=== PATIENT | male | born 1960 | race Caucasian/White ===

== ENCOUNTER 2019-02-07 05:52 | Emergency (ER) | payer OTHER ==
--- OUTSIDE RECORDS SUMMARY | 2019-02-07 05:56 | XMS REPORT ---
:1960 Author Organization eClinicalWorks Care Team Providers Name Role Phone Ajay Taylor Provider Role Unavailable Allergies No Known Allergies Problems Problem Type Condition Code Onset Dates Condition Status Problem Chronic back pain M54.9 Active Problem Hypertension I10 Active Problem Former smoker Z87.891 Active Problem Alcoholism /alcohol abuse F10.20 Active Problem Alcoholism F10.20 Active Problem Alcoholic cirrhosis of liver with K70.31 Active ascites Problem Atherosclerosis of [place] coronary I25.10 Active artery Problem Hyperlipidemia E78.5 Active Problem Chronic atrial fibrillation I48.2 Active Problem Chronic obstructive pulmonary J44.9 Active disease, unspecified COPD type Assessment Hypertension I10 Active Assessment Alcoholism /alcohol abuse F10.20 Active Assessment Hyperlipidemia E78.5 Active Problem H/O: CVA (cerebrovascular accident) Z86.73 Active Medications Medication Code Code Instructions Start End Date Status Dosage System Date Lactulose [facility] 53084890062 10 GM/15ML Jan 19, Active 15 ml Orally Once a 2019 day Zetia [facility] 65572744776 10 MG Active TAKE 1 TABLET BY MOUTH EVERY DAY Fenofibrate [facility] 84894540408 160 MG Orally Active 1 tablet Once a day with food Ultram [facility] 08345058341 50 MG Orally Active 1 tablet as every 6 hrs needed Plavix ND 46036139797 75 MG Orally Active 1 tablet Once a day Lisinopril-Hydr [facility] 97521661651 20-25 MG Orally Active 1 tablet ochlorothiazide Once a day ProAir [facility] 49717746761 108 (90 Base) October 19, Active 2 puffs as RespiClick MCG/ACT 2018 needed Inhalation every 6 hrs Fenofibrate [facility] 46296384405 145 MG Active TAKE 1 TABLET EVERY DAY Furosemide ND 84005387758 40 MG Orally Jan 19, Active 1 tablet Once a day 2018 Thiamine ND 17210128388 50 MG Orally Jan 19July Active 2 capsules Once a day 2018 Atorvastatin ND 95509310022 80 MG Orally Active 1 tablet Calcium Once a day Amiodarone HCl [facility] 71457245105 200 MG Orally Active 1 tablet Twice a day Symbicort [facility] 69253825768 160-4.5 MCG/ACT Active 2 puffs Inhalation Twice a day Results No Known Results Summary Purpose eClinicalWorks Submission
[2019-02-07] MEDS ORDERED: FENTANYL CITR 100 MCG/2 ML ONE (06:45)
[2019-02-07 07:17] LABS: Absolute Lymphocytes (CBC) 0.8 K/uL (0.7-4.9); Basophils % 0.7 % (0-1.3); Hematocrit 41.1 % (39.6-49.0); MPV 8.3 fL (7.6-11.3); RBC Red Blood Cell Count 4.31 M/uL (4.33-5.43)
[2019-02-07 07:30] LABS: Protime INR 0.86
[2019-02-07 07:55] LABS: ALT/SGPT 59 U/L (12-78); AST/SGOT 64 U/L (15-37); Albumin 3.9 g/dL (3.4-5.0); Alkaline Phosphatase 111 U/L (45-117); Amylase Level 96 U/L (25-115); BUN Blood Urea Nitrogen 11 mg/dL (7-18); Bicarbonate 23 mmol/L (21-32); Bilirubin Direct 0.1 mg/dL (0-0.2); Bilirubin Total 0.3 mg/dL (0.2-1.0); Glucose Level 110 mg/dL (74-106); Lipase 505 U/L (73-393); Potassium 4.2 mmol/L (3.5-5.1); Protein, Total 7.3 g/dL (6.4-8.2); Sodium Level 134 mmol/L (136-145)
--- NOTE | 2019-02-07 08:02 | RAD REPORT ---
EXAM DESCRIPTION: CT - Head C Spine Cap Wo Con - 02/07/2019 7:23 am TECHNIQUE: Computed axial tomography of the head and cervical spine was obtained. Coronal and sagitt al reconstruction was performed Computed axial tomography of the chest, abdomen and pelvis was obtained. Contrast was not requested. All CT scans are performed using dose optimization technique as appropriate and may include automated exposure control or mA/KV adjustment according to patient size. CLINICAL HISTORY: Head and neck injury with chest and abdominal pain status post fall FINDINGS: Air is present within the right orbit and right preseptal region. Blow-out fractures involve the medi al and inferior alvarez of the right orbit. An intracranial bleed is not seen. The ventricles are normal in caliber. An extra-axial fluid collection is not noted. . A cervical fracture is not seen. No dislocation is noted. The evaluation of mediastinum, mahi, vessels, solid organs and bowel are limited secondary to the lac k of contrast administration. A mediastinal hematoma is not noted. A pleural effusion is not seen. A lung contusion is not present. The liver,spleen, pancreas, adrenals,kidneys and bladder appear grossly normal. IMPRESSION: 1. No acute intracranial abnormality is seen. 2. A cervical fracture is not visualized. If the patient continues have symptoms to suggest intracran ial/spinal cord pathology MRI be recommended 3. No traumatic abnormality involving the chest/abdomen/pelvis. 4. Blow out fractures of the inferior and medial alvarez of the right orbit
--- NOTE | 2019-02-07 08:40 | RAD REPORT ---
EXAM DESCRIPTION: RAD - Foot Left 3 View - 02/07/2019 7:12 am CLINICAL HISTORY: Left Foot pain status post fall FINDINGS: No fracture or dislocation is seen.
[2019-02-07] MEDS ORDERED: CLINDAMYCIN 600MG/D5W 600 MG/50 ML BAG IV ONE (09:18)
[2019-02-07] MEDS ORDERED: MORPHINE 4 MG/ML SYR ONE (09:18)
[2019-02-07] MEDS ORDERED: DIPHENHYDRAMINE 50 MG/ML VIAL ONE (09:23)
--- NOTE | 2019-02-07 11:29 | ER ---
Nurse's Notes [facility] Name: Michael Ha Jr Age: 58 yrs Sex: Male : 1960 Arrival Date: 02/07/2019 Time: 05:54 Bed 19 Private MD: Diagnosis: Fall on same level from slipping, tripping and stumbling;Right Orbital blow out fracute -medial and inferior alvarez;Contusion of other part of head;Contusion of left foot;Alcohol abuse with intoxication;Clinical rib fracture Presentation: 02/07 05:55 Presenting complaint: EMS states: they were toned out for report of pt having fallen bb last night and the night before pt with ETOH on board pt states "I drink a lot" pt c/o right rib pain, edema to right eye, also dropped a large glass wine bottle on his left foot. Transition of care: patient was not received from another setting of care. Onset of symptoms was February 05, 2019. Risk Assessment: Do you want to hurt yourself or someone else? Patient reports no desire to harm self or others. Initial Sepsis Screen: Does the patient meet any 2 criteria? No. Patient's initial sepsis screen is negative. Does the patient have a suspected source of infection? No. Patient's initial sepsis screen is negative. Care prior to arrival: None. 05:55 Method Of Arrival: EMS: [facility] bb 05:55 Acuity: JOEY 3 bb Triage Assessment: 06:00 General: Appears in no apparent distress. uncomfortable, Behavior is calm, cooperative, cc3 appropriate for age. 06:00 Pain: Complains of pain in right rib. EENT: Eyes right eye swelling. 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 Full function Speech is normal, Facial symmetry appears normal, Pupils are PERRLA, Intact. Cardiovascular: Denies chest pain, Heart tones S1 S2 present Capillary refill < 3 seconds Patient's skin is warm and dry. Respiratory: Airway is patent Respiratory effort is even, unlabored, Respiratory pattern is regular, symmetrical. GI: Abdomen is round non-distended. : No signs and/or symptoms were reported regarding the genitourinary system. Derm: Skin is intact, is healthy with good turgor, Skin is pink, warm \\T\\ dry. normal. Musculoskeletal: Circulation, motion, and sensation intact. Range of motion: intact in all extremities. Historical: - Allergies: 05:58 PENICILLINS; bb - Home Meds: 05:58 unable to obtain [Active]; bb - PMHx: 05:58 Hypertension; Myocardial infarction; CVA; Deaf; CAD; bb - PSHx: 05:58 Heart stents; Carotid surgery; Hernia repair; bb - Immunization history:: Adult Immunizations unknown. - Social history:: Smoking status: unknown Patient uses alcohol, patient/guardian reports chronic longstanding heavy alcohol consumption. patient/guardian reports recent binge of alcohol consumption. - Ebola Screening: : No symptoms or risks identified at this time. Screenin:00 Abuse screen: Denies threats or abuse. Denies injuries from another. Nutritional cc3 screening: No deficits noted. Tuberculosis screening: No symptoms or risk factors identified. Fall Risk Ambulatory Aid- None/Bed Rest/Nurse Assist (0 pts). Gait- Normal/Bed Rest/Wheelchair (0 pts) Mental Status- Oriented to own ability (0 pts). Assessment: 06:00 General: see triage assessment. cc3 07:15 Reassessment: Patient appears in no apparent distress at this time. Patient and/or ph family updated on plan of care and expected duration. Pain level reassessed. Pt taken to CT via stretcher. 08:30 Reassessment: Patient appears in no apparent distress at this time. Patient and/or ph family updated on plan of care and expected duration. Pain level reassessed. Patient is alert, oriented x 3, equal unlabored respirations, skin warm/dry/pink. 09:15 Reassessment: Patient appears in no apparent distress at this time. Patient and/or ph family updated on plan of care and expected duration. Pain level reassessed. Patient is alert, oriented x 3, equal unlabored respirations, skin warm/dry/pink. 10:19 Reassessment: Patient appears in no apparent distress at this time. Patient and/or ph family updated on plan of care and expected duration. Pain level reassessed. Patient is alert, oriented x 3, equal unlabored respirations, skin warm/dry/pink. 10:47 Reassessment: Patient appears in no apparent distress at this time. Patient and/or ph family updated on plan of care and expected duration. Pain level reassessed. Patient is alert, oriented x 3, equal unlabored respirations, skin warm/dry/pink. Awaiting ride home, pt states, " I called my friend and he's going to finish eating and then come get me". 11:26 Reassessment: Patient appears in no apparent distress at this time. Patient and/or ph family updated on plan of care and expected duration. Pain level reassessed. Patient is alert, oriented x 3, equal unlabored respirations, skin warm/dry/pink. Pt d/c home w/ friend, instructed to follow up w/ ENT and PCP. Vital Signs: 05:58 BP 133 / 99; Pulse 56; Resp 16 S; Temp 98(O); Pulse Ox 100% on R/A; Weight 75.75 kg bb (R); Height 5 ft. 6 in. (167.64 cm) (R); Pain 10/10; 07:30 BP 147 / 85; Pulse 59; Resp 17; Temp 97.6(TE); Pulse Ox 99% ; mh5 08:30 BP 142 / 85; Pulse 61; Resp 18; Temp 97.5(TE); Pulse Ox 100% on 2 lpm NC; mh5 09:28 BP 147 / 84; Pulse 64; Resp 18; Temp 97.9(TE); Pulse Ox 98.% on 2 lpm NC; mh5 10:48 BP 134 / 79; Pulse 62; Resp 18; Temp 98.0; Pulse Ox 99% on 2 lpm NC; ph 05:58 Body Mass Index 26.95 (75.75 kg, 167.64 cm) bb ED Course: 05:54 Patient arrived in ED. ag3 05:56 Jannette Arellano is Primary Nurse. cc3 05:57 Triage completed. bb 05:58 Arm band placed on Patient placed in an exam room, on a stretcher, on pulse oximetry. bb 06:00 Patient has correct armband on for positive identification. Placed in gown. Bed in low cc3 position. Call light in reach. Side rails up X2. seo coordinator on. Pulse ox on. NIBP on. 06:07 [facility]eli Bobby F[facility]-C [facility]. snw 06:07 Sonu Garcia MD is Attending Physician. snw 06:54 Radiology exam delayed due to IV and labs being done at this time. kw1 07:00 Inserted saline lock: 20 gauge in right hand, using aseptic technique. Blood collected. cc3 inserted by LAUREEN Beach. 07:05 Report given to LAUREEN BORRERO. cc3 07:20 Anh Ledbetter RN is Primary Nurse. ph 07:37 CT Traumagram (Head C Spine CAP wo con) In Process Unspecified. EDMS 07:38 Foot Left 3 View XRAY In Process Unspecified. EDMS 10:23 Riana Alaniz MD is Referral Physician. snw 10:23 Ajay Taylor MD is Referral Physician. snw 10:48 No provider procedures requiring assistance completed. ph 11:27 IV discontinued, intact, bleeding controlled, No redness/swelling at site. Pressure ph dressing applied. Administered Medications: 07:05 Drug: fentaNYL (PF) 25 mcg Route: IVP; Site: right hand; cc3 07:30 Follow up: Response: No adverse reaction; Pain is decreased; RASS: Drowsy (-1) ph 09:15 Drug: morphine 4 mg Route: IVP; Site: right hand; ph 09:20 Follow up: Response: Adverse reaction, Physician notified ph 09:26 Drug: Clindamycin 600 mg Route: IVPB; Infused Over: 30 mins; Site: right hand; ph 10:00 Follow up: Response: No adverse reaction; IV Status: Completed infusion ph 09:26 Drug: Benadryl 12.5 mg Route: IVP; Site: right hand; ph 10:21 Follow up: Response: No adverse reaction ph Outcome: 10:23 Discharge ordered by MD. snw 11:27 Discharged to home via wheelchair, with friend. ph 11:27 Condition: good 11:27 Discharge instructions given to patient, Instructed on discharge instructions, follow up and referral plans. medication usage, Demonstrated understanding of instructions, follow-up care, medications, Prescriptions given X 2. 11:27 Patient left the ED. ph Signatures: Dispatcher [employer] EDMS Nayeli Bobby, ENGINEERING LIBRARIAN-C ENGINEERING LIBRARIAN-Csnw Criss Barboza RN RN bb Hall, Patricia, RN RN Sherly Johnson [facility] Allyssa Shoemaker kw1 Jannette Arellano cc3 Jurgen Veronica ag3
--- NOTE | 2019-02-07 11:30 | EDPHYS ---
Physician Documentation [facility] Name: Michael Ha Jr Age: 58 yrs Sex: Male : 1960 Arrival Date: 02/07/2019 Time: 05:54 Bed 19 Private MD: ED Physician Sonu Garcia HPI: 02/07 10:24 This 58 yrs old Male presents to ER via EMS with complaints of fall. snw 06:28 Trauma demographics: County: [place] injury occurred in [place] Location of Injury: The snw injury occurred at home, Date: February 06, 2019. Mechanism of injury: Fall: the patient fell from a standing position. Associated injuries: The patient sustained injury to the head, injury to the chest, left foot, painful injury, swelling. Onset: The symptoms/episode began/occurred suddenly, yesterday. It is unknown whether or not the patient has had similar symptoms in the past. It is unknown whether or not the patient has recently seen a physician. +ETOH abuse. Historical: - Allergies: 05:58 PENICILLINS; bb - Home Meds: 05:58 unable to obtain [Active]; bb - PMHx: 05:58 Hypertension; Myocardial infarction; CVA; Deaf; CAD; bb - PSHx: 05:58 Heart stents; Carotid surgery; Hernia repair; bb - Immunization history:: Adult Immunizations unknown. - Social history:: Smoking status: unknown Patient uses alcohol, patient/guardian reports chronic longstanding heavy alcohol consumption. patient/guardian reports recent binge of alcohol consumption. - Ebola Screening: : No symptoms or risks identified at this time. ROS: 06:28 ENT: Negative for injury, pain, and discharge, Neck: Negative for injury, pain, and snw swelling, Cardiovascular: Negative for chest pain, palpitations, and edema, Abdomen/GI: Negative for abdominal pain, nausea, vomiting, diarrhea, and constipation, Back: Negative for injury and pain, : Negative for injury, bleeding, discharge, and swelling, Skin: Negative for injury, rash, and discoloration, Neuro: Negative for headache, weakness, numbness, tingling, and seizure. 06:28 Constitutional: Positive for body aches, malaise. 06:28 Eyes: Positive for swelling, of the right upper eyelid, right outer canthus and right inner canthus. 06:28 Respiratory: Positive for pleurisy, of the right lateral anterior chest. 06:28 MS/extremity: Positive for injury or acute deformity, contusion, swelling, tenderness, of the dorsum of left foot. Exam: 06:28 ENT: Nares patent. No nasal discharge, no septal abnormalities noted. Tympanic snw membranes are normal and external auditory canals are clear. Oropharynx with no redness, swelling, or masses, exudates, or evidence of obstruction, uvula midline. Mucous membranes moist. 06:28 Neck: Trachea midline, no thyromegaly or masses palpated, and no cervical lymphadenopathy. Supple, full range of motion without nuchal rigidity, or vertebral point tenderness. No Meningismus. 06:28 Cardiovascular: Regular rate and rhythm with a normal S1 and S2. No gallops, murmurs, or rubs. Normal PMI, no JVD. No pulse deficits. 06:28 Abdomen/GI: Soft, non-tender, with normal bowel sounds. No distension or tympany. No guarding or rebound. No evidence of tenderness throughout. Back: No spinal tenderness. No costovertebral tenderness. Full range of motion. Skin: Warm, dry with normal turgor. Normal color with no rashes, no lesions, and no evidence of cellulitis. Neuro: Awake and alert, GCS 15, oriented to person, place, time, and situation. Cranial nerves II-XII grossly intact. Motor strength 5/5 in all extremities. Sensory grossly intact. Cerebellar exam normal. Normal gait. Psych: Awake, alert, with orientation to person, place and time. Behavior, mood, and affect are within normal limits. 06:28 Constitutional: The patient appears alert, awake, smells of alcohol, ETOH, unkempt. 06:28 Eyes: Periorbital structures: swelling, that is moderate, that is marked, on the right upper eyelid, medial canthus of right eye, lateral canthus of right eye and right lower eyelid, ecchymosis, that is moderate, Extraocular movements: no acute changes. 06:28 Chest/axilla: Inspection: normal, Palpation: tenderness, that is moderate, that is severe, of the right lateral anterior chest. 06:28 Respiratory: the patient does not display signs of respiratory distress, Respirations: shallow respirations, splinting, Breath sounds: wheezing: that is moderate, is heard diffusely, breath sounds more diminished on the right. 06:28 Musculoskeletal/extremity: ROM: limited passive range of motion due to pain, Circulation is intact in all extremities. the dorsum of left foot Sensation intact. Vital Signs: 05:58 BP 133 / 99; Pulse 56; Resp 16 S; Temp 98(O); Pulse Ox 100% on R/A; Weight 75.75 kg bb (R); Height 5 ft. 6 in. (167.64 cm) (R); Pain 10/10; 07:30 BP 147 / 85; Pulse 59; Resp 17; Temp 97.6(TE); Pulse Ox 99% ; mh5 08:30 BP 142 / 85; Pulse 61; Resp 18; Temp 97.5(TE); Pulse Ox 100% on 2 lpm NC; mh5 09:28 BP 147 / 84; Pulse 64; Resp 18; Temp 97.9(TE); Pulse Ox 98.% on 2 lpm NC; mh5 10:48 BP 134 / 79; Pulse 62; Resp 18; Temp 98.0; Pulse Ox 99% on 2 lpm NC; ph 05:58 Body Mass Index 26.95 (75.75 kg, 167.64 cm) bb MDM: 06:07 Patient medically screened. snw 10:23 Data reviewed: vital signs, nurses notes, EMS record, lab test result(s), radiologic snw studies. Data interpreted: Pulse oximetry: is 98 %. Interpretation: normal. Counseling: I had a detailed discussion with the patient and/or guardian regarding: the historical points, exam findings, and any diagnostic results supporting the discharge/admit diagnosis, the presence of at least one elevated blood pressure reading (>120/80) during this emergency department visit, lab results, radiology results, the need for outpatient follow up, to return to the emergency department if symptoms worsen or persist or if there are any questions or concerns that arise at home, smoking cessation. Response to treatment: the patient's symptoms have mildly improved after treatment. Special discussion: I have referred the patient to see his PCP for further evaluation of high blood pressure. Based on the patient's history, exam and DX evaluation, there is no indication for emergent intervention or inpatient TX. It is understood by the patient/guardian that if the SXs persist or worsen they need to return immediately for re-evaluation. I discussed in detail with the patient the higher chance of wound infection based on his presenting history. Based on the history and exam findings, there is no indication for further emergent testing or inpatient evaluation. I discussed with the patient/guardian the need to see the ENT specialist for further evaluation of the symptoms. I discussed with the patient/guardian the need to see the primary care provider for further evaluation of the symptoms. 02/07 06:22 Order name: Amylase, Serum snw 02/07 06:22 Order name: Basic Metabolic Panel snw 02/07 06:22 Order name: CBC with Diff snw 02/07 06:22 Order name: Creatinine for Radiology; Complete Time: 08:09 snw 02/07 06:22 Order name: ETOH Level snw 02/07 06:22 Order name: Hepatic Function snw 02/07 06:22 Order name: Lipase snw 02/07 06:22 Order name: Acetaminophen snw 02/07 06:22 Order name: PT-INR snw 02/07 06:22 Order name: Ptt, Activated snw 02/07 06:22 Order name: Salicylate snw 02/07 07:24 Order name: CBC with Automated Diff; Complete Time: 07:31 EDMS 02/07 06:22 Order name: CT Traumagram (Head C Spine CAP wo con); Complete Time: 08:36 snw 02/07 06:22 Order name: EKG - Nurse/Tech; Complete Time: 06:41 snw 02/07 06:22 Order name: IV Saline Lock; Complete Time: 07:04 snw 02/07 06:22 Order name: Labs collected and sent; Complete Time: 07:09 snw 02/07 06:22 Order name: NPO; Complete Time: 07:04 snw 02/07 06:22 Order name: Foot Left 3 View XRAY; Complete Time: 09:55 snw 02/07 06:36 Order name: INCENTIVE SPIROMETRY snw 02/07 07:34 Order name: Protime (+INR) EDMS 02/07 07:34 Order name: PTT, Activated Partial Thromb EDMS 02/07 09:48 Order name: EKG Electrocardiogram EDMS 02/07 06:22 Order name: O2 Per Protocol; Complete Time: 06:24 snw 02/07 06:22 Order name: O2 Sat Monitoring; Complete Time: 06:24 snw 02/07 06:23 Order name: Wound dressing; Complete Time: 09:47 snw 02/07 06:23 Order name: Wound Care; Complete Time: 07:03 snw Administered Medications: 07:05 Drug: fentaNYL (PF) 25 mcg Route: IVP; Site: right hand; cc3 07:30 Follow up: Response: No adverse reaction; Pain is decreased; RASS: Drowsy (-1) ph 09:15 Drug: morphine 4 mg Route: IVP; Site: right hand; ph 09:20 Follow up: Response: Adverse reaction, Physician notified ph 09:26 Drug: Clindamycin 600 mg Route: IVPB; Infused Over: 30 mins; Site: right hand; ph 10:00 Follow up: Response: No adverse reaction; IV Status: Completed infusion ph 09:26 Drug: Benadryl 12.5 mg Route: IVP; Site: right hand; ph 10:21 Follow up: Response: No adverse reaction ph Disposition: 02/07/19 10:23 Discharged to Home. Impression: Fall on same level from slipping, tripping and stumbling, Right Orbital blow out fracute -medial and inferior alvarez, Contusion of other part of head, Contusion of left foot, Alcohol abuse with intoxication, Clinical rib fracture. - Condition is Stable. - Discharge Instructions: Alcohol Intoxication, Contusion, Alcohol Use Disorder, Foot Sprain, Head Injury, Adult, Fall Prevention in the Home, Alcohol Abuse and Nutrition, Orbital Floor Fracture Without Entrapment. - Prescriptions for Clindamycin HCl 300 mg Oral Capsule - take 1 capsule by ORAL route every 8 hours for 10 days; 30 capsule. Tylenol- Codeine #3 300-30 mg Oral Tablet - take 2 tablets by ORAL route every 6 hours As needed; 16 tablet. - Medication Reconciliation Form, Thank You Letter, Antibiotic Education, Prescription Opioid Use form. - Follow up: Emergency Department; When: As needed; Reason: Worsening of condition. Follow up: Riana Alaniz; When: 5 - 6 days; Reason: Recheck today's complaints, Continuance of care, Re-evaluation by your physician. Follow up: Ajay Taylor; When: 2 - 3 days; Reason: Recheck today's complaints, Continuance of care, Re-evaluation by your physician. - Notes: No nose blowing until cleared by Dr. Alaniz/ENT Signatures: Dispatcher [employer] EDMS Nayeli Bobby, PRIVATE WEALTH ADVISOR-C PRIVATE WEALTH ADVISOR-Csnw Criss Barboza, RN RN Sherly Hernandez ms Anh Ledbetter RN RN Adan, Jannette cc3 Corrections: (The following items were deleted from the chart) 10:46 07:24 Labs - recollect needed ordered. ms iw 11:27 10:23 02/07/2019 10:23 Discharged to Home. Impression: Fall on same level from slipping, tripping and stumbling; Right Orbital blow out fracute -medial and inferior alvarez; Contusion of other part of head; Contusion of left foot; Alcohol abuse with intoxication; Clinical rib fracture. Condition is Stable. Discharge Instructions: Alcohol Intoxication, Contusion, Alcohol Use Disorder, Foot Sprain, Head Injury, Adult, Fall Prevention in the Home, Alcohol Abuse and Nutrition, Orbital Floor Fracture Without Entrapment. Prescriptions for Clindamycin HCl 300 mg Oral Capsule - take 1 capsule by ORAL route every 8 hours for 10 days; 30 capsule, Tylenol-Codeine #3 300-30 mg Oral Tablet - take 2 tablets by ORAL route every 6 hours As needed; 16 tablet. and Forms are Medication Reconciliation Form, Thank You Letter, Antibiotic Education, Prescription Opioid Use. Follow up: Emergency Department; When: As needed; Reason: Worsening of condition. Follow up: Riana Alaniz; When: 5 - 6 days; Reason: Recheck today's complaints, Continuance of care, Re-evaluation by your physician. Follow up: Ajay Taylor; When: 2 - 3 days; Reason: Recheck today's complaints, Continuance of care, Re-evaluation by your physician. snw
--- NOTE | 2019-02-07 11:32 | EKG ---
Test Date: 2019-02-07 Test Time: 06:36:27 Crystalizer Operator: ИВАН MEASUREMENT RESULTS: Intervals: Rate: 64 NV: 230 QRSD: 80 QT: 412 QTc: 425 [place]: P: 71 NV: 230 QRS: -18 T: 45 INTERPRETIVE STATEMENTS: Sinus rhythm with 1st degree AV block Low voltage QRS Cannot rule out Anterior infarct, age undetermined Abnormal ECG Compared to ECG 12/24/2016 09:19:10 Low QRS voltage now present Myocardial infarct finding now present Sinus bradycardia no longer present Right-axis deviation no longer present ST (T wave) deviation no longer present Electronically Signed On 02-07-19 11:30:41 CDT by Rivera Mason
[2019-02-07 12:04] VITALS: BP 134/79; TEMP 98; O2SAT 99
== END 2019-02-07 11:27 | disposition home or self-care (01) ==
LOC: ER 05:52
DX: S02.31XA Fracture of orbital floor, right side, initial encounter for closed fracture (principal); S22.39XA Fracture of one rib, unspecified side, initial encounter for closed fracture; S90.32XA Contusion of left foot, initial encounter; F10.129 Alcohol abuse with intoxication, unspecified; W01.0XXA Fall on same level from slipping, tripping and stumbling without subsequent striking against object, initial encounter; Y93.9 Activity, unspecified; Y92.9 Unspecified place or not applicable; Z88.0 Allergy status to penicillin; Z95.818 Presence of other cardiac implants and grafts; I10 Essential (primary) hypertension; I25.2 Old myocardial infarction
CPT/HCPCS: 96365; 93005; 85025; 80048; 36415; 80320; 82150; 80329 ×2; 85610; 80076; 85730; 83690; 70450; 71250; 72125; 73630; 96375; 99285; J3010

== ENCOUNTER 2019-02-21 07:20 | Emergency (ER) | payer OTHER ==
[2019-02-21] MEDS ORDERED: MORPHINE 4 MG/ML SYR ONE (07:56)
[2019-02-21] MEDS ORDERED: ONDANSETRON 4 MG/2 ML VIAL ONE (07:56)
[2019-02-21 08:36] LABS: Absolute Lymphocytes (CBC) 0.9 K/uL (0.7-4.9); Basophils % 0.6 % (0-1.3); Hematocrit 40.4 % (39.6-49.0); Lymphocytes % 15.4 % (15.3-44.8); MPV 7.8 fL (7.6-11.3); RBC Red Blood Cell Count 4.21 M/uL (4.33-5.43)
[2019-02-21 08:37] LABS: Protime INR 0.92
[2019-02-21 08:46] LABS: ALT/SGPT 34 U/L (12-78); AST/SGOT 36 U/L (15-37); Albumin 3.8 g/dL (3.4-5.0); Alkaline Phosphatase 116 U/L (45-117); BUN Blood Urea Nitrogen 11 mg/dL (7-18); Bicarbonate 28 mmol/L (21-32); Bilirubin Direct < 0.1 mg/dL (0-0.2); Bilirubin Total 0.4 mg/dL (0.2-1.0); Glucose Level 103 mg/dL (74-106); Potassium 4.3 mmol/L (3.5-5.1); Protein, Total 7.4 g/dL (6.4-8.2); Sodium Level 133 mmol/L (136-145); Troponin (Emerg Dept Use Only) < 0.02 ng/mL (0.0-0.045)
--- NOTE | 2019-02-21 14:02 | RAD REPORT ---
EXAM DESCRIPTION: RAD CHEST PA & LAT 2-VIEW CLINICAL HISTORY: Right side fall and chest pain. COMPARISON: 03/09/2018 TECHNIQUE: Two-view chest. FINDINGS: Several mildly displaced right sided rib lateral fractures are seen. Notable involving ribs number 5, 6 and 8. Underlying pneumothorax is not visualized by plain radiograph. Moderate levoscoliosis of the thoracolumbar spine is noted. The heart is normal in size. IMPRESSION: Multiple mildly displaced lateral right rib fractures.
--- NOTE | 2019-02-21 15:03 | ER ---
Nurse's Notes [facility] [place] Name: Michael Ha Jr Age: 58 yrs Sex: Male : 1960 Arrival Date: 02/21/2019 Time: 07:23 Bed External Waiting [facility] MD: Ajay Taylor Diagnosis: Multiple fractures of ribs, right side Presentation: 02/21 07:42 Presenting complaint: Patient states: i fell 2 weeks ago and am having bad RIGHT rib tw2 pain and also since then bright red blood in my stools, i need something for the pain and to help me go to sleep. Transition of care: patient was not received from another setting of care. Onset of symptoms was February 21, 2019. Risk Assessment: Do you want to hurt yourself or someone else? Patient reports no desire to harm self or others. Initial Sepsis Screen: Does the patient meet any 2 criteria? No. Patient's initial sepsis screen is negative. Does the patient have a suspected source of infection? No. Patient's initial sepsis screen is negative. Care prior to arrival: None. 07:42 Method Of Arrival: Ambulatory tw2 07:42 Acuity: JOEY 3 tw2 Historical: - Allergies: 19:19 PENICILLINS; tw2 - PMHx: 19:19 CAD; CVA; Deaf; Hypertension; Myocardial infarction; tw2 - Immunization history:: Adult Immunizations. - Social history:: Smoking status: . - Family history:: not pertinent. - Ebola Screening: : Patient denies travel to an Ebola-affected area in the 21 days before illness onset. - Hospitalizations: : No recent hospitalization is reported. Screenin:26 Abuse screen: Denies threats or abuse. Nutritional screening: No deficits noted. tw2 Tuberculosis screening: No symptoms or risk factors identified. Fall Risk None identified. Assessment: 07:35 General: Appears in no apparent distress. unkempt, Behavior is calm, cooperative, tw2 appropriate for age. Pain: Complains of pain in RIGHT rib area. Neuro: Level of Consciousness is awake, alert, obeys commands, Oriented to person, place, time, situation. Cardiovascular: Heart tones S1 S2 Patient's skin is warm and dry. Respiratory: Airway is patent Respiratory effort is even, unlabored, Respiratory pattern is regular, symmetrical, Breath sounds are clear bilaterally. GI: No signs and/or symptoms were reported involving the gastrointestinal system. Abdomen is round non-distended, Bowel sounds present X 4 quads. GI: Reports bloody stool. : No signs and/or symptoms were reported regarding the genitourinary system. EENT: No signs and/or symptoms were reported regarding the EENT system. Derm: No signs and/or symptoms reported regarding the dermatologic system. Musculoskeletal: Reports pain in RIGHT rib area. 08:00 Reassessment: pt given Zofran 4 mg IV and Morphine 4 mg IV at this time. tw2 08:24 Reassessment: No changes from previously documented assessment. Patient and/or family tw2 updated on plan of care and expected duration. Pain level reassessed. Patient is alert, oriented x 3, equal unlabored respirations, skin warm/dry/pink. 09:24 Reassessment: No changes from previously documented assessment. Patient and/or family tw2 updated on plan of care and expected duration. Pain level reassessed. Patient is alert, oriented x 3, equal unlabored respirations, skin warm/dry/pink. 10:38 Reassessment: Patient appears in no apparent distress at this time. No changes from tw2 previously documented assessment. Patient and/or family updated on plan of care and expected duration. Pain level reassessed. Patient is alert, oriented x 3, equal unlabored respirations, skin warm/dry/pink. 10:39 Reassessment: pt states pain medicine has helped, RASS 0. tw2 11:08 Reassessment: Patient appears in no apparent distress at this time. Patient and/or tw2 family updated on plan of care and expected duration. Pain level reassessed. Patient is alert, oriented x 3, equal unlabored respirations, skin warm/dry/pink. Vital Signs: 07:43 BP 147 / 90; Pulse 71; Resp 18; Temp 97.9(TE); Pulse Ox 98% on R/A; Weight 77.11 kg tw2 (R); Height 5 ft. 6 in. (167.64 cm); Pain 1010; 08:24 BP 163 / 101; Pulse 74; Resp 17; Pulse Ox 98% on R/A; tw2 09:24 BP 143 / 91; Pulse 68; Resp 17; Pulse Ox 98% on R/A; tw2 10:38 BP 147 / 85; Pulse 75; Resp 17; Pulse Ox 99% on R/A; tw2 11:08 BP 145 / 88; Pulse 74; Resp 17; Pulse Ox 98% on R/A; tw2 07:43 Body Mass Index 27.44 (77.11 kg, 167.64 cm) tw2 ED Course: 07:23 Patient arrived in ED. as 07:23 Ajay Taylor MD is Private Physician. as 07:35 Bed in low position. Call light in reach. tw2 07:37 Alejandra Barakat RN is Primary Nurse. tw2 07:43 Triage completed. tw2 07:43 Sonu Garcia MD is Attending Physician. rn 07:43 Arm band placed on. tw2 07:58 Inserted saline lock: 22 gauge in right forearm, using aseptic technique. Blood tw2 collected. 10:58 Ajay Taylor MD is Referral Physician. rn 11:21 No provider procedures requiring assistance completed. IV discontinued, intact, tw2 bleeding controlled, No redness/swelling at site. Pressure dressing applied. Administered Medications: No medications were administered Outcome: 10:58 Discharge ordered by . rn 11:20 Discharged to home via wheelchair. tw2 11:20 Condition: stable 11:20 Discharge instructions given to patient, Instructed on discharge instructions, follow up and referral plans. no drinking with medication, no driving heavy equipment, medication usage, Incentive spirometer Demonstrated understanding of instructions, follow-up care, medications, incentive spirometer use 10x each hour pt is awake Prescriptions given X 2. 11:20 Patient left the ED. iw Signatures: Cathryn Johnson Irene, RN RN iw Sonu Garcia MD MD rn Wise, Tara, RN RN tw2 Corrections: (The following items were deleted from the chart) 13:59 13:58 Patient left the ED. iw iw
--- NOTE | 2019-02-21 15:03 | EDPHYS ---
Physician Documentation [facility] Name: Michael Ha Jr Age: 58 yrs Sex: Male : 1960 Arrival Date: 02/21/2019 Time: 07:23 Bed External Waiting Private MD: Ajay Taylor ED Physician Sonu Garcia HPI: 02/21 07:53 This 58 yrs old Male presents to ER via Ambulatory with complaints of Rib rn Pain, Rectal Bleeding. 07:54 The patient or guardian reports chest pain that is located primarily in the anterior rn chest wall. Onset: The symptoms/episode began/occurred 2 week(s) ago. The pain does not radiate. Associated signs and symptoms: Pertinent positives: None. Pertinent negatives: abdominal pain, diaphoresis, lower extremity swelling, palpitations, shortness of breath, syncope, vomiting. The chest pain is described as sharp, stabbing. Duration: The patient or guardian reports multiple episodes, that are intermittent. Modifying factors: The symptoms are alleviated by nothing. the symptoms are aggravated by deep breath, movement, palpation of area. Severity of pain: At its worst the pain was moderate in the emergency department the pain is unchanged. The patient has not experienced similar symptoms in the past. REports fell 2 weeks ago, struck right side of chest on table, has had pain since then, seen here and states negative imaging, no broken rib or injured lung. No fever. NO new cough. No new trauma. Reports ran out of tylenol#3 and pain is getting worse because of that. Also reports small amount of rectal bleeding, bright red, with bowel movements and when wiping. On blood thinner. . Historical: - Allergies: 19:19 PENICILLINS; tw2 - PMHx: 19:19 CAD; CVA; Deaf; Hypertension; Myocardial infarction; tw2 - Immunization history:: Adult Immunizations. - Social history:: Smoking status: . - Family history:: not pertinent. - Ebola Screening: : Patient denies travel to an Ebola-affected area in the 21 days before illness onset. - Hospitalizations: : No recent hospitalization is reported. ROS: 07:56 Constitutional: Negative for fever, chills, and weight loss, Eyes: Negative for injury, rn pain, redness, and discharge, Neck: Negative for injury, pain, and swelling, Cardiovascular: Negative for palpitations, and edema, Respiratory: Negative for shortness of breath, wheezing Abdomen/GI: Negative for abdominal pain, nausea, vomiting, diarrhea, and constipation, MS/Extremity: Negative for injury and deformity, Skin: Negative for injury, rash, and discoloration, Neuro: Negative for headache, weakness, numbness, tingling, and seizure. Exam: 07:56 Constitutional: This is a well developed, well nourished patient who is awake, alert, rn holding right side of chest Head/Face: Normocephalic, atraumatic. ENT: MMM Cardiovascular: Regular rate and rhythm. No pulse deficits. Respiratory: Diminished breath sounds right lung base, no wheezing Abdomen/GI: soft, non-tender, non-distended MS/ Extremity: Pulses equal, no cyanosis. Neurovascular intact. Full, normal range of motion. Equal circumference. Neuro: Awake and alert, GCS 15, oriented to person, place, time, and situation. Cranial nerves II-XII grossly intact. 08:17 ECG was reviewed by the Attending Physician. rn Vital Signs: 07:43 BP 147 / 90; Pulse 71; Resp 18; Temp 97.9(TE); Pulse Ox 98% on R/A; Weight 77.11 kg tw2 (R); Height 5 ft. 6 in. (167.64 cm); Pain 10/10; 08:24 BP 163 / 101; Pulse 74; Resp 17; Pulse Ox 98% on R/A; tw2 09:24 BP 143 / 91; Pulse 68; Resp 17; Pulse Ox 98% on R/A; tw2 10:38 BP 147 / 85; Pulse 75; Resp 17; Pulse Ox 99% on R/A; tw2 11:08 BP 145 / 88; Pulse 74; Resp 17; Pulse Ox 98% on R/A; tw2 07:43 Body Mass Index 27.44 (77.11 kg, 167.64 cm) tw2 MDM: 07:43 Patient medically screened. rn 10:56 Differential diagnosis: Chest Wall Contusion Chest Wall Injury Pneumothorax Rib rn Fracture. Data reviewed: vital signs, nurses notes, lab test result(s), EKG, radiologic studies, CT scan, plain films, and as a result, I will discharge patient. Counseling: I had a detailed discussion with the patient and/or guardian regarding: the historical points, exam findings, and any diagnostic results supporting the discharge/admit diagnosis, lab results, radiology results, the need for outpatient follow up, to return to the emergency department if symptoms worsen or persist or if there are any questions or concerns that arise at home. Response to treatment: the patient's symptoms have mildly improved after treatment, and as a result, I will discharge patient. Special discussion: Based on the patient's history, exam, and Dx evaluation, there is no indication for emergent intervention or inpatient Tx. It is understood by the patient/guardian that if the Sx's persist or worsen they need to return immediately for re-evaluation. I discussed with the patient/guardian in detail that at this point there is no indication for admission to the hospital. It is understood, however, that if the symptoms persist or worsen the patient needs to return immediately for re-evaluation. ED course: Pt improved, 2 week old injury with multiple rib fractures, no acute findings on ct abdomen to explain rectal bleeding, normal hemoglobin, normal BP, will dc home with pcp f/u. Return precautions given rectal bleeding, told him to avoid NSAIDs and OTC meds for pain given already on blood thinners. . EC:17 Rate is 71 beats/min. Rhythm is regular. QRS [place] is Normal. DE interval is normal. QRS rn interval is normal. QT interval is normal. No Q waves. T waves are Normal. No ST changes noted. Clinical impression: NSR w/ Non-specific ST/T Changes. Interpreted by me. Reviewed by me. Administered Medications: No medications were administered Disposition: 02/21/19 10:58 Discharged to Home. Impression: Multiple fractures of ribs, right side. - Condition is Stable. - Discharge Instructions: Gastrointestinal Bleeding, Rib Fracture. - Prescriptions for Tylenol- Codeine #3 300-30 mg Oral Tablet - take 1 tablet by ORAL route every 6 hours As needed; 20 tablet. Cyclobenzaprine 10 mg Oral Tablet - take 1 tablet by ORAL route every 8 hours As needed; 20 tablet. - Medication Reconciliation Form, Thank You Letter, Antibiotic Education, Prescription Opioid Use form. - Follow up: Ajay Taylor MD; When: 1 - 2 days; Reason: Recheck today's complaints, Re-evaluation by your physician. - Problem is an ongoing problem. - Symptoms have improved. Signatures: Nicky Alcantara RN RN iw Sonu Garcia MD MD rn Wise, Tara, RN RN tw2 Corrections: (The following items were deleted from the chart) 13:58 10:58 02/21/2019 10:58 Discharged to Home. Impression: Multiple fractures of ribs, iw right side. Condition is Stable. Forms are Medication Reconciliation Form, Thank You Letter, Antibiotic Education, Prescription Opioid Use. Follow up: Ajay Taylor; When: 1 - 2 days; Reason: Recheck today's complaints, Re-evaluation by your physician. Problem is an ongoing problem. Symptoms have improved. rn
[2019-02-21 16:17] VITALS: TEMP 97.9
[2019-02-21 16:23] VITALS: BP 145/88; O2SAT 98
--- NOTE | 2019-02-22 07:29 | EKG ---
Test Date: 2019-02-21 Test Time: 08:00:34 Tobacco Drummer: SHARATH MEASUREMENT RESULTS: Intervals: Rate: 71 PA: 192 QRSD: 86 QT: 396 QTc: 430 [place]: P: 56 PA: 192 QRS: -29 T: 31 INTERPRETIVE STATEMENTS: Normal sinus rhythm Septal infarct, age undetermined Abnormal ECG Compared to ECG 02/07/2019 06:36:27 First degree AV block no longer present Myocardial infarct finding still present Electronically Signed On 02-22-19 07:28:31 CDT by Desmond Graham
--- NOTE | 2019-02-23 13:21 | RAD REPORT ---
EXAM DESCRIPTION: CT ABDOMEN & PELVIS COMPLETE CLINICAL HISTORY: Fall two weeks earlier, rib pain, abdominal pain, bloody stools. COMPARISON: Two view chest examination February 21, 2019 TECHNIQUE: Axial biphasic 5 mm thick imaging of the abdomen and pelvis was performed following 100 milliliters non ionic IV contrast. No oral contrast was administered. This exam was performed according to our departmental dose-optimization program, which includes automated exposure control, adjustment of the mA and/or kV according to patient size and/or use of iterative reconstruction technique. FINDINGS: Images of the lower lung bases show non-displaced fractures of the posterior lateral right 8th, 9th and 10th ribs. This examination is not a full evaluation of the rib cage. There is no pneumothorax in the right lung base and no significant pleural fluid collection. The liver, spleen, pancreas, gallbladder and biliary tree show no suspicious findings. Gallstones can be occult on CT imaging. Benign calcification is seen in the liver. There are two very small sub-centimeter hypodense areas believed to be incidental cysts. Slight adrenal gland fullness is present bilaterally. These changes are not regarded as suspicious. Symmetric renal function is present with no acute finding. No hydronephrosis. Partially filled urinary bladder shows thickening of the wall along the left dome. This is not a traumatic injury. Follow-up consultation and cystoscopy will likely be needed to evaluate for possible bladder wall mass. No traumatic injury to the bowel. No acute GI finding is seen. No abnormality is seen to explain the provided history of bloody stools. No free air, free fluid or inflammatory stranding. No other significant bone finding is identifiable. Degenerative changes are present in the lower lumbar spine. Dense for age arterial calcifications are present. No acute finding. IMPRESSIOON: 1. Non-displaced fractures of the posterior lateral right 8th, 9th and 10th ribs. This is not a complete rib assessment. No pneumothorax. 2. No injury to the solid abdominal viscera or bowel. No fluid, stranding or other evidence for traumatic injury. 3. Sessile thickening of the superior left urinary bladder wall warranting follow-up for possible cystoscopy and mass evaluation. 4. 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 The findings were telephoned to the emergency department at 10:35 AM.
== END 2019-02-21 13:58 | disposition home or self-care (01) ==
LOC: ER 07:20
DX: S22.41XA Multiple fractures of ribs, right side, initial encounter for closed fracture (principal); W19.XXXA Unspecified fall, initial encounter; I10 Essential (primary) hypertension; I25.2 Old myocardial infarction; Z88.0 Allergy status to penicillin
CPT/HCPCS: 93005; 85025; 80048; 36415; 85610; 80076; 85730; 84484; 74177; 71046; 99283; Q9967; J2405

== ENCOUNTER 2019-04-01 13:13 | Observation (INO) | payer OTHER ==
[2019-04-01] MEDS ORDERED: NITROGLYCERIN 0.4 MG/TAB SL ONE (13:40)
[2019-04-01] MEDS ORDERED: ASPIRIN 81 MG CHEWABLE TABLET ONE (13:40)
[2019-04-01 14:00] LABS: Absolute Lymphocytes (CBC) 0.9 K/uL (0.7-4.9); Hematocrit 36.7 % (39.6-49.0); Lymphocytes % 18.3 % (15.3-44.8); MPV 8.8 fL (7.6-11.3); RBC Red Blood Cell Count 3.84 M/uL (4.33-5.43)
[2019-04-01 14:11] LABS: ALT/SGPT 39 U/L (12-78); AST/SGOT 36 U/L (15-37); Albumin 3.6 g/dL (3.4-5.0); Alkaline Phosphatase 119 U/L (45-117); BUN Blood Urea Nitrogen 15 mg/dL (7-18); Bicarbonate 28 mmol/L (21-32); Bilirubin Direct < 0.1 mg/dL (0-0.2); Bilirubin Total 0.4 mg/dL (0.2-1.0); Glucose Level 95 mg/dL (74-106); Magnesium 2.1 mg/dL (1.8-2.4); NT PRO-BNP 19 pg/mL (<125); Potassium 4.3 mmol/L (3.5-5.1); Protein, Total 6.8 g/dL (6.4-8.2); Sodium Level 133 mmol/L (136-145); Troponin (Emerg Dept Use Only) < 0.02 ng/mL (0.0-0.045)
[2019-04-01 14:13] LABS: Protime INR 0.93
--- NOTE | 2019-04-01 14:18 | RAD REPORT ---
EXAM DESCRIPTION: RAD - Chest Single View - 04/01/2019 2:05 pm CLINICAL HISTORY: Intermittent chest pain COMPARISON: February 21 TECHNIQUE: AP portable chest image was obtained 1359 hours . FINDINGS: Lung volumes are low compared to prior study. No dense consolidation or mass. Interstitial pattern is not substantially different when adjusting for inspiratory effort. Minimal edema or infil trate could be masked. Heart size is normal. Mediastinum is distorted by rotation. No significant zackary lure or volume overload. No measurable pleural effusion and no pneumothorax. No acute bone finding. O ld rib fracture changes on the right noted. No acute aortic findings suspected. IMPRESSION: Shallow inspiration exam not substantially different from February 21. Minimal interstitial edema or infiltrate could be masked by the shallow inspiration.
--- NOTE | 2019-04-01 14:56 | ER ---
Nurse's Notes [facility] Name: Michael Ha Jr Age: 58 yrs Sex: Male : 1960 Arrival Date: 04/01/2019 Time: 13:18 Bed 28 Private MD: Diagnosis: Chest pain, unspecified Presentation: 04/01 13:18 Presenting complaint: Patient states: intermittent chest pain that began today at 1200. aa5 Pt also c/o dizziness and nausea. Reports hx of TN and cardiac stents. 13:18 Transition of care: patient was not received from another setting of care. Onset of aa5 symptoms was April 01, 2019. Risk Assessment: Do you want to hurt yourself or someone else? Patient reports no desire to harm self or others. Initial Sepsis Screen: Does the patient meet any 2 criteria? No. Patient's initial sepsis screen is negative. Does the patient have a suspected source of infection? No. Patient's initial sepsis screen is negative. Care prior to arrival: None. 13:18 Acuity: JOEY 2 aa5 13:18 Method Of Arrival: EMS: [facility] aa5 Historical: - Allergies: 13:19 PENICILLINS; aa5 - PMHx: 13:19 CAD; CVA; Hypertension; Myocardial infarction; aa5 - PSHx: 13:19 cardiac stents; aa5 - Immunization history:: Adult Immunizations up to date. - Ebola Screening: : No symptoms or risks identified at this time. - Social history:: Smoking status: Patient/guardian denies using tobacco. Screenin:49 Abuse screen: Denies injuries from another. Nutritional screening: No deficits noted. la1 Tuberculosis screening: No symptoms or risk factors identified. Fall Risk None identified. Assessment: 13:48 General: Appears in no apparent distress. Behavior is calm, cooperative. Pain: la1 Complains of pain in anterior aspect of left upper chest and mid-sternal area Pain does not radiate. Pain currently is 7 out of 10 on a pain scale. Quality of pain is described as pressure, Pain began 2 hours ago. Neuro: Level of Consciousness is awake, alert, obeys commands, Oriented to person, place, time, situation. Cardiovascular: Heart tones S1 S2 present Capillary refill < 3 seconds Patient's skin is warm and dry. Edema is absent. Rhythm is sinus rhythm. Respiratory: Airway is patent Respiratory effort is even, unlabored, Respiratory pattern is regular, symmetrical, Breath sounds are clear bilaterally. GI: No signs and/or symptoms were reported involving the gastrointestinal system. : No signs and/or symptoms were reported regarding the genitourinary system. 14:39 Reassessment: Patient appears in no apparent distress at this time. No changes from la1 previously documented assessment. Patient and/or family updated on plan of care and expected duration. Pain level reassessed. Patient is alert, oriented x 3, equal unlabored respirations, skin warm/dry/pink. Patient states symptoms have improved. 16:00 Reassessment: Patient appears in no apparent distress at this time. Patient and/or tr5 family updated on plan of care and expected duration. Pain level reassessed. Patient is alert, oriented x 3, equal unlabored respirations, skin warm/dry/pink. Vital Signs: 13:19 BP 149 / 90; Pulse 72; Resp 16 S; Pulse Ox 98% on R/A; aa5 14:38 BP 128 / 80; Pulse 75; Resp 16; Temp 98; Pulse Ox 100% on R/A; la1 16:00 BP 152 / 95; Pulse 84; Resp 19; Pulse Ox 97% on Nebulizer Mask; tr5 ED Course: 13:18 Patient arrived in ED. aa5 13:19 Arm band placed on. aa5 13:20 Triage completed. aa5 13:21 Adryan Fink, RN is Primary Nurse. la1 13:30 Missed attempt(s): 20 gauge in right antecubital area. Bleeding controlled, band aid jp3 applied, catheter tip intact. 13:32 Eliud Layton PA is PHCP. [facility] 13:32 Jimy Tellez MD is Attending Physician. jim 13:32 EKG done, by gi tech. reviewed by Jimy Tellez MD. sm3 13:32 Missed attempt(s): 22 gauge in left antecubital area. Bleeding controlled, band aid jp3 applied, catheter tip intact. Patient maintains SpO2 saturation greater than 95% on room air. 13:37 Placed in gown. Bed in low position. Call light in reach. Side rails up X 1. Warm jp3 blanket given. Verbal reassurance given. phototypesetting equipment monitor on. Pulse ox on. NIBP on. 13:38 Troponin (emerg Dept Use Only) Sent. jp3 13:38 PT-INR Sent. jp3 13:38 NT PRO-BNP Sent. jp3 13:38 Magnesium Sent. jp3 13:38 Basic Metabolic Panel Sent. jp3 13:38 CBC with Diff Sent. jp3 13:39 LFT's Sent. jp3 13:39 PT-INR Sent. jp3 13:39 Troponin (emerg Dept Use Only) Sent. jp3 13:48 No provider procedures requiring assistance completed. Inserted saline lock: 20 gauge la1 in left antecubital area, using aseptic technique. Blood collected. 14:06 XRAY Chest (1 view) In Process Unspecified. EDMS 14:55 Herson Hou is Hospitalizing Provider. jmm 15:07 Clayton Smith DO is Hospitalizing Provider. jmm 15:37 CT completed. Patient tolerated procedure well. Patient moved to CT. Patient moved back ne from [place]. 17:52 Patient admitted, IV remains in place. tr5 Administered Medications: 13:46 Drug: Nitroglycerin 0.4 mg Route: Sublingual; la1 13:46 Drug: Aspirin Chewable Tablet 324 mg Route: PO; la1 15:57 Drug: SOLU-Medrol 125 mg Route: IVP; Site: left antecubital; tr5 16:50 Follow up: Response: Marked relief of symptoms tr5 15:59 Drug: Albuterol 2.5 mg Route: Inhalation; tr5 16:20 Drug: Albuterol 2.5 mg Route: Inhalation; tr5 16:40 Drug: Albuterol 2.5 mg Route: Inhalation; tr5 Outcome: 14:55 Decision to Hospitalize by Provider. [facility] 17:52 Discharged to home ambulatory. tr5 17:52 Condition: stable 17:52 Instructed on the need for admit. 17:52 Patient left the ED. tr5 Signatures: Dispatcher [employer] EDMS Eliud Layton PA PA jmm Calderon, Audri, RN RN aa5 Adryan Fink RN RN la1 Danis Ugarte Shakira 3 Miguel Rogers jp3 Nacho Johns RN RN tr5
--- NOTE | 2019-04-01 14:57 | EDPHYS ---
Physician Documentation [facility] Name: Michael Ha Jr Age: 58 yrs Sex: Male : 1960 Arrival Date: 04/01/2019 Time: 13:18 Bed 28 Private MD: ED Physician Jimy Tellez HPI: 04/01 14:10 This 58 yrs old Male presents to ER via EMS with complaints of Chest Pain. [facility] 14:10 The patient or guardian reports chest pain that is located primarily in the substernal [facility] area. Onset: gradually, at 12:30. The pain radiates to Associated signs and symptoms: Pertinent positives: dizziness, shortness of breath. The chest pain is described as a pressure. Duration: The patient or guardian reports multiple episodes, the episodes last approximately 1 minute(s). Modifying factors: The symptoms are alleviated by nothing. the symptoms are aggravated by nothing. This is a 58 year old male with a history of CAD, CVA that presents to the ED with complaints of intermittent chest pain which chest pressure beginning today at approx 1230 pm. . Historical: - Allergies: 13:19 PENICILLINS; aa5 - PMHx: 13:19 CAD; CVA; Hypertension; Myocardial infarction; aa5 - PSHx: 13:19 cardiac stents; aa5 - Immunization history:: Adult Immunizations up to date. - Ebola Screening: : No symptoms or risks identified at this time. - Social history:: Smoking status: Patient/guardian denies using tobacco. ROS: 14:10 Constitutional: Negative for fever, chills, and weight loss. jm 14:10 Respiratory: Negative for shortness of breath, cough, wheezing, and pleuritic chest pain, Abdomen/GI: Negative for abdominal pain, nausea, vomiting, diarrhea, and constipation, Back: Negative for injury and pain. 14:10 Cardiovascular: Positive for chest pain. 14:10 Respiratory: 14:10 Neuro: Positive for dizziness. 14:10 All other systems are negative. Exam: 14:10 Constitutional: This is a well developed, well nourished patient who is awake, alert, jmm and in no acute distress. Head/Face: atraumatic. Eyes: EOMI, no conjunctival erythema appreciated ENT: Moist Mucus Membranes Neck: Trachea midline, Supple Chest/axilla: Normal chest wall appearance and motion. 14:10 Abdomen/GI: Non distended, soft Back: Normal ROM Skin: General appearance color normal MS/ Extremity: Moves all extremities, no obvious deformities appreciated, no edema noted to the lower extremities Neuro: Awake and alert, normal gait Psych: Behavior is normal, Mood is normal, Patient is cooperative and pleasant 14:10 Cardiovascular: Rate: normal, Rhythm: regular, Pulses: no pulse deficits are appreciated. Vital Signs: 13:19 BP 149 / 90; Pulse 72; Resp 16 S; Pulse Ox 98% on R/A; aa5 14:38 BP 128 / 80; Pulse 75; Resp 16; Temp 98; Pulse Ox 100% on R/A; la1 16:00 BP 152 / 95; Pulse 84; Resp 19; Pulse Ox 97% on Nebulizer Mask; tr5 MDM: 13:45 Patient medically screened. candida 14:55 The patient was given aspirin in the Emergency Department. Data reviewed: vital signs, m nurses notes, lab test result(s), EKG, radiologic studies. ED course: I discussed the patient with Dr. Smith whom accepted admission. . 04/01 13:36 Order name: Basic Metabolic Panel; Complete Time: 14:16 04/01 13:36 Order name: CBC with Diff; Complete Time: 14:04 04/01 13:36 Order name: LFT's; Complete Time: 14:16 04/01 13:36 Order name: Magnesium; Complete Time: 14:16 04/01 13:36 Order name: NT PRO-BNP; Complete Time: 14:16 04/01 13:36 Order name: PT-INR; Complete Time: 14:16 04/01 13:36 Order name: Troponin (emerg Dept Use Only); Complete Time: 14:16 04/01 13:36 Order name: XRAY Chest (1 view); Complete Time: 14:32 04/01 13:36 Order name: EKG; Complete Time: 13:37 04/01 13:36 Order name: Cardiac monitoring; Complete Time: 13:38 04/01 13:36 Order name: EKG - Nurse/Tech; Complete Time: 13:38 04/01 13:36 Order name: IV Saline Lock; Complete Time: 13:38 04/01 13:36 Order name: Labs collected and sent; Complete Time: 13:42 [facility] 04/01 13:36 Order name: O2 Per Protocol; Complete Time: 13:42 [facility] 04/01 13:36 Order name: O2 Sat Monitoring; Complete Time: 13:43 [facility] 04/01 13:42 Order name: EKG; Complete Time: 13:46 [facility] 04/01 15:16 Order name: CT Aorta for Dissection [facility] 04/01 16:04 Order name: CT; Complete Time: 16:05 [facility] 04/01 13:42 Order name: Cardiac monitoring; Complete Time: 13:46 [facility] 04/01 13:42 Order name: EKG - Nurse/Tech; Complete Time: 13:46 [facility] 04/01 13:42 Order name: IV Saline Lock; Complete Time: 13:46 [facility] 04/01 13:42 Order name: Labs collected and sent; Complete Time: 13:46 [facility] 04/01 13:42 Order name: O2 Per Protocol; Complete Time: 13:46 [facility] 04/01 13:42 Order name: O2 Sat Monitoring; Complete Time: 13:46 [facility] Administered Medications: 13:46 Drug: Nitroglycerin 0.4 mg Route: Sublingual; la1 13:46 Drug: Aspirin Chewable Tablet 324 mg Route: PO; la1 15:57 Drug: SOLU-Medrol 125 mg Route: IVP; Site: left antecubital; tr5 16:50 Follow up: Response: Marked relief of symptoms tr5 15:59 Drug: Albuterol 2.5 mg Route: Inhalation; tr5 16:20 Drug: Albuterol 2.5 mg Route: Inhalation; tr5 16:40 Drug: Albuterol 2.5 mg Route: Inhalation; tr5 Disposition: 04/01/19 14:55 Hospitalization ordered by Clayton Smith for Observation. Preliminary diagnosis is Chest pain, unspecified. - Bed requested for Telemetry/MedSurg (Inpatient). - Status is Observation. tr5 - Condition is Stable. - Problem is an acute exacerbation. - Symptoms have improved. UTI on Admission? No Addendum: 04/03/2019 13:15 Co-signature as Attending Physician, Jimy Tellez MD I agree with the assessment and c coelho plan of care. Signatures: Dispatcher [employer] EDMS Jimy Tellez MD MD cha Mickail, Joel, PA PA [facility] Altagracia Fisher, RN RN aa5 Adryan Fink, RN RN la1 Makayla Zhang Tommie, RN RN tr5 Corrections: (The following items were deleted from the chart) 04/01 13:52 13:45 BASIC METABOLIC PANEL+C.LAB.BRZ ordered. EDNY EDNY 13:52 13:45 CBC+H.LAB.BRZ ordered. EDNY EDMS 13:52 13:45 HEPATIC FUNCTION+C.LAB.BRZ ordered. EDNY EDMS 13:52 13:45 MAGNESIUM+C.LAB.BRZ ordered. EDNY EDMS 13:52 13:45 PROBNP+C.LAB.BRZ ordered. EDNY EDNY 13:52 13:45 PROTIME (+INR)+COAG.LAB.BRZ ordered. EDNY EDMS 13:52 13:45 TROPONIN (EMERG DEPT USE ONLY)+C.LAB.BRZ ordered. EDNY EDNY 14:06 13:46 Chest Single View+RAD.RAD.BRZ ordered. [facility] EDNY 15:07 14:55 Hospitalization Ordered by Herson Hou for Observation. Preliminary diagnosis jm is Chest pain, unspecified. Bed requested for Telemetry/MedSurg (observation). Status is Observation. Condition is Stable. Problem is an acute exacerbation. Symptoms have improved. UTI on Admission? No. [facility] 15:34 14:55 ED course: I discussed the patient with Dr. Hou whom accepted admission. . [facility] 16:37 15:07 04/01/2019 14:55 Hospitalization Ordered by Clayton Smith DO for Observation. eb Preliminary diagnosis is Chest pain, unspecified. Bed requested for Telemetry/MedSurg (observation). Status is Observation. Condition is Stable. Problem is an acute exacerbation. Symptoms have improved. UTI on Admission? No. [facility] 16:56 16:37 04/01/2019 14:55 Hospitalization Ordered by Clayton Smith DO for Observation. eb Preliminary diagnosis is Chest pain, unspecified. Bed requested for [facility] ER HOLD. Status is Observation. Condition is Stable. Problem is an acute exacerbation. Symptoms have improved. UTI on Admission? No. eb 17:52 16:56 04/01/2019 14:55 Hospitalization Ordered by Clayton Smith DO for Observation. tr5 Preliminary diagnosis is Chest pain, unspecified. Bed requested for Telemetry/MedSurg (Inpatient). Status is Observation. Condition is Stable. Problem is an acute exacerbation. Symptoms have improved. UTI on Admission? No. eb
[2019-04-01] MEDS ORDERED: METHYLPREDNISOLONE 125 MG INJ ONE (15:23)
[2019-04-01] MEDS ORDERED: ALBUTEROL 2.5 MG/3 ML NEB SOL ONE ×2 (15:23→16:53)
--- NOTE | 2019-04-01 15:49 | RAD REPORT ---
EXAM DESCRIPTION: CT - Angio Aorta For Dissection - 04/01/2019 3:37 pm CLINICAL HISTORY: Chest pain radiating to the back. chest pain, shortness of breath COMPARISON: <Comparisons> TECHNIQUE: CT angiography of the aorta was performed with MIPs. All CT scans are performed using dose optimization technique as appropriate and may include automated exposure control or mA/KV adjustment according to patient size. FINDINGS: A left aortic arch is present with normal branching pattern of the great vessels.No acute aortic finding is seen such as aneurysm, penetrating ulcer or dissection. The celiac axis, SMA, FERDINAND and renal arteries are patent with atherosclerotic plaquing present. . No evidence of pulmonary embolism. Diffuse COPD is seen. The liver demonstrates no focal mass or biliary dilatation.The spleen, pancreas, adrenal glands and k idneys are within normal limits for arterial phase imaging.Moderate aortoiliac atherosclerosis. No bowel obstruction, free fluid or abscess.No pathologic enlarged lymphadenopathy identified. No fracture or worrisome bone lesion seen. IMPRESSION: No acute aortic finding is demonstrated.
--- NOTE | 2019-04-01 18:08 | P.HP ---
Certification for Inpatient Patient admitted to: Observation With expected LOS: <2 Midnights Patient will require the following post-hospital care: None Practitioner: I am a practitioner with admitting privileges, knowledge of patient current condition, hospital course, and medical plan of care. Services: Services provided to patient in accordance with Admission requirements found in Title 42 Section 412.3 of the Code of Federal Regulations Patient History Date of Service: 04/01/19 Primary Care Provider: Unknown Reason for admission: Chest pain History of Present Illness: 58-year-old male presented to the emergency room with chest pain. This occurred starting today. It was to the substernal region. It was rated at 10/10. It would radiate to the neck. Associated with nausea, lightheadedness. He reported some cough congestion and mild wheezing. No fever chills noted. In the ER patient evaluated. Initial EKG unremarkable. Troponin unremarkable. Lab reviewed. Chest x-ray and CT scan showed no significant changes. Patient admitted for further evaluation. Allergies Penicillins Allergy (Severe, Verified 12/23/16 11:16) Anaphylaxis Home medications list reviewed: Yes Home Medications: Clopidogrel Bisulfate [Plavix*] 75 mg PO DAILY 09/04/12 Lisinopril [Prinivil*] 20 mg PO DAILY 09/04/12 Metoprolol Tartrate 100 mg PO BID #0 tablet 09/05/12 Amiodarone HCl [Cordarone*] 200 mg PO BID 05/12/16 Fenofibrate 130 mg PO DAILY 05/12/16 Rosuvastatin Calcium 20 mg PO DAILY 05/12/16 Tamsulosin [Flomax*] 0.4 mg PO DAILY 05/12/16 Diclofenac Sodium 75 mg PO BID #60 tablet. 05/13/16 Tramadol HCl [Ultram] 50 mg PO Q8HR #10 tablet 05/13/16 - Past Medical/Surgical History Diabetic: No -: Hypertension -: CAD with prior stents -: COPD -: Hyperlipidemia -: GERD -: Cardiac stents -: hernia repair Psychosocial/ Personal History: Patient lives with his 1st - Family History Family History: Reviewed- Non-Contributory - Social History Smoking Status: Former smoker Alcohol use: Yes CD- Drugs: Yes Caffeine use: Yes Place of Residence: Home Review of Systems General: Unremarkable Eyes: Unremarkable ENT: Unremarkable Respiratory: Wheezing, As per HPI Cardiovascular: Chest Pain, Light Headedness, As per HPI Gastrointestinal: Unremarkable Genitourinary: Unremarkable Musculoskeletal: Unremarkable Integumentary: Unremarkable Neurological: Unremarkable Lymphatics: Unremarkable Physical Examination - Physical Exam General: Alert, In no apparent distress, Oriented x3, Cooperative HEENT: Atraumatic, Normocephalic, Mucous membr. moist/pink Neck: Supple Respiratory: Expiratory wheezes (Mild wheezing bilateral) Cardiovascular: Normal pulses, Regular rate/rhythm Gastrointestinal: Normal bowel sounds, Soft and benign, Non-distended, No tenderness, No masses, No rebound, No guarding Musculoskeletal: No erythema, No tenderness, No warmth Integumentary: No erythema, No warmth, No cyanosis Neurological: Normal speech, Normal strength at 5/5 x4 extr, Normal tone, Normal affect - Studies Laboratory Data (last 24 hrs) 04/01/19 13:42: PT Cancelled, INR Cancelled 04/01/19 13:42: WBC Cancelled, Hgb Cancelled, Hct Cancelled, Plt Count Cancelled 04/01/19 13:42: Sodium Cancelled, Potassium Cancelled, BUN Cancelled, Creatinine Cancelled, Glucose Cancelled, Magnesium Cancelled, Total Bilirubin Cancelled, AST Cancelled, ALT Cancelled, Alkaline Phosphatase Cancelled 04/01/19 13:38: PT 11.0, INR 0.93 04/01/19 13:38: WBC 5.0, Hgb 12.8 L, Hct 36.7 L, Plt Count 239 04/01/19 13:38: Sodium 133 L, Potassium 4.3, BUN 15, Creatinine 0.97, Glucose 95 , Magnesium 2.1, Total Bilirubin 0.4, AST 36, ALT 39, Alkaline Phosphatase 119 H Assessment and Plan - Plan Impression: Chest pain likely noncardiac. Suspect COPD exacerbation Hypertension Hyperlipidemia CAD with prior stent Former tobacco use Plan: Patient will be admitted for further evaluation and observation. Will continue to monitor telemetry and cardiac enzymes. Cardiology consulted for further recommendation. Will start COPD medication. Patient will likely require COPD medication at discharge. Will need to obtain and restart home medication including for hypertension, hyperlipidemia. Tobacco cessation addressed in detail. Anticipate discharge tomorrow. I will be out of town tomorrow. Hospital team will continue his care. Discharge Plan: Home Plan to discharge in: 24 Hours - Advance Directives Does patient have a Living Will: No Does patient have a Durable POA for Healthcare: No - Code Status/Comfort Care Code Status Assessed: Yes (Patient is full code) Time Spent Managing Pts Care (In Minutes): 55
[2019-04-01 18:16] VITALS: BMI 27.6
[2019-04-01] MEDS ORDERED: NITROGLYCERIN 0.4 MG/TAB SL PRN (18:22)
[2019-04-01] MEDS ORDERED: ACETAMINOPHEN 500 MG TAB PO PRN (18:25)
[2019-04-01 18:41] LABS: Absolute Lymphocytes (CBC) 0.5 K/uL (0.7-4.9); Basophils % 0.5 % (0-1.3); Hematocrit 40.3 % (39.6-49.0); Lymphocytes % 8.5 % (15.3-44.8); MPV 8.6 fL (7.6-11.3); RBC Red Blood Cell Count 4.18 M/uL (4.33-5.43)
[2019-04-01 18:55] LABS: CKMB Creatine Kinase MB 2.4 ng/mL (0.3-3.6); Potassium 3.8 mmol/L (3.5-5.1)
[2019-04-01] MEDS ORDERED: POTASSIUM CL SA 10 MEQ TAB PO ONE (19:05)
[2019-04-01] MEDS: ARFORMOTEROL TARTRATE 15 MCG/2 ML VIAL.NEB IH SCH (20:00)
[2019-04-01] MEDS: IPRATROPIUM BROM 0.5MG/2.5ML IH PRN (20:15)
[2019-04-01 21:48] LABS: Blood Morphology Comment NOT SEEN (NOT SEEN); Platelet Estimate ADEQ
[2019-04-01] MEDS: METOPROLOL TAR 25 MG TAB PO SCH (22:04)
[2019-04-01] MEDS: predniSONE 10 MG TAB PO SCH (22:05)
[2019-04-02 05:51] LABS: Urine Appearance CLOUDY; Urine Bilirubin NEGATIVE (NEG); Urine Blood NEGATIVE (NEG); Urine Color YELLOW; Urine Glucose 1+ (NEG); Urine Protein NEGATIVE (NEG); Urine Specific Gravity >=1.030 (1.005-1.030); Urine Urobilinogen 0.2 mg/dL (0.2-1.0)
[2019-04-02 05:58] LABS: Urine Microscopic Reflex ORDER UMIC
[2019-04-02 06:02] LABS: Magnesium 2.1 mg/dL (1.8-2.4); Potassium 4.4 mmol/L (3.5-5.1)
[2019-04-02 06:07] LABS: Urine Bacteria >50 /HPF (NONE SEEN); Urine Culture Reflex Order REFLEXED; Urine RBC NONE SEEN /HPF (NONE SEEN)
[2019-04-02] MEDS: ARFORMOTEROL TARTRATE 15 MCG/2 ML VIAL.NEB IH SCH ×2 (07:30→20:00)
[2019-04-02] MEDS: IPRATROPIUM BROM 0.5MG/2.5ML IH PRN ×2 (07:30→14:00)
[2019-04-02] MEDS: ALBUTEROL 2.5 MG/3 ML NEB SOL IH PRN ×2 (07:30→14:00)
--- NOTE | 2019-04-02 08:16 | RAD REPORT ---
EXAM DESCRIPTION: RAD - Chest Single View - 04/02/2019 6:44 am CLINICAL HISTORY: Shortness of breath, chest pain COMPARISON: April 01 TECHNIQUE: AP portable chest image was obtained 0642 hours . FINDINGS: Interstitial pattern matches comparison. No new or progressive lung parenchymal process. H eart and vasculature are normal. No measurable pleural effusion and no pneumothorax. No acute bony ab normality seen. No acute aortic findings suspected. IMPRESSION: No acute cardiopulmonary process. No new or progressive process from prior day imaging.
[2019-04-02] MEDS: ASPIRIN EC 81 MG TAB PO SCH (09:24)
[2019-04-02] MEDS: METOPROLOL TAR 25 MG TAB PO SCH ×2 (09:24→20:30)
[2019-04-02] MEDS: ATORVASTATIN 40 MG TAB PO SCH (09:25)
[2019-04-02] MEDS: predniSONE 10 MG TAB PO SCH ×2 (09:25→20:31)
[2019-04-02] MEDS: CLOPIDOGREL 75 MG TABLET PO SCH (09:25)
--- NOTE | 2019-04-02 14:12 | P.PN ---
Subjective Date of Service: 04/02/19 Primary Care Provider: Unknown Chief Complaint: Chest pain Subjective: Improving (Patient admitted with acute sudden onset of chest pain he has now asymptomatic planes of dyspnea on mild exertion including orthopnea) Review of Systems General: Unremarkable Physical Examination - Vital Signs Temperature: 97.7 F Blood Pressure: 123/72 Pulse: 77 Respirations: 16 Pulse Ox (%): 98 - Physical Exam General: Alert, Oriented x3 Neck: Supple Respiratory: Clear to auscultation bilaterally Cardiovascular: No edema, Regular rate/rhythm Gastrointestinal: Normal bowel sounds, Soft and benign - Studies Laboratory Data (last 24 hrs) 04/01/19 13:38: PT 11.0, INR 0.93 04/01/19 13:38: Sodium 133 L, Potassium 4.3, BUN 15, Creatinine 0.97, Glucose 95 , Magnesium 2.1, Total Bilirubin 0.4, AST 36, ALT 39, Alkaline Phosphatase 119 H Assessment & Plan - Problems (Diagnosis) (1) Chest pain Current Visit: Yes Status: Acute Plan: Patient is 58 years of age admitted with chest pain patient has a history of coronary artery disease and is seeing Cardiology no evidence of NH a troponins negative EKG normal scheduled for a cardiac catheterization patient has a history of COPD the lead a long-acting bronchodilator and low-dose prednisone vital signs stable
--- NOTE | 2019-04-02 23:08 | CON ---
Date of Consultation: 04/02/[address] Cosme's service on 04/01/2019. Patient was seen on 04/02/2019. Reason For Consultation: Chest pain. History Of Present Illness: Mr. Ha is 58, has a history of hypertension, COPD, coronary artery disease. He is status post stent and angioplasty of the LAD. Last 1 was in 2017. Has had a histor y of CVA in the past. Has had a history of atrial fibrillation as well. Came in with substernal joie st pressure radiating to both arms and back with some nausea, diaphoresis. No shortness of breath. Denied PND, orthopnea, palpitations, pedal edema, or syncope. Past Medical History: As stated above. Allergies: NONE. Review of Systems: Negative. Social History: Negative. Family History: Negative. Medications: At home include amiodarone 200 mg b.i.d., Plavix, Lipitor, Zetia, lisinopril with hydro chlorothiazide. Physical Examination: Vital Signs: Stable. He was afebrile. He was in a sinus rhythm. HEENT: Negative. Neck: Supple. No bruit, lymphadenopathy, JVD, or thyromegaly. Chest: Clear to auscultation and percussion. Cardiac: Revealed a regular rhythm and rate. No murmurs, gallops, or rubs. Abdomen: Benign. Extremities: Revealed no clubbing, cyanosis, or edema. Skin: Dry and intact. His pulses were present distally bilaterally. Diagnostic Data: EKG showed old septal NH. CT of the chest was negative. Chest x-ray was negative. Troponin was negative. Impression And Plan: 1.Mr. Ha has a history of coronary artery disease, status post angioplasty of his left anterio r descending in 2017. At that time, he had an in-stent restenosis. Symptoms are suggestive of reste nosis. We will plan to do a heart catheterization on him on Thursday upcoming week. This will be done by Dr. Graham. Continue his present regimen including the Plavix, Lipitor, Zetia, lisinopril with h ydrochlorothiazide as well as amiodarone. 2.Atrial fibrillation that has resolved. He is controlled sinus rhythm, on amiodarone. 3.Hypertension, well controlled. 4.Chronic obstructive pulmonary disease, well controlled. 5.History of cerebrovascular accident in the past. Case was discussed with Dr. Cosme. SALINAS/CRYSTAL Voice ID: [id number] Report ID: [id number]
[2019-04-03] MEDS: ARFORMOTEROL TARTRATE 15 MCG/2 ML VIAL.NEB IH SCH (07:21)
[2019-04-03] MEDS: IPRATROPIUM BROM 0.5MG/2.5ML IH PRN (07:21)
[2019-04-03] MEDS: ALBUTEROL 2.5 MG/3 ML NEB SOL IH PRN (07:21)
[2019-04-03] MEDS: METOPROLOL TAR 25 MG TAB PO SCH ×2 (08:31→21:12)
[2019-04-03] MEDS: CLOPIDOGREL 75 MG TABLET PO SCH (08:31)
[2019-04-03] MEDS: ASPIRIN EC 81 MG TAB PO SCH (08:31)
[2019-04-03] MEDS: ATORVASTATIN 40 MG TAB PO SCH (08:32)
[2019-04-03] MEDS: predniSONE 10 MG TAB PO SCH ×2 (08:33→21:12)
--- NOTE | 2019-04-03 10:45 | P.PN ---
Subjective Date of Service: 04/03/19 Primary Care Provider: Unknown Chief Complaint: Chest pain Subjective: Improving (Patient is doing better denies any chest pain has chronic shortness of breath) Review of Systems Unremarkable Physical Examination - Vital Signs Temperature: 97.5 F Blood Pressure: 151/87 Pulse: 90 Respirations: 17 Pulse Ox (%): 97 - Physical Exam General: Alert, In no apparent distress, Oriented x3 Neck: Supple Respiratory: Clear to auscultation bilaterally Cardiovascular: No edema, Regular rate/rhythm Assessment & Plan - Problems (Diagnosis) (1) Chest pain Current Visit: Yes Status: Acute Plan: Patient admitted with chronic shortness of breath and the chest pain he is scheduled to undergo a cardiac catheterization tomorrow and follow up with me for his outpatient evaluation and treatment for presumed COPD he complains of chronic shortness of breath Qualifiers: Chest pain type: chest pain due to myocardial ischemia Ischemic chest pain type: stable angina pectoris Qualified Code(s): I20.8 - Other forms of angina pectoris
[2019-04-03] MEDS: DULERA 200/5 (MOMETASONE/FORMOTEROL) INHALER IH SCH ×2 (12:22→21:13)
--- NOTE | 2019-04-03 12:50 | EKG ---
Test Date: 2019-04-01 Test Time: 13:25:33 Knife Setter Grinder Machine: MARISA MEASUREMENT RESULTS: Intervals: Rate: 70 CT: 196 QRSD: 80 QT: 396 QTc: 427 Middle Bass: P: 63 CT: 196 QRS: -28 T: 28 INTERPRETIVE STATEMENTS: Normal sinus rhythm Normal ECG Compared to ECG 02/21/2019 08:00:34 Myocardial infarct finding no longer present Electronically Signed On 04-03-19 12:45:44 [employer] by Rivera Mason
--- NOTE | 2019-04-04 01:10 | PN ---
Date of Progress Note: 04/02/2019 Mr. Ha was admitted on 04/01/2019. I saw him on 04/02/2019 because of history of CAD, CVA, sta tus post stent with in-stent restenosis, status post angioplasty in 2017, COPD, hypertension. Contin ue to have exertional chest pain. He is set up to have a heart catheterization on 04/04/[address] Graham. Continue present regimen for now. Telemetry remains with sinus rhythm. SALINAS/CRYSTAL Voice ID: [id number] Report ID: [id number]
--- OUTSIDE RECORDS SUMMARY | 2019-04-04 05:26 | XMS REPORT ---
:1960 Author Organization [employer] Care Team Providers Name Role Phone Laverne Son Provider Role Unavailable Allergies No Known Allergies Problems Problem Type Condition Code Onset Dates Condition Status Problem Chronic back pain M54.9 Active Problem Hypertension I10 Active Problem Former smoker Z87.891 Active Assessment Chronic atrial fibrillation I48.2 Active Problem H/O: CVA (cerebrovascular accident) Z86.73 Active Problem Alcoholism /alcohol abuse F10.20 Active Problem Alcoholism F10.20 Active Problem Alcoholic cirrhosis of liver with K70.31 Active ascites Problem Atherosclerosis of samish coronary I25.10 Active artery Problem Hyperlipidemia E78.5 Active Problem Chronic atrial fibrillation I48.2 Active Problem Chronic obstructive pulmonary J44.9 Active disease, unspecified COPD type Medications Medication Code Code Instructions Start End Date Status Dosage System Date Lactulose [facility] 83332583297 10 GM/15ML Active 15 ml Orally Once a day Thiamine [facility] 04346274975 50 MG Orally Jan 19July Active 2 capsules Once a day [address] [facility] 74575095395 10 MG Orally Active 1 tablet Once a day Fenofibrate [facility] 56367286501 145 MG Active TAKE 1 TABLET EVERY DAY [place] 72030930827 160-4.5 MCG/ACT Active 2 puffs Inhalation Twice a day Ultram [facility] 03137271816 50 MG Orally Active 1 tablet as every 6 hrs needed Fenofibrate [facility] 19338811010 160 MG Orally Active 1 tablet Once a day with food Furosemide ND 09751293257 40 MG Orally Active 1 tablet Once a day Amiodarone HCl ND 20152182317 200 MG Orally Active 1 tablet Twice a day Plavix [facility] 55332940148 75 MG Orally Active 1 tablet Once a day ProAir [facility] 84893988073 108 (90 Base) October 19, Active 2 puffs as RespiClick MCG/ACT 2019 needed Inhalation every 6 hrs Atorvastatin ND 14122774608 80 MG Orally Active 1 tablet Calcium Once a day Lisinopril-Hydr [facility] 39964345313 20-25 MG Orally Active 1 tablet ochlorothiazide Once a day Results No Known Results Summary Purpose [employer] Submission
[2019-04-04] MEDS ORDERED: NA CHLORIDE 0.9% 1,000 ML ONE (08:24)
[2019-04-04] MEDS: METOPROLOL TAR 25 MG TAB PO SCH (08:25)
[2019-04-04] MEDS: CLOPIDOGREL 75 MG TABLET PO SCH (08:25)
[2019-04-04] MEDS: predniSONE 10 MG TAB PO SCH (08:26)
[2019-04-04] MEDS: DULERA 200/5 (MOMETASONE/FORMOTEROL) INHALER IH SCH (08:26)
[2019-04-04] MEDS: ATORVASTATIN 40 MG TAB PO SCH (08:26)
[2019-04-04] MEDS: ASPIRIN EC 81 MG TAB PO SCH (08:26)
[2019-04-04] MEDS ORDERED: HEPA 1000U/500MLS 2,000 UNIT/1,000 ML BAG IV ONE (08:33)
[2019-04-04] MEDS ORDERED: HEPARIN 5000 UNIT/ML 1 ML VIAL ONE (09:20)
[2019-04-04] MEDS ORDERED: NITROGLYCERIN 100 MCG/ML SYR (for cath lab use only) IV ONE (09:20)
[2019-04-04] MEDS ORDERED: ATROPINE SULF 1 MG/10 ML SYR IV ONE (09:20)
[2019-04-04] MEDS ORDERED: NICARDIPINE HCL 25 MG/10 ML IV ONE (09:20)
[2019-04-04] MEDS ORDERED: NA CHLORIDE 0.9% 0 ML ONE (09:20)
[2019-04-04] MEDS ORDERED: FENTANYL CITR 100 MCG/2 ML ONE (09:20)
[2019-04-04] MEDS ORDERED: MIDAZOLAM HCL 2 MG/2 ML INJ ONE ×2 (09:20→09:55)
[2019-04-04 11:00] VITALS: O2SAT 100
[2019-04-04 17:21] VITALS: BP 145/79; TEMP 97
--- NOTE | 2019-04-04 17:55 | P.DS ---
Admission Date: 04/01/19 Discharge Date: 04/04/19 Primary Care Provider: Unknown Disposition: ROUTINE DISCHARGE Discharge Condition: GOOD Reason for Admission: Chest pain Consultations: Cardiology-Dr. Graham Procedures: CT Dissection: FINDINGS: A left aortic arch is present with normal branching pattern of the great vessels.No acute aortic finding is seen such as aneurysm, penetrating ulcer or dissection. The celiac axis, SMA, [place] and renal arteries are patent with atherosclerotic plaquing present. . No evidence of pulmonary embolism. Diffuse COPD is seen. The liver demonstrates no focal mass or biliary dilatation.The spleen, pancreas , adrenal glands and kidneys are within normal limits for arterial phase imaging.Moderate aortoiliac atherosclerosis. No bowel obstruction, free fluid or abscess.No pathologic enlarged lymphadenopathy identified. No fracture or worrisome bone lesion seen. IMPRESSION: No acute aortic finding is demonstrated. Heart cath: Report reviewed with cardiology. No stent placed. Medical Problem List: Chest pain status post heart catheterization showing CAD. No stent required COPD exacerbation Hypertension Hyperlipidemia CAD with prior stent Former tobacco use Brief History of Present Illness: 58-year-old male presented to the emergency room with chest pain. This occurred starting today. It was to the substernal region. It was rated at 10/10. It would radiate to the neck. Associated with nausea, lightheadedness. He reported some cough congestion and mild wheezing. No fever chills noted. In the ER patient evaluated. Initial EKG unremarkable. Troponin unremarkable. Lab reviewed. Chest x-ray and CT scan showed no significant changes. Patient admitted for further evaluation. Hospital Course: Patient was admitted for chest pain Patient was evaluated by cardiology. Cardiology recommended heart catheterization. Heart catheterization performed. No stent was required. Patient to continue with medical management. At discharge she will continue with aspirin 81 mg daily, Lipitor 80 mg daily, Plavix 75 mg daily, lisinopril 10 mg daily, and metoprolol 25 mg 1 pill twice daily. Patient will also be given nitroglycerin to be use as needed for chest pain. Recommend follow up with cardiology within 1-2 weeks to follow up. Patient also had some shortness of breath likely COPD exacerbation. COPD medication was initiated. At discharge she will continue with prednisone 10 mg daily for 5 more days. He will be started on Dulera 2 puffs twice daily and Pro air 2 puffs 3 times a day as needed for shortness of breath. Recommend follow up with pulmonology as an outpatient to further address. Patient with hypertension. Medications have been initiated. At discharge she will continue with lisinopril 10 mg daily and metoprolol 25 mg 1 pill twice daily. Further adjustment in medication can be done by cardiology or his PCP. Patient with hyperlipidemia. Lipitor was initiated. Patient will continue with Lipitor 80 mg daily. Vital Signs/Physical Exam: Temp Pulse Resp BP Pulse Ox 97 F 58 18 145/79 H 97 04/04/19 16:00 04/04/19 16:00 04/04/19 16:00 04/04/19 16:00 04/04/19 16:00 General: Alert, In no apparent distress, Oriented x3, Cooperative HEENT: Atraumatic Neck: Supple Respiratory: Clear to auscultation bilaterally, Normal air movement Cardiovascular: Normal pulses, Regular rate/rhythm Gastrointestinal: Normal bowel sounds, Soft and benign, Non-distended, No tenderness, No masses, No rebound, No guarding Musculoskeletal: No erythema, No tenderness, No warmth Integumentary: No tenderness/swelling, No erythema, No warmth, No cyanosis Neurological: Normal speech, Normal strength at 5/5 x4 extr, Normal tone, Normal affect Laboratory Data at Discharge: WBC 5.8 K/uL (4.3-10.9) D 04/01/19 18:25 Hgb 13.7 g/dL (13.6-17.9) 04/01/19 18:25 Hct 40.3 % (39.6-49.0) 04/01/19 18:25 Plt Count 232 K/uL (152-406) 04/01/19 18:25 PT Cancelled 04/01/19 13:42 INR Cancelled 04/01/19 13:42 Sodium 134 mmol/L (136-145) L 04/02/19 05:08 Potassium 4.4 mmol/L (3.5-5.1) 04/02/19 05:08 BUN 13 mg/dL (7-18) 04/02/19 05:08 Creatinine 0.93 mg/dL (0.55-1.3) 04/02/19 05:08 Glucose 154 mg/dL (74-106) H 04/02/19 05:08 Magnesium 2.1 mg/dL (1.8-2.4) 04/02/19 05:08 Total Bilirubin Cancelled 04/01/19 13:42 AST Cancelled 04/01/19 13:42 ALT Cancelled 04/01/19 13:42 Alkaline Phosphatase Cancelled 04/01/19 13:42 Troponin I < 0.02 ng/mL (0.0-0.045) 04/02/19 05:08 Home Medications: Albuterol Sulfate [Proair Hfa] 2 puff IH TID PRN #1 hfa.aer.ad 04/04/19 Aspirin [Aspirin EC 81 MG] 81 mg PO DAILY #90 tablet. 04/04/19 Atorvastatin Calcium [Lipitor] 80 mg PO DAILY #30 tab 04/04/19 Clopidogrel Bisulfate [Plavix*] 75 mg PO DAILY #30 tablet 04/04/19 Lisinopril 10 mg PO DAILY #30 tablet 04/04/19 Metoprolol Tartrate [Lopressor*] 25 mg PO BID #60 tab 04/04/19 Mometasone/Formoterol [Dulera 200 Mcg/5 Mcg Inhaler] 2 puff IH BID #1 inhaler Nitroglycerin [Nitrostat*] 0.4 mg SL SEECOM PRN #30 tab 04/04/19 predniSONE [Deltasone*] 10 mg PO DAILY #5 tab 04/04/19 New Medications: Albuterol Sulfate [Proair Hfa] 2 puff IH TID PRN #1 hfa.aer.ad PRN Reason: Shortness Of Breath Aspirin [Aspirin EC 81 MG] 81 mg PO DAILY #90 tablet. Atorvastatin Calcium [Lipitor] 80 mg PO DAILY #30 tab Clopidogrel Bisulfate [Plavix*] 75 mg PO DAILY #30 tablet Lisinopril 10 mg PO DAILY #30 tablet Metoprolol Tartrate [Lopressor*] 25 mg PO BID #60 tab Mometasone/Formoterol [Dulera 200 Mcg/5 Mcg Inhaler] 2 puff IH BID #1 inhaler Nitroglycerin [Nitrostat*] 0.4 mg SL SEECOM PRN #30 tab PRN Reason: Pain Scale 2-4 (Mild) predniSONE [Deltasone*] 10 mg PO DAILY #5 tab Patient Discharge Instructions: 1. Recommend follow up with PCP in 1 week to follow up this hospitalization. 2. Patient was admitted for chest pain Patient was evaluated by cardiology. Cardiology recommended heart catheterization. Heart catheterization performed. No stent was required. Patient to continue with medical management. At discharge she will continue with aspirin 81 mg daily, Lipitor 80 mg daily, Plavix 75 mg daily, lisinopril 10 mg daily, and metoprolol 25 mg 1 pill twice daily. Patient will also be given nitroglycerin to be use as needed for chest pain. Recommend follow up with cardiology within 1-2 weeks to follow up. 3. Patient also had some shortness of breath likely COPD exacerbation. COPD medication was initiated. At discharge she will continue with prednisone 10 mg daily for 5 more days. He will be started on Dulera 2 puffs twice daily and Pro air 2 puffs 3 times a day as needed for shortness of breath. Recommend follow up with pulmonology as an outpatient to further address. 4. Patient with hypertension. Medications have been initiated. At discharge she will continue with lisinopril 10 mg daily and metoprolol 25 mg 1 pill twice daily. Further adjustment in medication can be done by cardiology or his PCP. 5. Patient with hyperlipidemia. Lipitor was initiated. Patient will continue with Lipitor 80 mg daily. Diet: AHA Activity: Ad jhonny Followup: Desmond Graham MD [ACTIVE - CAN ADMIT] - Time spent managing pt's care (in minutes): 55
--- NOTE | 2019-04-04 22:31 | OP ---
Surgeon: Desmond Graham MD [employer] Assistant: occupational therapist assistants: Layla Reddy. Procedure: Left heart catheterization with coronary and left ventricular angiography. Procedure Findings: The patient has minimal coronary heart disease. He has had a mid LAD stent plac ed more than 10 years ago. In 2017, he had a balloon angioplasty of an in-stent restenosis. That st ent was widely patent with no significant stenosis. All of his coronary arteries have some plaque, b ut there was no stenosis in the left main circumflex, other parts of the LAD, or the right coronary. Left ventricular ejection fraction is 65%. Left ventricular end-diastolic pressure 16, slightly chica vated. Procedure In Detail: The patient was brought to the cardiac cathead operator in a fasting state, sedated wit h Versed and fentanyl. Prepared and draped in usual sterile fashion. Right radial approach was trie d first. We got a needle in the artery, threaded a wire, but it would not go above or even quite to the elbow. I suspect there was a significant radial loop and because of the difficulty, we abandoned the radial approach. We never put a sheath in, so no TR band was used. Manual pressure was held un til there was no bleeding and we turned our attention to the right femoral artery. The right femoral artery was identified through palpation. Tissues around the artery were anesthetized with lidocaine 18 mL was used. We entered the artery with an 18-gauge needle, cannulated it with a short J-wire tavo duke used that to place a 4-Yoruba sheath and the sheath was flushed and we used this for the remainder the procedure. At the end the procedure, we did an angiogram of the iliac and common femoral artery through the sheath, determined that anatomy was good for closure with Angio-Seal and that was done at the end of the case. We used a JL4 to angiogram the left coronary. A JL5 would probably be prefera ble in the future. A 3DRC was used to angiogram the right coronary. An angled pigtail was used to a ngiogram the left ventricle. At the end of the procedure, catheters were withdrawn over a wire. The sheath shot was done and Angio-Seal was done. There was successful closure of both arteriotomies. The needlestick was only in the right radial and a 4-Yoruba sheath in the right femoral arteries. Estimated Blood Loss: 20 mL. Complications: None. SH/MODL Voice ID: [id number] Report ID: [id number]
== END 2019-04-04 17:46 | disposition home or self-care (01) ==
LOC: ER 13:13 → OBSVTOIN 15:11 → INTOOBSV 15:11 → ERHOLD 15:11 → 2ND 17:27
PROVIDERS: ADMIT Family Medicine; ATTEND Family Medicine
DX: R07.9 Chest pain, unspecified (principal); I25.10 Atherosclerotic heart disease of native coronary artery without angina pectoris; I10 Essential (primary) hypertension; E78.5 Hyperlipidemia, unspecified; I48.91 Unspecified atrial fibrillation; J44.9 Chronic obstructive pulmonary disease, unspecified; Z95.5 Presence of coronary angioplasty implant and graft; Z88.0 Allergy status to penicillin; Z86.73 Personal history of transient ischemic attack (TIA), and cerebral infarction without residual deficits; Z87.891 Personal history of nicotine dependence
CPT/HCPCS: 93005; 87088; 85025 ×2; 87086; 80048 ×3; 36415 ×2; 83735 ×2; 85610; 80076; 84484 ×3; 82553; 83880; 71275; 74175; 71045 ×2; 93458; 96374; 99285; Q9967; C1893; C1760; J1644; J2250 ×2; J3010; J7605 ×4; G0378 ×7; J7030; J2930; 81003; 81015; J0583; J7512; J7606

== ENCOUNTER 2019-05-24 15:19 | Emergency (ER) | payer OTHER ==
--- OUTSIDE RECORDS SUMMARY | 2019-05-24 15:21 | XMS REPORT ---
[...] with K70.31 Active ascites Problem Atherosclerosis of [place] coronary I25.10 Active artery Problem Hyperlipidemia E78.5 Active Problem Chronic atrial fibrillation I48.2 Active Problem Chronic obstructive pulmonary J44.9 Active disease, unspecified COPD type Medications Medication Code Code Instructions Start End Date Status Dosage System Date Lactulose [facility] 22413340484 10 GM/15ML Active 15 ml Orally Once a day Thiamine [facility] 69007050166 50 MG Orally Jan 19July Active 2 capsules Once a day 2018 Zetia [facility] 60887371086 10 MG Orally Active 1 tablet Once a day Fenofibrate [facility] 76409981192 145 MG Active TAKE 1 TABLET EVERY DAY Symbicort ND 73675075677 160-4.5 MCG/ACT Active 2 puffs Inhalation Twice a day Ultram [facility] 11151270923 50 MG Orally Active 1 tablet as every 6 hrs needed Fenofibrate [facility] 20190341910 160 MG Orally Active 1 tablet Once a day with food Furosemide ND 37467128942 40 MG Orally Active 1 tablet Once a day Amiodarone HCl ND 48305170917 200 MG Orally Active 1 tablet Twice a day Plavix [facility] 98898045755 75 MG Orally Active 1 tablet Once a day ProAir [facility] 77944856513 108 (90 Base) October 19, Active 2 puffs as RespiClick MCG/ACT 2019 needed Inhalation every 6 hrs Atorvastatin ND 19703527882 80 MG Orally Active 1 tablet Calcium Once a day Lisinopril-Hydr [facility] 92532373014 20-25 MG Orally Active 1 tablet ochlorothiazide Once a day Results No Known Results Summary Purpose eClinicalWorks Submission
[2019-05-24 16:37] LABS: Absolute Lymphocytes (CBC) 0.7 K/uL (0.7-4.9); Basophils % 0.7 % (0-1.3); Hematocrit 38.4 % (39.6-49.0); Lymphocytes % 12.1 % (15.3-44.8); MPV 8.8 fL (7.6-11.3)
[2019-05-24 16:42] LABS: Urine Appearance CLOUDY; Urine Blood 3+ (NEG); Urine Color RED; Urine Glucose NEGATIVE (NEG); Urine Protein 2+ (NEG); Urine Specific Gravity 1.025 (1.005-1.030); Urine Urobilinogen 0.2 mg/dL (0.2-1.0)
[2019-05-24 16:44] LABS: Urine Microscopic Reflex ORDER UMIC
[2019-05-24 16:49] LABS: Urine Bacteria LOADED /HPF (NONE SEEN); Urine Culture Reflex Order REFLEXED; Urine RBC TNTC /HPF (NONE SEEN)
[2019-05-24 16:50] LABS: Potassium 4.1 mmol/L (3.5-5.1)
[2019-05-24 16:52] LABS: Protime INR 0.92
[2019-05-24 17:02] LABS: Urine Bilirubin 1+ (NEG)
--- NOTE | 2019-05-24 17:29 | RAD REPORT ---
EXAM DESCRIPTION: CT - Abdomen Pelvis W Contrast - 05/24/2019 5:13 pm CLINICAL HISTORY: painless hematuria COMPARISON: CT imaging February 21 TECHNIQUE: Biphasic, helical CT imaging of the abdomen and pelvis was performed following 100 ml non -ionic IV contrast. No oral contrast. All CT scans are performed using dose optimization technique as appropriate and may include automated exposure control or mA/KV adjustment according to patient size. FINDINGS: No suspicious findings in the lung bases. Old rib fractures are noted on the right. The liver, spleen, and pancreas show no suspicious findings. Gallbladder and biliary tree are also wi thout suspicious finding. Symmetric renal function is seen with no hydronephrosis or suspicious renal mass. No pyelonephritis o r acute parenchymal process. Partially filled urinary bladder shows a lobulated mass along the left l ateral wall proximally 2.3 cm in size. Primary bladder malignancy would be the primary consideration given the painless hematuria history. Prostate gland and seminal vesicles are normal. No adrenal abno rmalities. No dilated bowel loops or bowel wall thickening. No appendicitis findings. No free air, free fluid or inflammatory stranding. No hernia, mass or bulky lymphadenopathy. No malignant lymphadenopathy pat tern. No suspicious bony findings. IMPRESSION: Lobulated 2.3 centimeter mass along the left lateral bladder wall. Bladder malignancy is the primary consideration and this is the likely source for painless hematuria. No renal mass, obstructing calculus or other abnormality that may account for blood. Remainder the study without significant or suspicious finding.
[2019-05-24] MEDS ORDERED: CIPROFLOXACIN 400mg IV 400 MG/200 ML BAG IV ONE (17:34)
--- NOTE | 2019-05-24 18:06 | EDPHYS ---
Physician Documentation [facility] Name: Michael Ha Jr Age: 58 yrs Sex: Male : 1960 Arrival Date: 05/24/2019 Time: 15:21 Bed 13 Private MD: ED Physician Sonu Garcia HPI: 05/24 17:01 This 58 yrs old Male presents to ER via Ambulatory with complaints of Blood rn In Urine. 17:01 The patient presents with. Onset: The symptoms/episode began/occurred just prior to rn arrival. Modifying factors: The symptoms are alleviated by nothing, the symptoms are aggravated by nothing. Severity of symptoms: At their worst the symptoms were mild, in the emergency department the symptoms are unchanged. The patient has not experienced similar symptoms in the past. Reports spontaneous hematuria that began today, no trauma, no fever, never happened before, takes aspirin and plavix, able to empty.. Historical: - Allergies: 16:00 PENICILLINS; ss - PMHx: 16:00 Myocardial infarction; Hypertension; Deaf; CVA; CAD; ss - PSHx: 16:00 cardiac stents; ss - Immunization history:: Adult Immunizations up to date. - Social history:: Smoking status: Patient/guardian denies using tobacco, Patient uses alcohol, on a daily basis. - Ebola Screening: : Patient denies exposure to infectious person Patient denies travel to an Ebola-affected area in the 21 days before illness onset. - Family history:: not pertinent. - Hospitalizations: : No recent hospitalization is reported. ROS: 17:01 Constitutional: Negative for fever, chills, and weight loss, Eyes: Negative for injury, rn pain, redness, and discharge, Cardiovascular: Negative for chest pain, palpitations, and edema, Respiratory: Negative for shortness of breath, cough, wheezing, and pleuritic chest pain, Abdomen/GI: Negative for abdominal pain, nausea, vomiting, diarrhea, and constipation, Back: Negative for injury and pain, : + hematuria MS/Extremity: Negative for injury and deformity, Skin: Negative for injury, rash, and discoloration, Neuro: Negative for headache, weakness, numbness, tingling, and seizure. Exam: 17:01 Constitutional: This is a well developed, well nourished patient who is awake, alert, rn and in no acute distress. Head/Face: Normocephalic, atraumatic. ENT: mmm Cardiovascular: Regular rate. No pulse deficits. Respiratory: No increased work of breathing, no retractions or nasal flaring. Abdomen/GI: soft, non-tender Back: No spinal tenderness. No costovertebral tenderness. Full range of motion. MS/ Extremity: Pulses equal, no cyanosis. Neurovascular intact. Full, normal range of motion. Equal circumference. Neuro: Awake and alert, GCS 15, oriented to person, place, time, and situation. Vital Signs: 15:57 BP 163 / 97; Pulse 103; Resp 17; Temp 98.2(TE); Pulse Ox 100% on R/A; Weight 77.11 kg; ss Height 5 ft. 6 in. (167.64 cm); Pain 0/10; 16:44 BP 166 / 101; Pulse 92; Resp 19; Pulse Ox 98% on R/A; Pain 0/10; em 18:31 BP 166 / 96; Pulse 88; Resp 16; Pulse Ox 99% on R/A; Pain 0/10; em 15:57 Body Mass Index 27.44 (77.11 kg, 167.64 cm) ss MDM: 15:56 Patient medically screened. rn 18:03 Differential diagnosis: UTI, prostatitis, bladder cancer/mass. Data reviewed: vital rn signs, nurses notes, lab test result(s), radiologic studies, CT scan, and as a result, I will discharge patient. Counseling: I had a detailed discussion with the patient and/or guardian regarding: the historical points, exam findings, and any diagnostic results supporting the discharge/admit diagnosis, lab results, radiology results, the need for outpatient follow up, to return to the emergency department if symptoms worsen or persist or if there are any questions or concerns that arise at home. Special discussion: I discussed with the patient/guardian in detail that at this point there is no indication for admission to the hospital. It is understood, however, that if the symptoms persist or worsen the patient needs to return immediately for re-evaluation. Based on the history and exam findings, there is no indication for further emergent testing or inpatient evaluation. I discussed with the patient/guardian the need to see the urologist for further evaluation of the symptoms. ED course: Pt with UTI, no clots, able to urinate, CT shows possible bladder mass, has likely been there but UTI today now in combination with mass and plavix is making it bleed. Will dc home with abx, and stressed importance of following up with urology for cystoscopy and biopsy. Understands is time sensitive.. 05/24 16:07 Order name: CBC with Diff; Complete Time: 17:13 05/24 16:07 Order name: Basic Metabolic Panel; Complete Time: 17:13 05/24 16:07 Order name: Protime (+inr); Complete Time: 17:13 05/24 16:07 Order name: Ptt, Activated; Complete Time: 17:13 05/24 16:07 Order name: Urine Culture 05/24 16:07 Order name: IV Start; Complete Time: 16:26 05/24 16:07 Order name: CT Abd/Pelvis - IV Contrast Only; Complete Time: 17:33 05/24 16:07 Order name: Urine Dipstick-Ancillary (obtain specimen); Complete Time: 16:26 05/24 16:10 Order name: UA; Complete Time: 17:13 05/24 16:46 Order name: Urine Microscopic Only; Complete Time: 17:13 EDMS Administered Medications: 17:36 Drug: Cipro 400 mg Volume: 200 ml; Route: IVPB; Infused Over: 60 mins; Site: right em wrist; 18:47 Follow up: Response: No adverse reaction; IV Status: Completed infusion; IV Intake: em 100ml Disposition: 05/24/19 18:05 Discharged to Home. Impression: Hematuria, unspecified, Urinary tract infection, site not specified, Bladder mass. - Condition is Stable. - Discharge Instructions: Hematuria, Adult, Urinary Tract Infection, Adult. - Prescriptions for Cipro 500 mg Oral Tablet - take 1 tablet by ORAL route every 12 hours for 10 days; 20 tablet. - Medication Reconciliation Form, Thank You Letter, Antibiotic Education, Prescription Opioid Use form. - Follow up: Ramon Sargent MD; When: 5 - 6 days; Reason: Further diagnostic work-up, Recheck today's complaints, Re-evaluation by your physician. - Problem is new. - Symptoms have improved. Signatures: Dispatcher [employer] EDMS Harish Taylor, RN EMERGENCY RN EMERGENCY em Sonu Garcia MD MD rn Smirch, Shelby, RN RN ss Corrections: (The following items were deleted from the chart) 16:30 16:07 UA MICROSCOPIC+U.LAB.BRZ ordered. EDMS EDMS 18:49 18:05 05/24/2019 18:05 Discharged to Home. Impression: Hematuria, unspecified; Urinary em tract infection, site not specified; Bladder mass. Condition is Stable. Forms are Medication Reconciliation Form, Thank You Letter, Antibiotic Education, Prescription Opioid Use. Follow up: Ramon Sargent; When: 5 - 6 days; Reason: Further diagnostic work-up, Recheck today's complaints, Re-evaluation by your physician. Problem is new. Symptoms have improved. rn
--- NOTE | 2019-05-24 18:06 | ER ---
Nurse's Notes [facility] Name: Michael Ha Jr Age: 58 yrs Sex: Male : 1960 Arrival Date: 05/24/2019 Time: 15:21 Bed 13 Private MD: Diagnosis: Hematuria, unspecified;Urinary tract infection, site not specified;Bladder mass Presentation: 05/24 15:58 Presenting complaint: Patient states: blood in urine x 2 hours. Denies pain/ burning ss with urination. Pt reports he is currently taking Plavix. Transition of care: patient was not received from another setting of care. Onset of symptoms was May 24, 2019. Risk Assessment: Do you want to hurt yourself or someone else? Patient reports no desire to harm self or others. Initial Sepsis Screen: Does the patient meet any 2 criteria? No. Patient's initial sepsis screen is negative. Does the patient have a suspected source of infection? No. Patient's initial sepsis screen is negative. Care prior to arrival: None. 15:58 Method Of Arrival: Ambulatory ss 15:58 Acuity: JOEY 3 ss Historical: - Allergies: 16:00 PENICILLINS; ss - PMHx: 16:00 Myocardial infarction; Hypertension; Deaf; CVA; CAD; ss - PSHx: 16:00 cardiac stents; ss - Immunization history:: Adult Immunizations up to date. - Social history:: Smoking status: Patient/guardian denies using tobacco, Patient uses alcohol, on a daily basis. - Ebola Screening: : Patient denies exposure to infectious person Patient denies travel to an Ebola-affected area in the 21 days before illness onset. - Family history:: not pertinent. - Hospitalizations: : No recent hospitalization is reported. Screenin:03 Abuse screen: Denies threats or abuse. Nutritional screening: No deficits noted. em Tuberculosis screening: No symptoms or risk factors identified. Fall Risk None identified. Assessment: 16:10 General: Appears in no apparent distress. comfortable, Behavior is calm, cooperative, em Denies fever. Pain: Denies pain. Neuro: Level of Consciousness is awake, alert, obeys commands, Oriented to person, place, time, situation, Appropriate for age. Cardiovascular: Capillary refill < 3 seconds Patient's skin is warm and dry. Respiratory: Airway is patent Respiratory effort is even, unlabored, Respiratory pattern is regular, symmetrical. GI: Patient currently denies nausea, vomiting. : Urine is yoel blood, Reports blood in urine Denies burning with urination, pain. Derm: Skin is intact, is healthy with good turgor, Skin is pink, warm \T\ dry. Musculoskeletal: Capillary refill < 3 seconds, Range of motion: intact in all extremities. 18:46 Reassessment: Patient appears in no apparent distress at this time. Patient and/or em family updated on plan of care and expected duration. Pain level reassessed. Patient is alert, oriented x 3, equal unlabored respirations, skin warm/dry/pink. Patient denies pain at this time. Vital Signs: 15:57 BP 163 / 97; Pulse 103; Resp 17; Temp 98.2(TE); Pulse Ox 100% on R/A; Weight 77.11 kg; ss Height 5 ft. 6 in. (167.64 cm); Pain 0/10; 16:44 BP 166 / 101; Pulse 92; Resp 19; Pulse Ox 98% on R/A; Pain 0/10; em 18:31 BP 166 / 96; Pulse 88; Resp 16; Pulse Ox 99% on R/A; Pain 0/10; em 15:57 Body Mass Index 27.44 (77.11 kg, 167.64 cm) ED Course: 15:21 Patient arrived in ED. rg4 15:56 Sonu Garcia MD is Attending Physician. rn 15:57 Arm band placed on right wrist. ss 15:58 Harish Taylor LVN is Primary Nurse. em 15:59 Triage completed. ss 16:03 Patient has correct armband on for positive identification. Bed in low position. Call em light in reach. Side rails up X2. Pulse ox on. NIBP on. 16:12 Radiology exam delayed due to lab results not completed at this time. (BUN/Creatinine) vm2 IV insertion attempt and/or patient not having appropriate IV at this time. 16:20 Initial lab(s) drawn, by me, sent to lab. Inserted saline lock: 22 gauge in right iw forearm, using aseptic technique. Blood collected. 17:14 CT Abd/Pelvis - IV Contrast Only In Process Unspecified. EDMS 18:04 Ramon Sargent MD is Referral Physician. rn 18:31 No provider procedures requiring assistance completed. em 18:45 IV discontinued, intact, bleeding controlled, No redness/swelling at site. Pressure em dressing applied. Administered Medications: 17:36 Drug: Cipro 400 mg Volume: 200 ml; Route: IVPB; Infused Over: 60 mins; Site: right em wrist; 18:47 Follow up: Response: No adverse reaction; IV Status: Completed infusion; IV Intake: em 100ml Intake: 18:47 IV: 100ml; Total: 100ml. em Outcome: 18:05 Discharge ordered by . rn 18:45 Discharged to home ambulatory. em 18:45 Condition: good 18:45 Discharge instructions given to patient, Instructed on discharge instructions, follow up and referral plans. medication usage, Demonstrated understanding of instructions, follow-up care, medications, Prescriptions given X 1. 18:49 Patient left the ED. em Signatures: Dispatcher [employer] Harish Lizarraga, DIAGRAMMER DIAGRAMMER em Nicky Alcantara, RN Sonu Ball MD MD rn Smirch, Shelby, RN RN ss Garcia, Rubi [facility] Camila Matt [facility]
[2019-05-24 19:08] VITALS: TEMP 98.2
[2019-05-24 19:12] VITALS: BP 166/96; O2SAT 99
== END 2019-05-24 18:49 | disposition home or self-care (01) ==
LOC: ER 15:19
DX: N39.0 Urinary tract infection, site not specified (principal); N32.9 Bladder disorder, unspecified; I10 Essential (primary) hypertension; I25.2 Old myocardial infarction; Z88.0 Allergy status to penicillin; Z95.818 Presence of other cardiac implants and grafts
CPT/HCPCS: 96365; 87088; 85025; 87086; 80048; 36415; 85610; 85730; 74177; 99284; Q9967; J0744; 81003; 81015

== ENCOUNTER 2019-10-18 07:05 | Day surgery (SDC) | payer OTHER ==
[2019-10-12 10:38] LABS: Urine Appearance CLEAR; Urine Bilirubin NEGATIVE (NEG); Urine Blood 2+ (NEG); Urine Color DK YELLOW; Urine Glucose NEGATIVE (NEG); Urine Protein 1+ (NEG); Urine Urobilinogen 0.2 mg/dL (0.2-1.0); Urine pH 6.5 (5.0-7.0)
[2019-10-12 10:40] LABS: Absolute Lymphocytes (CBC) 0.9 K/uL (0.7-4.9); Hematocrit 41.8 % (39.6-49.0); Lymphocytes % 14.9 % (15.3-44.8); MPV 9.2 fL (7.6-11.3); RBC Red Blood Cell Count 4.38 M/uL (4.33-5.43)
--- NOTE | 2019-10-12 10:48 | RAD REPORT ---
EXAM DESCRIPTION: RAD - Chest Pa And Lat (2 Views) - 10/12/2019 10:40 am CLINICAL HISTORY: preop Chest pain. COMPARISON: Chest Single View dated 04/02/2019; Chest Single View dated 04/01/2019; Chest Pa And Lat ( 2 Views) dated 02/21/2019; Chest Pa And Lat (2 Views) dated 03/09/2018 FINDINGS: The lungs are clear. The heart is normal in size. Several old right lateral posterior rib fractures. IMPRESSION: No acute or concerning finding suspected.
[2019-10-12 11:10] LABS: Urine Microscopic Reflex ORDER UMIC
[2019-10-12 11:58] LABS: Blood Morphology Comment NOT SEEN (NOT SEEN); Platelet Estimate ADEQ; Urine White Blood Cell Casts OK
[2019-10-12 13:36] LABS: Urine Bacteria 20-50 /HPF (NONE SEEN); Urine Culture Reflex Order REFLEXED
--- NOTE | 2019-10-13 06:31 | EKG ---
Test Date: 2019-10-12 Test Time: 09:08:40 Improvement Spec: CARLOS MEASUREMENT RESULTS: Intervals: Rate: 55 DC: 190 QRSD: 80 QT: 418 QTc: 399 [place]: P: 64 DC: 190 QRS: -4 T: 43 INTERPRETIVE STATEMENTS: Sinus bradycardia Otherwise normal ECG Compared to ECG 04/01/2019 13:25:33 Sinus rhythm no longer present Electronically Signed On 10-13-19 06:30:18 CDT by Rivera Mason
--- OUTSIDE RECORDS SUMMARY | 2019-10-18 07:22 | XMS REPORT ---
:1960 Author Organization [facility] Address [address] [place] [address] Care Team Providers Name Role Phone Unavailable Unavailable Unavailable Problems Condition Condition Condition Status Onset Resolution Last Treating Co mments Source Name Details Category Date Date Treatment Clinician Date Hypertensi Hypertensi Problem Active [facility] H/O: CVA H/O: CVA Problem [facility] (cerebrova Hansa kes - scular scular Memoria accident) accident) l [facility] Chronic Chronic Problem Active [facility] obstructiv obstructiv Hansa kes - e e [facility] pulmonary pulmonary l disease, disease, Outpat i unspecifie unspecifie en t d COPD d COPD Clinics type type Atheroscle Atheroscle Problem Active [facility] rosis 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 [facility] coronary coronary l artery artery Outpati ent Clinics Chronic Chronic Problem Active [facility] atrial atrial [facility] fibrillati fibrillati Me moria on on l [facility] Former Former Problem Active [facility] smoker smoker [facility] Chronic Chronic Problem Active [facility] back pain back pain [facility] Hyperlipid Hyperlipid Problem Active [facility] emia emia [facility] Alcoholism Alcoholism Diagnosis Active [facility]alcohol /alcohol [facility] abuse abuse [facility] Alcoholic Alcoholic Problem Active [facility] cirrhosis cirrhosis [facility] - of liver of liver Memori a with with l ascites ascites Outpati ent Clinics Decreased Decreased Problem Active [facility] range of range of [facility] - motion of motion of Jefry bairon finger of finger of l left hand left hand Outp ati ent Clinics Finger Finger Problem Active [facility] pain, left pain, left [facility]a kes - [facility] Malignant Malignant Diagnosis Active [facility] neoplasm neoplasm [facility] - of lateral of lateral Me moria wall of wall of l urinary urinary Outpati bladder bladder ent Clinics Hematuria, Hematuria, Diagnosis Active [facility] unspecifie unspecifie Hansa kes - d type d type Memoria l Outpati ent Clinics Allergies, Adverse Reactions, Alerts This patient has no known allergies or adverse reactions. Medications Ordered Filled Start Stop Current Ordering Indication Dosage Frequency Signature Comments Components Source Medication Medication Date Date Medication? Clinician (SIG) Name Name Obdulio Mak 2020- Yes April [address] [facility] 5-13 05-20 [facility]00 [facility] 00 :00 l Outpati ent Clinics Dulera Dulera 2018-05 Yes April [address] [facility] 2-04 [facility] l Outpati ent Clinics Lisinopril Lisinopril Yes April [address] [facility] Zetia Zetia Yes April [address] [facility] Plavix Plavix Yes April 1 tablet [facility] Atorvastati Atorvastati Yes April [address] [facility] n Calcium n Calcium [facility] [facility] Outpati ent Clinics Metoprolol Metoprolol Yes April TAKE [address] [facility] Tartrate Tartrate Swenson TABLET BY L ukes - MOUTH Memoria TWICE A l DAY Outpati ent Clinics Nitroglycer Nitroglycer Yes April TAKE [address] [facility] in in Swenson TABLET BY [facility] - MOUTH [facility]oria EVERY 5 l MINUTES Outpati NEEDED FOR ent CHEST PAIN Clinics SCALE 2-4 (MAX OF 3 DOSES) Amiodarone Amiodarone Yes April TAKE [address] [facility] HCl HCl Swenson TABLET BY [facility] - MOUTH [facility] TWICE A l DAY [facility] Procedures This patient has no known procedures. Encounters Start End Encounter Admission Attending Care Care Encounter Source Date/Time Date/Time Type Type Clinicians Facility Department ID 2019-10-05 2019-10-05 Outpatient Taurus Golden [id number] [facility] 15[facility]00[facility]00 15:00[facility]00 [facility] Family Medicine Medicine Outpati ent Clinics 2019-09-30 2019-09-30 Outpatient Taurus Golden [id number] [facility] 11:28:00 11:28:[address] [facility] Medicine Medicine Outpati ent Clinics 2019-08-22 2019-08-22 [place] [facility] [place] [id number] [address] 09:20:00 09:20:00 [facility] Medicine Outpati ent Clinics 2019-07-27 2019-07-27 [place] [id number] [facility] 14:40[facility] 14[facility] [facility] Medicine l Medicine Outpati ent Clinics 2019-04-27 2019-04-27 [facility] [id number] 14:40:00 14:40:00 [facility] Medicine Outpati ent Clinics 2019-03-16 2019-03-16 [facility] [id number] 11:02:00 11:02:00 [facility] Medicine Outpati ent Clinics 2019-02-24 2019-02-24 [facility] [id number] [address] 09:33:00 09:33:00 [facility] Medicine Outpati ent Clinics 2019-01-26 2019-01-26 [facility] [id number] 14[facility] [facility] Medicine Medicine Outpati ent Clinics 2019-01-19 2019-01-19 [facility] [id number] 13:00:00 13:00:00 [facility] Medicine Medicine Outpati ent Clinics 2018-11-29 2018-11-29 [facility] [id number] 13:00:00 13:00:00 [facility] Medicine Outpati ent Clinics 2018-09-22 2018-09-22 [facility] [id number] [address] 13:00:00 13:00:00 [facility] Medicine Outpati ent Clinics 2018-03-02 2018-03-02 [facility] [id number] 15[facility]20:[facility] 15:20:[address] [facility] 2018-02-25 2018-02-25 Outpatient Taurus Golden [id number] [facility] 13:15:00 13:15:00 [facility] ent Clinics Results This patient has no known results.
--- OUTSIDE RECORDS SUMMARY | 2019-10-18 07:22 | XMS REPORT ---
:1960 Author Organization eClinicalWorks Care Team Providers Name Role Phone April Swenson Provider Role Unavailable Allergies, Adverse Reactions, Alerts Substance Reaction Event Type N.K.D.A. 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 Problem Alcoholism F10.20 Active Problem Chronic atrial fibrillation I48.2 Active Problem Alcoholic cirrhosis of liver with K70.31 Active ascites Problem Alcoholism /alcohol abuse F10.20 Ac tive Assessment Hyperlipidemia E78.5 Active Assessment Hypertension I10 Active Assessment 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 Assessment Hematuria, unspecified type R31.9 Active Problem Chronic back pain M54.9 Active Problem Former smoker Z87.891 Active Assessment Alcoholism /alcohol abuse F10.20 Ac tive Problem Hypertension I10 Active Problem Hyperlipidemia E78.5 Active Medications Medication Code Code Instructions Start End Status Dosage System Date Date Plavix [facility] 29450964003 75 MG Orally Active 1 table t Once a day Zetia [facility] 02393551283 10 MG Orally Active 1 table t Once a day Lisinopril ND 45584909840 20 MG Orally Active 1 ta blet Once a day Atorvastatin ND 58830044123 80 MG Orally Active 1 tablet Calcium Once a day Metoprolol ND 37090836464 25 MG Oral Active TAKE 1 Tartrate TABLET BY MOUTH TWICE A DAY Nitroglycerin [facility] 18169686733 0.4 MG Active TAKE 1 Sublingual TABLET BY MOUTH EVERY 5 MINUTES NEEDED FOR CHEST PAIN SCALE 2-4 (MAX OF 3 DOSES) Dulera [facility] 93531673663 100-5 MCG/ACT Apr 27, Active 2 puff s Inhalation 2018 Twice a day Amiodarone HCl [facility] 96714361168 200 MG Oral Active T RAFAL 1 TABLET BY MOUTH TWICE A DAY Cipro [facility] 27042304902 500 MG Orally October 04, October 11, Active 1 tabl et twice a day 2019 2019 Results Name Result Date Reference Range Unit Abnormali ty Flag PSA, Serum (Serial Monitor) ----Prostate Specific 0.9 20191005 0.0-4.0 ng/mL Ag, Serum ----PDF . 20191005 Comp. Metabolic Panel (14) (CMP) ----Sodium 136 20191005 134-144 mmol/L ----BUN/Creatinine Ratio 16 20191005 9-20 ----Chloride 98 20191005 96-106 mmol/L ----Potassium 5.2 20191005 3.5-5.2 mmol/L ----Calcium 9.4 20191005 8.7-10.2 mg/dL ----Protein, Total 6.6 20191005 6.0-8.5 g/dL ----Carbon Dioxide, 23 20191005 20-29 mmol/L Total ----A/G Ratio 2.3 20191005 1.2-2.2 H ----eGFR If NonAfricn Am 91 20191005 >59 mL/min/1.73 ----Bilirubin, Total 0.2 20191005 0.0-1.2 mg/dL ----eGFR If Africn Am 105 20191005 >59 mL/min/1.73 ----Albumin 4.6 20191005 3.8-4.9 g/dL ----BUN 15 20191005 6-24 mg/dL ----Globulin, Total 2.0 17802034 1.5-4.5 g/dL ----Creatinine 0.92 20191005 0.76-1.27 mg/dL ----ALT (SGPT) 22 20191005 0-44 IU/L ----Glucose 93 20191005 65-99 mg/dL ----Alkaline Phosphatase 90 20191005 39-117 IU/L ----AST (SGOT) 32 20191005 0-40 IU/L Summary Purpose eClinicalWorks Submission
--- OUTSIDE RECORDS SUMMARY | 2019-10-18 07:22 | XMS REPORT ---
:1960 Author Organization [employer] Care Team Providers Name Role Phone Laverne Son Provider Role Unavailable Allergies, Adverse Reactions, Alerts Substance Reaction Event Type N.K.D.A. Info Not Available Non Drug Allergy Problems Problem Type Condition Code Onset Dates Condition Statu s Problem Hyperlipidemia E78.5 Active Problem Atherosclerosis of [place] coronary I25.10 Active artery Problem H/O: CVA (cerebrovascular accident) Z86.73 Active Problem Decreased range of motion of finger M25.642 Active of left hand Problem Alcoholic cirrhosis of liver with K70.31 Active ascites Problem Finger pain, left M79.645 Active Problem Chronic atrial fibrillation I48.2 Active Problem Chronic obstructive pulmonary J44.9 Active disease, unspecified COPD type Problem Alcoholism /alcohol abuse F10.20 Ac tive Problem Alcoholism F10.20 Active Problem Chronic back pain M54.9 Active Assessment Decreased range of motion of finger M25.642 Active of left hand Problem Former smoker Z87.891 Active Assessment Finger pain, left M79.645 Active Problem Hypertension I10 Active Medications Medication Code Code Instructions Start End Status Dosage System Date Date Metoprolol [facility] 59281453472 25 MG Oral Active TAKE 1 Tartrate TABLET BY MOUTH TWICE A DAY Dulera [facility] 59164110405 100-5 MCG/ACT Apr 27, Active 2 puff s Inhalation 2019 Twice a day Atorvastatin [facility] 43400723539 80 MG Orally Active 1 tablet Calcium Once a day Amiodarone HCl [facility] 41345682906 200 MG Oral Active T RAFAL 1 TABLET BY MOUTH TWICE A DAY Nitroglycerin [facility] 71773287466 0.4 MG Active TAKE 1 Sublingual TABLET BY MOUTH EVERY 5 MINUTES NEEDED FOR CHEST PAIN SCALE 2-4 (MAX OF 3 DOSES) Lisinopril [facility] 38539936526 20 MG Orally Active 1 ta blet Once a day Plavix [facility] 50882201159 75 MG Orally Active 1 table t Once a day Results No Known Results Summary Purpose eClinicalWorks Submission
--- OUTSIDE RECORDS SUMMARY | 2019-10-18 07:22 | XMS REPORT ---
:1960 Author Organization eClinicalWorks Care Team Providers Name Role Phone Laverne Son Provider Role Unavailable Allergies, Adverse Reactions, Alerts Substance Reaction Event Type N.K.D.A. Info Not Available Non Drug Allergy Problems Problem Type Condition Code Onset Dates Condition Statu s Problem Hyperlipidemia E78.5 Active Problem Atherosclerosis of [place] coronary I25.10 Active artery Problem H/O: CVA [...] End Status Dosage System Date Date Metoprolol [facility] 80030788041 25 MG Oral Active TAKE 1 Tartrate TABLET BY MOUTH TWICE A DAY Dulera [facility] 16514088456 100-5 MCG/ACT Apr 27, Active 2 puff s Inhalation 2019 Twice a day Atorvastatin [facility] 63583891968 80 MG Orally Active 1 tablet Calcium Once a day Amiodarone HCl [facility] 55991833879 200 MG Oral Active T RAFAL 1 TABLET BY MOUTH TWICE A DAY Nitroglycerin [facility] 36323962765 0.4 MG Active TAKE 1 Sublingual TABLET BY MOUTH EVERY 5 MINUTES NEEDED FOR CHEST PAIN SCALE 2-4 (MAX OF 3 DOSES) Lisinopril [facility] 61485404560 20 MG Orally Active 1 ta blet Once a day Plavix [facility] 63057248717 75 MG Orally Active 1 table t Once a day Results No Known Results Summary Purpose eClinicalWorks Submission
--- OUTSIDE RECORDS SUMMARY | 2019-10-18 07:22 | XMS REPORT ---
:1960 Author Organization eClinicalWorks Care Team Providers Name Role Phone Laverne Son Provider Role Unavailable Allergies No Known Allergies Problems Problem Type Condition Code Onset Dates Condition Statu s Problem Hyperlipidemia E78.5 Active Problem Atherosclerosis of [place] coronary I25.10 Active artery Problem H/O: CVA (cerebrovascular accident) Z86.73 Active Problem Chronic back pain M54.9 Active Problem Former smoker Z87.891 Active Problem Hypertension I10 Active Problem Decreased range of motion of finger M25.642 Active of left hand Problem Alcoholic cirrhosis of liver with K70.31 Active ascites Problem Finger pain, left M79.645 Active Problem Chronic atrial fibrillation I48.2 Active Problem Chronic obstructive pulmonary J44.9 Active disease, unspecified COPD type Problem Alcoholism /alcohol abuse F10.20 Ac tive Problem Alcoholism F10.20 Active Medications Medication Code System Code Instructions Start Date End Date Status Dosage Lisinopril [facility] 84179679634 20 MG Orally Once Active 1 tablet a day Zetia [facility] 37568186235 10 MG Orally Once Active 1 tablet a day Results No Known Results Summary Purpose eClinicalWorks Submission
[2019-10-18] MEDS ORDERED: FENTANYL CITR 100 MCG/2 ML ONE (08:45)
[2019-10-18] MEDS ORDERED: propofoL 200 MG/20 ML VIAL IV ONE (08:45)
[2019-10-18] MEDS ORDERED: MIDAZOLAM HCL 2 MG/2 ML INJ ONE (08:45)
[2019-10-18] MEDS ORDERED: LIDOCAINE 2% MPF 5 ML VIAL ONE (08:46)
[2019-10-18] MEDS ORDERED: dexAMETHasone 4 MG/ML VIAL ONE (08:46)
[2019-10-18] MEDS ORDERED: KETOROLAC 30 MG/ML INJ ONE (08:47)
[2019-10-18] MEDS ORDERED: ONDANSETRON 4 MG/2 ML VIAL ONE (08:47)
[2019-10-18] MEDS ORDERED: CLINDAMYCIN INJ 300 MG in NA CHLORIDE 0.9% 50 ML IV ONE (09:00)
[2019-10-18] MEDS ORDERED: Ringers Lactate 1,000 ML IV ONE (09:35)
[2019-10-18 13:10] VITALS: O2SAT 98
[2019-10-18] MEDS ORDERED: CODEINE 30MG/APAP 300MG TAB ONE (14:21)
[2019-10-18 15:02] VITALS: BP 162/87; TEMP 97.1
--- NOTE | 2019-10-18 20:16 | OP ---
Surgeon: Nikita Almodovar MD Principal Secretary: Amado. Preoperative Diagnosis: Left ring finger triggering. Postoperative Diagnosis: Left ring finger triggering. Procedure Performed: A1 lucila release. Anesthesia: General. Description Of Procedure: After satisfactory induction of general anesthesia, the hand was prepped w ith Betadine scrub and Betadine paint. Dry sterile drapes applied in the usual manner. The arm was elevated, exsanguinated with an Esmarch, tourniquet inflated 250 mmHg. Hand placed on the [place] ta ble. 1.1 cm incision was made over the ring finger metacarpal, head region. Scalp was incised. Ski n incised was dissected down to the A1 lucila. A1 lucila was incised and placed through range of mot ion. No triggering. Tourniquet released. Electrocautery was used for hemostasis, wound closed with 4-0 prolene, 2-inch Mat, and Xeroform. Patient tolerated the procedure well and returned to [facility]. BEHZAD/CRYSTAL Voice ID: [id number] Report ID: [id number]
== END 2019-10-18 14:40 | disposition home or self-care (01) ==
LOC: OR 07:05
PROVIDERS: ATTEND Specialist
PROC: 0LN80ZZ Release Left Hand Tendon, Open Approach (ICD-10-PCS; principal; 2019-10-18 10:00)
DX: M65.342 Trigger finger, left ring finger (principal); Z11.59 Encounter for screening for other viral diseases; I10 Essential (primary) hypertension; J44.9 Chronic obstructive pulmonary disease, unspecified; I25.10 Atherosclerotic heart disease of native coronary artery without angina pectoris; I25.2 Old myocardial infarction; I69.992 Facial weakness following unspecified cerebrovascular disease; I69.911 Memory deficit following unspecified cerebrovascular disease; Z87.891 Personal history of nicotine dependence; Z95.5 Presence of coronary angioplasty implant and graft; Z88.0 Allergy status to penicillin
CPT/HCPCS: 93005; 87088; 85025; 87086; 36415; 71046; 26055; U0002; J2704; J2250; J3010; J7120; J2405; 81003; 81015

== ENCOUNTER 2019-11-05 15:14 | Emergency (ER) | payer OTHER ==
--- OUTSIDE RECORDS SUMMARY | 2019-11-05 15:27 | XMS REPORT ---
:1960 Author Organization eClinicalWorks Care Team Providers Name Role Phone Laverne Son Provider Role Unavailable Allergies, Adverse Reactions, Alerts Substance Reaction Event Type N.K.D.A. 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 Problem Chronic obstructive pulmonary J44.9 Active disease, unspecified COPD type Problem Chronic atrial fibrillation I48.2 Active Problem Alcoholic cirrhosis of liver with K70.31 Active ascites Problem Alcoholism /alcohol abuse F10.20 Ac tive Problem Chronic back pain M54.9 Active Assessment Hypertension I10 Active Problem Former smoker Z87.891 Active Assessment Hematuria, unspecified type R31.9 Active Problem Hypertension I10 Active Medications Medication Code Code Instructions Start End Status Dosage System Date Date Amiodarone HCl [facility] 42177389897 200 MG Oral Active T RAFAL 1 TABLET BY MOUTH TWICE A DAY Lisinopril ND 99323497262 20 MG Orally Active 1 ta blet Once a day Metoprolol ND 02356133213 25 MG Oral Active TAKE 1 Tartrate TABLET BY MOUTH TWICE A DAY Atorvastatin [facility] 48902281217 80 MG Orally Active 1 tablet Calcium Once a day Zetia [facility] 40592065418 10 MG Orally Active 1 table t Once a day Plavix [facility] 23140298549 75 MG Orally Active 1 table t Once a day Nitroglycerin [facility] 66719781328 0.4 MG Active TAKE 1 Sublingual TABLET BY MOUTH EVERY 5 MINUTES NEEDED FOR CHEST PAIN SCALE 2-4 (MAX OF 3 DOSES) Dulera ND 79106374637 100-5 MCG/ACT Apr 27, Active 2 puff s Inhalation 2019 Twice a day Results Name Result Date Reference Range Unit Abnormali ty Flag URINALYSIS AUTO W/O SCOPE (10239) ----NIT N 20191026 ----URO 0.2 20191026 ----PROTEIN 2+ 20191026 ----pH 5.5 20191026 ----BLO 3+ 20191026 ----GLUCOSE N 20191026 ----ALEJANDRO N 20191026 ----BILIRUBIN 1+ 20191026 ----KETONES TR 20191026 ----SPECIFIC GRAVITY >=1.030 20191026 Summary Purpose eClinicalWorks Submission
--- OUTSIDE RECORDS SUMMARY | 2019-11-05 15:27 | XMS REPORT ---
:1960 Author Organization eClinicalWorks Care Team Providers Name Role Phone Laverne Son Provider Role Unavailable Allergies, Adverse Reactions, Alerts Substance Reaction Event Type N.K.D.A. Info Not Available Non Drug Allergy Problems Problem Type Condition Code Onset Dates Condition Statu s Problem Hyperlipidemia E78.5 Active Problem Atherosclerosis of [place] coronary I25.10 Active artery Problem H/O: CVA [...] End Status Dosage System Date Date Metoprolol [facility] 73435528696 25 MG Oral Active TAKE 1 Tartrate TABLET BY MOUTH TWICE A DAY Dulera [facility] 86442505889 100-5 MCG/ACT Apr 27, Active 2 puff s Inhalation 2019 Twice a day Atorvastatin [facility] 23179214335 80 MG Orally Active 1 tablet Calcium Once a day Amiodarone HCl [facility] 97241506789 200 MG Oral Active T RAFAL 1 TABLET BY MOUTH TWICE A DAY Nitroglycerin [facility] 35265968569 0.4 MG Active TAKE 1 Sublingual TABLET BY MOUTH EVERY 5 MINUTES NEEDED FOR CHEST PAIN SCALE 2-4 (MAX OF 3 DOSES) Lisinopril [facility] 76230312612 20 MG Orally Active 1 ta blet Once a day Plavix [facility] 53607395152 75 MG Orally Active 1 table t Once a day Results No Known Results Summary Purpose eClinicalWorks Submission
--- OUTSIDE RECORDS SUMMARY | 2019-11-05 15:27 | XMS REPORT ---
[...] disease, unspecified COPD type Problem Atherosclerosis of [place] coronary I25.10 Active artery Problem Decreased range [...] End Status Dosage System Date Date Plavix [facility] 09908327661 75 MG Orally Active 1 table t Once a day Zetia [facility] 86210024801 10 MG Orally Active 1 table t Once a day Lisinopril ND 98122778232 20 MG Orally Active 1 ta blet Once a day Atorvastatin ND 23861966374 80 MG Orally Active 1 tablet Calcium Once a day Metoprolol ND 90753395689 25 MG Oral Active TAKE 1 Tartrate TABLET BY MOUTH TWICE A DAY Nitroglycerin [facility] 16399633537 0.4 MG Active TAKE 1 Sublingual TABLET BY MOUTH EVERY 5 MINUTES NEEDED FOR CHEST PAIN SCALE 2-4 (MAX OF 3 DOSES) Dulera [facility] 59552447818 100-5 MCG/ACT Apr 27, Active 2 puff s Inhalation 2018 Twice a day Amiodarone HCl [facility] 00048395555 200 MG Oral Active T RAFAL 1 TABLET BY MOUTH TWICE A DAY Cipro [facility] 58151800120 500 MG Orally October 04, October 11, [...] 15 20191005 6-24 mg/dL ----Globulin, Total 2.0 96644455 1.5-4.5 g/dL ----Creatinine 0.92 20191005 0.76-1.27 mg/dL ----ALT (SGPT) 22 20191005 0-44 IU/L ----Glucose 93 20191005 65-99 mg/dL ----Alkaline Phosphatase 90 20191005 39-117 IU/L ----AST (SGOT) 32 20191005 0-40 IU/L Summary Purpose eClinicalWorks Submission
--- OUTSIDE RECORDS SUMMARY | 2019-11-05 15:27 | XMS REPORT | Continuity of Care Document ---
:1960 Author Organization [facility] t Address [address] [place] [address] Care Team Providers Name Role Phone Unavailable Unavailable Unavailable Problems Condition Condition Condition Status Onset Resolution Last Treating Co mments Source Name Details Category Date Date Treatment Clinician Date Hypertensi Hypertensi Problem Active [facility] H/O: CVA H/O: CVA Problem [facility]re[facility]va (cerebrova [facility]a kes - scular scular Memoria accident) accident) l [facility] Chronic Chronic Problem Active [facility] obstructiv obstructiv Hansa kes - e e Memoria pulmonary pulmonary l disease, disease, Outpat i unspecifie unspecifie en t d COPD d COPD Clinics type type Atheroscle Atheroscle Problem Active [facility] rosis of rosis of [facility] - match-e-be-nash-she-wish band match-e-be-nash-she-wish band Memoria coronary coronary l artery artery Outpati ent Clinics Chronic Chronic Problem Active [facility] atrial atrial [facility] - fibrillati fibrillati Me moria on on l [facility]ics Former Former Problem Active [facility] smoker smoker [facility] Chronic Chronic Problem Active [facility] back pain back pain [facility] - [facility] Out[facility] ent Clinics Hyperlipid Hyperlipid Problem Active [facility] emia emia [facility] Alcoholism Alcoholism Problem Active [facility] /alcohol /alcohol [facility] - abuse abuse Memoria l Outpati ent Clinics Alcoholic Alcoholic Problem Active [facility] [...] pain, left Hansa kes - [facility] Malignant Malignant Problem Active [facility] neoplasm neoplasm [facility] - of lateral of lateral Me moria wall of wall of l urinary urinary Outpati bladder bladder ent Clinics Hematuria, Hematuria, Diagnosis Active [facility] unspecifie unspecifie Hansa kes - d type d type [facility] Allergies, Adverse Reactions, Alerts This patient has no known allergies or adverse reactions. Medications Ordered Filled Start Stop Current Ordering Indication Dosage Frequency Signature Comments Components Source Medication Medication Date Date Medication? Clinician (SIG) Name Name Anne Rodríguez 2018-05 Yes Laverne 2 puffs [facility] 00 l [facility] Lisinopril Lisinopril Yes Laverne [address] [facility] Zetia Zetia Yes Laverne [address] [facility] Plavix Plavix Yes Laverne [address] [facility] [facility] Atorvastati Atorvastati Yes Laverne [address] [facility] n Calcium n Calcium Riley [facility] - [facility] Metoprolol Metoprolol Yes Laverne TAKE [address] [facility] Tartrate Tartrate Riley TABLET BY L ukes - MOUTH Memoria TWICE A l DAY [facility] Nitroglycer Nitroglycer Yes Laverne TAKE [address] in in Riley TABLET BY [facility] - MOUTH Memoria EVERY 5 l MINUTES Outpati NEEDED FOR ent CHEST PAIN Clinics SCALE 2-4 (MAX OF 3 DOSES) Amiodarone Amiodarone Yes Laverne TAKE [address] HCl HCl Riley TABLET BY [facility] - MOUTH Memoria TWICE A l DAY [facility] Procedures This patient has no known procedures. Encounters Start End Encounter Admission Attending Care Care Encounter Source Date/Time Date/Time Type Type Clinicians Facility Department ID 2019-10-26 2019-10-26 Outpatient Taurus Golden [id number] 14:40[facility]00 14:40:00 [facility] Medicine [facility] 2019-10-05 2019-10-05 Outpatient Taurus Golden [id number] 15:00:00 15:00:00 [facility] 2019-09-30 2019-09-30 Outpatient [facility] [id number] 11:28:00 11:28:00 t [facility] Medicine Medicine Outpati ent Clinics 2019-08-22 2019-08-22 [facility] [id number] 09:20:00 09:20:00 t [facility] Medicine Outpati ent Clinics 2019-07-27 2019-07-27 [facility] [id number] 14:40:00 14:40:00 t [facility] Medicine l Medicine Outpati ent Clinics 2019-04-27 2019-04-27 [facility] [id number] 14:40:00 14:40:00 t [facility] Medicine l Medicine Outpati ent Clinics 2019-03-16 2019-03-16 [facility] [id number] 11:02:00 11:02:00 t [facility] Medicine Medicine Outpati ent Clinics 2019-02-24 2019-02-24 [facility] [id number] 09:33:00 09:33:00 t [facility] Medicine Medicine Outpati ent Clinics 2019-01-26 2019-01-26 [facility] [id number] 14:00:00 14:00:00 t [facility] Medicine l Medicine Outpati ent Clinics 2019-01-19 2019-01-19 [facility] [id number] [facility] 13:00:00 13:00:00 t [facility] Medicine l Medicine Outpati ent Clinics 2018-11-29 2018-11-29 [facility] [id number] 13:00:00 13:00:00 t [facility] Medicine l Medicine Outpati ent Clinics 2018-09-22 2018-09-22 [facility] [id number] 13:00:00 13:00:00 [facility] Medicine Medicine Outpati ent Clinics 2018-03-02 2018-03-02 Outpatient [facility] [id number] 15:20:00 15:20:00 [facility] 2018-02-25 2018-02-25 Outpatient Taurus Golden [id number] [facility] St 13:15:00 13:15:00 [facility] Results This patient has no known results.
--- OUTSIDE RECORDS SUMMARY | 2019-11-05 15:27 | XMS REPORT ---
:1960 Author Organization eClinicalWorks Care Team Providers Name Role Phone Laverne Son Provider Role Unavailable Allergies No Known Allergies Problems Problem Type Condition Code Onset Dates Condition Statu s Problem Hyperlipidemia E78.5 Active Problem Atherosclerosis of [place] coronary I25.10 Active artery Problem H/O: CVA [...] Start Date End Date Status Dosage Lisinopril [facility] 35180654759 20 MG Orally Once Active 1 tablet a day Zetia [facility] 86060851724 10 MG Orally Once Active 1 tablet a day Results No Known Results Summary Purpose eClinicalWorks Submission
[2019-11-05 16:51] LABS: Absolute Lymphocytes (CBC) 0.7 K/uL (0.7-4.9); Basophils % 0.6 % (0-1.3); Hematocrit 39.4 % (39.6-49.0); Lymphocytes % 13.6 % (15.3-44.8); MPV 9.1 fL (7.6-11.3); RBC Red Blood Cell Count 4.13 M/uL (4.33-5.43)
[2019-11-05 16:56] LABS: Protime INR 0.9
[2019-11-05 16:57] LABS: Urine Bacteria >50 /HPF (NONE SEEN); Urine Culture Reflex Order REFLEXED; Urine RBC TNTC /HPF (NONE SEEN)
[2019-11-05 17:06] LABS: ALT/SGPT 28 U/L (12-78); AST/SGOT 30 U/L (15-37); Albumin 3.9 g/dL (3.4-5.0); Alkaline Phosphatase 97 U/L (45-117); BUN Blood Urea Nitrogen 20 mg/dL (7-18); Bicarbonate 26 mmol/L (21-32); Bilirubin Direct < 0.1 mg/dL (0-0.2); Bilirubin Total 0.4 mg/dL (0.2-1.0); Glucose Level 97 mg/dL (74-106); Lipase 577 U/L (73-393); Potassium 4.6 mmol/L (3.5-5.1); Protein, Total 7.3 g/dL (6.4-8.2); Sodium Level 137 mmol/L (136-145)
[2019-11-05] MEDS ORDERED: NA CHLORIDE 0.9% 1,000 ML ONE (17:13)
[2019-11-05] MEDS ORDERED: CEFTRIAXONE/SWI 1gm 1 GM/10 ML SYR ONE (18:07)
--- NOTE | 2019-11-05 18:27 | RAD REPORT ---
EXAM DESCRIPTION: CT - Abdomen Pelvis W Contrast - 11/05/2019 6:15 pm CLINICAL HISTORY: Abdominal pain COMPARISON: none. TECHNIQUE: Computed axial tomography of the abdomen pelvis was obtained. 100 cc Isovue-300 was admin istered intravenously. Oral contrast was not requested which limits evaluation of bowel. All CT scans are performed using dose optimization technique as appropriate and may include automated exposure control or mA/KV adjustment according to patient size. FINDINGS: Tiny hepatic cysts. Small hepatic granuloma Spleen, pancreas, adrenal and left kidney appear unremarkable. Small right adrenal adenoma There is no evidence of diverticulitis. Normal appendix Atherosclerotic disease 7 centimeter lobulated mass within the superior aspect of the bladder IMPRESSION: 7 centimeter lobulated mass within the bladder has enlarged consistent with neoplasm
--- NOTE | 2019-11-05 18:42 | EDPHYS ---
Physician Documentation [facility] Name: Michael Ha Jr Age: 58 yrs Sex: Male : 1960 Arrival Date: 11/05/2019 Time: 15:16 Bed 14 Private MD: Laverne Son ED Physician Jimy Tellez HPI: 11/04 16:10 This 58 yrs old Male presents to ER via Ambulatory with complaints of Urinary cp Problem - blood. 16:10 The patient presents with urinary symptoms, hematuria. cp 16:10 Onset: The symptoms/episode began/occurred 4 day(s) ago. cp 16:10 Associated signs and symptoms: Pertinent negatives: abdominal pain, constipation, cp diarrhea, fever, vomiting. Severity of symptoms: in the emergency department the symptoms are unchanged, despite home interventions. The patient has experienced similar episodes in the past, a few times. Patient reports having appt with urology next week and being prescribed antibiotic 2-3 weeks ago for when he noticed blood in his urine. Patient reports blood resolved until 4 days ago. Historical: - Allergies: 16:08 PENICILLINS; ls4 - PMHx: 16:08 CAD; CVA; Deaf; Hypertension; Myocardial infarction; ls4 - PSHx: 16:08 cardiac stents; ls4 - Immunization history:: Adult Immunizations up to date, Flu vaccine is up to date. - Social history:: Smoking status: unknown Patient uses alcohol, admits to "couple of beers" a day. street drugs, marijuana. ROS: 16:13 Constitutional: Negative for body aches, chills, fever. cp 16:13 Abdomen/GI: Negative for abdominal pain, nausea, vomiting, and diarrhea. 16:13 Back: Negative for radiated pain. 16:13 : Positive for hematuria, Negative for flank pain, burning with urination, difficulty urinating, testicular pain 16:13 Neuro: Negative for altered mental status, headache, weakness. 16:13 All other systems are negative. Exam: 16:15 Constitutional: The patient appears in no acute distress, alert, awake, comfortable, cp non-diaphoretic, non-toxic, well developed, well nourished. 16:15 Head/Face: Normocephalic, atraumatic. cp 16:15 Eyes: Periorbital structures: appear normal, Conjunctiva: normal, no exudate, no injection, Sclera: no appreciated abnormality, Lids and lashes: appear normal, bilaterally. 16:15 ENT: External ear(s): are unremarkable, Nose: is normal, Posterior pharynx: Airway: no evidence of obstruction, patent. 16:15 Chest/axilla: Inspection: normal. 16:15 Cardiovascular: Rate: normal, Rhythm: regular. 16:15 Respiratory: the patient does not display signs of respiratory distress, Respirations: normal, no use of accessory muscles, labored breathing, is not present. 16:15 Abdomen/GI: Inspection: abdomen appears normal, Bowel sounds: active, all quadrants, Palpation: abdomen is soft and non-tender, in all quadrants. 16:15 Back: pain, is absent, ROM is normal. 16:15 Neuro: Orientation: to person, place \\T\\ time. Mentation: is normal. Vital Signs: 16:05 BP 143 / 92; Pulse 64; Resp 22; Temp 98.3(O); Pulse Ox 99% on R/A; Weight 78.02 kg; ls4 Height 5 ft. 6 in. (167.64 cm); Pain 0/10; 16:30 BP 142 / 86; Pulse 62; Resp 18; Pulse Ox 99% on R/A; Pain 0/10; ls4 17:30 BP 163 / 90; Pulse 64; Resp 16; Pulse Ox 100% on R/A; Pain 0/10; ls4 18:30 BP 165 / 91; Pulse 70; Resp 18; Temp 98.2(O); Pulse Ox 100% on R/A; Pain 0/10; ls4 16:05 Body Mass Index 27.76 (78.02 kg, 167.64 cm) ls4 MDM: 15:53 Patient medically screened. candida 17:00 Differential diagnosis: UTI, prostatitis, urethritis, anemia, bladder carcinoma, kidney cp stone. 18:40 Data reviewed: vital signs, nurses notes, lab test result(s), radiologic studies, CT cp scan. 18:40 Counseling: I had a detailed discussion with the patient and/or guardian regarding: the cp historical points, exam findings, and any diagnostic results supporting the discharge/admit diagnosis, lab results, radiology results, the need for outpatient follow up, for definitive care, a urologist, to return to the emergency department if symptoms worsen or persist or if there are any questions or concerns that arise at home. Response to treatment: the patient's symptoms have mildly improved after treatment, and as a result, I will discharge patient. ED course: VSS. H/H stable, patient appears non-toxic. Will discharge to home for continued monitoring. 11/04 16:05 Order name: Urine Microscopic Only; Complete Time: 17:07 ls4 11/04 17:08 Interpretation: Abnormal: URBC TNTC; UBACT >50. cp 11/04 16:11 Order name: Basic Metabolic Panel; Complete Time: 17:09 cp 11/04 18:07 Interpretation: Normal except: BUN 20; GFR 74. cp 11/04 16:11 Order name: CBC with Diff; Complete Time: 17:07 cp 11/04 18:07 Interpretation: Normal except: RBC 4.13; HGB 13.4; HCT 39.4; LYM% 13.6. cp 11/04 16:11 Order name: Hepatic Function; Complete Time: 17:09 cp 11/04 16:11 Order name: Lipase; Complete Time: 17:09 cp 11/04 17:09 Interpretation: Abnormal: LIP 577. cp 11/04 16:11 Order name: PT-INR; Complete Time: 17:07 cp 11/04 16:11 Order name: Orthostatics; Complete Time: 16:36 cp 11/04 16:11 Order name: IV Saline Lock; Complete Time: 16:36 cp 11/04 16:11 Order name: Ptt, Activated; Complete Time: 17:08 cp 11/04 16:59 Order name: Urine Culture EDWV 11/04 17:10 Order name: CT Abd/Pelvis - IV Contrast Only; Complete Time: 18:38 cp 11/04 18:38 Interpretation: Report reviewed. cp 11/04 16:11 Order name: Labs collected and sent; Complete Time: 16:36 cp Administered Medications: 17:19 Drug: NS 0.9% 1000 ml Route: IV; Rate: 1 bolus; Site: right antecubital; ls4 18:20 Follow up: IV Status: Completed infusion; IV Intake: 1000ml ls4 18:05 Drug: Rocephin 1 grams Route: IV; Rate: calculated rate; Site: right antecubital; ls4 18:15 Follow up: Response: No adverse reaction; IV Status: Completed infusion; IV Intake: [id number] Disposition: 19:00 Chart complete. cp 11/05 16:59 Co-signature as Attending Physician, Jimy Tellez MD I agree with the assessment and [facility] plan of care. Disposition: 11/05/19 18:41 Discharged to Home. Impression: Hematuria, unspecified, Urinary tract infection, site not specified, Bladder disorder, unspecified - mass. - Condition is Stable. - Discharge Instructions: Hematuria, Adult, Urinary Tract Infection, Adult, Antibiotic Medicine, Adult, Renal Mass. - Prescriptions for Levaquin 500 mg Oral Tablet - take 1 tablet by ORAL route once daily for 10 days; 10 tablet. - Medication Reconciliation Form, Thank You Letter, Antibiotic Education, Prescription Opioid Use form. - Follow up: Ramon Sargent MD; When: 1 - 2 days; Reason: Recheck today's complaints. - Problem is an ongoing problem. - Symptoms have improved. Signatures: Dispatcher [employer] EDWV Jimy Tellez MD MD cha Page, Corey, PA PA cp Stewart, Lisa, RN RN ls4 Corrections: (The following items were deleted from the chart) 11/04 16:05 15:57 Urine Dipstick-Ancillary ordered. ls4 ls4 19:25 18:41 11/05/2019 18:41 Discharged to Home. Impression: Hematuria, unspecified; Urinary ls4 tract infection, site not specified; Bladder disorder, unspecified - mass. Condition is Stable. Forms are Medication Reconciliation Form, Thank You Letter, Antibiotic Education, Prescription Opioid Use. Follow up: Ramon Sargent; When: 1 - 2 days; Reason: Recheck today's complaints. Problem is an ongoing problem. Symptoms have improved. cp
--- NOTE | 2019-11-05 18:42 | ER ---
Nurse's Notes [facility] Name: Michael Ha Jr Age: 58 yrs Sex: Male : 1960 Arrival Date: 11/05/2019 Time: 15:16 Bed 14 Private MD: Laverne Son Diagnosis: Hematuria, unspecified;Urinary tract infection, site not specified;Bladder disorder, unspecified-mass Presentation: 11/04 16:05 Chief complaint: Patient states: Started with small blood in urine a few days ago, ls4 today it is very bloody. Coronavirus screen: Proceed with normal triage. Patient denies a cough. Patient denies shortness of breath or difficulty breathing. Patient denies measured and/or subjective temperature greater than 100.4F prior to today's visit. Patient denies travel on a cruise ship or to a country the [facility] currently lists as an affected area. Patient denies contact with known and/or suspected case of COVID-19. Ebola Screen: No symptoms or risks identified at this time. Initial Sepsis Screen: Does the patient meet any 2 criteria? No. Patient's initial sepsis screen is negative. Does the patient have a suspected source of infection? No. Patient's initial sepsis screen is negative. Risk Assessment: Do you want to hurt yourself or someone else? Patient reports no desire to harm self or others. Onset of symptoms is unknown. Care prior to arrival: None. Activity prior to arrival: None. 16:05 Method Of Arrival: Ambulatory ls4 16:05 Acuity: JOEY 3 ls4 Triage Assessment: 16:08 General: Appears uncomfortable, Behavior is calm, cooperative. Pain: Denies pain. ls4 Neuro: No deficits noted. Cardiovascular: Denies chest pain. Respiratory: Denies cough, shortness of breath labored breathing. GI: No signs and/or symptoms were reported involving the gastrointestinal system. : Urine is yoel blood, Reports. Derm: Skin Skin is dry, Skin is normal, Skin temperature is warm. Musculoskeletal: Circulation, motion, and sensation intact. Capillary refill < 3 seconds, Range of motion: intact in all extremities. Historical: - Allergies: 16:08 PENICILLINS; ls4 - PMHx: 16:08 CAD; CVA; Deaf; Hypertension; Myocardial infarction; ls4 - PSHx: 16:08 cardiac stents; ls4 - Immunization history:: Adult Immunizations up to date, Flu vaccine is up to date. - Social history:: Smoking status: unknown Patient uses alcohol, admits to "couple of beers" a day. street drugs, marijuana. Screenin:11 Abuse screen: Denies threats or abuse. Denies injuries from another. Nutritional ls4 screening: No deficits noted. Tuberculosis screening: No symptoms or risk factors identified. Fall Risk None identified. Assessment: 16:30 Reassessment: Patient appears in no apparent distress at this time. No changes from ls4 previously documented assessment. Patient and/or family updated on plan of care and expected duration. Pain level reassessed. Patient is alert, oriented x 3, equal unlabored respirations, skin warm/dry/pink. 16:30 Pain: Denies pain. Respiratory: No deficits noted. ls4 17:30 Reassessment: Patient appears in no apparent distress at this time. Patient and/or ls4 family updated on plan of care and expected duration. Pain level reassessed. Patient is alert, oriented x 3, equal unlabored respirations, skin warm/dry/pink. Patient denies pain at this time. 18:30 Reassessment: Patient appears in no apparent distress at this time. Patient and/or ls4 family updated on plan of care and expected duration. Pain level reassessed. Patient is alert, oriented x 3, equal unlabored respirations, skin warm/dry/pink. Vital Signs: 16:05 BP 143 / 92; Pulse 64; Resp 22; Temp 98.3(O); Pulse Ox 99% on R/A; Weight 78.02 kg; ls4 Height 5 ft. 6 in. (167.64 cm); Pain 0/10; 16:30 BP 142 / 86; Pulse 62; Resp 18; Pulse Ox 99% on R/A; Pain 0/10; ls4 17:30 BP 163 / 90; Pulse 64; Resp 16; Pulse Ox 100% on R/A; Pain 0/10; ls4 18:30 BP 165 / 91; Pulse 70; Resp 18; Temp 98.2(O); Pulse Ox 100% on R/A; Pain 0/10; ls4 16:05 Body Mass Index 27.76 (78.02 kg, 167.64 cm) ls4 ED Course: 15:16 Patient arrived in ED. as 15:16 [place], Laverne is Private Physician. as 15:53 Jimy Marte PA is PHCP. cp 15:53 Jimy Tellez MD is Attending Physician. cp 15:57 Miracle Avery, RN is Primary Nurse. ls4 16:07 Triage completed. ls4 16:11 No apparent distress. ls4 16:11 Arm band placed on. ls4 16:11 Patient has correct armband on for positive identification. Bed in low position. Call ls4 light in reach. Side rails up X 1. monitoring manager on. Pulse ox on. NIBP on. 16:11 No provider procedures requiring assistance completed. ls4 16:38 Initial lab(s) drawn, by ks, sent to lab. Inserted saline lock: 20 gauge in right ls4 antecubital area, using aseptic technique. Blood collected. 16:38 Patient maintains SpO2 saturation greater than 95% on room air. ls4 17:25 Urine Culture Sent. ls4 18:05 CT Abd/Pelvis - IV Contrast Only Sent. ls4 18:16 CT Abd/Pelvis - IV Contrast Only In Process Unspecified. EDMS 18:40 Ramon Sargent MD is Referral Physician. cp Administered Medications: 17:19 Drug: NS 0.9% 1000 ml Route: IV; Rate: 1 bolus; Site: right antecubital; ls4 18:20 Follow up: IV Status: Completed infusion; IV Intake: 1000ml ls4 18:05 Drug: Rocephin 1 grams Route: IV; Rate: calculated rate; Site: right antecubital; ls4 18:15 Follow up: Response: No adverse reaction; IV Status: Completed infusion; IV Intake: [id number] Intake: 18:15 IV: 10ml; Total: 10ml. ls4 18:20 IV: 1000ml; Total: 1010ml. ls4 Outcome: 18:41 Discharge ordered by . cp 19:24 Discharged to home ambulatory. ls4 19:24 Condition: stable 19:24 Discharge instructions given to patient, family, Instructed on discharge instructions, follow up and referral plans. medication usage, safety practices, Demonstrated understanding of instructions, follow-up care, medications, Prescriptions given X 1. 19:25 Patient left the ED. ls4 Signatures: Dispatcher [employer] EDID Cathryn Johnson as Page, Jimy, PA PA cp Bennie, Miracle, RN RN ls4
[2019-11-05 19:52] VITALS: O2SAT 100
[2019-11-05 19:54] VITALS: BP 165/91; TEMP 98.2
== END 2019-11-05 19:25 | disposition home or self-care (01) ==
LOC: ER 15:14
DX: N39.0 Urinary tract infection, site not specified (principal); N32.9 Bladder disorder, unspecified; I10 Essential (primary) hypertension; Z88.0 Allergy status to penicillin; Z95.818 Presence of other cardiac implants and grafts
CPT/HCPCS: 96361; 87088; 85025; 80048; 36415; 85610; 80076; 85730; 81015; 83690; 74177; 96374; 99285; Q9967; J0696; J7030; 87086

== ENCOUNTER 2020-01-31 06:06 | Day surgery (SDC) | payer OTHER ==
[2020-01-26 11:00] LABS: Absolute Lymphocytes (CBC) 0.9 K/uL (0.7-4.9); Basophils % 0.7 % (0-1.3); Hematocrit 39.7 % (39.6-49.0); Lymphocytes % 13.7 % (15.3-44.8); MPV 9.2 fL (7.6-11.3); RBC Red Blood Cell Count 4.16 M/uL (4.33-5.43)
[2020-01-26 11:10] LABS: Protime INR 0.95
[2020-01-26 11:14] LABS: ALT/SGPT 31 U/L (12-78); AST/SGOT 26 U/L (15-37); Albumin 3.9 g/dL (3.4-5.0); Alkaline Phosphatase 90 U/L (45-117); BUN Blood Urea Nitrogen 14 mg/dL (7-18); Bicarbonate 29 mmol/L (21-32); Bilirubin Total 0.5 mg/dL (0.2-1.0); Glucose Level 99 mg/dL (74-106); Potassium 5.4 mmol/L (3.5-5.1); Protein, Total 7.6 g/dL (6.4-8.2); Sodium Level 138 mmol/L (136-145)
--- OUTSIDE RECORDS SUMMARY | 2020-01-31 06:11 | XMS REPORT | Continuity of Care Document ---
:[address] [facility] t Address [address] [place] [address] Care Team Providers Name Role Phone Unavailable Unavailable Unavailable Problems Condition Condition Condition Status Onset Resolution Last Treating Co mments Source Name Details Category Date Date Treatment Clinician Date Hypertensi Hypertensi Problem Active [facility] H/O: CVA H/O: CVA Problem [facility] (cerebrova [facility] - scular scular Memoria accident) accident) [facility] Chronic Chronic Problem Active [facility] obstructiv obstructiv [facility] - e e Memoria pulmonary pulmonary l disease, disease, Outpat i unspecifie unspecifie en t d COPD d COPD Clinics type type Atheroscle Atheroscle Problem Active C [facility] rosis of rosis of [facility] coronary coronary l artery artery Outpati ent Clinics Chronic Chronic Problem Active [facility] atrial atrial [facility] fibrillati fibrillati [facility] on [facility] Former Former Problem Active [facility] smoker smoker [facility] Chronic Chronic Problem Active [...] pain, left [facility] - [facility] Malignant Malignant Problem Active [facility] neoplasm neoplasm [facility] - of lateral of lateral Me moria wall of wall of l urinary urinary Outpati bladder bladder ent Clinics Bladder Bladder Problem Active [facility] mass mass [facility] Allergies, Adverse Reactions, Alerts Allergy Allergy Status Severity Reaction(s) Onset Inactive Treating Comm ents Source Name Type Date Date Clinician Penicill Adverse Active rash [facility] in G Reaction [facility] Sodium [facility] l [facility] Medications Ordered Filled Start Stop Current Ordering Indication Dosage Frequency Signature Comments Components Source Medication Medication Date Date Medication? Clinician (SIG) Name Name Bactrim DS Bactrim DS 2019- Yes Mauro [address] [facility] 7-14 07-16 [place] [facility] Dulera Dulera 2018-05 Yes Mauro [address] [facility] 2-04 [place] [facility] Metoprolol Metoprolol Yes Mauro TAKE [address] [facility] Tartrate Tartrate [place] TABLET BY [facility] M[facility]TH [facility] TWICE A l [facility] Nitroglycer Nitroglycer Yes Mauro TAKE [address] [facility] in in [place] TABLET BY [facility] M[facility]TH [facility]oria EVERY 5 l MINUTES Outpati NEEDED FOR ent CHEST PAIN Clinics SCALE 2-4 (MAX OF 3 DOSES) Amiodarone Amiodarone Yes Mauro TAKE [address] [facility] HCl HCl [place] TABLET BY [facility] TWICE A l [facility] Plavix Plavix Yes Mauro [address] [facility] [place] [facility] Atorvastati Atorvastati Yes Mauro [address] [facility] [address] n Calcium n Calcium [place] [facility] Lisinopril Lisinopril Yes Mauro [address] [address] [place] [facility] Zetia Zetia Yes Mauro [address] [facility] [address] [place] [facility] Procedures This patient has no known procedures. Encounters Start End Encounter Admission Attending Care Care Encounter Source Date/Time Date/Time Type Type Clinicians Facility Department ID 2020-01-17 2020-01-17 Outpatient Taurus Golden [id number] [facility] 16:09:00 16:09:00 t Specialty/U [facility]a [facility]es - Specialty rology Memori a /Urology Clinic l [facility] 2020-01-16 2020-01-16 [facility] [id number] [address] 12:56:00 12:56:00 t Specialty/U [facility]a kes - Specialty rology Memori a /Urology Clinic l Clinic Outpati ent Clinics 2019-12-26 2019-12-26 [facility] [id number] [address] 16:12:00 16:12:00 t Specialty/U [facility] kes - Specialty rology Memori a /Urology Clinic l Clinic Outpati ent Clinics 2019-12-08 2019-12-08 [facility] [id number] [address] 16:18:00 16:18:00 t Specialty/U Hansa kes - Specialty rology Memori a /Urology Clinic l Clinic Outpati ent Clinics 2019-12-06 2019-12-06 [facility] [id number] 13:00:00 13:00:00 t Specialty/U Hansa kes - Specialty rology Memori a /Urology Clinic l Clinic Outpati ent Clinics 2019-11-28 2019-11-28 [facility] [id number] 09:43:00 09:43:00 t [facility] Medicine Outpati ent Clinics 2019-11-23 2019-11-23 [facility] [id number] 14:29:00 14:29:00 t Specialty/U Hansa kes - Specialty rology Memori a /Urology Clinic l Clinic Outpati ent Clinics 2019-11-07 2019-11-07 [facility] [id number] 14:45:00 14:45:00 t Specialty/U Hansa kes - Specialty rology Memori a /Urology Clinic l Clinic Outpati ent Clinics 2019-10-26 2019-10-26 [facility] [id number] [address] 14:40:00 14:40:00 t [facility] Medicine Outpati ent Clinics 2019-10-05 2019-10-05 [facility] [id number] 15:00:00 15:00:00 t [facility] Medicine Outpati ent Clinics 2019-09-30 2019-09-30 [facility] [id number] 11:28:00 11:28:00 t [facility] Medicine Medicine Outpati ent Clinics 2019-08-22 2019-08-22 [facility] [id number] [address] 09:20:00 09:20:00 t [facility] Medicine Outpati ent Clinics 2019-07-27 2019-07-27 [facility] [id number] [address] 14:40:00 14:40:00 t [facility] Medicine l Medicine Outpati ent Clinics 2019-04-27 2019-04-27 [facility] [id number] [address] 14:40:00 14:40:00 t [facility] Medicine l Medicine Outpati ent Clinics 2019-03-16 2019-03-16 [facility] [id number] [address] 11[facility]02:00 11:02:00 t [facility] Medicine Medicine Outpati ent Clinics 2019-02-24 2019-02-24 [facility] [id number] 09:33:00 09:33:00 t [facility] Medicine Medicine Outpati ent Clinics 2019-01-26 2019-01-26 [facility] [id number] [address] 14[facility]00:00 14:00:00 t [facility] Medicine l Medicine Outpati ent Clinics 2019-01-19 2019-01-19 [facility] [id number] [address] 13:00:00 13:00:00 t [facility] Medicine Medicine Outpati ent Clinics 2018-11-29 2018-11-29 [facility] [id number] 13:00:00 13:00:00 t [facility] Medicine l Medicine Outpati ent Clinics 2018-09-22 2018-09-22 [facility] [id number] [address] 13:00:00 13:00:00 [facility] Medicine Medicine Outpati ent Clinics 2018-03-02 2018-03-02 Outpatient Taurus Golden [id number] 15:20:00 15:20:00 [facility] 2018-02-25 2018-02-25 Outpatient Taurus Golden [id number] [address] 13:15:00 13:15:00 [facility] Results This patient has no known results.
--- OUTSIDE RECORDS SUMMARY | 2020-01-31 06:12 | XMS REPORT ---
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
--- OUTSIDE RECORDS SUMMARY | 2020-01-31 06:12 | XMS REPORT ---
:1960 Author Organization [employer] Care Team Providers Name Role Phone Claudia Osei Provider Role Unavailable Allergies No Known Allergies Problems Problem Type Condition Code Onset Dates Condition Statu s Problem Atherosclerosis of [place] coronary I25.10 Active artery Problem Chronic atrial [...] Medications Results No Known Results Summary Purpose [employer] Submission
--- OUTSIDE RECORDS SUMMARY | 2020-01-31 06:12 | XMS REPORT ---
:1960 Author Organization [employer] Care Team Providers Name Role Phone Claudia Osei Provider Role Unavailable Allergies No Known Allergies Problems Problem Type Condition Code Onset Dates Condition Statu s Problem Atherosclerosis of [place] coronary I25.10 Active artery Problem Chronic atrial [...] of liver with K70.31 Active ascites Medications Medication Code System Code Instructions Start Date End Date Status Dosage Bactrim DS [facility] [id number] 800-160 MG orally November 28, November 29, Activ e 1 tablet once a day 2019 2019 Results No Known Results Summary Purpose [employer] Submission
--- OUTSIDE RECORDS SUMMARY | 2020-01-31 06:12 | XMS REPORT ---
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 Problem Decreased range of motion of finger M25.642 Active of left hand Problem Bladder mass N32.89 Active Problem Alcoholism /alcohol abuse F10.20 Ac tive Problem Chronic obstructive pulmonary J44.9 Active disease, unspecified COPD type Problem Finger pain, left M79.645 Active Problem Alcoholic cirrhosis of liver with K70.31 Active ascites Assessment Hematuria R31.9 Active Problem Chronic back pain M54.9 Active Problem Former smoker Z87.891 Active Assessment Bladder mass N32.89 Active Problem Hypertension I10 Active Problem Hyperlipidemia E78.5 Active Medications Medication Code Code Instructions Start End Status Dosage System Date Date Metoprolol [facility] 43736559302 25 MG Active TAKE 1 Tartrate TABLET BY MOUTH TWICE A DAY Nitroglycerin [facility] 75482595310 0.4 MG Active TAKE 1 Sublingual TABLET BY MOUTH EVERY 5 MINUTES NEEDED FOR CHEST PAIN SCALE 2-4 (MAX OF 3 DOSES) Amiodarone HCl [facility] 49541474983 200 MG Oral Active T RAFAL 1 TABLET BY MOUTH TWICE A DAY Plavix [facility] 24176998403 75 MG Orally Active 1 table t Once a day Bactrim DS [facility] 51878537196 800-160 MG December 05November Active 1 tab let Orally Twice a 2019 Dulera [facility] 22396192387 100-5 MCG/ACT Apr 27, Active 2 puff s Inhalation 2019 Twice a day Atorvastatin ND 85578562228 80 MG Orally Active 1 tablet Calcium Once a day Lisinopril ND 81232193738 20 MG Orally Active 1 ta blet Once a day Zetia [facility] 37210770981 10 MG Orally Active 1 table t Once a day Results No Known Results Summary Purpose [employer]ClinicalWorks Submission
--- OUTSIDE RECORDS SUMMARY | 2020-01-31 06:12 | XMS REPORT ---
:1960 Author Organization [employer] Care Team Providers Name Role Phone Claudia Osei Provider Role Unavailable Allergies No Known Allergies Problems Problem Type Condition Code Onset Dates Condition Statu s Problem Atherosclerosis of [place] coronary I25.10 Active artery Problem Chronic atrial [...] Medications Results No Known Results Summary Purpose [employer] Submission
--- OUTSIDE RECORDS SUMMARY | 2020-01-31 06:12 | XMS REPORT ---
:1960 Author Organization [employer] Care Team Providers Name Role Phone Claudia Osei Provider Role Unavailable Allergies, Adverse Reactions, Alerts Substance Reaction Event Type N.K.D.A. Info Not Available Non Drug Allergy Problems Problem Type Condition Code Onset Dates Condition Statu s Problem Atherosclerosis of [place] coronary I25.10 Active artery Problem Chronic atrial [...] of liver with K70.31 Active ascites Assessment Bladder mass N32.89 Active Problem Chronic back pain M54.9 Active Problem Former smoker Z87.891 Active Assessment Hematuria R31.9 Active Problem Hypertension I10 Active Problem Hyperlipidemia E78.5 Active Medications Medication Code Code Instructions Start End Status Dosage System Date Date Zetia [facility] 19666795150 10 MG Orally Active 1 table t Once a day Lisinopril [facility] 20837428441 20 MG Orally Active 1 ta blet Once a day Plavix [facility] 55069678063 75 MG Orally Active 1 table t Once a day Atorvastatin [facility] 93193768972 80 MG Orally Active 1 tablet Calcium Once a day Nitroglycerin [facility] 15674261628 0.4 MG Active TAKE 1 Sublingual TABLET BY MOUTH EVERY 5 MINUTES NEEDED FOR CHEST PAIN SCALE 2-4 (MAX OF 3 DOSES) Dulera [facility] 85932499107 100-5 MCG/ACT Apr 27, Active 2 puff s Inhalation 2018 Twice a day Amiodarone HCl [facility] 51082771304 200 MG Oral Active T RAFAL 1 TABLET BY MOUTH TWICE A DAY Metoprolol [facility] 23400925712 25 MG Active TAKE 1 Tartrate TABLET BY MOUTH TWICE A DAY Results No Known Results Summary Purpose [employer] Submission
--- OUTSIDE RECORDS SUMMARY | 2020-01-31 06:12 | XMS REPORT ---
:1960 Author Organization [employer] Care Team Providers Name Role Phone Claudia Osei Provider Role Unavailable Allergies No Known Allergies Problems Problem Type Condition Code Onset Dates Condition Statu s Problem Atherosclerosis of [place] coronary I25.10 Active artery Problem Chronic atrial [...] Medications Results No Known Results Summary Purpose [employer] Submission
--- OUTSIDE RECORDS SUMMARY | 2020-01-31 06:12 | XMS REPORT ---
:1960 Author Organization [employer] Care Team Providers Name Role Phone Clauida Osei Provider Role Unavailable Allergies No Known Allergies Problems Problem Type Condition Code Onset Dates Condition Statu s Problem Atherosclerosis of [place] coronary I25.10 Active artery Problem Chronic atrial [...] Medications Results No Known Results Summary Purpose [employer] Submission
[2020-01-31] MEDS ORDERED: Ringers Lactate 1,000 ML IV ONE (06:48)
[2020-01-31] MEDS ORDERED: FENTANYL CITR 100 MCG/2 ML ONE ×2 (07:11→08:34)
[2020-01-31] MEDS ORDERED: LIDOCAINE 1% MPF 5 ML VIAL ONE (07:13)
[2020-01-31] MEDS ORDERED: propofoL 200 MG/20 ML VIAL IV ONE (07:13)
[2020-01-31] MEDS ORDERED: MIDAZOLAM HCL 2 MG/2 ML INJ ONE (07:13)
[2020-01-31] MEDS ORDERED: ONDANSETRON 4 MG/2 ML VIAL ONE (07:13)
[2020-01-31] MEDS ORDERED: Levofloxacin500mg IV 500 MG/100 ML BAG IV ONE (07:48)
[2020-01-31] MEDS ORDERED: ROCURONIUM 50 MG/5 ML VIAL IV ONE (07:58)
[2020-01-31] MEDS ORDERED: EPHEDRINE SULF 50 MG/ML VIAL ONE (08:08)
[2020-01-31] MEDS ORDERED: GLYCOPYRROLATE 0.2 MG/ML SYR ONE (08:20)
[2020-01-31] MEDS ORDERED: NEOSTIGMINE 1 MG/ML -5 ML ONE (08:22)
--- NOTE | 2020-01-31 09:13 | RAD REPORT ---
EXAM DESCRIPTION: RAD - Cystography - 01/31/2020 8:54 am CLINICAL HISTORY: TURBT INSTALL Bladder tumor COMPARISON: No comparisons FINDINGS: A single fluoroscopic images is submitted. No diagnostic images submitted. Total fluoro time: 0.1 minutes.
[2020-01-31] MEDS ORDERED: OXYBUTYNIN ER 5 MG TAB PO ONE (09:23)
[2020-01-31] MEDS ORDERED: CODEINE 30MG/APAP 300MG TAB ONE (10:38)
[2020-01-31 10:42] VITALS: TEMP 96.7; O2SAT 100
[2020-01-31 11:40] VITALS: BP 138/64
== END 2020-01-31 11:25 | disposition home or self-care (01) ==
LOC: OR 06:06
PROVIDERS: ATTEND Internal Medicine Hematology & Oncology
PROC: 0T7D8ZZ Dilation of Urethra, Via Natural or Artificial Opening Endoscopic (ICD-10-PCS; 2020-01-31)
PROC: 0TBB8ZX Excision of Bladder, Via Natural or Artificial Opening Endoscopic, Diagnostic (ICD-10-PCS; principal; 2020-01-31 07:30)
DX: C67.9 Malignant neoplasm of bladder, unspecified (principal); N35.911 Unspecified urethral stricture, male, meatal; I25.10 Atherosclerotic heart disease of native coronary artery without angina pectoris; F10.21 Alcohol dependence, in remission; I10 Essential (primary) hypertension; J44.9 Chronic obstructive pulmonary disease, unspecified; Z87.891 Personal history of nicotine dependence; Z20.828 Contact with and (suspected) exposure to other viral communicable diseases
CPT/HCPCS: 52240; 52235; 52281; 85025; 87086; 36415; 85610; 88307; 85730; 80053; 51600; 74430; U0002; J2704; J2250; J3010 ×2; J2710; J7120; J2405; 87088; 88305

== ENCOUNTER 2020-04-25 09:58 | Emergency (ER) | payer OTHER ==
--- OUTSIDE RECORDS SUMMARY | 2020-04-25 10:22 | XMS REPORT | Continuity of Care Document ---
:1960 Author Organization [facility] t Address [address] [place] [address] Care Team Providers Name Role Phone Unavailable Unavailable Unavailable Problems This patient has no known problems. Allergies, Adverse Reactions, Alerts Allergy Allergy Status Severity Reaction(s) Onset Inactive Treating Comm ents Source Name Type Date Date Clinician Penicill Adverse Active rash [facility] G Reaction [facility] Outpati ent Clinics Medications Ordered Filled Start Stop Current Ordering Indication Dosage Frequency Signature Comments Components Source Medication Medication Date Date Medication? Clinician (SIG) Name Name Dulera Dulera 2018- Yes Claudia 2 [facility] [place] [facility] l Outpati ent Clinics Metoprolol Metoprolol Yes Claudia TAKE [address] [facility] Tartrate Tartrate [place] TABLET BY [facility] - MOUTH Memoria TWICE A l DAY Outpati ent Clinics Nitroglycer Nitroglycer Yes Claudia TAKE [address] [facility] [address] in in [place] TABLET BY [facility] - MOUTH Memoria EVERY 5 l MINUTES Outpati NEEDED FOR ent CHEST PAIN Clinics SCALE 2-4 (MAX OF 3 DOSES) Amiodarone Amiodarone Yes Claudia TAKE [address] [facility] HCl HCl [place] TABLET BY [facility] - MOUTH Memoria TWICE A l DAY Outpati ent Clinics Plavix Plavix Yes Claudia [address] [facility] [place] [facility] Clinics Atorvastati Atorvastati Yes Claudia [address] [facility] n Calcium n Calcium [place] [facility] - [facility] Outpati ent Clinics Lisinopril Lisinopril Yes Claudia [address] [facility] [place] [facility] Out[facility] ent Clinics Zealbertina Zealbertina Yes Claudia [address] [facility] [place] [facility] Out[facility] Clinics Procedures This patient has no known procedures. Encounters Start End Encounter Admission Attending Care Care Encounter Source Date/Time Date/Time Type Type Clinicians Facility Department ID 2020-04-17 2020-04-17 Outpatient [facility] [id number] 2020-04-05 2020-04-05 Outpatient [facility] [id number] [facility] 2020-02-23 2020-02-23 Outpatient [facility] [id number] [facility] 2020-02-08 2020-02-08 [facility] [id number] [facility] 14:59:00 14:59:00 t Specialty/U Hansa kes - Specialty rology Memori a /Urology Clinic l Clinic Outpati ent Clinics 2020-02-03 2020-02-03 [facility] [id number] 08:45:00 08:45:00 t Specialty/U Hansa kes - Specialty rology Memori a /Urology Clinic l Clinic Outpati ent Clinics 2020-01-17 2020-01-17 [facility] [id number] [address] 16:09:00 16:09:00 t Specialty/U Hansa kes - Specialty rology Memori a /Urology Clinic l Clinic Outpati ent Clinics 2020-01-16 2020-01-16 [facility] [id number] 12:56:00 12:56:00 t Specialty/U Hansa kes - Specialty rology Memori a /Urology Clinic l Clinic Outpati ent Clinics 2019-12-26 2019-12-26 [facility] [id number] 16:12:00 16:12:00 t Specialty/U Hansa kes - Specialty rology Memori a /Urology Clinic l Clinic Outpati ent Clinics 2019-12-08 2019-12-08 [facility] [id number] 16:18:00 16:18:00 t Specialty/U Hansa kes - Specialty rology Memori a /Urology Clinic l Clinic Outpati ent Clinics 2019-12-06 2019-12-06 [facility] [id number] 13:00:00 13:00:00 t Specialty/U Hansa kes - Specialty rology Memori a /Urology Clinic l Clinic Outpati ent Clinics 2019-11-28 2019-11-28 [facility] [id number] 09:43:00 09:43:[address] [facility] Medicine l Medicine Outpati ent Clinics 2019-11-23 2019-11-23 [facility] [id number] 14:29:00 14:29:00 t Specialty/U Hansa kes - Specialty rology Memori a /Urology Clinic l Clinic Outpati ent Clinics 2019-11-07 2019-11-07 [facility] [id number] 14:45:00 14:45:00 t Specialty/U Hansa kes - Specialty rology Memori a /Urology Clinic l Clinic Outpati ent Clinics 2019-10-26 2019-10-26 [facility] [id number] 14:40:00 14:40:[address] [facility] Medicine Medicine Outpati ent Clinics 2019-10-05 2019-10-05 [facility] [id number] 15:00:00 15:00:[address] [facility] Medicine l Medicine Outpati ent Clinics 2019-09-30 2019-09-30 [facility] [id number] 11:28:00 11:28:[address] [facility] Medicine l Medicine Outpati ent Clinics 2019-08-22 2019-08-22 [facility] [id number] 09:20:00 09:20:00 t [facility] Medicine Outpati ent Clinics 2019-07-27 2019-07-27 [facility] [id number] [facility] 14:40:00 14:40:00 [facility] Medicine l Medicine Outpati ent Clinics 2019-04-27 2019-04-27 [facility] [id number] 14:40:00 14:40:[address] [facility] Medicine Outpati ent Clinics 2019-03-16 2019-03-16 [facility] [id number] 11:02:00 11:02:00 [facility] l Medicine Outpati ent Clinics 2019-02-24 2019-02-24 [facility] [id number] 09:33:00 09:33:00 [facility] l Medicine Outpati ent Clinics 2019-01-26 2019-01-26 [facility] [id number] [facility] 14:00:00 14:00:00 [facility] l Medicine Outpati ent Clinics 2019-01-19 2019-01-19 [facility] [id number] 13:00:00 13:00:[address] [facility] Medicine Outpati ent Clinics 2018-11-29 2018-11-29 [facility] [id number] 13:00:00 13:00:[address] [facility] Medicine Outpati ent Clinics 2018-09-22 2018-09-22 [facility] [id number] [facility] 13:00:00 13:00:[address] [facility] Medicine Outpati ent Clinics 2018-03-02 2018-03-02 [facility] [id number] [facility] 15:20:00 15:20:[address] [facility] Medicine Outpati ent Clinics 2018-02-25 2018-02-25 [facility] [id number] [facility] 13:15:00 13:15:[address] [facility] Medicine Outpati ent Clinics Results This patient has no known results.
--- OUTSIDE RECORDS SUMMARY | 2020-04-25 10:22 | XMS REPORT ---
:1960 Author Organization [facility] Address [address] [place] [place] [address] Care Team Providers Name Role Phone Sea Unavailable [phone] PROBLEMS Type Condition ICD9-CM [id number] Onset Condition SNOMED Code Notes Code Code Dates Status Problem Former smoker Z87.891 Active 1155272 Problem Chronic back pain M54.9 Active 091797818 Problem Hyperlipidemia E78.5 Active 28457937 Problem Hypertension I10 Active 31300129 Problem Chronic atrial I48.2 Active 745385004 fibrillation Problem Chronic J44.9 Active 79034099 obstructive pulmonary disease, unspecified COPD type Problem Alcoholism F10.20 Active 7631357 /alcohol abuse Problem Bladder mass N32.89 Active 826083759 Problem H/O: CVA Z86.73 Active 346120159 (cerebrovascular accident) Problem Bladder cancer C67.9 Active 630464034 Problem Atherosclerosis of I25.10 Active 073350547 [place] coronary artery Problem 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 Active 303888411 cirrhosis of liver with ascites Problem Decreased range of M25.642 Active 508941531 motion of finger of left hand Problem Finger pain, left M79.645 Active 21646909782214 5 Problem Malignant neoplasm C67.2 Active 692924701 of lateral wall of urinary bladder ALLERGIES Allergen (clinical drug Drug/Non Drug Allergy Reaction Allergy Type Onset Date Status ingredient) documented on EMR penicillin G Penicillin G rash Drug Allergy Active Sodium([facility] Code:[address]-87) ENCOUNTERS from 1960 to 2020-02-24 Encounter Location Date Provider Diagnosis [facility] [address] Allie COOLEY Feb, Claudia Osei Hematuria R31.9 ; Specialty/Urology [address] N32.[address] [place] [address] and Bladder ca ncer C67.9 IMMUNIZATIONS No Information SOCIAL HISTORY Tobacco Use: Social History Observation Description Date Details (start date - stop date) Former Smoker Sex Assigned At : Social History Observation Description Sex Assigned At Unknown Alcohol Screen Question Answer Notes Did you have a drink containing alcohol in Yes the past year? Points 4 Interpretation Positive How often did you have a drink containing Four or more times a week (4 points) alcohol in the past year? Tobacco Use/Smoking Question Answer Notes Are you a former smoker REASON FOR REFERRAL No Information VITAL SIGNS Height 64.5 in Feb, Weight 147.6 lbs Feb, Temperature 98.4 degrees Fahrenheit Feb, BMI 24.94 kg/m2 Feb, Oximetry 94 % Feb, Blood pressure systolic 140 mm Hg Feb, Blood pressure diastolic 80 mm Hg Feb, MEDICATIONS Medication SIG (Take, Route, Frequency, Start Date End Date Status Duration) Lisinopril 20 MG 1 tablet Orally Once a day Active for 90 Dulera 100-5 MCG/ACT 2 puffs Inhalation Twice a Apr, Active day Zetia 10 MG 1 tablet Orally Once a day A ctive for 90 Plavix 75 MG 1 tablet Orally Once a day A ctive for 90 Nitroglycerin 0.4 MG TAKE 1 TABLET BY MOUTH EVERY Active 5 MINUTES NEEDED FOR CHEST PAIN SCALE 2-4 (MAX OF 3 DOSES) Sublingual for 10 Metoprolol Tartrate 25 MG TAKE 1 TABLET BY MOUTH TWICE Active A DAY for 30 Amiodarone HCl 200 MG TAKE 1 TABLET BY MOUTH TWICE Active A DAY Oral for 90 Atorvastatin Calcium 80 MG 1 tablet Orally Once a day Active for 30 day(s) PROCEDURES No Information RESULTS No Results REASON FOR VISIT RESULTS ON PATH MEDICAL (GENERAL) HISTORY Type Description Date Medical History Hypertension Medical History Hyperlipidemia Medical History Atherosclerosis of [place] coronary arter y Medical History H/O: CVA (cerebrovascular accident) Medical History Former smoker Medical History Chronic back pain Medical History ETOH abuse Medical History Bladder malignancy CT scan 9 Surgical History Stents Surgical History heart cath 04/04/2019 Goals Section No Information Health Concerns No Information MEDICAL EQUIPMENT No Information MENTAL STATUS No Information FUNCTIONAL STATUS No Information ASSESSMENTS Encounter Date Diagnosis Notes Feb, Hematuria (ICD-10 - R31.9) Feb, Bladder cancer (ICD-10 - C67.9) Feb, Bladder mass (ICD-10 - N32.89) PLAN OF TREATMENT Treatment Notes Assessment Notes Clinical Notes Hematuria I spent >50% of 25 min. visit going Himanshu s hematuria with clots, increase over path report for bladder cancer, flu ids when he sees clots, restart importance of follow up and see Plavix n ext Thursday, go to ER if unable urologic oncology. to urinate or come t o office during working hoursReviewe d CT from 04/2019, reports had another one done recently,Bladder mas s, lobulated 2.3 cm along left latera l wall, likely malignancy, no brandan s or stones otherwise noted, res ected on 01/31/2020path repor t reveals PUC, high grade invasive into lamina propria, scanned in chartPt. given a copy of path report, referred to [facility], his daughter works t here and would prefer over [place], given names Dr. Mikey Alcantara or Dr Adalgisa Canela [facility] prn Next Appt Details prn Reason: Insurance Providers Payer Name Payer Address Payer Insured Patient Coverage Cover age Phone Name Relationship to Start Date End Date Insured [employer] [address] [address] [phone] Henrry Ha (Medicaid) [place] [address] [place] [address] MEDICARE Attn Part B [id number] Henrry Ha 2017 [place] Claims [address] [place] [address]
--- OUTSIDE RECORDS SUMMARY | 2020-04-25 10:22 | XMS REPORT ---
:1960 Author Organization [facility] Address [address] [place] [address] Care Team Providers Name Role Phone Huy Unavailable [phone] PROBLEMS Type Condition ICD9-CM [id number] Onset Condition SNOMED Code Notes Code Code Dates Status Problem Former smoker Z87.891 Active 6408816 Problem Chronic back pain M54.9 Active 737699788 Problem Hyperlipidemia E78.5 Active 65305889 Problem Hypertension I10 Active 49205823 Problem Chronic atrial I48.2 Active 317160813 fibrillation Problem Chronic J44.9 Active 23578531 obstructive pulmonary disease, unspecified COPD type Problem Alcoholism F10.20 Active 4153429 /alcohol abuse Problem Bladder mass N32.89 Active 425121445 Problem H/O: CVA Z86.73 Active 008177492 (cerebrovascular accident) Problem Bladder cancer C67.9 Active 562979613 Problem Atherosclerosis of I25.10 Active 107865463 [place] coronary artery Problem 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 Active 369492854 cirrhosis of liver with ascites Problem Decreased range of M25.642 Active 729453989 motion of finger of left hand Problem Finger pain, left M79.645 Active 84387386633587 5 Problem Malignant neoplasm C67.2 Active 370839570 of lateral wall of urinary bladder ALLERGIES Allergen (clinical drug Drug/Non Drug Allergy Reaction Allergy Type Onset Date Status ingredient) documented on EMR penicillin G Penicillin G rash Drug Allergy Active Sodium([facility] Code:[address]-04) ENCOUNTERS from 1960 to 2020-04-05 Encounter Location Date Provider Diagnosis [facility] [address] [place], [place] [address] IMMUNIZATIONS No Information SOCIAL HISTORY Tobacco Use: [...] REASON FOR REFERRAL No Information VITAL SIGNS No information MEDICATIONS Medication SIG (Take, Route, Frequency, Start Date End Date Status Duration) Zetia 10 MG 1 tablet Orally Once a day A ctive for 90 Lisinopril 20 MG 1 tablet Orally Once a day Active for 15 days Dulera 100-5 MCG/ACT 2 puffs Inhalation Twice a 04 Apr, 2019 Active day Amiodarone HCl 200 MG 1 tablet Orally twice a day Active for 15 days Metoprolol Tartrate 25 MG TAKE 1 TABLET BY MOUTH TWICE Active A DAY for 30 Plavix 75 MG 1 tablet Orally Once a day A ctive for 15 days Nitroglycerin 0.4 MG TAKE 1 TABLET BY MOUTH EVERY Active 5 MINUTES NEEDED FOR CHEST PAIN SCALE 2-4 (MAX OF 3 DOSES) Sublingual for 10 Atorvastatin Calcium 80 MG 1 tablet Orally Once a day Active for 30 day(s) PROCEDURES No Information RESULTS No Results REASON FOR VISIT Rx MEDICAL (GENERAL) HISTORY Type Description Date Medical History Hypertension Medical History Hyperlipidemia Medical History Atherosclerosis of [place] coronary arter y Medical History H/O: CVA (cerebrovascular accident) Medical History Former smoker Medical History Chronic back pain Medical History ETOH abuse Medical History Bladder malignancy CT scan 9 Surgical History Stents Surgical History heart cath 04/04/2019 Goals Section No Information Health Concerns No Information MEDICAL EQUIPMENT No Information MENTAL STATUS No Information FUNCTIONAL STATUS No Information ASSESSMENTS No Information PLAN OF TREATMENT Medication Medication Name Sig Start Date Stop Date Lisinopril 20 MG 1 tablet Orally Once a day for 15 days Plavix 75 MG 1 tablet Orally Once a day for 15 days Amiodarone HCl 200 MG 1 tablet Orally twice a day for 15 days Next Appt Details Provider Name:Laverne Huy, 2020-04-17 08 :20:00 AM, [address], [address], [place], [address], Insurance Providers Payer Name Payer Address Payer Insured Patient Coverage Cover age Phone Name Relationship to Start Date End Date Insured [facility] [address] [phone] Henrry Ha [facility] [address] [address] MEDICARE Attn Part B [id number] Henrry Ha 2017 [place] Claims [address] [facility] [address]
--- OUTSIDE RECORDS SUMMARY | 2020-04-25 10:22 | XMS REPORT ---
:1960 Author Organization [employer] Care Team Providers Name Role Phone Claudia Osei Provider Role Unavailable Allergies No Known Allergies Problems Problem Type Condition Code Onset Dates Condition Statu s Problem Atherosclerosis of [place] coronary I25.10 Active artery Problem Chronic atrial [...] Medications Results No Known Results Summary Purpose [facility] Submission
--- OUTSIDE RECORDS SUMMARY | 2020-04-25 10:22 | XMS REPORT ---
:1960 Author Organization [employer] Care Team Providers Name Role Phone Claudia Osei Provider Role Unavailable Allergies, Adverse Reactions, Alerts Substance Reaction Event Type Penicillin G Sodium rash Drug Allergy Problems Problem Type Condition Code Onset Dates Condition Statu s Problem Atherosclerosis of [place] coronary I25.10 Active artery Problem Chronic atrial [...] Start End Status Dosage System Date Date Lisinopril [facility] [place] 06834594957 20 MG Orally Active 1 ta blet Once a day Plavix [facility] [place] 49153890969 75 MG Orally Active 1 table t Once a day Nitroglycerin [facility] [place] 76936288226 0.4 MG Active TAKE 1 Sublingual TABLET BY MOUTH EVERY 5 MINUTES NEEDED FOR CHEST PAIN SCALE 2-4 (MAX OF 3 DOSES) Amiodarone HCl [facility] [place] 89609882662 200 MG Oral Active T RAFAL 1 TABLET BY MOUTH TWICE A DAY Metoprolol ND 04521800928 25 MG Active TAKE 1 Tartrate TABLET BY MOUTH TWICE A DAY Zetia [facility] [place] 65716958363 10 MG Orally Active 1 table t Once a day Atorvastatin [facility] [place] 37533236447 80 MG Orally Active 1 tablet Calcium Once a day Dulera ND 26207555176 100-5 MCG/ACT Apr 27, Active 2 puff s Inhalation 2019 Twice a day Results No Known Results Summary Purpose [employer] Submission
--- OUTSIDE RECORDS SUMMARY | 2020-04-25 10:23 | XMS REPORT ---
:1960 Author Organization [facility] Address [address] [place] [address] Care Team Providers Name Role Phone Huy Unavailable [phone] PROBLEMS Type Condition ICD9-CM [id number] Onset Condition SNOMED Code Notes Code Code Dates Status Problem Hypertension I10 Active 18380353 Problem Hyperlipidemia E78.5 Active 70516637 Problem Atherosclerosis of I25.10 Active 659960533 [place] coronary artery Problem H/O: CVA Z86.73 Active 142703563 (cerebrovascular accident) Problem Malignant neoplasm C67.2 Active 561267983 of lateral wall of urinary bladder Problem Former smoker Z87.891 Active 3194940 Problem Bladder cancer C67.9 Active 363548671 Problem Chronic back pain M54.9 Active 633247829 Problem Chronic atrial I48.2 Active 775035766 fibrillation Problem Chronic J44.9 Active 12571979 obstructive pulmonary disease, unspecified COPD type Problem Alcoholism F10.20 Active 1441683 /alcohol abuse Problem 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 Active 537708886 cirrhosis of liver with ascites ALLERGIES Allergen (clinical drug Drug/Non Drug Allergy Reaction Allergy Type Onset Date Status ingredient) documented on EMR penicillin G Penicillin G rash Drug Allergy Active Sodium([facility] Code:[address]-93) ENCOUNTERS from 1960 to 2020-04-17 Encounter Location Date Provider Diagnosis [facility] [place] [address] [facility] [address], Laverne Son Atheroscl erosis of [address], [place] [address] I25.10 ; H/O: CVA (cerebrovascula r accident) Z86.7 3 ; Chronic obstruc tive pulmonary disea se, unspecified [employer] D type J44.9 ; Chronic atrial fibrillation I4 8.2 and Alcoholic cirrh osis of liver with asci paulo K70.31 IMMUNIZATIONS No Information SOCIAL HISTORY Tobacco Use: [...] No Information VITAL SIGNS Height 64.5 in Mar, Weight 187.6 lbs Mar, Temperature 97.5 degrees Fahrenheit Mar, BMI 31.7 kg/m2 Mar, Oximetry 99 % Mar, Respiratory Rate 16 /min Mar, Blood pressure systolic 138 mm Hg Mar, Blood pressure diastolic 86 mm Hg Mar, MEDICATIONS Medication SIG (Take, Route, Notes Start Date End Date Status Frequency, Duration) Nitroglycerin 0.4 MG take 1 tablet by mouth Active every 5 minutes as needed for chest pain scale 2-4 (max of 3 doses) Sublingual as needed for 90 days Dulera 100-5 MCG/ACT 2 puffs Inhalation Apr, Active Twice a day Plavix 75 MG 1 tablet Orally Once a Active day for 15 Zetia 10 MG 1 tablet Orally Once a A ctive day for 90 Lisinopril 20 MG 1 tablet Orally Once a Active day for 15 Atorvastatin Calcium 80 MG 1 tablet Orally Once a Active day for 90 days Amiodarone HCl 200 MG 1 tablet Orally twice a Active day for 15 Metoprolol Tartrate 25 MG TAKE 1 TABLET BY MOUTH Active TWICE A DAY for 30 PROCEDURES No Information RESULTS No Results REASON FOR VISIT med refill (In Lobby) MEDICAL (GENERAL) HISTORY Type Description Date Medical History Hypertension Medical History Hyperlipidemia Medical History Atherosclerosis of [place] coronary arter y Medical History H/O: CVA (cerebrovascular accident) Medical History Former smoker Medical History Chronic back pain Medical History ETOH abuse Medical History Bladder malignancy CT scan 9 Surgical History Stents Surgical History heart cath 04/04/2019 Surgical History 2 tumors removed from bladder 01/2020 Goals Section No Information Health Concerns No Information MEDICAL EQUIPMENT No Information MENTAL STATUS No Information FUNCTIONAL STATUS No Information ASSESSMENTS Encounter Date Diagnosis Assessment Notes Treatment Notes Treatm ent Clinical Notes Mar, Atherosclerosis of meds as direc silke [place] coronary artery continue care (ICD-10 - I25.10) with Dr. Diego reynoso check BP daily Mar, H/O: CVA monitor for (cerebrovascular returning sx accident) (ICD-10 - call 911 if sx Z86.73) occur. Mar, Chronic obstructive aware pulmonary disease, avoid trigger s unspecified COPD type not smoking (ICD-10 - J44.9) Mar, Chronic atrial meds as directed fibrillation (ICD-10 - I48.2) Mar, Alcoholic cirrhosis of reduce and/or liver with ascites quit drinking (ICD-10 - K70.31) alcohol PLAN OF TREATMENT Medication Medication Name Sig Start Date Stop Date Nitroglycerin 0.4 MG take 1 tablet by mouth every 5 minutes as needed for chest pain scale 2-4 (max of 3 doses) Sublingual as needed for 90 days Atorvastatin Calcium 80 MG 1 tablet Orally Once a day for 90 days Treatment Notes Assessment Notes Clinical Notes Atherosclerosis of [place] coronary meds as directedcontinue care with artery Dr. Baires BP daily H/O: CVA (cerebrovascular accident) monitor for returning sx call 911 if sx occur. Chronic obstructive pulmonary awareavoid triggersnot smoking disease, unspecified COPD type Chronic atrial fibrillation meds as directed Alcoholic cirrhosis of liver with reduce and/or quit drinkin g alcohol ascites Next Appt Details 3 Months Reason: Provider Name:Laverne Son 2020-07-17 08 :00:00 AM, [address] [facility] [address], [place], [address], Provider Name:Laverne Son 2020-07-17 08 :40:00 AM, [address] [facility] [address], [place], [address], Insurance Providers Payer Name Payer Address Payer Insured Patient Coverage Cover age Phone Name Relationship to Start Date End Date Insured [facility] [address] [phone] Henrry Ha [facility] [address] [place] [address] MEDICARE Attn Part B [id number] Henrry Ha 2017 [employer] Claims [address] [facility] [address]
[2020-04-25] MEDS ORDERED: KETOROLAC 30 MG/ML INJ ONE (10:53)
--- NOTE | 2020-04-25 11:40 | RAD REPORT ---
EXAM DESCRIPTION: RAD - Foot Left 3 View - 04/25/2020 11:33 am CLINICAL HISTORY: foot pain Pain and swelling. COMPARISON: Knee Left Wo Cont dated 03/16/2020Foot Left 3 View dated 02/07/2019 FINDINGS: No fracture or dislocation is seen. Small posterior and plantar calcaneal spurs. Mild vasc ular atherosclerosis.
--- NOTE | 2020-04-25 13:05 | ER ---
Nurse's Notes [facility] Name: Michael Ha Jr Age: 59 yrs Sex: Male : 1960 Arrival Date: 04/25/2020 Time: 10:00 Bed 19 Private MD: Diagnosis: Pain in left foot Presentation: 04/25 10:15 Chief complaint: Patient states: left foot pain x 2 weeks ago, pt states "I was walking aa5 yesterday and I was coming down and now I can't even bear weight on it". Pt denies fall. Pt states "I have a heel spur and the doctor put some shots in it about a month ago and I do have an appointment with the foot doctor on the but I can't stand the pain and not being able to walk on it since yesterday". 10:15 Coronavirus screen: Client denies travel out of the [place] in the last 14 days. At this aa5 time, the client does not indicate any symptoms associated with coronavirus-19. Ebola Screen: Patient negative for fever greater than or equal to 101.5 degrees Fahrenheit, and additional compatible Ebola Virus Disease symptoms. Initial Sepsis Screen: Does the patient meet any 2 criteria? No. Patient's initial sepsis screen is negative. Does the patient have a suspected source of infection? No. Patient's initial sepsis screen is negative. Risk Assessment: Do you want to hurt yourself or someone else? Patient reports no desire to harm self or others. Onset of symptoms was March 2020. 10:15 Acuity: JOEY 4 aa5 10:15 Method Of Arrival: Wheelchair aa5 Historical: - Allergies: 10:15 PENICILLINS; aa5 - Home Meds: 10:15 atorvastatin 80 mg oral tab 1 tab once daily [Active]; Plavix 75 mg Oral tab 1 tab once aa5 daily [Active]; ezetimibe oral 10mg daily oral [Active]; lisinopril 20 mg oral tab once daily [Active]; metoprolol tartrate 25 mg Oral tab 2 times per day [Active]; amiodarone 200 mg Oral tab 1 tab 2 times per day [Active]; Nitrostat SL PRN [Active]; - PMHx: 10:15 CAD; CVA; Deaf; Hypertension; Myocardial infarction; aa5 - PSHx: 10:15 cardiac stents; aa5 - Immunization history:: Adult Immunizations unknown. - Social history:: Smoking status: Patient denies any tobacco usage or history of. Patient uses street drugs, marijuana. Screenin:45 Abuse screen: Denies threats or abuse. Denies injuries from another. Nutritional jl7 screening: No deficits noted. Tuberculosis screening: No symptoms or risk factors identified. Fall Risk Ambulatory Aid- Crutches/Cane/Walker (15 pts). Gait- Weak (10 pts.). Total Martínez Fall Scale indicates Low Risk Score (25-44 pts). Fall prevention measures have been instituted. Side Rails Up X 2 Placed close to Nursing Station Frequent Obs/Assesments occuring As available Patient and Family Educated on Fall Prevention Program and strategies. Assessment: 10:45 General: Appears in no apparent distress. uncomfortable, Behavior is calm, cooperative, jl7 appropriate for age. Pain: Complains of pain in heel of left foot Pain currently is 10 out of 10 on a pain scale. Neuro: Level of Consciousness is awake, alert, obeys commands, Oriented to person, place, time, situation. Cardiovascular: Patient's skin is warm and dry. Respiratory: Airway is patent Respiratory effort is even, unlabored, Respiratory pattern is regular, symmetrical. Derm: Skin is pink, warm \\T\\ dry. Musculoskeletal: Range of motion: intact in all extremities, Reports pt reports inability to bear weight. 11:59 Reassessment: Patient appears in no apparent distress at this time. No changes from jl7 previously documented assessment. Patient and/or family updated on plan of care and expected duration. Pain level reassessed. Patient is alert, oriented x 3, equal unlabored respirations, skin warm/dry/pink. Vital Signs: 10:15 BP 170 / 90; Pulse 69; Resp 16 S; Temp 98.0(O); Pulse Ox 100% on R/A; Weight 82.1 kg aa5 (R); Height 5 ft. 6 in. (167.64 cm) (R); Pain 10/10; 11:58 BP 154 / 95; Pulse 80; Resp 17; Pulse Ox 100% ; jl7 10:15 Body Mass Index 29.21 (82.10 kg, 167.64 cm) aa5 ED Course: 10:00 Patient arrived in ED. ag5 10:15 Arm band placed on Patient placed in an exam room, on a stretcher. aa5 10:21 Eliud Layton PA is PHCP. jim 10:21 Darrell Cheatham MD is Attending Physician. jim 10:22 Derick Estrada, RN is Primary Nurse. jl7 10:33 Triage completed. aa5 10:45 Patient has correct armband on for positive identification. Bed in low position. Call jl7 light in reach. Side rails up X 1. 11:33 Foot Left 3 View In Process Unspecified. EDMS 13:15 No provider procedures requiring assistance completed. Patient did not have IV access jl7 during this emergency room visit. Crutch training done. Ortho shoe applied to left foot. Administered Medications: 10:43 Drug: Ketorolac 30 mg Route: IM; Site: right deltoid; jl7 11:58 Follow up: Response: No adverse reaction; Pain is unchanged, physician notified jl7 Outcome: 13:04 Discharge ordered by . carlos 13:15 Discharged to home ambulatory, with crutches. jl7 13:15 Condition: stable 13:15 Discharge instructions given to patient, Instructed on discharge instructions, follow up and referral plans. medication usage, Demonstrated understanding of instructions, follow-up care, medications, Prescriptions given X 1. 13:15 Patient left the ED. jl7 Signatures: Dispatcher [employer] EDMS Eliud Layton PA PA jmm Calderon, Audri, RN RN aa5 Derick Estrada, LAUREEN RN jl7 Ortiz Manzano [facility]
--- NOTE | 2020-04-25 13:05 | EDPHYS ---
Physician Documentation [facility] Name: Michael Ha Jr Age: 59 yrs Sex: Male : 1960 Arrival Date: 04/25/2020 Time: 10:00 Bed 19 Private MD: ED Physician Darrell Cheatham HPI: 04/25 10:54 This 59 yrs old Male presents to ER via Wheelchair with complaints of Foot jmm Pain. 10:54 The patient presents with pain. Onset: The symptoms/episode began/occurred gradually, 2 jmm week(s) ago. Modifying factors: The symptoms are alleviated by non weight bearing. Associated signs and symptoms: Pertinent negatives fever, swelling, vomiting. This is a 59 year old male with a history of CVA, HTN, [place]. Historical: - Allergies: 10:15 PENICILLINS; aa5 - Home Meds: 10:15 atorvastatin 80 mg oral tab 1 tab once daily [Active]; Plavix 75 mg Oral tab 1 tab once aa5 daily [Active]; ezetimibe oral 10mg daily oral [Active]; lisinopril 20 mg oral tab once daily [Active]; metoprolol tartrate 25 mg Oral tab 2 times per day [Active]; amiodarone 200 mg Oral tab 1 tab 2 times per day [Active]; Nitrostat SL PRN [Active]; - PMHx: 10:15 CAD; CVA; Deaf; Hypertension; Myocardial infarction; aa5 - PSHx: 10:15 cardiac stents; aa5 - Immunization history:: Adult Immunizations unknown. - Social history:: Smoking status: Patient denies any tobacco usage or history of. Patient uses street drugs, marijuana. ROS: 10:54 Constitutional: Negative for fever, chills, and weight loss, Cardiovascular: Negative jmm for chest pain, palpitations, and edema, Respiratory: Negative for shortness of breath, cough, wheezing, and pleuritic chest pain, Abdomen/GI: Negative for abdominal pain, nausea, vomiting, diarrhea, and constipation. 10:54 MS/extremity: Positive for pain. 10:54 All other systems are negative. Exam: 10:54 Constitutional: This is a well developed, well nourished patient who is awake, alert, jmm and in no acute distress. Head/Face: atraumatic. Eyes: EOMI, no conjunctival erythema appreciated ENT: Moist Mucus Membranes Neck: Trachea midline, Supple Chest/axilla: Normal chest wall appearance and motion. Cardiovascular: Regular rate and rhythm. No edema appreciated Respiratory: Normal respirations, no respiratory distress appreciated Abdomen/GI: Non distended, soft Back: Normal ROM Skin: General appearance color normal 10:54 Musculoskeletal/extremity: pain on palpation of the left heel, non indurated, non erythematous, compartments are soft, full dorsalis pulse, NVI. 10:54 Skin: Appearance: Color: normal in color. 10:54 Neuro: Orientation: is normal, Mentation: is normal, Memory: is normal. 10:54 Psych: Behavior/mood is pleasant, cooperative. Vital Signs: 10:15 BP 170 / 90; Pulse 69; Resp 16 S; Temp 98.0(O); Pulse Ox 100% on R/A; Weight 82.1 kg aa5 (R); Height 5 ft. 6 in. (167.64 cm) (R); Pain 10/10; 11:58 BP 154 / 95; Pulse 80; Resp 17; Pulse Ox 100% ; jl7 10:15 Body Mass Index 29.21 (82.10 kg, 167.64 cm) aa5 MDM: 10:27 Patient medically screened. [facility] 12:50 Data reviewed: vital signs. [facility] 13:03 Counseling: I had a detailed discussion with the patient and/or guardian regarding: the [facility] historical points, exam findings, and any diagnostic results supporting the discharge/admit diagnosis, lab results, radiology results, the need for outpatient follow up, to return to the emergency department if symptoms worsen or persist or if there are any questions or concerns that arise at home. ED course: Patient is alert and non toxic in appearance in the ED. Patient is advised to follow up with podiatry/ortho for further evaluation. Patient is otherwise given strict return precautions. Patient understood an dagrees with the plan of care. . 04/25 10:55 Order name: Foot Left 3 View; Complete Time: 11:56 EDMS 04/25 12:03 Order name: Misc. Order: ortho shoe; Complete Time: 13:14 jm 04/25 12:51 Order name: Crutches; Complete Time: 13:14 [facility] Administered Medications: 10:43 Drug: Ketorolac 30 mg Route: IM; Site: right deltoid; jl7 11:58 Follow up: Response: No adverse reaction; Pain is unchanged, physician notified jl7 Disposition: 13:39 Co-signature as Attending Physician, Darrell Cheatham MD I agree with the assessment and kdr plan of care. Disposition: 04/25/20 13:04 Discharged to Home. Impression: Pain in left foot. - Condition is Stable. - Discharge Instructions: Foot Pain. - Prescriptions for Medrol (Efra) 4 mg Oral Tablets, Dose Pack - take 1 tablet by ORAL route as directed - follow package instructions; 1 packet. - Medication Reconciliation Form, Thank You Letter, Antibiotic Education, Prescription Opioid Use form. - Follow up: Private Physician; When: 2 - 3 days; Reason: Recheck today's complaints, Continuance of care, Re-evaluation by your physician. Signatures: Dispatcher [employer] [facility] Darrell Cheatham MD MD kdr Mickail, Joel, PA PA Altagracia Sapp, RN RN aa5 Derick Estrada RN RN jl7 Corrections: (The following items were deleted from the chart) 12:22 11:52 Foot Left 3 View+RAD.RAD.BRZ ordered. [facility] 13:15 13:04 04/25/2020 13:04 Discharged to Home. Impression: Pain in left foot. Condition is jl7 Stable. Forms are Medication Reconciliation Form, Thank You Letter, Antibiotic Education, Prescription Opioid Use. Follow up: Private Physician; When: 2 - 3 days; Reason: Recheck today's complaints, Continuance of care, Re-evaluation by your physician. pina
== END 2020-04-25 13:15 | disposition home or self-care (01) ==
LOC: ER 09:58
DX: M79.672 Pain in left foot (principal); I10 Essential (primary) hypertension; I25.2 Old myocardial infarction; Z95.818 Presence of other cardiac implants and grafts; Z79.01 Long term (current) use of anticoagulants; Z88.0 Allergy status to penicillin
CPT/HCPCS: 96372; 99284

== ENCOUNTER 2020-12-31 06:50 | Day surgery (SDC) | payer OTHER ==
[2020-12-28 09:18] LABS: Absolute Lymphocytes (CBC) 0.8 K/uL (0.7-4.9); Basophils % 0.8 % (0-1.3); Hematocrit 40.9 % (39.6-49.0); Lymphocytes % 14.4 % (15.3-44.8); MPV 8.9 fL (7.6-11.3); RBC Red Blood Cell Count 4.29 M/uL (4.33-5.43)
[2020-12-28 09:35] LABS: Protime INR 1.02
[2020-12-28 09:39] LABS: Potassium 4.7 mmol/L (3.5-5.1)
--- NOTE | 2020-12-28 09:51 | RAD REPORT ---
EXAM DESCRIPTION: Oli Agosto And Hema (2 Views)12/28/2020 9:22 am CLINICAL HISTORY: Preop for cardiac catheterization COMPARISON: 2019 FINDINGS: The lungs appear clear of acute infiltrate. The heart is normal size IMPRESSION: No acute abnormalities displayed
[2020-12-31] MEDS ORDERED: NA CHLORIDE 0.9% 500 ML ONE (08:20)
[2020-12-31] MEDS ORDERED: MIDAZOLAM HCL 2 MG/2 ML INJ ONE (09:00)
[2020-12-31] MEDS ORDERED: HEPA 1000U/500MLS 1,000 UNIT/500 ML BAG IV ONE (09:00)
[2020-12-31] MEDS ORDERED: LIDOCAINE 1% 20 ML MDV ONE (09:00)
[2020-12-31] MEDS ORDERED: FENTANYL CITR 100 MCG/2 ML ONE (09:01)
[2020-12-31] MEDS ORDERED: NA CHLORIDE 0.9% 0 ML ONE (09:01)
[2020-12-31] MEDS ORDERED: ATROPINE SULF 1 MG/10 ML SYR IV ONE (09:01)
[2020-12-31 11:43] VITALS: O2SAT 100
--- NOTE | 2020-12-31 13:54 | OP ---
Surgeon: Rivera Mason MD Storeroom Clerk: Mr. Rito Dodson. The patient will go home in 2 hours. Reason For Admission: Left heart catheterization, selective coronary arteriogram, left ventriculogra m. Indication: Unstable angina and history of coronary artery disease. Procedure In Detail: The patient prepped and draped in routine sterile fashion. Given Versed for se dation as well as fentanyl. A 6-Estonian sheath introduced in the right common femoral artery successf ully. Angiography there revealed a completely occluded right SFA. StarClose was used to close the c ase. Pamela catheter left and right were used to do the diagnostic catheterization. The patient wa s found to have a completely occluded LAD from the ostium all the way to the mid vessel. There were what appeared to be 2 overlapped stents in the proximal and mid LAD that were completely occluded. T here was a MIRELA 1 flow in the distal LAD that appeared to be a pretty good size vessel for about 2 mm in size. There were some collaterals from the RCA, which showed mild plaquing through the septal. A pigtail catheter was introduced with the left ventricle. The patient had a left ventricular end-di astolic pressure of 12. He had normal LV pressure. His ejection fraction was 65% to 69%. There wer e no complications. Blood Loss: 5 mL. Anesthesia: Total conscious sedation was 45 minutes. Final Diagnosis: Severe coronary artery disease. I think patient will need a PETER to the LAD and a graft to the OM1. A CD will be given to the patien t. I will make arrangements for him to have an appointment in [place] with one of the cardiovascular surgeon for an elective coronary artery bypass surgery. SALINAS/CRYSTAL Voice ID: [id number] Report ID: [id number]
[2020-12-31 14:09] VITALS: BP 151/78
[2020-12-31 14:11] VITALS: TEMP 96.9
== END 2020-12-31 12:20 | disposition home or self-care (01) ==
LOC: CCL 06:50
DX: I25.110 Atherosclerotic heart disease of native coronary artery with unstable angina pectoris (principal); I25.82 Chronic total occlusion of coronary artery; I70.213 Atherosclerosis of native arteries of extremities with intermittent claudication, bilateral legs; I70.92 Chronic total occlusion of artery of the extremities; I35.1 Nonrheumatic aortic (valve) insufficiency; I65.21 Occlusion and stenosis of right carotid artery; I10 Essential (primary) hypertension; E78.2 Mixed hyperlipidemia; Z98.61 Coronary angioplasty status; Z87.891 Personal history of nicotine dependence; Z88.0 Allergy status to penicillin; Z20.822 Contact with and (suspected) exposure to COVID-19; Z82.49 Family history of ischemic heart disease and other diseases of the circulatory system
CPT/HCPCS: 85025; 80048; 36415; 85610; 85730; 71046; 93458; U0003; C1893; J2250; J3010; J7040; J1644; J0583

== ENCOUNTER 2021-02-12 10:21 | Observation (INO) | payer OTHER ==
[2021-02-12 10:52] LABS: Absolute Lymphocytes (CBC) 0.9 K/uL (0.7-4.9); Basophils % 1.2 % (0-1.3); Lymphocytes % 15.5 % (15.3-44.8); MPV 8.6 fL (7.6-11.3); RBC Red Blood Cell Count 3.64 M/uL (4.33-5.43)
[2021-02-12 11:03] LABS: Protime INR 1.02
[2021-02-12 11:16] LABS: ALT/SGPT 24 U/L (12-78); AST/SGOT 16 U/L (15-37); Albumin 3.4 g/dL (3.4-5.0); Alkaline Phosphatase 127 U/L (45-117); BUN Blood Urea Nitrogen 15 mg/dL (7-18); Bicarbonate 27 mmol/L (21-32); Bilirubin Direct < 0.1 mg/dL (0-0.2); Bilirubin Total 0.2 mg/dL (0.2-1.0); Glucose Level 103 mg/dL (74-106); NT PRO-BNP 946 pg/mL (<125); Potassium 4.8 mmol/L (3.5-5.1); Protein, Total 6.6 g/dL (6.4-8.2); Sodium Level 141 mmol/L (136-145); Troponin (Emerg Dept Use Only) 0.05 ng/mL (0.0-0.045)
--- NOTE | 2021-02-12 11:44 | RAD REPORT ---
EXAM DESCRIPTION: CT - Chest For Pe Angio - 02/12/2021 11:24 am CLINICAL HISTORY: Chest pain COMPARISON: July 2020 TECHNIQUE: Dynamically enhanced axial 3 mm thick images of the chest were obtained during administra tion of <100> mL Isovue 370 IV contrast. Coronal and oblique reconstruction images were generated and reviewed. Exam utilizes a protocol for optimal evaluation of pulmonary arterial tree. Maximum intensity projections 3D imaging was utilized All CT scans are performed using dose optimization technique as appropriate and may include automated exposure control or mA/KV adjustment according to patient size. FINDINGS: Postsurgical changes involve the chest. A pulmonary embolus is not seen. Ascending thoracic aorta has an AP diameter of 4 centimeters. Small left pleural effusion. A trace pericardial effusion A lung consolidation is not present. IMPRESSION: Negative for a pulmonary embolism. Small left pleural effusion
--- NOTE | 2021-02-12 11:47 | RAD REPORT ---
EXAM DESCRIPTION: Oli Single View02/12/2021 10:57 am CLINICAL HISTORY: Chest pain COMPARISON: December 2020 FINDINGS: The lungs appear clear of acute infiltrate. The heart is mildly to moderately enlarged. Postsurgical changes involve the chest. Small left pleural effusion
[2021-02-12] MEDS ORDERED: MORPHINE 4 MG/ML SYR ONE (11:49)
[2021-02-12] MEDS ORDERED: ONDANSETRON 4 MG/2 ML VIAL ONE (11:49)
--- NOTE | 2021-02-12 12:02 | ER ---
Nurse's Notes [facility] Name: Michael Ha Jr Age: 60 yrs Sex: Male : 1960 Arrival Date: 02/12/2021 Time: 10:23 Bed 18 Private MD: Diagnosis: Chest pain, unspecified;Acute pericarditis, unspecified Presentation: 02/12 10:24 Chief complaint: Patient states: chest pain that began yesterday. Feels like a pulled ss muscle and is worse with palpation. HX of [place]. Coronavirus screen: Client denies travel out of the [place] in the last 14 days. Ebola Screen: Patient denies exposure to infectious person. Patient denies travel to an Ebola-affected area in the 21 days before illness onset. 10:24 Method Of Arrival: EMS: [facility] 10:49 Initial Sepsis Screen: Does the patient meet any 2 criteria? No. Patient's initial ss sepsis screen is negative. Does the patient have a suspected source of infection? No. Patient's initial sepsis screen is negative. Risk Assessment: Do you want to hurt yourself or someone else? Patient reports no desire to harm self or others. Onset of symptoms was February 11, 2021. 10:49 Acuity: JOEY 2 ss 10:55 Care prior to arrival: Medication(s) given: ASA, 81 mg, x 4. ss Triage Assessment: 11:40 General: Appears uncomfortable. General: Behavior is calm, cooperative, appropriate for tc5 age. Pain: Complains of pain in chest. Historical: - Allergies: 10:52 PENICILLINS; ss - PMHx: 10:52 CAD; CVA; Deaf; Hypertension; Myocardial infarction; ss - Immunization history:: Client reports receiving the 2nd dose of the Covid vaccine. - Social history:: Smoking status: Patient/guardian denies using tobacco, the patient reports quitting approximately 14 years ago. - Family history:: not pertinent. - Hospitalizations: : Patient was recently seen at. Screenin:54 Abuse screen: Denies threats or abuse. Denies injuries from another. Nutritional ss screening: No deficits noted. Tuberculosis screening: Never had TB. Fall Risk None identified. Vital Signs: 10:49 BP 164 / 89; Pulse 61; Resp 18; Temp 97.3(TE); Pulse Ox 99% on R/A; Weight 86.64 kg; ss Height 5 ft. 6 in. (167.64 cm); Pain 10/10; 13:49 BP 161 / 88; Pulse 65; Resp 15; Pulse Ox 99% ; Pain 0/10; tc5 13:49 Pain 0/10; tc5 10:49 Body Mass Index 30.83 (86.64 kg, 167.64 cm) ED Course: 10:23 Patient arrived in ED. rn 10:23 Sonu Garcia MD is Attending Physician. rn 10:40 Inserted saline lock: 20 gauge in right antecubital area, using aseptic technique. ss Blood collected. Patient maintains SpO2 saturation greater than 95% on room air. 10:50 Patient has correct armband on for positive identification. Bed in low position. Call mh5 light in reach. Side rails up X2. Warm blanket given. monitoring manager on. Pulse ox on. NIBP on. 10:52 Triage completed. ss 10:52 Arm band placed on right wrist. ss 10:57 XRAY Chest (1 view) In Process Unspecified. EDMS 10:57 Heidi Ricardo, RN is Primary Nurse. tc5 11:24 CT Chest For PE Angio In Process Unspecified. EDMS 11:42 No provider procedures requiring assistance completed. tc5 12:01 Ajit Avila MD is Hospitalizing Provider. rn Administered Medications: 11:29 Drug: morphine 4 mg Route: IVP; Site: right antecubital; tc5 13:49 Follow up: Pain 0/10 Adult tc5 11:29 Drug: Zofran (Ondansetron) 4 mg Route: IVP; Site: right antecubital; tc5 13:49 Follow up: BP 161 / 88; Pulse 65 bpm; Resp 15 bpm; Pulse Ox 99% ; Pain 0/10 Adult tc5 13:49 Follow up: Response: No adverse reaction; Pain is decreased tc5 13:48 Drug: Colchicine-Probenecid 1 tabs Route: PO; tc5 13:49 Drug: predniSONE 60 mg Route: PO; tc5 Outcome: 12:02 Decision to Hospitalize by Provider. rn 02/13 00:30 Patient left the ED. ms4 Signatures: Dispatcher [employer] EDMS Sonu Garcia MD MD rn Smirch, Shelby, RN RN ss Martinez, Maria [facility] Samantha Paul, RN RN ms4 Haleigh, Heidi, RN RN tc5
--- NOTE | 2021-02-12 12:02 | EDPHYS ---
Physician Documentation [facility] Name: Michael Ha Jr Age: 60 yrs Sex: Male : 1960 Arrival Date: 02/12/2021 Time: 10:23 Bed 18 Private MD: ED Physician Sonu Garcia HPI: 02/12 10:24 This 60 yrs old Male presents to ER via Unassigned with complaints of Chest rn pain. 10:24 The patient or guardian reports chest pain that is located primarily in the substernal rn area. Onset: yesterday. The pain does not radiate. Associated signs and symptoms: Pertinent positives: cough, Pertinent negatives: diaphoresis, lower extremity swelling, lightheadedness, palpitations, shortness of breath, syncope, vomiting. The chest pain is described as a heaviness. Duration: The patient or guardian reports multiple episodes, that are intermittent. Modifying factors: The symptoms are alleviated by nothing. the symptoms are aggravated by cough, deep breath, movement, palpation of area. Severity of pain: At its worst the pain was moderate in the emergency department the pain is unchanged. The patient has not experienced similar symptoms in the past. The patient has been recently seen by a physician:. Patient reports chest pain over the last 3 days, substernal, nonradiating, no diaphoresis. Reports mild cough and pain with deep inspiration. Also has pain with palpation and twisting. Pain worse when laying flat. Denies fever. States compliant with medications prescribed. States had cardiac bypass 1 month ago.. Historical: - Allergies: 10:52 PENICILLINS; ss - PMHx: 10:52 CAD; CVA; Deaf; Hypertension; Myocardial infarction; ss - Immunization history:: Client reports receiving the 2nd dose of the Covid vaccine. - Social history:: Smoking status: Patient/guardian denies using tobacco, the patient reports quitting approximately 14 years ago. - Family history:: not pertinent. - Hospitalizations: : Patient was recently seen at. ROS: 10:24 Constitutional: Negative for fever, chills, and weight loss, Eyes: Negative for injury, rn pain, redness, and discharge, ENT: Negative for injury, pain, and discharge, Neck: Negative for injury, pain, and swelling, Cardiovascular: Negative for palpitations, and edema, Respiratory: Negative for shortness of breath,wheezing Abdomen/GI: Negative for abdominal pain, nausea, vomiting, diarrhea, and constipation, Back: Negative for injury and pain, : Negative for injury, bleeding, discharge, and swelling, MS/Extremity: Negative for injury and deformity, Skin: Negative for injury, rash, and discoloration, Neuro: Negative for headache, weakness, numbness, tingling, and seizure. Exam: 10:24 Constitutional: This is a well developed, well nourished patient who is awake, alert, rn and in no acute distress. Head/Face: Normocephalic, atraumatic. Eyes: Periorbital areas with no swelling, redness, or edema. Chest/axilla: CABG scar clean dry and intact Cardiovascular: Regular rate and rhythm. No pulse deficits. Respiratory: Speaking full sentences, unlabored. No increased work of breathing, no retractions or nasal flaring. Abdomen/GI: Soft, nontender Skin: Warm, dry MS/ Extremity: Pulses equal, no cyanosis. Neurovascular intact. Full, normal range of motion. Equal circumference. Neuro: Awake and alert, GCS 15, oriented to person, place, time, and situation. Cranial nerves II-XII grossly intact. Motor strength 5/5 in all extremities. Sensory grossly intact. 10:47 ECG was reviewed by the Attending Physician. rn Vital Signs: 10:49 BP 164 / 89; Pulse 61; Resp 18; Temp 97.3(TE); Pulse Ox 99% on R/A; Weight 86.64 kg; ss Height 5 ft. 6 in. (167.64 cm); Pain 10/10; 13:49 BP 161 / 88; Pulse 65; Resp 15; Pulse Ox 99% ; Pain 0/10; tc5 13:49 Pain 0/10; tc5 10:49 Body Mass Index 30.83 (86.64 kg, 167.64 cm) ss MDM: 10:23 Patient medically screened. rn 10:50 ED course: Given 4 baby aspirin by EMS prior to arrival.. rn 11:35 ED course: Consulted with Dr. Mason, states no acute VA, requests echo, colchicine rn and prednisone.. 12:00 Differential diagnosis: acute myocardial infarction, acute pericarditis, coronary rn artery disease chest wall pain, costochondritis, esophagitis, gastritis, gastroesophageal reflux disease (GERD), pericarditis, pleurisy, pneumonia, pneumothorax, pulmonary embolus, stable angina. HEART Score: History: Slightly Suspicious (0), ECG: Non specific repolarization disturbance / LBTB / PM (1), Age: > 45 and < 65 years (1), Risk Factors: > or = 3 Risk factors for atherosclerotic disease (2), Troponin: > 1 and < 3 x normal limit (1), Total Score = 5. The patient was not given aspirin in the Emergency Department. Administered by EMS. Data reviewed: vital signs, nurses notes, lab test result(s), EKG, radiologic studies, CT scan, plain films, and as a result, I will admit patient. Data interpreted: monitoring and evaluation advisor: rate is 61 beats/min, rhythm is normal sinus rhythm, regular, with no ectopy, Interpretation: normal rate, normal rhythm, Pulse oximetry: on room air is 99 %. Interpretation: normal. Test interpretation: by ED physician or midlevel provider: ECG, plain radiologic studies, Chest x-ray negative for acute infiltrate. Counseling: I had a detailed discussion with the patient and/or guardian regarding: the historical points, exam findings, and any diagnostic results supporting the discharge/admit diagnosis, lab results, radiology results, the need for further work-up and treatment in the hospital. Response to treatment: the patient's symptoms have markedly improved after treatment, and as a result, I will admit patient. Admission orders: after a detailed discussion of the patient's condition and case, the admit orders are written by me. ED course: Admitted to hospitalist service. CT chest PE protocol negative.. 02/12 10:24 Order name: Basic Metabolic Panel; Complete Time: rn 02/12 10:24 Order name: CBC with Diff; Complete Time: 11:02/12 10:24 Order name: LFT's; Complete Time: rn 02/12 10:24 Order name: NT PRO-BNP; Complete Time: rn 02/12 10:24 Order name: PT-INR; Complete Time: rn 02/12 10:24 Order name: Troponin (emerg Dept Use Only); Complete Time: rn 02/12 14:53 Order name: CREATININE WHOLE BLOOD [facility] 02/12 16:17 Order name: Basic Metabolic Panel [facility] 02/12 16:17 Order name: Basic Metabolic Panel [facility] 02/12 16:17 Order name: T4 Free [facility] 02/12 16:17 Order name: Thyroid Stimulating Hormone [facility] 02/12 16:18 Order name: CBC with Automated Diff [facility] 02/12 16:18 Order name: CBC with Automated Diff [facility] 02/12 10:24 Order name: XRAY Chest (1 view); Complete Time: 11:58 rn 02/12 10:24 Order name: CT Chest For PE Angio; Complete Time: 11:58 rn 02/12 11:39 Order name: Echo w/ Doppler rn 02/12 16:06 Order name: Echo with Doppler [facility] 02/12 16:18 Order name: Urinalysis [facility] 02/12 16:18 Order name: Troponin I [facility] 02/12 16:18 Order name: Troponin I [facility] 02/12 16:18 Order name: Troponin I [facility] 02/12 16:18 Order name: Troponin I [facility] 02/12 16:30 Order name: Lipid Profile [facility] 02/12 16:30 Order name: Hemoglobin A1c [facility] 02/12 20:19 Order name: COVID-19 : Document "Date of Symptom Onset" if Symptomatic. mw2 02/12 20:39 Order name: CORONAVIRUS [facility] 02/12 21:42 Order name: SARS-COV-2 RT PCR [facility] 02/12 10:24 Order name: EKG; Complete Time: 10:24 rn 02/12 10:24 Order name: Cardiac monitoring; Complete Time: 00:23 rn 02/12 10:24 Order name: EKG - Nurse/Tech; Complete Time: 10:49 rn 02/12 10:24 Order name: IV Saline Lock; Complete Time: 10:49 rn 02/12 10:24 Order name: Labs collected and sent; Complete Time: 10:49 rn 02/12 10:24 Order name: O2 Per Protocol; Complete Time: 10:49 rn 02/12 10:24 Order name: O2 Sat Monitoring; Complete Time: 10:49 rn 02/12 16:17 Order name: Heart Healthy [facility] EC:47 Rate is 58 beats/min. Rhythm is regular. QRS [place] is Normal. [place] interval is normal. QRS rn interval is normal. QT interval is normal. No Q waves. T waves are Inverted in leads I, aVL, V2, V3, V4, V5, V6. No ST changes noted. Clinical impression: NSR w/ Non-specific ST/T Changes and diffuse t wave inversions. Interpreted by me. Reviewed by me. Administered Medications: 11:29 Drug: morphine 4 mg Route: IVP; Site: right antecubital; tc5 13:49 Follow up: Pain 0/10 Adult tc5 11:29 Drug: Zofran (Ondansetron) 4 mg Route: IVP; Site: right antecubital; tc5 13:49 Follow up: BP 161 / 88; Pulse 65 bpm; Resp 15 bpm; Pulse Ox 99% ; Pain 0/10 Adult tc5 13:49 Follow up: Response: No adverse reaction; Pain is decreased tc5 13:48 Drug: Colchicine-Probenecid 1 tabs Route: PO; tc5 13:49 Drug: predniSONE 60 mg Route: PO; tc5 Disposition Summary: 02/12/21 12:02 Hospitalization Ordered Hospitalization Status: Observation rn Provider: Ajit Avila rn Location: Telemetry/MedSurg (observation) rn Condition: Stable rn Problem: new rn Symptoms: have improved rn Bed/Room Type: Standard rn Room Assignment: 211(02/12/21 23:46) cg Diagnosis - Chest pain, unspecified rn - Acute pericarditis, unspecified rn Forms: - Medication Reconciliation Form rn - SBAR form rn Signatures: Dispatcher [employer] Sonu Sorenson MD MD rn Smirch, Shelby, RN RN Kiarra Hidalgo RN RN Heidi Guzmán RN RN tc5 Corrections: (The following items were deleted from the chart) 20:05 12:02 rn cg 20:07 20:05 219 cg cg 23:46 20:07 cg cg
[2021-02-12] MEDS ORDERED: predniSONE 20 MG TAB ONE (14:08)
[2021-02-12] MEDS ORDERED: COLCHICINE 0.6 MG TAB ONE ×2 (14:08→21:41)
--- NOTE | 2021-02-12 15:43 | P.HP ---
Date of Service: 02/12/21
[2021-02-12] MEDS ORDERED: LABETALOL 20 MG/4ML SYRINGE IV PRN (16:05)
[2021-02-12] MEDS ORDERED: ONDANSETRON 4 MG/2 ML VIAL IV PRN (16:16)
[2021-02-12] MEDS ORDERED: ACETAMINOPHEN 500 MG TAB PO PRN (16:16)
[2021-02-12] MEDS ORDERED: HYDROCODONE/APAP 5/325 MG TAB PO PRN (16:16)
[2021-02-12] MEDS ORDERED: ALBUTEROL INHALER 60 PUFF/8 GM IH PRN (16:17)
--- NOTE | 2021-02-12 16:34 | P.HP ---
Certification for Inpatient Patient admitted to: Inpatient With expected LOS: >2 Midnights Patient will require the following post-hospital care: None Practitioner: I am a practitioner with admitting privileges, knowledge of patient current condition, hospital course, and medical plan of care. Services: Services provided to patient in accordance with Admission requirements found in Title 42 Section 412.3 of the Code of Federal Regulations Patient History Date of Service: 02/13/21 Reason for admission: Chest pain History of Present Illness: Patient is a 60-year-old male with a past medical history significant for CAD, CVA, [place], hypertension who presents with complaint of chest pain located in the substernal chest area. Patient rated pain as 10/10 and described pain as squeezing in quality. Patient reported that he recently had a CABG that is less than 1 month ago. Patient denies any other signs or symptoms. Symptoms are aggravated or relieved by nothing. Patient decided to present to the hospital for medical evaluation. Allergies Penicillins Allergy (Severe, Verified 12/28/20 08:42) Anaphylaxis Home Medications: Albuterol Sulfate [Proair Hfa] 2 puff IH TID PRN #1 hfa.aer.ad 04/04/19 Atorvastatin Calcium [Lipitor] 80 mg PO DAILY #30 tab 04/04/19 Clopidogrel Bisulfate [Plavix*] 75 mg PO DAILY #30 tablet 04/04/19 Metoprolol Tartrate [Lopressor*] 25 mg PO BID #60 tab 04/04/19 Amiodarone HCl [Cordarone*] 200 mg PO BID 10/12/19 Ezetimibe [Zetia*] 10 mg PO DAILY 10/12/19 lisinopriL [Lisinopril] 20 mg PO DAILY 10/12/19 Aspirin Tab [Alli Aspirin*] 325 mg PO DAILY 12/28/20 Hydrocodone 5/APAP 325 [[place] 5/325*] 1 tab PO Q6H PRN #20 tab 02/12/21 - Past Medical/Surgical History Diabetic: No -: Hypertension -: CAD with prior stents -: COPD -: Hyperlipidemia -: GERD -: Cardiac stents -: hernia repair Psychosocial/ Personal History: Patient lives with his 1st - Family History Father -: Heart disease Mother -: Cancer - Social History Smoking Status: Former smoker Alcohol use: Yes CD- Drugs: Yes Caffeine use: Yes Place of Residence: Home Review of Systems General: Weakness Eyes: Unremarkable ENT: Unremarkable Cardiovascular: Chest Pain Gastrointestinal: Unremarkable Genitourinary: Unremarkable Musculoskeletal: Unremarkable Integumentary: Unremarkable Neurological: Weakness Physical Examination - Physical Exam General: Alert, In no apparent distress, Oriented x3 HEENT: Atraumatic, PERRLA, Mucous membr. moist/pink, EOMI, Sclerae nonicteric Neck: Supple, 2+ carotid pulse no bruit, No LAD, Without JVD or thyroid abnormality Respiratory: Clear to auscultation bilaterally, Normal air movement Cardiovascular: Regular rate/rhythm, Normal S1 S2 Gastrointestinal: Normal bowel sounds, No tenderness Musculoskeletal: No tenderness Integumentary: No rashes Neurological: Normal gait, Normal speech, Normal strength at 5/5 x4 extr, Normal tone, Normal affect Lymphatics: No axilla or inguinal lymphadenopathy External genitalia: Deferred Rectal: Deferred - Studies Laboratory Data (last 24 hrs) 02/12/21 10:40: PT 11.7, INR 1.02 02/12/21 10:40: WBC 5.70, Hgb 11.5 L, Hct 34.0 L, Plt Count 239 02/12/21 10:40: Sodium 141, Potassium 4.8, BUN 15, Creatinine 0.88, Glucose 103, Total Bilirubin 0.2, AST 16, ALT 24, Alkaline Phosphatase 127 H Assessment and Plan - Plan --Chest pain of unclear etiology. Cardiology consulted. Will trend troponin. Echocardiogram pending. Will await further recommendation from placement interviewer. --Chronic respiratory failure. Patient on home O2 therapy at 3 L/min. Continue O2 therapy and home medications. --COPD. Stable. Continue home medication. --HLD. Continue statin and Zetia --Hx of CAD and CABG. Continue Plavix, Aspirin and statin --Hypertension. Poorly control. Continue home medications. --DVT prophylaxis with Lovenox subQ I have had discussion about advanced directives with the patient during this hospital admission. Addressed code status and /or goals of care. Spent more than 15 minutes. Case discussed withpatient and nurse. The following document was completed using voice recognition software. This can produce sql manager errors that can at times significantly distort words and phrases. Please interpret any aspect of the note that is nonsensical in light of this fact. Discharge Plan: Home Plan to discharge in: 48 Hours - Advance Directives Does patient have a Living Will: Yes Does patient have a Durable POA for Healthcare: No - Code Status/Comfort Care Code Status Assessed: Yes Code Status: Full Code Physician Review: Patient Assessed, Agree with Above Assessment and Plan Critical Care: No
[2021-02-12 18:23] LABS: Thyroid Stimulating Hormone 2.21 uIU/mL (0.360-3.740); Troponin I 0.04 ng/mL (0.0-0.045)
[2021-02-12] MEDS: ENOXAPARIN 40 MG/0.4 ML SQ SCH (19:45)
[2021-02-12] MEDS ORDERED: ENOXAPARIN 40 MG/0.4 ML SQ ONE (20:04)
[2021-02-12] MEDS: METOPROLOL TAR 25 MG TAB PO SCH (21:00)
[2021-02-12] MEDS: COLCHICINE 0.6 MG TAB PO SCH (21:00)
[2021-02-12] MEDS: AMIODARONE HCL 200 MG TAB PO SCH (21:00)
[2021-02-12] MEDS ORDERED: HYDROCODONE/APAP 5/325 MG TAB ONE (21:40)
[2021-02-12] MEDS ORDERED: AMIODARONE HCL 200 MG TAB ONE (21:40)
[2021-02-12] MEDS ORDERED: METOPROLOL TAR 25 MG TAB ONE (21:41)
[2021-02-13 01:23] VITALS: BMI 30.8
[2021-02-13 06:17] LABS: Absolute Lymphocytes (CBC) 0.7 K/uL (0.7-4.9); Basophils % 0.8 % (0-1.3); Hematocrit 34.8 % (39.6-49.0); Lymphocytes % 9.8 % (15.3-44.8); RBC Red Blood Cell Count 3.72 M/uL (4.33-5.43)
[2021-02-13 06:42] LABS: Phosphorus 2.8 mg/dL (2.5-4.9)
[2021-02-13 06:43] LABS: BUN Blood Urea Nitrogen 14 mg/dL (7-18); Bicarbonate 25 mmol/L (21-32); Glucose Level 118 mg/dL (74-106); Potassium 4.9 mmol/L (3.5-5.1); Sodium Level 139 mmol/L (136-145)
--- NOTE | 2021-02-13 07:20 | ECHO ---
HEIGHT: 5 ft 6 in WEIGHT: 191 lb 0 oz DATE OF STUDY: 02/12/[address]: Sonu Garcia JR, MD 2-DIMENSIONAL: YES M.MODE: YES DOPPLER: YES COLOR FLOW: YES TDS: YES PORTABLE: NO DEFINITY: NO BUBBLE STUDY: NO DIAGNOSIS: CHEST PAIN, RECENT CABG DECEMBER 2020 CARDIAC HISTORY: CATHERIZATION: YES SURGERY: YES PROSTHETIC VALVE: NO PACEMAKER: NO MEASUREMENTS (cm) DIASTOLIC (NORMALS) SYSTOLIC (NORMALS) IVSd 1.2 (0.6-1.2) LA Diam 3.8 (1.9-4.0) LVEF 57% LVIDd 3.3 (3.5-5.7) LVIDs 2.4 (2.0-3.5) %FS 29% LVPWd 1.2 (0.6-1.2) Ao Diam 3.9 (2.0-3.7) 2 DIMENSIONAL ASSESSMENT: RIGHT ATRIUM: NORMAL LEFT ATRIUM: NORMAL RIGHT VENTRICLE: NORMAL LEFT VENTRICLE: NORMAL TRICUSPID VALVE: NORMAL MITRAL VALVE: NORMAL PULMONIC VALVE: NORMAL AORTIC VALVE: NORMAL PERICARDIAL EFFUSION: NONE AORTIC ROOT: NORMAL LEFT VENTRICULAR WALL MOTION: PARADOXICAL SEPTUM. DOPPLER/COLOR FLOW: NORMAL COMMENTS: PARADOXICAL SEPTUM CONSISENT WITH RECENT CORONARY ARTERY BYPASS GRAFT. NORMAL LEFT VENTRICULAR SIZE AND FUNCTION. NO EFFUSION. TECHNOLOGIST: Norma YSUUF
[2021-02-13 08:57] VITALS: BP 155/82; TEMP 98
[2021-02-13] MEDS ORDERED: predniSONE 10 MG TAB PO SCH (09:00)
[2021-02-13] MEDS ORDERED: ASPIRIN 81 MG CHEWABLE TABLET PO SCH (09:00)
[2021-02-13] MEDS ORDERED: lisinopriL 20 MG TAB PO SCH (09:00)
[2021-02-13] MEDS ORDERED: ATORVASTATIN 80 MG TAB PO SCH (09:00)
[2021-02-13] MEDS ORDERED: EZETIMIBE 10 MG TAB PO SCH (09:00)
[2021-02-13] MEDS ORDERED: CLOPIDOGREL 75 MG TABLET PO SCH (09:00)
[2021-02-13 09:12] VITALS: O2SAT 97
[2021-02-13] MEDS: COLCHICINE 0.6 MG TAB PO SCH (09:24)
[2021-02-13] MEDS: AMIODARONE HCL 200 MG TAB PO SCH (09:24)
[2021-02-13] MEDS: ENOXAPARIN 40 MG/0.4 ML SQ SCH (09:25)
[2021-02-13] MEDS: METOPROLOL TAR 25 MG TAB PO SCH (09:25)
--- NOTE | 2021-02-13 10:10 | P.DS ---
Discharge Date: 02/13/21 Reason for Admission: Chest pain Brief History of Present Illness: Patient is a 60-year-old male with a past medical history significant for CAD, CVA, [place], hypertension who presents with complaint of chest pain located in the substernal chest area. Patient rated pain as 10/10 and described pain as squeezing in quality. Patient reported that he recently had a CABG that is less than 1 month ago. Patient denies any other signs or symptoms. Symptoms are aggravated or relieved by nothing. Patient decided to present to the hospital for medical evaluation. Vital Signs/Physical Exam: Temp Pulse Resp BP Pulse Ox 98 F 55 19 155/82 H 99 02/13/21 08:00 02/13/21 08:00 02/13/21 08:00 02/13/21 08:00 02/13/21 08:00 Laboratory Data at Discharge: WBC 7.30 K/uL (4.3-10.9) D 02/13/21 05:43 Hgb 11.7 g/dL (13.6-17.9) L 02/13/21 05:43 Hct 34.8 % (39.6-49.0) L 02/13/21 05:43 Plt Count 249 K/uL (152-406) 02/13/21 05:43 PT 11.7 SECONDS (9.5-12.5) 02/12/21 10:40 INR 1.02 02/12/21 10:40 Sodium 139 mmol/L (136-145) 02/13/21 05:43 Potassium 4.9 mmol/L (3.5-5.1) 02/13/21 05:43 BUN 14 mg/dL (7-18) 02/13/21 05:43 Creatinine 0.78 mg/dL (0.55-1.3) 02/13/21 05:43 Glucose 118 mg/dL (74-106) H 02/13/21 05:43 Phosphorus 2.8 mg/dL (2.5-4.9) 02/13/21 05:43 Magnesium 2.0 mg/dL (1.8-2.4) 02/13/21 05:43 Total Bilirubin 0.2 mg/dL (0.2-1.0) 02/12/21 10:40 AST 16 U/L (15-37) 02/12/21 10:40 ALT 24 U/L (12-78) 02/12/21 10:40 Alkaline Phosphatase 127 U/L (45-117) H 02/12/21 10:40 Troponin I 0.02 ng/mL (0.0-0.045) 02/13/21 05:43 Triglycerides 119 mg/dL (<150) 02/12/21 17:38 Cholesterol 154 mg/dL (<200) 02/12/21 17:38 HDL Cholesterol 61 mg/dL (40-60) H 02/12/21 17:38 Cholesterol/HDL Ratio 2.52 02/12/21 17:38 Home Medications: Albuterol Sulfate [Proair Hfa] 2 puff IH TID PRN #1 hfa.aer.ad 04/04/19 Atorvastatin Calcium [Lipitor] 80 mg PO DAILY #30 tab 04/04/19 Metoprolol Tartrate [Lopressor*] 25 mg PO BID #60 tab 04/04/19 Amiodarone HCl [Cordarone*] 200 mg PO BID 10/12/19 Ezetimibe [Zetia*] 10 mg PO DAILY 10/12/19 lisinopriL [Lisinopril] 20 mg PO DAILY 10/12/19 Aspirin Tab [Alli Aspirin*] 325 mg PO DAILY 12/28/20 Followup: Laverne Son NP [Primary Care Provider] -
--- NOTE | 2021-02-13 12:44 | EKG ---
Test Date: 2021-02-12 Test Time: 10:33:44 Ice Bag Assembler: MERON MEASUREMENT RESULTS: Intervals: Rate: 58 MI: 202 QRSD: 84 QT: 436 QTc: 428 [place]: P: 62 MI: 202 QRS: -14 T: 157 INTERPRETIVE STATEMENTS: Sinus bradycardia Anteroseptal infarct, age undetermined Inferior injury pattern ACUTE RI Consider right ventricular involvement in acute inferior infarct Abnormal ECG Compared to ECG 10/12/2019 09:08:40 Myocardial infarct finding now present Electronically Signed On 02-13-21 12:41:38 CDT by Rivera Mason
== END 2021-02-13 10:58 | disposition home or self-care (01) ==
LOC: ER 10:21 → INTOOBSV 15:56 → ERHOLD 15:56 → 2ND 02-13 00:17
PROVIDERS: ADMIT Hospitalist; ATTEND Hospitalist
DX: R07.9 Chest pain, unspecified (principal); I10 Essential (primary) hypertension; I25.10 Atherosclerotic heart disease of native coronary artery without angina pectoris; J96.10 Chronic respiratory failure, unspecified whether with hypoxia or hypercapnia; Z99.81 Dependence on supplemental oxygen; J44.9 Chronic obstructive pulmonary disease, unspecified; I30.9 Acute pericarditis, unspecified; E78.5 Hyperlipidemia, unspecified; K21.9 Gastro-esophageal reflux disease without esophagitis; H91.3 Deaf nonspeaking, not elsewhere classified; I25.2 Old myocardial infarction; Z95.1 Presence of aortocoronary bypass graft; Z95.5 Presence of coronary angioplasty implant and graft; Z86.73 Personal history of transient ischemic attack (TIA), and cerebral infarction without residual deficits; Z87.891 Personal history of nicotine dependence; Z88.0 Allergy status to penicillin; Z20.822 Contact with and (suspected) exposure to COVID-19; Z82.49 Family history of ischemic heart disease and other diseases of the circulatory system; Z80.9 Family history of malignant neoplasm, unspecified
CPT/HCPCS: 93005 ×2; 93306; 85025 ×2; 80048 ×2; 36415; 83735; 84100; 85610; 80061; 82565; 80076; 84443; 83036; 84484 ×4; 84439; 83880; 71275; 71045; U0003; Q9967; J1650 ×2; J2405; 96374; 96375; 99285; G0378; J7512

== ENCOUNTER 2022-01-08 09:44 | Inpatient (IN) | payer OTHER ==
--- OUTSIDE RECORDS SUMMARY | 2022-01-08 09:48 | XMS REPORT | Continuity of Care Document ---
:1960 Author Organization [facility] t Address [address] [place] [address] Care Team Providers Name Role Phone Laverne Son Attending Clinician Unavailable LORRI BINGHAM Attending Clinician Unavailable DELMA CERVANTES Attending Clinician Unavailable LORRI BINGHAM Admitting Clinician Unavailable Payers Payer Name Policy Type Policy Number Effective Date Expiration Date S jason MEDICARE A B [id number] 2003 00:00:00 MEDICAID OF [place] [id number] 2018 00:00:00 Problems This patient has no known problems. Allergies, Adverse Reactions, Alerts Allergy Allergy Status Severity Reaction(s) Onset Inactive Treating Comm ents Source Name Type Date Date Clinician PENICILL Allergy Active High Anaphylaxis 2005-0 SL [facility] INS 3-20 00:00: 00 Penicill Adverse Active rash Common in G Reaction [facility] Sodium - [facility] Medications Ordered Filled Start Stop Current Ordering Indication Dosage Frequency Signature Comments Components Source Medication Medication Date Date Medication? Clinician (SIG) Name Name Dulera Dulera 2018- Yes Claudia 2 puffs Commo n 2-04 [facility] 00:00: - [facility] 00 [facility] Metoprolol Metoprolol Yes Claudia TAKE 1 Common Tartrate Tartrate Sea TABLET BY [facility] M[facility]TH - [facility] TWICE A [facility] Nitroglycer Nitroglycer Yes Claudia TAKE 1 Common in in [place] TABLET BY [facility] EVERY [address] MINUT[facility] FOR Medical CHEST PAIN Center SCALE 2-4 (MAX OF 3 DOSES) Amiodarone Amiodarone Yes Claudia TAKE 1 Common HCl HCl [place] TABLET BY [facility] - [facility] TWICE A [facility] Plavix Plavix Yes Claudia 1 tablet Common [place] [facility] Atorvastati Atorvastati Yes Claudia 1 tablet Common n Calcium n Calcium [place] S [facility] Lisinopril Lisinopril Yes Claudia 1 tablet Common [place] [facility] Zetia Zetia Yes Claudia 1 tablet Common [facility] Vital Signs Vital Name Observation Time Observation Value Comments Source WEIGHT 2021-01-23 04:42:00 87.68 kg WEIGHT 2021-01-22 04:38:00 88.361 kg WEIGHT 2021-01-21 05:45:00 89.812 kg WEIGHT 2021-01-20 04:15:00 89.359 kg WEIGHT 2021-01-19 11:40:00 91.808 kg HEIGHT 2021-01-17 06:10:00 167 cm WEIGHT 2021-01-17 06:10:00 88 kg HEIGHT 2021-01-15 10:12:00 167 cm WEIGHT 2021-01-15 10:12:00 88 kg HEIGHT 2021-01-31 09:47:00 167.6 cm WEIGHT 2021-01-31 09:47:00 87.544 kg WEIGHT 2021-01-23 04:42:00 87.68 kg WEIGHT 2021-01-22 04:38:00 88.361 kg WEIGHT 2021-01-21 05:45:00 89.812 kg WEIGHT 2021-01-20 04:15:00 89.359 kg WEIGHT 2021-01-19 11:40:00 91.808 kg HEIGHT 2021-01-17 06:10:00 167 cm WEIGHT 2021-01-17 06:10:00 88 kg HEIGHT 2021-01-15 10:12:00 167 cm WEIGHT 2021-01-15 10:12:00 88 kg HEIGHT 2021-01-14 10:41:00 167.6 cm WEIGHT 2021-01-14 10:41:00 88.905 kg HEIGHT 2021-01-14 10:41:00 167.6 cm WEIGHT 2021-01-14 10:41:00 88.905 kg HEIGHT 2021-01-02 10:52:00 167.6 cm WEIGHT 2021-01-02 10:52:00 89.359 kg Procedures This patient has no known procedures. Encounters Start End Encounter Admission Attending Care Care Encounter Source Date/Time Date/Time Type Type Clinicians Facility Department ID 2021-12-25 Outpatient Roland, STLMLC STLMLC [id number] Common 08:09:01 Laverne [facility] 2021-10-24 Outpatient Roland, STLMLC STLMLC [id number] Common 10:48:00 Laverne [facility] 2021-06-27 Outpatient Roland, STLMLC STLMLC [id number] Common 09:28:01 Laverne [facility] 2021-06-19 Outpatient Roland, STLMLC STLMLC [id number] Common 14:20:03 Laverne [id number] [facility] 2021-06-19 Outpatient Roland, STLMLC STLMLC [id number] Common 13:55:51 Laverne 43192 [facility] 2021-06-19 Outpatient Roland, STLMLC STLMLC [id number] Common 13:41:21 Laverne 69186 [facility] 2021-06-19 Outpatient Roland, STLMLC STLMLC [id number] Common 13:32:55 Laverne 10107 [facility] 2021-06-19 Outpatient Roland, STLMLC STLMLC [id number] Common 13:08:45 Laverne 64965 [facility] 2021-06-19 Outpatient Roland, STLMLC STLMLC [id number] Common 12:43:24 Laverne 26262 [facility] 2021-06-19 Outpatient Roland, STLMLC STLMLC [id number] Common 12:42:28 Laverne 69267 [facility] 2021-06-19 Outpatient Roland, STLMLC STLMLC [id number] Common 12:42:20 Laverne 40431 [facility] 2021-06-19 Outpatient Roland, STLMLC STLMLC [id number] Common 12:41:02 Laverne 51260 [facility] 2021-06-19 Outpatient Roland, STLMLC STLMLC [id number] Common 12:01:08 Laverne 24732 [facility] 2021-06-19 Outpatient Roland, STLMLC STLMLC [id number] Common 11:24:11 Laverne 91920 [facility] 2021-06-19 Outpatient Roland, STLMLC STLMLC [id number] Common 11:23:15 Laverne 63957 [facility] 2021-06-19 Outpatient Roland, STLMLC STLMLC [id number] Common 11:21:09 Laverne 83480 [facility] 2021-03-03 Inpatient [facility] Surgery [id number] [facility] 08:22:05 LORRI 2021-11-29 2021-11-29 ambulatory STLMLC STLMLC [id number] Common 00:00:00 00:00:00 [facility] 2021-11-17 2021-11-17 ambulatory STLMLC STLMLC [id number] Common 00:00:00 00:00:00 [facility] 2021-10-28 2021-10-28 ambulatory STLMLC STLMLC [id number] Common 00:00:00 00:00:00 [facility] 2021-10-28 2021-10-28 ambulatory STLMLC STLMLC [id number] Common 00:00:00 00:00:00 [facility] 2021-10-02 2021-10-02 ambulatory STLMLC STLMLC [id number] Common 00:00:00 00:00:00 [facility] 2021-10-01 2021-10-01 ambulatory STLMLC STLMLC [id number] Common 00:00:00 00:00:00 [facility] 2021-08-29 2021-08-29 ambulatory STLMLC STLMLC [id number] Common 00:00:00 00:00:00 [facility] 2021-07-01 2021-07-01 ambulatory STLMLC STLMLC [id number] Common 00:00:00 00:00:00 [facility] 2021-05-22 2021-05-22 ambulatory STLMLC STLMLC [id number] Common 00:00:00 00:00:00 [facility] 2021-04-29 2021-04-29 ambulatory STLMLC STLMLC [id number] Common 00:00:00 00:00:00 [facility] 2021-02-27 2021-02-27 Outpatient MONO FRANZ SLE [id number] [facility] 00:00:00 00:00:00 JAY 2021-02-25 2021-02-25 Outpatient STLMLC STLMLC [id number] Common 00:00:00 00:00:00 [facility] 2021-02-12 2021-02-12 Outpatient STLMLC STLMLC [id number] Common 00:00:00 00:00:00 [facility] 2021-02-11 2021-02-11 Outpatient UMESH CERVANTES SLEKarime [facility] [id number] [facility] 00:00:00 00:00:00 DELMA 2021-01-31 2021-01-31 Outpatient UMESH BINGHAM SLEKarime [facility] [id number] [facility] 00:00:00 00:00:00 LORRI 2021-01-31 2021-01-31 Outpatient UMESH SLEH [facility] [id number] [facility] 00:00:00 00:00:00 2021-01-31 2021-01-31 Outpatient UMESH SLEH [facility] [id number] [facility] 00:00:00 00:00:00 2021-01-18 2021-01-18 [address]patient [facility] [id number] [facility] 00:00:00 23:59:00 Stuart 2021-01-17 2021-01-17 Outpatient [facility] [id number] [facility] 05:21:00 23[facility]59:[facility] 2021-01-15 2021-01-15 Outpatient EL SLE SLE [id number] [facility] 00:00:00 00:00:00 2021-01-15 2021-01-15 Outpatient STLMLC STLMLC [id number] Common 00:00:00 00:00:00 [facility] 2021-01-14 2021-01-14 Outpatient EL [facility] SLE [id number] [facility] 00:00:00 00:00:00 2021-01-02 2021-01-02 Outpatient UMESH BINGHMA [facility] SLE [id number] [facility] 00:00:00 00:00:00 LORRI 2020-11-16 2020-11-16 Outpatient STLMLC STLMLC [id number] Common 00:00:00 00:00:00 [facility] 2020-10-19 2020-10-19 Outpatient STLMLC STLMLC [id number] Common 00:00:00 00:00:00 [facility] 2020-10-15 2020-10-15 Outpatient STLMLC STLMLC [id number] Common 00:00:00 00:00:00 [facility] 2020-07-27 2020-07-27 Outpatient STLMLC STLMLC [id number] Common 00:00:00 00:00:00 [facility] 2020-07-18 2020-07-18 Outpatient STLMLC STLMLC [id number] Common 00:00:00 00:00:00 [facility] 2020-07-18 2020-07-18 Outpatient STLMLC STLMLC [id number] Common 00:00:00 00:00:00 [facility] 2020-04-17 2020-04-17 Outpatient STLMLC STLMLC [id number] Common 00:00:00 00:00:00 [facility] 2020-04-05 2020-04-05 Outpatient STLMLC STLMLC [id number] Common 00:00:00 00:00:00 [facility] 2020-02-23 2020-02-23 Outpatient STLMLC STLC [id number] Common 00:00:00 00:00:00 [facility] 2020-02-08 2020-02-08 Outpatient [facility] [id number] Common 14:59:00 14:59:00 t Specialty/U Sp srikanth Specialty rology - [facility] 2020-02-03 2020-02-03 Outpatient [place] [facility] [id number] Common 08:45:00 08:45:00 t Specialty/U Sp srikanth Specialty rology - [facility] 2020-01-17 2020-01-17 Outpatient Taurus [place] [id number] Common 16:09:00 16:09:00 t Specialty/U Sp srikanth Specialty rology - [facility] 2020-01-16 2020-01-16 Outpatient Taurus [place] [id number] Common 12:56:00 12:56:00 t Specialty/U Sp srikanth Specialty rology - [facility] 2019-12-26 2019-12-26 Outpatient [place] [facility] [id number] Common 16:12:00 16:12:00 t Specialty/U Sp srikanth Specialty rology - [facility] 2019-12-08 2019-12-08 Outpatient [place] [facility] [id number] Common 16:18:00 16:18:00 t Specialty/U Sp srikanth Specialty rology - [facility] 2019-12-06 2019-12-06 Outpatient [place] [facility] [id number] Common 13:00:00 13:00:00 t Specialty/U Sp srikanth Specialty rology - [facility] 2019-11-28 2019-11-28 Outpatient [facility] [place] [id number] Common 09:43:00 09:43:[address] [facility] [address] Road [facility] 2019-11-23 2019-11-23 Outpatient Taurus [place] [id number] Common 14:29:00 14:29:00 t Specialty/U Sp srikanth Specialty rology - [facility] /[facility] 2019-11-07 2019-11-07 [place] [id number] Common 14:45:00 14:45:00 t Specialty/U Sp srikanth Specialty rology - [facility] 2019-10-26 2019-10-26 [facility] [id number] Common 14:40:00 14:40:[address] [facility] 2019-10-05 2019-10-05 [facility] [id number] Common 15:00:00 15:00:[address] [facility] 2019-09-30 2019-09-30 Out[facility] [id number] Common 11:28:00 11:28:[address] [facility] 2019-08-22 2019-08-22 Outpatient [facility] [id number] Common 09:20:00 09:20:[address] [facility] 2019-07-27 2019-07-27 [facility] [id number] Common 14:40:00 14:40:[address] [facility] 2019-04-27 2019-04-27 Out[facility] [id number] Common 14:40:00 14:40:[address] [facility] 2019-03-16 2019-03-16 Outpatient [facility] [id number] Common 11:02:00 11:02:[address] [facility] 2019-02-24 2019-02-24 Out[facility] [id number] Common 09:33:00 09:33:[address] [facility] 2019-01-26 2019-01-26 Out[facility] [id number] Common 14:00:00 14:00:[address] [facility] 2019-01-19 2019-01-19 Out[facility] [id number] Common 13:00:00 13:00:[address] [facility] 2018-11-29 2018-11-29 Out[facility] [id number] Common 13:00:00 13:00:[address] [facility] 2018-09-22 2018-09-22 Out[facility] [id number] Common 13:00:00 13:00:[address] [facility] 2018-03-02 2018-03-02 Outpatient [facility] [id number] Common 15:20:00 15:20:[address] [facility] 2018-02-25 2018-02-25 Outpatient Braz[facility] [place] [id number] Common 13:15:00 13:15:[address] [facility] Results Test Description Test Time Test Comments Results Result Sourc e Comments RAD, CHEST, 2 2021-01-31 Reason for VIEWS 13:21:00 Exam:->elfego s of breath, on home O2 for [facility]IE HA ESSIE : 1960 Sex: M *FINAL REPORT CLINICAL HISTORY: shortness of breath, on home O2 for COPD TECHNIQUE: 2 views of the chest COMPARISON: 01/21/2021 IMPRESSION: Previous left lower lung consolidation and small left pleural effusion have decreased. The right lung remains relatively well-aerated. Cardiomegaly is again seen poststernotomy. Signed: Avila [place] Verified Date/Time: 01/31/2021 13:21:43 Reading Location: [facility] Radiology Reading Room C METABOLIC PANEL 2021-01-23 12:13:00 Test Item Value Reference Range Interpretation Comme nts SODIUM (BEAKER) (test code 136 meq/L 136-145 = 381) POTASSIUM (BEAKER) (test 4.4 meq/L 3.5-5.1 code = 379) CHLORIDE (BEAKER) (test 102 meq/L 98-107 code = 382) CO2 (BEAKER) (test code = 27 meq/L 22-29 355) BLOOD UREA NITROGEN 12 mg/dL 7-21 (BEAKER) (test code = 354) CREATININE (BEAKER) (test 0.81 mg/dL 0.57-1.25 code = 358) GLUCOSE RANDOM (BEAKER) 96 mg/dL 70-105 (test code = 652) CALCIUM (BEAKER) (test code 8.8 mg/dL 8.4-10.2 = 697) EGFR (BEAKER) (test code = 97 mL/min/1.73 sq m ESTIMATED GFR IS NOT 1092) ACCURATE CRE ATININE CLEARANCE IN CO EDICTING GLOMERULAR FILT RATION RATE. ESTIMATED GFR IS NOT APPLICABLE FOR DIALYSIS PATIENTS. Rod Mill Operator ID - CLARAPOCT-GLUCOSE [id number] 12:06:00 Test Item Value Reference Range Interpretation Comments POC-GLUCOSE METER 111 mg/dL 70-110 H : TESTED A T [facility] 6720 (BEAKER) (test code = [employer] [facility], 1538) [id number]: Rod Mill Operator/Techni beverly ID = [id number] for OSMAN CHILDRESS JIE POCT-GLUCOSE [id number] 07:47:00 Test Item Value Reference Range Interpretation Comments POC-GLUCOSE METER 99 mg/dL 70-110 : TESTED A T [facility] 6720 (BEAKER) (test code = [employer] [facility], 1538) [id number]: Rod Mill Operator/Techni beverly ID = [id number] for BRIT TENJIE POCT-GLUCOSE [id number] 21:39:00 Test Item Value Reference Range Interpretation Comments POC-GLUCOSE METER 120 mg/dL 70-110 H : TESTED A T [facility] 6720 (BEAKER) (test code = [facility], 1538) [id number]: Rod Mill Operator/Techni beverly ID = [id number] for Jazmyn Rosario POCT-GLUCOSE [id number] 17:23:00 Test Item Value Reference Range Interpretation Comments POC-GLUCOSE METER 113 mg/dL 70-110 H : TESTED A T [facility] 6720 (BEAKER) (test code = [facility], 1538) [id number]: Rod Mill Operator/Techni beverly ID = [id number] for CARMEN CARTER POCT-GLUCOSE [id number] 12:26:00 Test Item Value Reference Range Interpretation Comments POC-GLUCOSE METER 114 mg/dL 70-110 H : TESTED A T [facility] 6720 (BEAKER) (test code = [facility], 1538) [id number]: Rod Mill Operator/Techni beverly ID = [id number] for OR CARMEN BRISCOE BASIC METABOLIC [id number] 09:20:00 Test Item Value Reference Range Interpretation Comments SODIUM (BEAKER) 136 meq/L 136-145 (test code = 381) POTASSIUM (BEAKER) 4.1 meq/L 3.5-5.1 (test code = 379) CHLORIDE (BEAKER) 102 meq/L 98-107 (test code = 382) CO2 (BEAKER) (test 26 meq/L 22-29 code = 355) BLOOD UREA NITROGEN 11 mg/dL 7-21 (BEAKER) (test code = 354) CREATININE (BEAKER) 0.80 mg/dL 0.57-1.25 (test code = 358) GLUCOSE RANDOM 105 mg/dL 70-105 (BEAKER) (test code = 652) CALCIUM (BEAKER) 8.5 mg/dL 8.4-10.2 (test code = 697) EGFR (BEAKER) (test 98 mL/min/1.73 ESTIMA CASSY GFR IS code = 1092) sq m NOT ACCURATE CREATININE CLEARANCE IN PREDICTING GLOMERULAR FILTRATION RATE . ESTIMATED GFR I S NOT APPLICABLE FOR DIALYSIS PATIEN TS. Rod Mill Operator ID - PIAYA LPOCT-GLUCOSE [id number] 07:41:00 Test Item Value Reference Range Interpretation Comments POC-GLUCOSE METER 99 mg/dL 70-110 : TESTED A T [facility] 6720 (MARIANO) (test code = [place], 1538) [id number]: Rod Mill Operator/Techni beverly ID = [id number] for Sydney Titus SARS-COV2/RT-PCR ([facility])2021-01-22 00:01:00 Test Item Value Reference Range Interpretation Comments SARS-COV2/RT-PCR (test Negative Not Detected, Negative, code = 2644929) See external report for linked test SARS-COV-[address] [facility] LALO (test code = 2031217) Negative result for this test determines that SARS-CoV-2 RNA was not present in the specimen above the Limit of Detection (LOD). However, Negative results do not preclude SARS-CoV-2 infection and should not be used as the sole basis for treatment or patient management decisions. Negative results must be combined with clinical observations, patient history, and epidemiological information. A false negative result may occur if a specimen is improperly collected, transported or handled. A false negative result should be considered if patient's recent exposures or clinical presentation indicate that COVID-19 (SARS-CoV-2) is likely and diagnostic tests for other causes of illness are negative. Re-testing should be considered in cases of suspected false negatives.The limit of detection for this assay is 800 copies/mL.This SARS CoV-2 test is a real-time RT-PCR test intended for the qualitative detection of nucleic acid from SARS-CoV-2 in a nasopharyngeal swab specimen collected from individuals suspected of COVID-19 by their healthcare provider.This test has not been Food and Drug Administration (FDA) cleared or approved. This is a modified version of an approved Emergency Use Authorization (EUA) and is in the process of review by the FDA. Once authorized by the FDA, the issued EUA will be effective until the declaration that circumstances exist justifying the authorization of the emergency use ofin vitro diagnostic tests for detection and/or diagnosis of COVID-19 is terminated under Section 564(b)(2) of the Act or the EUA is revoked under Section 564(g) of the Act.Fact Sheet for Healthcare Prov iders:https://www.Flit.com/sites/default/files/product/documents/Fact_Sheet_HC _Feqdbxqix_Cagz_UMNA-DiW-6.pdfFact Sheet for Healthcare Patients:https://www.Netechy/sites/default/files/product/docume nts/Jley_Biwaf_Taycuepi_Cuxz_TXNZ-NzF-6.pdfPerforming Laboratory:[facility], [place] [address]SDTM-RUFPEJD METER 2021-01-21 21:42:00 Test Item Value Reference Range Interpretation Comments POC-GLUCOSE METER 110 mg/dL 70-110 : TESTED A T [facility] 6720 (BEAKER) (test code = [facility], 1538) [id number]: Rod Mill Operator/Techni beverly ID = [id number] for LAZARO ERICKSON POCT-GLUCOSE [id number] 17:32:00 Test Item Value Reference Range Interpretation Comments POC-GLUCOSE METER 95 mg/dL 70-110 : TESTED A T [facility] 6720 (BEAKER) (test code = [facility] Sudheer [facility], 1538) 53267: Rod Mill Operator/Techni beverly ID = [id number] for SHAQ ALY BASIC METABOLIC [id number] 15:40:00 Test Item Value Reference Range Interpretation Comments SODIUM (BEAKER) 136 meq/L 136-145 (test code = 381) POTASSIUM (BEAKER) 3.9 meq/L 3.5-5.1 (test code = 379) CHLORIDE (BEAKER) 103 meq/L 98-107 (test code = 382) CO2 (BEAKER) (test 27 meq/L 22-29 code = 355) BLOOD UREA NITROGEN 12 mg/dL 7-21 (BEAKER) (test code = 354) CREATININE (BEAKER) 0.78 mg/dL 0.57-1.25 (test code = 358) GLUCOSE RANDOM 120 mg/dL 70-105 H (BEAKER) (test code = 652) CALCIUM (BEAKER) 8.5 mg/dL 8.4-10.2 (test code = 697) EGFR (BEAKER) (test 101 mL/min/1.73 ESTIM ATED GFR IS code = 1092) sq m NOT ACCURATE CREATININE CLEARANCE IN PREDICTING GLOMERULAR FILTRATION RATE . ESTIMATED GFR I S NOT APPLICABLE FOR DIALYSIS PATIEN TS. Rod Mill Operator ID - [id number] (HEMOGRAM ONLY)2021-01-21 15:25:00 Test Item Value Reference Range Interpretation Comments WHITE BLOOD CELL COUNT (BEAKER) 6.1 K/ L 3.5-10.5 (test code = 775) RED BLOOD CELL COUNT (BEAKER) 3.01 M/ L 4.63-6.08 L (test code = 761) HEMOGLOBIN (BEAKER) (test code = 9.8 GM/DL 13.7-17.5 L 410) HEMATOCRIT (BEAKER) (test code = 28.8 % 40.1-51.0 L 411) MEAN CORPUSCULAR VOLUME (BEAKER) 95.7 fL 79.0-92.2 H (test code = 753) MEAN CORPUSCULAR HEMOGLOBIN 32.6 pg 25.7-32.2 H (BEAKER) (test code = 751) MEAN CORPUSCULAR HEMOGLOBIN CONC 34.0 GM/DL 32.3-36.5 (BEAKER) (test code = 752) RED CELL DISTRIBUTION WIDTH 13.1 % 11.6-14.4 (BEAKER) (test code = 412) PLATELET COUNT (BEAKER) (test 195 K/CU MM 150-450 code = 756) MEAN PLATELET VOLUME (BEAKER) 10.7 fL 9.4-12.4 (test code = 754) NUCLEATED RED BLOOD CELLS 0 /100 WBC 0-0 (BEAKER) (test code = 413) POCT-GLUCOSE [id number] 12:03:00 Test Item Value Reference Range Interpretation Comments POC-GLUCOSE METER 121 mg/dL 70-110 H : TESTED A T [facility] 6720 (BEAKER) (test code = [facility], 1538) [id number]: Rod Mill Operator/Techni beverly ID = [id number] for LUIS EDUARDO HN, SHAQ POCT-GLUCOSE [id number] 08:44:00 Test Item Value Reference Range Interpretation Comments POC-GLUCOSE METER 115 mg/dL 70-110 H : TESTED A T [facility] 6720 (BEAKER) (test code = [facility], 1538) 66214: Rod Mill Operator/Techni beverly ID = [id number] for LUIS EDUARDO HN, SHAQ RAD, CHEST, 1 VIEW, NON [id number] 08:22:00while patient is intubated or has chest tubes.Reason for exam:->Status post CV SurgeryShould thisbe performed at the bedside?->Yes [facility] : 1960 Sex: MFINAL REPORT RAD, CHEST, 1 VIEW, NON DEPT INDICATION: Status post CV Surgery COMPARISON: Prior day's exam FINDINGS: Portable frontal view of the chest. IMPRESSION: Support Lines: None Lungs and pleura: Unchanged airspace and pleural opacities. No pneumothorax.Heart and mediastinum: Stable contours. Stable surgical changes.Additional findings: None. Signed: JR Clemens Robert MDReport Verified Date/Time: 01/21/2021 08:22:31 Reading Location: [facility] Radiology Reading Room [id number] 07:10:00 Test Item Value Reference Range Interpretation Comments PHOSPHORUS (BEAKER) (test code = 3.2 mg/dL 2.3-4.7 604) Rod Mill Operator ID - ESTELA MPOCT-GLUCOSE [id number] 20:43:00 Test Item Value Reference Range Interpretation Comments POC-GLUCOSE METER 152 mg/dL 70-110 H : TESTED A T [facility] 6720 ([place]) (test code = [place], 1538) 87067: Rod Mill Operator/Techni beverly ID = [id number] for Divya Kee POCT-GLUCOSE [id number] 17:16:00 Test Item Value Reference Range Interpretation Comments POC-GLUCOSE METER 102 mg/dL 70-110 : TESTED A T [facility] 6720 ([place]) (test code = MAT [place], 1538) 31305: Rod Mill Operator/Techni beverly ID = [id number] for Sydney Corral POCT-GLUCOSE [id number] 12:27:00 Test Item Value Reference Range Interpretation Comments POC-GLUCOSE METER 103 mg/dL 70-110 : TESTED A T [facility] 6720 (BEAKER) (test code = MAT Willard [facility], 1538) 46865: Rod Mill Operator/Techni beverly ID = [id number] for Sydney Corral BASIC METABOLIC [id number] 09:00:00 Test Item Value Reference Range Interpretation Comments SODIUM (BEAKER) 136 meq/L 136-145 (test code = 381) POTASSIUM (BEAKER) 3.9 meq/L 3.5-5.1 (test code = 379) CHLORIDE (BEAKER) 104 meq/L 98-107 (test code = 382) CO2 (BEAKER) (test 26 meq/L 22-29 code = 355) BLOOD UREA NITROGEN 10 mg/dL 7-21 (BEAKER) (test code = 354) CREATININE (BEAKER) 0.71 mg/dL 0.57-1.25 (test code = 358) GLUCOSE RANDOM 158 mg/dL 70-105 H (BEAKER) (test code = 652) CALCIUM (BEAKER) 8.3 mg/dL 8.4-10.2 L (test code = 697) EGFR (BEAKER) (test 113 mL/min/1.73 ESTIM ATED GFR IS code = 1092) sq m NOT ACCURATE CREATININE CLEARANCE IN PREDICTING GLOMERULAR FILTRATION RATE . ESTIMATED GFR I S NOT APPLICABLE FOR DIALYSIS PATIEN TS. Rod Mill Operator ID - PIGRANT [id number] 09:00:00 Test Item Value Reference Range Interpretation Comments PHOSPHORUS (BEAKER) (test code = 2.0 mg/dL 2.3-4.7 L 604) Rod Mill Operator ID - GINETTE LCALCIUM, [id number] 08:43:00 Test Item Value Reference Range Interpretation Comments CALCIUM IONIZED (BEAKER) (test 1.08 mmol/L 1.12-1.27 L code = 698) PH, BLOOD (BEAKER) (test code = 7.41 1810) POCT-GLUCOSE [id number] 07:30:00 Test Item Value Reference Range Interpretation Comments POC-GLUCOSE METER 114 mg/dL 70-110 H : TESTED A T [facility] 6720 (Ge.ttJOEL) (test code = [place], 1538) [id number]: Rod Mill Operator/Techni beverly ID = [id number] for Sydney Corral RAD, CHEST, 1 VIEW, NON [id number] 06:13:00while patient is intubated or has chest tubes.Reason for exam:->Status post CV SurgeryShould thisbe performed at the bedside?->Yes [facility] HA [facility] : 1960 Sex: MFINAL REPORT RAD, CHEST, 1 VIEW, NON DEPT INDICATION: Status post CV Surgery COMPARISON: Prior day's exam FINDINGS: Portable frontal view of the chest. IMPRESSION: Support Lines: Sternotomy wires. Lungs and pleura: Basilar airspace opacities are unchanged. Suspected small left effusion and retrocardiac atelectasis. Lungs remain slightly hypoinflated. No pneumothorax. Heart and mediastinum: Stable contours. Additional findings: None. Signed: Guido Guerra Verified Date/Time: 01/20/2021 06:13:19 POCT-GLUCOSE [id number] 23:48:00 Test Item Value Reference Range Interpretation Comments POC-GLUCOSE METER 101 mg/dL 70-110 : TESTED A T [facility] 6720 (BEJOEL) (test code = [place], 1538) [id number]: Rod Mill Operator/Techni beverly ID = [id number] for Sydney Corral POCT-GLUCOSE [id number] 20:52:00 Test Item Value Reference Range Interpretation Comments POC-GLUCOSE METER 121 mg/dL 70-110 H : TESTED A T [facility] 6720 (BEAKER) (test code = [facility], 1538) [id number]: Rod Mill Operator/Techni beverly ID = [id number] for CHANELL CLEMENTE POCT-GLUCOSE [id number] 11:50:00 Test Item Value Reference Range Interpretation Comments POC-GLUCOSE METER 111 mg/dL 70-110 H : TESTED A T [facility] 6720 (BEAKER) (test code = [facility], 1538) [id number]: Rod Mill Operator/Techni beverly ID = [id number] for Sydney Corral [id number] 08:47:00 Test Item Value Reference Range Interpretation Comments MAGNESIUM (BEAKER) 1.9 mg/dL 1.6-2.6 Specimen slightly (test code = 627) hemolyzed Rod Mill Operator ID - ESTELA [id number] 08:47:00 Test Item Value Reference Range Interpretation Comments PHOSPHORUS (BEAKER) 1.8 mg/dL 2.3-4.7 L Specimen slightly (test code = 604) hemolyzed Rod Mill Operator ID - ESTELA MBASIC METABOLIC [id number] 08:47:00 Test Item Value Reference Range Interpretation Comments SODIUM (BEAKER) 136 meq/L 136-145 (test code = 381) POTASSIUM (BEAKER) 4.4 meq/L 3.5-5.1 Specimen slightly (test code = 379) hemolyzed CHLORIDE (BEAKER) 104 meq/L 98-107 (test code = 382) CO2 (BEAKER) (test 26 meq/L 22-29 code = 355) BLOOD UREA NITROGEN 10 mg/dL 7-21 (BEAKER) (test code = 354) CREATININE (BEAKER) 0.74 mg/dL 0.57-1.25 Specimen slightly (test code = 358) hemolyzed GLUCOSE RANDOM 138 mg/dL 70-105 H (BEAKER) (test code = 652) CALCIUM (BEAKER) 8.2 mg/dL 8.4-10.2 L (test code = 697) EGFR (BEAKER) (test 108 mL/min/1.73 ESTIM ATED GFR IS code = 1092) sq m NOT ACCURATE CREATININE CLEARANCE IN PREDICTING GLOMERULAR FILTRATION RATE . ESTIMATED GFR I S NOT APPLICABLE FOR DIALYSIS PATIEN TS. Rod Mill Operator ID - ESTELA MCALCIUM, [id number] 08:40:00 Test Item Value Reference Range Interpretation Comments CALCIUM IONIZED (BEAKER) (test 1.10 mmol/L 1.12-1.27 L code = 698) PH, BLOOD (BEAKER) (test code = 7.38 1810) CBC (HEMOGRAM ONLY)2021-01-19 08:32:00 Test Item Value Reference Range Interpretation Comments WHITE BLOOD CELL COUNT (BEAKER) 8.9 K/ L 3.5-10.5 (test code = 775) RED BLOOD CELL COUNT (BEAKER) 3.24 M/ L 4.63-6.08 L (test code = 761) HEMOGLOBIN (BEAKER) (test code = 10.3 GM/DL 13.7-17.5 L 410) HEMATOCRIT (BEAKER) (test code = 31.7 % 40.1-51.0 L 411) MEAN CORPUSCULAR VOLUME (BEAKER) 97.8 fL 79.0-92.2 H (test code = 753) MEAN CORPUSCULAR HEMOGLOBIN 31.8 pg 25.7-32.2 (BEAKER) (test code = 751) MEAN CORPUSCULAR HEMOGLOBIN CONC 32.5 GM/DL 32.3-36.5 (BEAKER) (test code = 752) RED CELL DISTRIBUTION WIDTH 13.4 % 11.6-14.4 (BEAKER) (test code = 412) PLATELET COUNT (BEAKER) (test 126 K/CU MM 150-450 L code = 756) MEAN PLATELET VOLUME (BEAKER) 11.0 fL 9.4-12.4 (test code = 754) NUCLEATED RED BLOOD CELLS 0 /100 WBC 0-0 (BEAKER) (test code = 413) POCT-GLUCOSE [id number] 07:21:00 Test Item Value Reference Range Interpretation Comments POC-GLUCOSE METER 113 mg/dL 70-110 H : TESTED A T [facility] 6720 (BEAKER) (test code = [place], 1538) [address]: Rod Mill Operator/Techni beverly ID = [id number] for Ba anupamera, [place] RAD, CHEST, 1 VIEW, NON [id number] 06:07:00while patient is intubated or has chest tubes.Reason for exam:->Status post CV SurgeryShould thisbe performed at the bedside?->Yes [facility] : 1960 Sex: MFINAL REPORT RAD, CHEST, 1 VIEW, NON DEPT INDICATION: Status post CV Surgery COMPARISON: Prior day's exam FINDINGS: Portable frontal view of the chest. IMPRESSION: Support Lines: Sternotomy wires. Central catheter has been removed.Lungs and pleura: Bilateral airspace opacities concerning for multifocal pneumonia versus multifocal edema. No pneumothorax.Heart and mediastinum: Stable contours.Additional findings: None. Signed: Guido Guerra Verified Date/Time: 01/19/2021 06:07:50 POCT-GLUCOSE [id number] 20:58:00 Test Item Value Reference Range Interpretation Comments POC-GLUCOSE METER 117 mg/dL 70-110 H : TESTED A T [facility] ([place]) (test code = [facility], 1538) [id number]: Rod Mill Operator/Techni beverly ID = [id number] for CHANELL CLEMENTE POCT-GLUCOSE [id number] 17:49:00 Test Item Value Reference Range Interpretation Comments POC-GLUCOSE METER 131 mg/dL 70-110 H : TESTED A T [facility] 6720 ([place]) (test code = [place] [facility], 1538) [address]87: Rod Mill Operator/Techni beverly ID = [id number] for CARMEN CARTER RAD, CHEST, 1 VIEW, NON [id number] 09:46:00while patient is intubated or has chest tubes.Reason for exam:->Status post CV SurgeryShould thisbe performed at the bedside?->Yes [facility] : 1960 Sex: MFINAL REPORT Chest, one view. HISTORY: Status post CV Surgery COMPARISON: Radiograph from yesterday IMPRESSION: Interval extubation and removal of the NG tube. The mediastinal drain and left chest tube are unchanged in position. A right IJ central venous catheter is unchanged in position. The bibasilar lung opacities and small left pleural effusion are unchanged. No pneumothorax. Thecardiac silhouette is unchanged in size. No acute bone abnormality. Rightward convex curvature of the thoracic spine Signed: Nikita Argueta MDReport Verified Date/Time: 01/18/2021 09:46:58 Reading Location: [address] Body Reading Room [id number] 06:26:00 Test Item Value Reference Range Interpretation Comments ACTIVATED CLOTTING TIME 114 sec : 74 -137 seconds, (MARIANO) (test code = Kerri ne: TESTED AT 441) [facility] 67[address] [facility], [address]: Rod Mill Operator/Techni bevrely ID = [id number] for Albaro Huerta [id number] 06:26:00 Test Item Value Reference Range Interpretation Comments ACTIVATED CLOTTING TIME 934 sec : 74 -137 seconds, (MARIANO) (test code = Baseli ne: TESTED AT 441) [facility] 67[address] [facility], 770 30: Rod Mill Operator/Techni beverly ID = [id number] for Albaro Huerta [id number] 06:26:00 Test Item Value Reference Range Interpretation Comments ACTIVATED CLOTTING TIME 896 sec : 74 -137 seconds, (BEAKER) (test code = Baseli ne: TESTED AT 441) [facility] 67[address] [facility], 770 30: Rod Mill Operator/Techni beverly ID = [id number] for Albaro Huerta POCT-GLUCOSE [id number] 06:09:00 Test Item Value Reference Range Interpretation Comments POC-GLUCOSE METER 154 mg/dL 70-110 H : TESTED A T [facility] 6720 (BEAKER) (test code = [facility], 1538) [address]: Rod Mill Operator/Techni beverly ID = [id number] for TACO BOSTON BASIC METABOLIC [id number] 04:02:00 Test Item Value Reference Range Interpretation Comments SODIUM (BEAKER) 134 meq/L 136-145 L (test code = 381) POTASSIUM (BEAKER) 4.9 meq/L 3.5-5.1 (test code = 379) CHLORIDE (BEAKER) 106 meq/L 98-107 (test code = 382) CO2 (BEAKER) (test 23 meq/L 22-29 code = 355) BLOOD UREA NITROGEN 13 mg/dL 7-21 (BEAKER) (test code = 354) CREATININE (BEAKER) 0.72 mg/dL 0.57-1.25 (test code = 358) GLUCOSE RANDOM 162 mg/dL 70-105 H (BEAKER) (test code = 652) CALCIUM (BEAKER) 7.4 mg/dL 8.4-10.2 L (test code = 697) EGFR (BEAKER) (test 111 mL/min/1.73 ESTIM ATED GFR IS code = 1092) sq m NOT ACCURATE CREATININE CLEARANCE IN PREDICTING GLOMERULAR FILTRATION RATE . ESTIMATED GFR I S NOT APPLICABLE FOR DIALYSIS PATIEN TS. Rod Mill Operator ID - GINETTE [id number] 04:00:00 Test Item Value Reference Range Interpretation Comments MAGNESIUM (BEAKER) (test code = 2.2 mg/dL 1.6-2.6 627) Rod Mill Operator ID - GINETTE [id number] 04:00:00 Test Item Value Reference Range Interpretation Comments PHOSPHORUS (BEAKER) (test code = 2.8 mg/dL 2.3-4.7 604) Rod Mill Operator TAMMI PENG LCBC W/PLT COUNT & AUTO [id number] 03:45:00 Test Item Value Reference Range Interpretation Comments WHITE BLOOD CELL COUNT (BEAKER) 8.0 K/ L 3.5-10.5 (test code = 775) RED BLOOD CELL COUNT (BEAKER) 3.21 M/ L 4.63-6.08 L (test code = 761) HEMOGLOBIN (BEAKER) (test code = 10.3 GM/DL 13.7-17.5 L 410) HEMATOCRIT (BEAKER) (test code = 31.2 % 40.1-51.0 L 411) MEAN CORPUSCULAR VOLUME (BEAKER) 97.2 fL 79.0-92.2 H (test code = 753) MEAN CORPUSCULAR HEMOGLOBIN 32.1 pg 25.7-32.2 (BEAKER) (test code = 751) MEAN CORPUSCULAR HEMOGLOBIN CONC 33.0 GM/DL 32.3-36.5 (BEAKER) (test code = 752) RED CELL DISTRIBUTION WIDTH 13.4 % 11.6-14.4 (BEAKER) (test code = 412) PLATELET COUNT (BEAKER) (test 115 K/CU MM 150-450 L code = 756) MEAN PLATELET VOLUME (BEAKER) 11.0 fL 9.4-12.4 (test code = 754) NUCLEATED RED BLOOD CELLS 0 /100 WBC 0-0 (BEAKER) (test code = 413) NEUTROPHILS RELATIVE PERCENT 90 % (BEAKER) (test code = 429) LYMPHOCYTES RELATIVE PERCENT 3 % (BEAKER) (test code = 430) MONOCYTES RELATIVE PERCENT 7 % (BEAKER) (test code = 431) EOSINOPHILS RELATIVE PERCENT 0 % (BEAKER) (test code = 432) BASOPHILS RELATIVE PERCENT 0 % (BEAKER) (test code = 437) NEUTROPHILS ABSOLUTE COUNT 7.19 K/ L 1.78-5.38 H (BEAKER) (test code = 670) LYMPHOCYTES ABSOLUTE COUNT 0.24 K/ L 1.32-3.57 L (BEAKER) (test code = 414) MONOCYTES ABSOLUTE COUNT (BEAKER) 0.55 K/ L 0.30-0.82 (test code = 415) EOSINOPHILS ABSOLUTE COUNT 0.00 K/ L 0.04-0.54 L (BEAKER) (test code = 416) BASOPHILS ABSOLUTE COUNT (BEAKER) 0.02 K/ L 0.01-0.08 (test code = 417) IMMATURE GRANULOCYTES-RELATIVE 1 % 0-1 PERCENT (BEAKER) (test code = 2801) CALCIUM, [id number] 03:30:00 Test Item Value Reference Range Interpretation Comments CALCIUM IONIZED (BEAKER) (test 1.07 mmol/L 1.12-1.27 L code = 698) PH, BLOOD (BEAKER) (test code = 7.37 1810) CBC (HEMOGRAM ONLY)2021-01-18 03:30:00 Test Item Value Reference Range Interpretation Comments WHITE BLOOD CELL COUNT (BEAKER) 8.0 K/ L 3.5-10.5 (test code = 775) RED BLOOD CELL COUNT (BEAKER) 3.21 M/ L 4.63-6.08 L (test code = 761) HEMOGLOBIN (BEAKER) (test code = 10.3 GM/DL 13.7-17.5 L 410) HEMATOCRIT (BEAKER) (test code = 31.2 % 40.1-51.0 L 411) MEAN CORPUSCULAR VOLUME (BEAKER) 97.2 fL 79.0-92.2 H (test code = 753) MEAN CORPUSCULAR HEMOGLOBIN 32.1 pg 25.7-32.2 (BEAKER) (test code = 751) MEAN CORPUSCULAR HEMOGLOBIN CONC 33.0 GM/DL 32.3-36.5 (BEAKER) (test code = 752) RED CELL DISTRIBUTION WIDTH 13.4 % 11.6-14.4 (BEAKER) (test code = 412) PLATELET COUNT (BEAKER) (test 115 K/CU MM 150-450 L code = 756) MEAN PLATELET VOLUME (BEAKER) 11.0 fL 9.4-12.4 (test code = 754) NUCLEATED RED BLOOD CELLS 0 /100 WBC 0-0 (BEAKER) (test code = 413) POCT-GLUCOSE [id number] 03:22:00 Test Item Value Reference Range Interpretation Comments POC-GLUCOSE METER 154 mg/dL 70-110 H : TESTED A T [facility] 6720 (BEAKER) (test code = [place], 1538) [address]: Rod Mill Operator/Techni beverly ID = [id number] for TACO BOSTON BASIC METABOLIC [id number] 19:22:00 Test Item Value Reference Range Interpretation Comments SODIUM (BEAKER) 137 meq/L 136-145 (test code = 381) POTASSIUM (BEAKER) 4.2 meq/L 3.5-5.1 (test code = 379) CHLORIDE (BEAKER) 107 meq/L 98-107 (test code = 382) CO2 (BEAKER) (test 24 meq/L 22-29 code = 355) BLOOD UREA NITROGEN 14 mg/dL 7-21 (BEAKER) (test code = 354) CREATININE (BEAKER) 0.75 mg/dL 0.57-1.25 (test code = 358) GLUCOSE RANDOM 138 mg/dL 70-105 H (BEAKER) (test code = 652) CALCIUM (BEAKER) 7.2 mg/dL 8.4-10.2 L (test code = 697) EGFR (BEAKER) (test 106 mL/min/1.73 ESTIM ATED GFR IS code = 1092) sq m NOT ACCURATE CREATININE CLEARANCE IN PREDICTING GLOMERULAR FILTRATION RATE . ESTIMATED GFR I S NOT APPLICABLE FOR DIALYSIS PATIEN TS. Rod Mill Operator ID - [id number] 19:08:00 Test Item Value Reference Range Interpretation Comments MAGNESIUM (BEAKER) (test code = 1.8 mg/dL 1.6-2.6 627) Rod Mill Operator ID - DBCBC W/PLT COUNT & AUTO [id number] 18:46:00 Test Item Value Reference Range Interpretation Comments WHITE BLOOD CELL COUNT (BEAKER) 9.7 K/ L 3.5-10.5 (test code = 775) RED BLOOD CELL COUNT (BEAKER) 3.39 M/ L 4.63-6.08 L (test code = 761) HEMOGLOBIN (BEAKER) (test code = 11.0 GM/DL 13.7-17.5 L 410) HEMATOCRIT (BEAKER) (test code = 33.3 % 40.1-51.0 L 411) MEAN CORPUSCULAR VOLUME (BEAKER) 98.2 fL 79.0-92.2 H (test code = 753) MEAN CORPUSCULAR HEMOGLOBIN 32.4 pg 25.7-32.2 H (BEAKER) (test code = 751) MEAN CORPUSCULAR HEMOGLOBIN CONC 33.0 GM/DL 32.3-36.5 (BEAKER) (test code = 752) RED CELL DISTRIBUTION WIDTH 13.3 % 11.6-14.4 (BEAKER) (test code = 412) PLATELET COUNT (BEAKER) (test 140 K/CU MM 150-450 L code = 756) MEAN PLATELET VOLUME (BEAKER) 10.6 fL 9.4-12.4 (test code = 754) NUCLEATED RED BLOOD CELLS 0 /100 WBC 0-0 (BEAKER) (test code = 413) NEUTROPHILS RELATIVE PERCENT 86 % (BEAKER) (test code = 429) LYMPHOCYTES RELATIVE PERCENT 4 % (BEAKER) (test code = 430) MONOCYTES RELATIVE PERCENT 9 % (BEAKER) (test code = 431) EOSINOPHILS RELATIVE PERCENT 0 % (BEAKER) (test code = 432) BASOPHILS RELATIVE PERCENT 0 % (BEAKER) (test code = 437) NEUTROPHILS ABSOLUTE COUNT 8.35 K/ L 1.78-5.38 H (BEAKER) (test code = 670) LYMPHOCYTES ABSOLUTE COUNT 0.37 K/ L 1.32-3.57 L (BEAKER) (test code = 414) MONOCYTES ABSOLUTE COUNT (BEAKER) 0.86 K/ L 0.30-0.82 H (test code = 415) EOSINOPHILS ABSOLUTE COUNT 0.04 K/ L 0.04-0.54 (BEAKER) (test code = 416) BASOPHILS ABSOLUTE COUNT (BEAKER) 0.02 K/ L 0.01-0.08 (test code = 417) IMMATURE GRANULOCYTES-RELATIVE 1 % 0-1 PERCENT (BEAKER) (test code = 2801) BLOOD GAS, [id number] 14:43:00 Test Item Value Reference Range Interpretation Comments PH ARTERIAL (BEAKER) (test code = 7.37 7.35-7.45 383) PCO2 ARTERIAL (BEAKER) (test code 47 mm Hg 35-45 H = 384) PO2 ARTERIAL (BEAKER) (test code = 110 mm Hg 80-90 H 385) O2 SATURATION ARTERIAL (BEAKER) 97.9 % 96.0-97.0 H (test code = 386) HCO3 ARTERIAL (BEAKER) (test code 26 mmol/L 21-29 = 388) BASE EXCESS ARTERIAL (BEAKER) 0.6 mmol/L -2.0-3.0 (test code = 387) PATIENT TEMPERATURE (BEAKER) (test 36.6 code = 1818) FIO2 (BEAKER) (test code = 1819) 40.0 CBC (HEMOGRAM ONLY)2021-01-17 13:19:00 Test Item Value Reference Range Interpretation Comments WHITE BLOOD CELL COUNT (BEAKER) 10.6 K/ L 3.5-10.5 H (test code = 775) RED BLOOD CELL COUNT (BEAKER) 3.65 M/ L 4.63-6.08 L (test code = 761) HEMOGLOBIN (BEAKER) (test code = 11.8 GM/DL 13.7-17.5 L 410) HEMATOCRIT (BEAKER) (test code = 35.1 % 40.1-51.0 L 411) MEAN CORPUSCULAR VOLUME (BEAKER) 96.2 fL 79.0-92.2 H (test code = 753) MEAN CORPUSCULAR HEMOGLOBIN 32.3 pg 25.7-32.2 H (BEAKER) (test code = 751) MEAN CORPUSCULAR HEMOGLOBIN CONC 33.6 GM/DL 32.3-36.5 (BEAKER) (test code = 752) RED CELL DISTRIBUTION WIDTH 13.2 % 11.6-14.4 (BEAKER) (test code = 412) PLATELET COUNT (BEAKER) (test 133 K/CU MM 150-450 L code = 756) MEAN PLATELET VOLUME (BEAKER) 11.1 fL 9.4-12.4 (test code = 754) NUCLEATED RED BLOOD CELLS 0 /100 WBC 0-0 (BEAKER) (test code = 413) RAD, CHEST, 1 VIEW, NON [id number] 12:47:00Reason for exam:->Status post CV Surgery post op day 0Should this be performed at the bedside?->Yes [facility] HA [facility]IE : 1960 Sex: MFINAL REPORT RAD, CHEST, 1 VIEW, NON DEPT INDICATION: Status post CV Surgery post op day 0 COMPARISON: None FINDINGS: Portable frontal view of the chest. IMPRESSION: Support Lines: ET tube tip is 4 cm superior to the annie. NG tube descends below the diaphragm. Central catheter tip overlies the atriocaval junction. Left chest tube. Lungs and pleura: Diffuse interstitial thickening, r epresenting singly or in combination, interstitial edema and/or pneumonitis. No pneumothorax.Heart and mediastinum: Stable contours.Additional findings: None. Signed: Guido Guerra MDReport Verified Date/Time: 01/17/2021 12:47:13 Reading Location: [facility] Radiology Reading Room BASI METABOLIC [id number] 12:10:00 Test Item Value Reference Range Interpretation Comments SODIUM (BEAKER) 136 meq/L 136-145 (test code = 381) POTASSIUM (BEAKER) 4.7 meq/L 3.5-5.1 Specimen slightly (test code = 379) hemolyzed CHLORIDE (BEAKER) 107 meq/L 98-107 (test code = 382) CO2 (BEAKER) (test 22 meq/L 22-29 code = 355) BLOOD UREA NITROGEN 16 mg/dL 7-21 (BEAKER) (test code = 354) CREATININE (BEAKER) 0.73 mg/dL 0.57-1.25 Specimen slightly (test code = 358) hemolyzed GLUCOSE RANDOM 149 mg/dL 70-105 H (BEAKER) (test code = 652) CALCIUM (BEAKER) 7.7 mg/dL 8.4-10.2 L (test code = 697) EGFR (BEAKER) (test 109 mL/min/1.73 ESTIM ATED GFR IS code = 1092) sq m NOT ACCURATE CREATININE CLEARANCE IN PREDICTING GLOMERULAR FILTRATION RATE . ESTIMATED GFR I S NOT APPLICABLE FOR DIALYSIS PATIEN TS. Rod Mill Operator ID - ESTELA [id number] 12:09:00 Test Item Value Reference Range Interpretation Comments MAGNESIUM (BEAKER) 2.0 mg/dL 1.6-2.6 Specimen slightly (test code = 627) hemolyzed Rod Mill Operator ID - ESTELA [id number] 12:09:00 Test Item Value Reference Range Interpretation Comments PHOSPHORUS (BEAKER) 2.9 mg/dL 2.3-4.7 Specimen slightly (test code = 604) hemolyzed Rod Mill Operator ID - ESTELA [id number] 12:08:00 Test Item Value Reference Range Interpretation Comments FIBRINOGEN LEVEL (BEAKER) (test 248 mg/dl 225-434 code = 658) [id number] 12:08:00 Test Item Value Reference Range Interpretation Comments PARTIAL THROMBOPLASTIN TIME 29.5 seconds 22.5-36.0 (BEAKER) (test code = 760) PROTHROMBIN [id number] 12:07:00 Test Item Value Reference Range Interpretation Comments PROTIME (BEAKER) 15.8 seconds 11.9-14.2 H (test code = 759) INR (BEAKER) (test 1.28 See_Comment [Automat ed message] code = 370) The system [employer] generated this result transmitted ref erence range: <=5.90. The reference range was not used to int erpret this result as normal/abnormal . RECOMMENDED COUMADIN/WARFARIN INR THERAPY RANGESSTANDARD DOSE: 2.0 - 3.0 Includes: PROPHYLAXIS for venous thrombosis, systemic embolization; TREATMENT for venous thrombosis and/or pulmonary embolus.HIGH RISK: Target INR is 2.5-3.5 for patients with mechanical heart valves.LACTIC ACID, [id number] 12:06:00 Test Item Value Reference Range Interpretation Comments LACTATE BLOOD 1.2 mmol/L 0.5-2.2 Specimen sligh tly ARTERIAL (2) (BEAKER) hemoly zed (test code = 2874) Rod Mill Operator ID - ESTELA MCALCIUM, [id number] 11:45:00 Test Item Value Reference Range Interpretation Comments CALCIUM IONIZED (BEAKER) (test 1.10 mmol/L 1.12-1.27 L code = 698) PH, BLOOD (BEAKER) (test code = 7.39 1810) BLOOD GAS, [id number] 11:45:00 Test Item Value Reference Range Interpretation Comments PH ARTERIAL (BEAKER) (test code = 7.42 7.35-7.45 383) PCO2 ARTERIAL (BEAKER) (test code 39 mm Hg 35-45 = 384) PO2 ARTERIAL (BEAKER) (test code = 111 mm Hg 80-90 H 385) O2 SATURATION ARTERIAL (BEAKER) 98.4 % 96.0-97.0 H (test code = 386) HCO3 ARTERIAL (BEAKER) (test code 25 mmol/L 21-29 = 388) BASE EXCESS ARTERIAL (BEAKER) 0.2 mmol/L -2.0-3.0 (test code = 387) PATIENT TEMPERATURE (BEAKER) (test 34.6 code = 1818) FIO2 (BEAKER) (test code = 1819) 60.0 OXYGEN SATURATION, [id number] 11:44:00 Test Item Value Reference Range Interpretation Comments O2 SATURATION (MEASURED) (BEAKER) 78.8 % (test code = 1455) CBC W/PLT COUNT & AUTO [id number] 11:30:00 Test Item Value Reference Range Interpretation Comments WHITE BLOOD CELL COUNT (BEAKER) 4.0 K/ L 3.5-10.5 (test code = 775) RED BLOOD CELL COUNT (BEAKER) 4.90 M/ L 4.63-6.08 (test code = 761) HEMOGLOBIN (BEAKER) (test code = 15.8 GM/DL 13.7-17.5 410) HEMATOCRIT (BEAKER) (test code = 46.6 % 40.1-51.0 411) MEAN CORPUSCULAR VOLUME (BEAKER) 95.1 fL 79.0-92.2 H (test code = 753) MEAN CORPUSCULAR HEMOGLOBIN 32.2 pg 25.7-32.2 (BEAKER) (test code = 751) MEAN CORPUSCULAR HEMOGLOBIN CONC 33.9 GM/DL 32.3-36.5 (BEAKER) (test code = 752) RED CELL DISTRIBUTION WIDTH 13.2 % 11.6-14.4 (BEAKER) (test code = 412) PLATELET COUNT (BEAKER) (test code 42 K/CU MM 150-450 L = 756) MEAN PLATELET VOLUME (BEAKER) 10.0 fL 9.4-12.4 (test code = 754) NUCLEATED RED BLOOD CELLS (BEAKER) 0 /100 WBC 0-0 (test code = 413) NEUTROPHILS RELATIVE PERCENT 88 % (BEAKER) (test code = 429) LYMPHOCYTES RELATIVE PERCENT 6 % (BEAKER) (test code = 430) MONOCYTES RELATIVE PERCENT 4 % (BEAKER) (test code = 431) EOSINOPHILS RELATIVE PERCENT 1 % (BEAKER) (test code = 432) BASOPHILS RELATIVE PERCENT 0 % (BEAKER) (test code = 437) NEUTROPHILS ABSOLUTE COUNT 3.55 K/ L 1.78-5.38 (BEAKER) (test code = 670) LYMPHOCYTES ABSOLUTE COUNT 0.25 K/ L 1.32-3.57 L (BEAKER) (test code = 414) MONOCYTES ABSOLUTE COUNT (BEAKER) 0.15 K/ L 0.30-0.82 L (test code = 415) EOSINOPHILS ABSOLUTE COUNT 0.04 K/ L 0.04-0.54 (BEAKER) (test code = 416) BASOPHILS ABSOLUTE COUNT (BEAKER) 0.01 K/ L 0.01-0.08 (test code = 417) IMMATURE GRANULOCYTES-RELATIVE 1 % 0-1 PERCENT (BEAKER) (test code = 8781) PROTHROMBIN [id number] 10:56:00 Test Item Value Reference Range Interpretation Comments PROTIME (BEAKER) 17.0 seconds 11.9-14.2 H (test code = 759) INR (BEAKER) (test 1.41 See_Comment [Automat ed message] code = 370) The system [employer] generated this result transmitted ref erence range: <=5.90. The reference range was not used to int erpret this result as normal/abnormal . RECOMMENDED COUMADIN/WARFARIN INR THERAPY RANGESSTANDARD DOSE: 2.0 - 3.0 Includes: PROPHYLAXIS for venous thrombosis, systemic embolization; TREATMENT for venous thrombosis and/or pulmonary embolus.HIGH RISK: Target INR is 2.5-3.5 for patients with mechanical heart valves.[id number] 10:56:00 Test Item Value Reference Range Interpretation Comments FIBRINOGEN LEVEL (BEAKER) (test 216 mg/dl 225-434 L code = 658) [id number] 10:56:00 Test Item Value Reference Range Interpretation Comments PARTIAL THROMBOPLASTIN TIME 29.5 seconds 22.5-36.0 (BEAKER) (test code = 760) PLATELET [id number] 10:45:00 Test Item Value Reference Range Interpretation Comments PLATELET COUNT (BEAKER) (test code 93 K/CU MM 150-450 L = 756) [employer] Operator ID - [id number] GAS, [id number] 10:21:00 Test Item Value Reference Range Interpretation Comments PH ARTERIAL (BEAKER) (test code = 7.44 7.35-7.45 383) PCO2 ARTERIAL (BEAKER) (test code 43 mm Hg 35-45 = 384) PO2 ARTERIAL (BEAKER) (test code = 292 mm Hg 80-90 H 385) O2 SATURATION ARTERIAL (BEAKER) 99.7 % 96.0-97.0 H (test code = 386) HCO3 ARTERIAL (BEAKER) (test code 28 mmol/L 21-29 = 388) BASE EXCESS ARTERIAL (BEAKER) 3.6 mmol/L -2.0-3.0 H (test code = 387) PATIENT TEMPERATURE (BEAKER) (test 36.0 code = 1818) FIO2 (BEAKER) (test code = 1819) 97.0 SODIUM NA-STAT [id number] 10:21:00 Test Item Value Reference Range Interpretation Comments SODIUM (BEAKER) (test code = 381) 133 meq/L 136-145 L GLUCOSE-STAT [id number] 10:21:00 Test Item Value Reference Range Interpretation Comments GLUCOSE RANDOM (BEAKER) (test code 154 mg/dL 70-110 H = 652) HGB/HCT (H&H) - STAT [id number] 10:21:00 Test Item Value Reference Range Interpretation Comments HEMOGLOBIN (BEAKER) (test code = 10.4 GM/DL 13.0-16.8 L 410) HEMATOCRIT (BEAKER) (test code = 31.0 % 40.0-50.0 L 411) CALCIUM, [id number] 10:21:00 Test Item Value Reference Range Interpretation Comments CALCIUM IONIZED (BEAKER) (test 1.01 mmol/L 1.12-1.27 L code = 698) PH, BLOOD (BEAKER) (test code = 7.42 1810) POTASSIUM-STAT [id number] 10:20:00 Test Item Value Reference Range Interpretation Comments POTASSIUM (BEAKER) (test code = 5.5 meq/L 3.6-5.5 379) BLOOD GAS, [id number] 09:28:00 Test Item Value Reference Range Interpretation Comments PH ARTERIAL (BEAKER) (test code = 7.35 7.35-7.45 383) PCO2 ARTERIAL (BEAKER) (test code 39 mm Hg 35-45 = 384) PO2 ARTERIAL (BEAKER) (test code 348 mm Hg 80-90 H = 385) O2 SATURATION ARTERIAL (BEAKER) 99.7 % 96.0-97.0 H (test code = 386) HCO3 ARTERIAL (BEAKER) (test code 22 mmol/L 21-29 = 388) BASE EXCESS ARTERIAL (BEAKER) -4.4 mmol/L -2.0-3.0 L (test code = 387) PATIENT TEMPERATURE (BEAKER) 33.0 (test code = 1818) FIO2 (BEAKER) (test code = 1819) 70.0 SODIUM NA-STAT [id number] 09:28:00 Test Item Value Reference Range Interpretation Comments SODIUM (BEAKER) (test code = 381) 130 meq/L 136-145 L POTASSIUM-STAT [id number] 09:28:00 Test Item Value Reference Range Interpretation Comments POTASSIUM (BEAKER) (test code = 5.6 meq/L 3.6-5.5 H 379) GLUCOSE-STAT [id number] 09:28:00 Test Item Value Reference Range Interpretation Comments GLUCOSE RANDOM (BEAKER) (test code 195 mg/dL 70-110 H = 652) HGB/HCT (H&H) - STAT [id number] 09:28:00 Test Item Value Reference Range Interpretation Comments HEMOGLOBIN (BEAKER) (test code = 9.2 GM/DL 13.0-16.8 L 410) HEMATOCRIT (BEAKER) (test code = 27.0 % 40.0-50.0 L 411) STAT-LAB IONIZED [id number] 07:50:00 Test Item Value Reference Range Interpretation Comments FILTER IONIZED CALCIUM (BEAKER) 1.13 nnol/L (test code = 1854) Reference Range: No NormalsSODIUM NA-STAT [id number] 07:50:00 Test Item Value Reference Range Interpretation Comments SODIUM (BEAKER) (test code = 381) 135 meq/L 136-145 L POTASSIUM-STAT [id number] 07:50:00 Test Item Value Reference Range Interpretation Comments POTASSIUM (BEAKER) (test code = 4.3 meq/L 3.6-5.5 379) HGB/HCT (H&H) - STAT [id number] 07:50:00 Test Item Value Reference Range Interpretation Comments HEMOGLOBIN (BEAKER) (test code = 13.5 GM/DL 13.0-16.8 410) HEMATOCRIT (BEAKER) (test code = 40.0 % 40.0-50.0 411) BLOOD GAS, [id number] 07:50:00 Test Item Value Reference Range Interpretation Comments PH ARTERIAL (BEAKER) (test code = 7.35 7.35-7.45 383) PCO2 ARTERIAL (BEAKER) (test code 46 mm Hg 35-45 H = 384) PO2 ARTERIAL (BEAKER) (test code 305 mm Hg 80-90 H = 385) O2 SATURATION ARTERIAL (BEAKER) 99.7 % 96.0-97.0 H (test code = 386) HCO3 ARTERIAL (BEAKER) (test code 25 mmol/L 21-29 = 388) BASE EXCESS ARTERIAL (BEAKER) -1.1 mmol/L -2.0-3.0 (test code = 387) PATIENT TEMPERATURE (BEAKER) 36.0 (test code = 1818) FIO2 (BEAKER) (test code = 1819) 100.0 GLUCOSE-STAT [id number] 07:50:00 Test Item Value Reference Range Interpretation Comments GLUCOSE RANDOM (BEAKER) (test code 124 mg/dL 70-110 H = 652) SARS-COV2/RT-PCR ([facility])[id number] 19:32:00 Test Item Value Reference Range Interpretation Comments SARS-COV2/RT-PCR (test code = Negative Negative [id number]) Negative result for this test determines that SARS-CoV-2 RNA was not present in the specimen above the Limit of Detection (LOD). However, Negative results do not preclude SARS-CoV-2 infection and should not be used as the sole basis for treatment or patient management decisions. Negative results must be combined with clinical observations, patient history, and epidemiological information. A false negative result may occur if a specimen is improperly collected, transported, or handled. A false negative result should be considered if patient's recent exposures or clinical presentation indicate that COVID-19 (SARS-CoV-2) is likely and diagnostic tests for other causes of illness are negative. Re-testing should be considered in cases of suspected false negatives.The limit of detection for this assay is 100 copies/mL.This SARS-CoV-2 test is a real-time RT_PCR test intended for the qualitative detection of nucleic acid from SARS-CoV-2 in a nasopharyngeal swab specimen collected from individuals suspected of COVID-19 by their healthcare provider.This test has not been Food and Drug Administration (FDA) cleared or approved. This is a modified version of an approved Emergency Use Authorization (EUA) and is in the process of review by the FDA. Once authorized by the FDA, the issued EUA will be effective until the declaration that circumstances exist justifying the authorization of the emergency use of in vitro diagnostic tests for detection and/or diagnosis of COVID-19 is terminated under Section 564(b)(2) of the Act or the EUA is revoked under Section 564(g) of the Act.Testing was performed using [employer] SARS-CoV-2 assay.Fact Sheet for Healthcare Providers:https://www.[employer].trevizo/eric/RT SARS-CoV-2 HCP Fact Sheet 51- 459858.pdfFact Sheet for Healthcare Patients:https://www.[employer].Vocalcom/eric/RT SARS-CoV-2 Patient Fact Sheet EN 51-576585X3.pdfHEMOGLOBIN [id number] 12:41:00 Test Item Value Reference Range Interpretation Comments HEMOGLOBIN A1C (BEAKER) (test code = 5.7 % 4.3-6.1 368) CBC W/PLT COUNT & AUTO [id number] 12:31:00 Test Item Value Reference Range Interpretation Comments WHITE BLOOD CELL COUNT (BEAKER) 5.7 K/ L 3.5-10.5 (test code = 775) RED BLOOD CELL COUNT (BEAKER) 4.17 M/ L 4.63-6.08 L (test code = 761) HEMOGLOBIN (BEAKER) (test code = 13.6 GM/DL 13.7-17.5 L 410) HEMATOCRIT (BEAKER) (test code = 40.5 % 40.1-51.0 411) MEAN CORPUSCULAR VOLUME (BEAKER) 97.1 fL 79.0-92.2 H (test code = 753) MEAN CORPUSCULAR HEMOGLOBIN 32.6 pg 25.7-32.2 H (BEAKER) (test code = 751) MEAN CORPUSCULAR HEMOGLOBIN CONC 33.6 GM/DL 32.3-36.5 (BEAKER) (test code = 752) RED CELL DISTRIBUTION WIDTH 13.2 % 11.6-14.4 (BEAKER) (test code = 412) PLATELET COUNT (BEAKER) (test 204 K/CU MM 150-450 code = 756) MEAN PLATELET VOLUME (BEAKER) 11.0 fL 9.4-12.4 (test code = 754) NUCLEATED RED BLOOD CELLS 0 /100 WBC 0-0 (BEAKER) (test code = 413) NEUTROPHILS RELATIVE PERCENT 66 % (BEAKER) (test code = 429) LYMPHOCYTES RELATIVE PERCENT 18 % (BEAKER) (test code = 430) MONOCYTES RELATIVE PERCENT 12 % (BEAKER) (test code = 431) EOSINOPHILS RELATIVE PERCENT 3 % (BEAKER) (test code = 432) BASOPHILS RELATIVE PERCENT 1 % (BEAKER) (test code = 437) NEUTROPHILS ABSOLUTE COUNT 3.73 K/ L 1.78-5.38 (BEAKER) (test code = 670) LYMPHOCYTES ABSOLUTE COUNT 0.99 K/ L 1.32-3.57 L (BEAKER) (test code = 414) MONOCYTES ABSOLUTE COUNT (BEAKER) 0.68 K/ L 0.30-0.82 (test code = 415) EOSINOPHILS ABSOLUTE COUNT 0.16 K/ L 0.04-0.54 (BEAKER) (test code = 416) BASOPHILS ABSOLUTE COUNT (BEAKER) 0.06 K/ L 0.01-0.08 (test code = 417) IMMATURE GRANULOCYTES-RELATIVE 1 % 0-1 PERCENT (BEAKER) (test code = 2801) COMPREHENSIVE METABOLIC [id number] 12:23:00 Test Item Value Reference Range Interpretation Comments TOTAL PROTEIN 6.9 gm/dL 6.0-8.3 (BEAKER) (test code = 770) ALBUMIN (BEAKER) 4.2 g/dL 3.5-5.0 (test code = 1145) ALKALINE PHOSPHATASE 92 U/L 40-150 (BEAKER) (test code = 346) BILIRUBIN TOTAL 0.4 mg/dL 0.2-1.2 (BEAKER) (test code = 377) SODIUM (BEAKER) (test 136 meq/L 136-145 code = 381) POTASSIUM (BEAKER) 4.7 meq/L 3.5-5.1 (test code = 379) CHLORIDE (BEAKER) 104 meq/L 98-107 (test code = 382) CO2 (BEAKER) (test 26 meq/L 22-29 code = 355) BLOOD UREA NITROGEN 15 mg/dL 7-21 (BEAKER) (test code = 354) CREATININE (BEAKER) 0.89 mg/dL 0.57-1.25 (test code = 358) GLUCOSE RANDOM 98 mg/dL 70-105 (BEAKER) (test code = 652) CALCIUM (BEAKER) 9.4 mg/dL 8.4-10.2 (test code = 697) AST (SGOT) (BEAKER) 27 U/L 5-34 (test code = 353) ALT (SGPT) (BEAKER) 26 U/L 6-55 (test code = 347) EGFR (BEAKER) (test 87 mL/min/1.73 ESTIMA CASSY GFR IS code = 1092) sq m NOT ACCURATE CREATININE CLEARANCE IN PREDICTING GLOMERULAR FILTRATION RATE . ESTIMATED GFR I S NOT APPLICABLE FOR DIALYSIS PATIEN TS. Rod Mill Operator ID - [id number] 12:23:00 Test Item Value Reference Range Interpretation Comments MAGNESIUM (BEAKER) (test code = 1.9 mg/dL 1.6-2.6 627) Rod Mill Operator ID - ADMINLIPID [id number] 12:23:00 Test Item Value Reference Range Interpretation Comments TRIGLYCERIDES (BEAKER) (test code = 131 mg/dL 540) CHOLESTEROL (BEAKER) (test code = 166 mg/dL 631) HDL CHOLESTEROL (BEAKER) (test code 64 mg/dL = 976) LDL CHOLESTEROL CALCULATED (BEAKER) 76 mg/dL (test code = 633) Triglyceride Reference Range: Low Risk <150 Borderline 150-199 High Risk 200- 499 Very High Risk >=500Cholesterol Reference Range: Low Risk <200 Borderline 200-239 High Risk >240HDL Cholesterol Reference Range: Low Risk >=60 High Risk <40LDL Cholesterol Reference Range: Optimal <100 Near Optimal 100-129 Borderline 130-159 High 160-189 Very High >=190 Rod Mill Operator ID - [id number] 12:08:00 Test Item Value Reference Range Interpretation Comments PARTIAL THROMBOPLASTIN TIME 30.1 seconds 22.5-36.0 (BEAKER) (test code = 760) PROTHROMBIN TIME/[id number] 12:07:00 Test Item Value Reference Range Interpretation Comments PROTIME (BEAKER) 12.8 seconds 11.9-14.2 (test code = 759) INR (BEAKER) (test 0.98 See_Comment [Automat ed message] code = 370) The system [employer] generated this result transmitted ref erence range: <=5.90. The reference range was not used to int erpret this result as normal/abnormal . RECOMMENDED COUMADIN/WARFARIN INR THERAPY RANGESSTANDARD DOSE: 2.0 - 3.0 Includes: PROPHYLAXIS for venous thrombosis, systemic embolization; TREATMENT for venous thrombosis and/or pulmonary embolus.HIGH RISK: Target INR is 2.5-3.5 for patients with mechanical heart valves.
[2022-01-08 11:00] LABS: Absolute Lymphocytes (CBC) 0.5 K/uL (0.7-4.9); Hematocrit 41.2 % (39.6-49.0); Lymphocytes % 19.1 % (15.3-44.8); MCV 93.8 fL (80-100); MPV 9.4 fL (7.6-11.3); RBC Red Blood Cell Count 4.39 M/uL (4.33-5.43)
[2022-01-08 11:20] LABS: Magnesium 2.1 mg/dL (1.8-2.4); Potassium 4.2 mmol/L (3.5-5.1); Troponin High Sensitivity 49.6 pg/mL (<58.9)
--- NOTE | 2022-01-08 12:12 | RAD REPORT ---
EXAM DESCRIPTION: RAD - Chest Single View - 01/08/2022 11:04 am CLINICAL HISTORY: SOB Chest pain. COMPARISON: Chest Single View dated 02/12/2021; Chest Pa And Lat (2 Views) dated 12/28/2020; Chest Pa A nd Lat (2 Views) dated 10/12/2019; Chest Single View dated 04/02/2019; Chest For Pe Angio dated 02/13/20 21 FINDINGS: Portable technique limits examination quality. The lungs are grossly clear. The heart is normal in size. No displaced fractures.Sternotomy wires. IMPRESSION: No acute intrathoracic process suspected.
[2022-01-08 12:26] LABS: Blood Morphology Comment NOT SEEN (NOT SEEN); Platelet Estimate ADEQ
[2022-01-08] MEDS ORDERED: ACETAMINOPHEN 500 MG TAB ONE (12:39)
--- NOTE | 2022-01-08 13:11 | EDPHYS ---
Physician Documentation [facility] Name: Michael Ha Jr Age: 61 yrs Sex: Male : 1960 Arrival Date: 01/08/2022 Time: 09:52 Bed 30 Private MD: ED Physician Rudy Crouch HPI: 01/08 13:44 This 61 yrs old Male presents to ER via EMS with complaints of generalized weakness. ms3 13:44 61-year-old male presents for generalized weakness that began 1 month ago. Patient ms3 states recently the generalized weakness and shortness of breath has become worse. Patient denies pain at this time. Patient denies alleviating or inciting factors.. Onset: The symptoms/episode began/occurred 1 month(s) ago. Severity of symptoms: At their worst the symptoms were moderate in the emergency department the symptoms are unchanged. Historical: - Allergies: 10:00 PENICILLINS; bp - Home Meds: 10:00 atorvastatin 80 mg Oral tab 1 tab once daily [Active]; Lasix Oral [Active]; lisinopril bp 20 mg Oral tab once daily [Active]; metoprolol tartrate 25 mg Oral tab 2 times per day [Active]; Nitrostat SL PRN [Active]; amiodarone 200 mg Oral tab 1 tab 2 times per day [Active]; ezetimibe 10mg daily Oral [Active]; Plavix 75 mg Oral tab 1 tab once daily [Active]; - PMHx: 10:00 CAD; Myocardial infarction; Hypertension; Deaf; CVA; bp - Immunization history:: Adult Immunizations up to date. - Social history:: Smoking status: unknown. ROS: 13:44 Constitutional: Negative for fever, and chills. Neck: Negative for injury, pain, and ms3 swelling, Cardiovascular: Negative for chest pain, and palpitations. 13:44 Skin: Negative for injury, rash, and discoloration. 13:44 Respiratory: Positive for shortness of breath. 13:44 All other systems are negative. Exam: 11:20 ECG was reviewed by the Attending Physician. ms3 13:44 Constitutional: This is a well developed, well nourished patient who is awake, alert, ms3 and in no acute distress. ENT: Nares patent. No nasal discharge, no septal abnormalities noted. Tympanic membranes are normal and external auditory canals are clear. Oropharynx with no redness, swelling, or masses, exudates, or evidence of obstruction, uvula midline. Mucous membranes moist. Neck: Trachea midline, no cervical lymphadenopathy. Supple, full range of motion without nuchal rigidity, or vertebral point tenderness. No Meningismus. Chest/axilla: Normal chest wall appearance and motion. Nontender with no deformity. Cardiovascular: Regular rate and rhythm with a normal S1 and S2. No gallops, murmurs, or rubs. Normal PMI, no JVD. No pulse deficits. Respiratory: Lungs have equal breath sounds bilaterally, clear to auscultation and percussion. No rales, rhonchi or wheezes noted. No increased work of breathing, no retractions or nasal flaring. Abdomen/GI: Soft, non-tender, with normal bowel sounds. No distension or tympany. No guarding or rebound. No evidence of tenderness throughout. Skin: Warm, dry with normal turgor. Normal color with no rashes, no lesions, and no evidence of cellulitis. Psych: Awake, alert, with orientation to person, place and time. Behavior, mood, and affect are within normal limits. Vital Signs: 09:52 BP 149 / 88; Pulse 62; Resp 16; Temp 98; Pulse Ox 98% ; bp 11:00 BP 171 / 86; Pulse 52; Resp 18; Pulse Ox 100% on 3 lpm NC; Pain 10/10; eh3 11:36 BP 172 / 90; Pulse 74; Resp 17; Pulse Ox 100% on R/A; eh3 12:30 BP 166 / 86; Pulse 54; Resp 11; Pulse Ox 100% on 3 lpm NC; Pain 8/10; eh3 13:30 BP 157 / 85; Pulse 59; Resp 17; Pulse Ox 99% 3 lpm ; Pain 4/10; eh3 MDM: 10:21 Patient medically screened. ms3 13:44 Differential Diagnosis CHF vs Anemia vs HTN . ms3 13:44 Data reviewed: vital signs, nurses notes, lab test result(s), EKG, radiologic studies, ms3 and as a result, I will admit patient. 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 Test interpretation: by ED physician or midlevel provider: ECG. Counseling: I had a detailed discussion with the patient and/or guardian regarding: the historical points, exam findings, and any diagnostic results supporting the discharge/admit diagnosis, lab results, radiology results, the need for further work-up and treatment in the hospital. 01/08 10:21 Order name: Basic Metabolic Panel; Complete Time: 11:30 ms3 01/08 10:21 Order name: CBC with Diff; Complete Time: 12:29 ms3 01/08 10:21 Order name: Magnesium; Complete Time: 11:30 ms3 01/08 10:21 Order name: NT PRO-BNP; Complete Time: 11:30 ms3 01/08 10:21 Order name: Troponin HS; Complete Time: 11:30 ms3 01/08 12:26 Order name: Manual Differential; Complete Time: 12:29 EDMS 01/08 13:21 Order name: SARS RAPID; Complete Time: 17:14 ld1 01/09 02:40 Order name: CBC with Automated Diff EDMS 01/09 03:32 Order name: Basic Metabolic Panel EDMS 01/09 03:46 Order name: NT PRO-BNP EDMS 01/09 15:29 Order name: Troponin High Sensitivity EDMS 01/09 16:05 Order name: C-Reactive Protein EDMS 01/09 17:45 Order name: Troponin HS ld1 01/10 00:02 Order name: Troponin High Sensitivity EDMS 01/08 10:21 Order name: XRAY Chest (1 view); Complete Time: 12:29 ms3 01/08 10:21 Order name: EKG; Complete Time: 10:22 ms3 01/08 10:21 Order name: Cardiac monitoring; Complete Time: 10:53 ms3 01/08 10:21 Order name: EKG - Nurse/Tech; Complete Time: 11:26 ms3 01/08 10:21 Order name: IV Saline Lock; Complete Time: 10:53 ms3 01/08 10:21 Order name: Labs collected and sent; Complete Time: 10:53 ms3 01/08 18:17 Order name: MRI EDMS 01/09 19:02 Order name: CT EDMS 01/10 03:56 Order name: CBC with Automated Diff EDMS 01/10 04:20 Order name: Basic Metabolic Panel EDMS 01/10 04:20 Order name: Phosphorus EDMS 01/10 04:20 Order name: Troponin High Sensitivity EDMS 01/10 04:20 Order name: C-Reactive Protein EDMS 01/10 04:20 Order name: Magnesium EDMS 01/10 04:23 Order name: Procalcitonin EDMS 01/08 10:21 Order name: O2 Per Protocol; Complete Time: 10:53 ms3 01/08 10:21 Order name: O2 Sat Monitoring; Complete Time: 10:53 ms3 EC:20 Rate is 55 beats/min. Rhythm is regular. QRS [place] is Normal. RI interval is normal. QRS ms3 interval is normal. T waves are Inverted in leads I, aVL, V2, V3, V4, V5, V6. Clinical impression: NSR w/ Non-specific ST/T Changes. Interpreted by me. Reviewed by me. Administered Medications: 12:30 Drug: Tylenol 1000 mg Route: PO; eh3 13:19 Follow up: Response: No adverse reaction; Marked relief of symptoms eh3 15:03 Follow up: Response: No adverse reaction; Marked relief of symptoms eh3 Disposition Summary: 01/08/22 13:10 Hospitalization Ordered Hospitalization Status: Observation ms3 Provider: Yong Garcia ms3 Condition: Stable ms3 Problem: new ms3 Symptoms: are unchanged ms3 Bed/Room Type: Standard ms3 Location: Telemetry/MedSurg (observation)(01/10/22 12:25) [facility] Room Assignment: [facility](01/10/22 12:25) ja Diagnosis - Shortness of breath ms3 - Muscle weakness (generalized) ms3 Forms: - Medication Reconciliation Form ms3 - SBAR form ms3 Signatures: Dispatcher [employer] EDMS Cinthia Del Toro bd Eliud Layton PA PA jmm Aguilar, Jose RN RN ja1 Waldemar Hu, RN RN Rudy Mora DO DO ms3 Jocelin Ledbetter, LAUREEN RN 3 Corrections: (The following items were deleted from the chart) 18:52 13:10 Telemetry/MedSurg (observation) ms3 bd 18:52 13:10 ms3 bd 01/10 12:25 01/08 18:52 BR ER HOLD bd ja1 01/10 12:25 01/08 18:52 ERHOLD- bd ja1
--- NOTE | 2022-01-08 13:11 | ER ---
Nurse's Notes [facility] Name: Michael Ha Jr Age: 61 yrs Sex: Male : 1960 Arrival Date: 01/08/2022 Time: 09:52 Bed 30 Private MD: Diagnosis: Shortness of breath;Muscle weakness (generalized) Presentation: 01/08 09:52 Chief complaint: EMS states: GEN WEAKNESS AND BLEEDING HEMORRHOID AT HOME. Coronavirus bp screen: At this time, the client does not indicate any symptoms associated with coronavirus-19. Ebola Screen: No symptoms or risks identified at this time. Initial Sepsis Screen: Does the patient meet any 2 criteria? No. Patient's initial sepsis screen is negative. Does the patient have a suspected source of infection? No. Patient's initial sepsis screen is negative. Risk Assessment: Do you want to hurt yourself or someone else? Patient reports no desire to harm self or others. Onset of symptoms is unknown. Care prior to arrival: Glucose check: 111. 09:52 Method Of Arrival: EMS: [facility] bp 09:52 Acuity: JOEY 3 bp Triage Assessment: 10:00 General: Appears in no apparent distress. obese, Behavior is cooperative, appropriate bp for age, anxious. Pain: Denies pain. EENT: No deficits noted. Neuro: No deficits noted. Cardiovascular: No deficits noted. Respiratory: No deficits noted. GI: Reports BLOOD WITH BM. : No signs and/or symptoms were reported regarding the genitourinary system. Derm: No deficits noted. Musculoskeletal: No deficits noted. Historical: - Allergies: 10:00 PENICILLINS; bp - Home Meds: 10:00 atorvastatin 80 mg Oral tab 1 tab once daily [Active]; Lasix Oral [Active]; lisinopril bp 20 mg Oral tab once daily [Active]; metoprolol tartrate 25 mg Oral tab 2 times per day [Active]; Nitrostat SL PRN [Active]; amiodarone 200 mg Oral tab 1 tab 2 times per day [Active]; ezetimibe 10mg daily Oral [Active]; Plavix 75 mg Oral tab 1 tab once daily [Active]; - PMHx: 10:00 CAD; Myocardial infarction; Hypertension; Deaf; CVA; bp - Immunization history:: Adult Immunizations up to date. - Social history:: Smoking status: unknown. Screenin:04 Abuse screen: Denies threats or abuse. Denies injuries from another. Nutritional bp screening: No deficits noted. Tuberculosis screening: No symptoms or risk factors identified. Fall Risk None identified. Assessment: 10:04 General: SEE TRIAGE NOTE. bp Vital Signs: 09:52 BP 149 / 88; Pulse 62; Resp 16; Temp 98; Pulse Ox 98% ; bp 11:00 BP 171 / 86; Pulse 52; Resp 18; Pulse Ox 100% on 3 lpm NC; Pain 10/10; eh3 11:36 BP 172 / 90; Pulse 74; Resp 17; Pulse Ox 100% on R/A; eh3 12:30 BP 166 / 86; Pulse 54; Resp 11; Pulse Ox 100% on 3 lpm NC; Pain 8/10; eh3 13:30 BP 157 / 85; Pulse 59; Resp 17; Pulse Ox 99% 3 lpm ; Pain 4/10; eh3 ED Course: 09:52 Patient arrived in ED. bp 09:55 Angelica Gilmore, LAUREEN is Primary Nurse. jh5 09:57 Rudy Crouch DO is Attending Physician. ms3 10:00 Triage completed. bp 10:04 Arm band placed on. bp 10:04 Patient has correct armband on for positive identification. Bed in low position. Call eh3 light in reach. Side rails up X2. 10:04 Client placed on continuous cardiac and pulse oximetry monitoring. NIBP monitoring eh3 applied. Door closed. Noise minimized. Lights dimmed. Warm blanket given. Pillow given. 11:06 XRAY Chest (1 view) In Process Unspecified. EDMS 11:07 Primary Nurse role handed off by Angelica Gilmore, LAUREEN eh3 11:07 Jocelin Ledbetter, LAUREEN is Primary Nurse. eh3 13:08 Yong Garcia MD is Hospitalizing Provider. ms3 13:32 SARS RAPID Sent. eh3 15:02 Diet: Patient given a heart healthy meal tray. Patient given water. eh3 Administered Medications: 12:30 Drug: Tylenol 1000 mg Route: PO; eh3 13:19 Follow up: Response: No adverse reaction; Marked relief of symptoms eh3 15:03 Follow up: Response: No adverse reaction; Marked relief of symptoms eh3 Medication: 10:04 VIS not applicable for this client. bp Outcome: 13:10 Decision to Hospitalize by Provider. ms3 01/10 13:17 Patient left the ED. eb Signatures: Dispatcher [employer] EDWaldemar Holguin, RN RN bp Makayla Zhang eb Rudy Crouch DO DO ms3 Angelica Gilmore, RN RN jh5 Jocelin Ledbetter RN RN 3 Corrections: (The following items were deleted from the chart) 01/08 15:02 10:04 Patient has correct armband on for positive identification. Bed in low position. eh3 Call light in reach. Side rails up X2. bp 15:04 15:03 BP 157 / 85; Pulse 59bpm; Resp 17bpm; Pulse Ox 99% 3 lpm; eh3 eh3
[2022-01-08] MEDS ORDERED: HYDROCODONE/APAP 5/325 MG TAB PO PRN (13:42)
[2022-01-08] MEDS ORDERED: HYDRALAZINE HCL 20 MG/ML VIAL IV PRN (13:44)
[2022-01-08] MEDS ORDERED: ACETAMINOPHEN 500 MG TAB PO PRN (13:45)
[2022-01-08] MEDS ORDERED: ONDANSETRON 4 MG/2 ML VIAL IV PRN (13:45)
[2022-01-08 14:07] LABS: SARS-CoV-2 Antigen Rapid Res Positive (Negative)
[2022-01-08] MEDS: ALBUTEROL 2.5 MG/3 ML NEB SOL NEB SCH ×2 (14:12→19:40)
[2022-01-08] MEDS: IPRATROPIUM BROM 0.5MG/2.5ML NEB SCH ×2 (14:12→19:40)
[2022-01-08] MEDS ORDERED: IPRATROPIUM BROM 0.5MG/2.5ML ONE ×2 (14:19→19:56)
[2022-01-08] MEDS ORDERED: ALBUTEROL 2.5 MG/3 ML NEB SOL ONE ×2 (14:19→19:56)
[2022-01-08] MEDS: ASPIRIN EC 81 MG TAB PO SCH (15:00)
[2022-01-08 15:45] VITALS: BMI 29.0
--- NOTE | 2022-01-08 15:46 | P.HP ---
Certification for Inpatient Patient admitted to: Inpatient With expected LOS: >2 Midnights Patient will require the following post-hospital care: None Practitioner: I am a practitioner with admitting privileges, knowledge of patient current condition, hospital course, and medical plan of care. Services: Services provided to patient in accordance with Admission requirements found in Title 42 Section 412.3 of the Code of Federal Regulations Patient History Date of Service: 01/08/22 Reason for admission: Dyspnea, generalized weakness History of Present Illness: Patient is a 61-year-old male with a past medical history significant for hypertension, COPD, AR, CVA, CAD with stent, HLD, GERD, who presents with complaint of shortness of breath. Patient is on home O2 therapy at 3 L/min. Patient reported that he has been experiencing worsening shortness of breath in the last couple of days. Patient also reports associated signs and symptoms of weakness, fatigue and dizziness. Patient reported that he has been having difficulty walking due to weakness. Shortness of breath is aggravated with exertion and relieved by nothing. Patient decided to present to the hospital due to worsening symptoms. Allergies Penicillins Allergy (Severe, Verified 12/28/20 08:42) Anaphylaxis Home Medications: Albuterol Sulfate [Proair Hfa] 2 puff IH TID PRN #1 hfa.aer.ad 04/04/19 Atorvastatin Calcium [Lipitor] 80 mg PO DAILY #30 tab 04/04/19 Metoprolol Tartrate [Lopressor*] 25 mg PO BID #60 tab 04/04/19 Amiodarone HCl [Cordarone*] 200 mg PO BID 10/12/19 Ezetimibe [Zetia*] 10 mg PO DAILY 10/12/19 lisinopriL [Lisinopril] 20 mg PO DAILY 10/12/19 Aspirin Tab [Alli Aspirin*] 325 mg PO DAILY 12/28/20 predniSONE [Deltasone*] 10 mg PO DAILY #7 tab 02/13/21 - Past Medical/Surgical History Has patient received pneumonia vaccine in the past: No Diabetic: No -: Hypertension -: CAD with prior stents -: COPD -: Hyperlipidemia -: GERD -: 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) -: Cardiac stents -: hernia repair -: Bladder tumor removal Psychosocial/ Personal History: Patient lives with his 1st - Family History Father -: Heart disease Mother -: Cancer - Social History Smoking Status: Never smoker Alcohol use: Yes CD- Drugs: Yes Caffeine use: Yes Review of Systems General: Weakness, Malaise, Other (Fatigue ) Eyes: Unremarkable Respiratory: Shortness of Breath, SOB with Excertion Cardiovascular: Other (Dizziness ) Gastrointestinal: Unremarkable Genitourinary: Unremarkable Musculoskeletal: Unremarkable Integumentary: Unremarkable Neurological: Unremarkable Physical Examination - Physical Exam General: Alert, Oriented x3, Mild distress HEENT: Atraumatic, Normocephalic, PERRLA Neck: 2+ carotid pulse no bruit, JVD not distended Respiratory: Clear to auscultation bilaterally, Diminished Cardiovascular: Normal pulses, Regular rate/rhythm, Normal S1 S2 Capillary refill: <2 Seconds Gastrointestinal: Normal bowel sounds, Soft and benign Musculoskeletal: No clubbing, No swelling, No contractures Integumentary: No rashes, No breakdown, No significant lesion Neurological: Normal speech, Normal tone Lymphatics: No axilla or inguinal lymphadenopathy - Studies Laboratory Data (last 24 hrs) 01/08/22 10:35: WBC 2.60 L, Hgb 13.9, Hct 41.2, Plt Count 152 01/08/22 10:35: Sodium 131 L, Potassium 4.2, BUN 13, Creatinine 0.97, Glucose 90, Magnesium 2.1 Assessment and Plan - Plan --Dyspnea. Chest x-ray unremarkable for any acute abnormality. Possible differential include CHF versus COPD exacerbation. Echocardiogram pending. Neb treatment with albuterol\Atrovent Continue steroids and O2 therapy. --Acute on chronic COPD exacerbation. Continue neb treatment with albuterol\Atrovent, steroids and O2 therapy. --Acute on chronic respiratory failure with hypoxia. Continue current treatment regimen. --Elevated BNP. Echocardiogram pending to rule out CHF. Patient placed on diur etics. Daily weights. -- Generalized weakness. MRI brain ordered for further evaluation. PT eval and treat. --History of CVA, AR and CAD with stent. Continue aspirin and statin. --GERD. Continue Protonix. --Hypertension. Poorly controlled. Continue home medications and hydralazine as needed. --Obesity. Likely secondary to sedentary lifestyle and excess calories intake. Patient counseled on weight reduction, diet and exercise therapy. --DVT prophylaxis with Lovenox subQ. Discharge Plan: Home Plan to discharge in: Greater than 2 days - Advance Directives Does patient have a Living Will: Yes Does patient have a Durable POA for Healthcare: No - Code Status/Comfort Care Code Status Assessed: Yes Code Status: Full Code Physician Review: Patient Assessed, Agree with Above Assessment and Plan Critical Care: No
[2022-01-08] MEDS: FUROSEMIDE 40 MG/4 ML VIAL IV SCH (17:00)
--- NOTE | 2022-01-08 18:15 | RAD REPORT ---
EXAM DESCRIPTION: MRI - Brain Wo Cont - 01/08/2022 5:52 pm CLINICAL HISTORY: Assess for CVA COMPARISON: MRI BRAIN W WO CONTRAST dated 10/15/2007 TECHNIQUE: Sagittal T1-weighted images were obtained along with axial PD, heavily T2-weighted and T2 -FLAIR images. Axial DWI and ADC mapping sequences were also obtained along with coronal heavily T2-w eighted images. FINDINGS: No intracranial hemorrhage, mass or acute infarction. No cortical edema or sulcal effaceme nt. No significant atrophy or chronic ischemic change. Ventricles are normal. No sella or supra sella abnormality. There is no edema or shift of midline structures. No extra-axial fluid collections. Gra y-matter/white matter junction is preserved. Signal voids are seen as a normal finding in the major i ntracranial vessels. No globe or orbital content abnormality. Mastoid air cells and paranasal sinuses are clear. IMPRESSION: Negative non-contrast MRI of the Brain for acute CVA or other acute intracranial finding .
[2022-01-08] MEDS ORDERED: AMIODARONE HCL 200 MG TAB ONE (19:01)
[2022-01-08] MEDS ORDERED: ASPIRIN 81 MG CHEWABLE TABLET ONE (19:01)
[2022-01-08] MEDS ORDERED: METOPROLOL TAR 25 MG TAB ONE (19:01)
[2022-01-08] MEDS ORDERED: FUROSEMIDE 40 MG/4 ML VIAL ONE (19:01)
[2022-01-08] MEDS: AMIODARONE HCL 200 MG TAB PO SCH (20:22)
[2022-01-08] MEDS: METOPROLOL TAR 25 MG TAB PO SCH (20:22)
[2022-01-09] MEDS: IPRATROPIUM BROM 0.5MG/2.5ML NEB SCH ×4 (01:50→21:20)
[2022-01-09] MEDS: ALBUTEROL 2.5 MG/3 ML NEB SOL NEB SCH ×4 (01:50→21:20)
[2022-01-09] MEDS ORDERED: IPRATROPIUM BROM 0.5MG/2.5ML ONE ×4 (02:06→21:18)
[2022-01-09] MEDS ORDERED: ALBUTEROL 2.5 MG/3 ML NEB SOL ONE ×4 (02:06→21:18)
[2022-01-09 02:34] LABS: Absolute Lymphocytes (CBC) 0.5 K/uL (0.7-4.9); Hematocrit 42.1 % (39.6-49.0); Lymphocytes % 12.2 % (15.3-44.8); MCV 93.5 fL (80-100); MPV 9.7 fL (7.6-11.3)
[2022-01-09 03:31] LABS: Potassium 4.1 mmol/L (3.5-5.1)
[2022-01-09] MEDS ORDERED: HYDROCODONE/APAP 5/325 MG TAB ONE (04:17)
--- NOTE | 2022-01-09 07:55 | EKG ---
Test Date: 2022-01-08 Test Time: 11:20:43 Knockdown Worker: DYLAN MEASUREMENT RESULTS: Intervals: Rate: 55 CT: 190 QRSD: 88 QT: 428 QTc: 409 [place]: P: 64 CT: 190 QRS: -6 T: 128 INTERPRETIVE STATEMENTS: Sinus bradycardia Septal infarct, age undetermined ST & T wave abnormality, consider anterolateral ischemia Abnormal ECG Compared to ECG 02/12/2021 10:47:12 ST (T wave) deviation now present Possible ischemia now present Sinus rhythm no longer present Myocardial infarct finding still present Electronically Signed On 01-09-22 07:54:29 CDT by Rivera Mason
[2022-01-09] MEDS: METOPROLOL TAR 25 MG TAB PO SCH ×2 (08:50→20:17)
[2022-01-09] MEDS: FUROSEMIDE 40 MG/4 ML VIAL IV SCH (09:00)
[2022-01-09] MEDS: lisinopriL 10 MG TAB PO SCH (09:00)
[2022-01-09] MEDS: EZETIMIBE 10 MG TAB PO SCH (09:00)
[2022-01-09] MEDS: AMIODARONE HCL 200 MG TAB PO SCH ×2 (09:00→20:18)
[2022-01-09] MEDS: ASPIRIN EC 81 MG TAB PO SCH (09:00)
[2022-01-09] MEDS: ATORVASTATIN 80 MG TAB PO SCH (09:00)
[2022-01-09] MEDS ORDERED: predniSONE 10 MG TAB PO SCH (09:00)
[2022-01-09] MEDS: ENOXAPARIN 40 MG/0.4 ML SQ SCH (09:00)
[2022-01-09] MEDS ORDERED: ASPIRIN EC 81 MG TAB PO ONE (09:20)
[2022-01-09] MEDS ORDERED: lisinopriL 20 MG TAB ONE (09:20)
[2022-01-09] MEDS ORDERED: AMIODARONE HCL 200 MG TAB ONE ×2 (09:20→20:20)
[2022-01-09] MEDS ORDERED: FUROSEMIDE 40 MG/4 ML VIAL ONE (09:21)
[2022-01-09] MEDS ORDERED: ATORVASTATIN 20 MG TAB ONE (09:21)
[2022-01-09] MEDS ORDERED: ENOXAPARIN 40 MG/0.4 ML SQ ONE (09:21)
[2022-01-09] MEDS ORDERED: ACETAMINOPHEN 500 MG TAB ONE (11:29)
--- NOTE | 2022-01-09 12:20 | P.CNS ---
Date of Consult: 01/09/22 Reason for Consult: Shortness of breath and weakness Chief Complaint: Dyspnea, generalized weakness History of Present Illness: Patient is 61 years of age with a past medical history of hypertension COPD coronary artery disease has been complaining of progressive weakness tested positive for COVID was unable to ambulate patient is on oxygen admitted with some respiratory distress not currently smoke Allergies Penicillins Allergy (Severe, Verified 12/28/20 08:42) Anaphylaxis Home Medications: Albuterol Sulfate [Proair Hfa] 2 puff IH TID PRN #1 hfa.aer.ad 04/04/19 Atorvastatin Calcium [Lipitor] 80 mg PO DAILY #30 tab 04/04/19 Metoprolol Tartrate [Lopressor*] 25 mg PO BID #60 tab 04/04/19 Amiodarone HCl [Cordarone*] 200 mg PO BID 10/12/19 Ezetimibe [Zetia*] 10 mg PO DAILY 10/12/19 lisinopriL [Lisinopril] 20 mg PO DAILY 10/12/19 Aspirin Tab [Alli Aspirin*] 325 mg PO DAILY 12/28/20 predniSONE [Deltasone*] 10 mg PO DAILY #7 tab 02/13/21 - Past Medical/Surgical History Diabetic: No -: Hypertension -: CAD with prior stents -: COPD -: Hyperlipidemia -: GERD -: 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) -: Cardiac stents -: hernia repair -: Bladder tumor removal Psychosocial/ Personal History: Patient lives with his 1st - Family History Father Medical History: Heart disease Mother Medical History: Cancer - Social History Smoking Status: Unknown if ever smoked Alcohol use: Yes CD- Drugs: Yes Caffeine use: Yes Review of Systems 10-point ROS is otherwise unremarkable General: Weakness Respiratory: Cough, Shortness of Breath Physical Examination Temp Pulse Resp BP Pulse Ox 98.2 F 67 20 116/79 97 01/09/22 11:57 01/09/22 11:57 01/09/22 11:57 01/09/22 11:57 01/09/22 11:57 General: Alert, In no apparent distress, Oriented x3 Respiratory: Expiratory wheezes Cardiovascular: No edema, Regular rate/rhythm, Normal S1 S2 Gastrointestinal: Normal bowel sounds, Soft and benign Musculoskeletal: No clubbing, No swelling Laboratory Data (last 24 hrs) 08/17/22 10:35: WBC 2.60 L, Hgb 13.9, Hct 41.2, Plt Count 152 - Problems (1) COPD exacerbation Current Visit: Yes Status: Acute Plan: Patient is 61 years of age with a history of COPD coronary artery disease admitted with worsening weakness shortness of breath tested positive for COVID legs were getting progressively weaker currently his vital signs are stable no a cute changes noted on chest x-ray or the MRI of the brain likely is all COVID induced doubt congestive heart failure DC diuretics await echo possible discharge tomorrow Decadron 4 mg daily for a week clear long-acting bronchodilator I also added Dulera inhaler possible discharge follow-up with me in 2-week
[2022-01-09] MEDS: DULERA 200/5 (MOMETASONE/FORMOTEROL) INHALER IH SCH ×2 (12:30→20:17)
[2022-01-09] MEDS: dexAMETHasone 4 MG TAB PO SCH ×2 (12:30→20:18)
[2022-01-09] MEDS ORDERED: dexAMETHasone 4 MG TAB ONE ×2 (16:36→20:20)
--- NOTE | 2022-01-09 18:56 | P.PN ---
Date of Service: 01/09/22 Subjective: no significant change overnight since admission ROS: 10 point ROS as noted above, otherwise negative Physical exam GEN: Alert, oriented, fatigued apperaing HEENT: Normal conjunctiva, sclera anicteric CV: Regular rate and rhythm, trace to 1+ bilateral lower extremity edema Pulm: mild labored respirations on 2L NC ABD: Soft, nontender, nondistended MSK: No joint tenderness Neuro: Normal speech, normal affect, str 5/5 bilateral upper/lower extremities Problem List Acute on chronic hypoxemic respiratory failure Acute on chronic CHF exacerbation, unknown type with hypoxia Possible acute on chronic COPD exacerbation COVID-positive CAD s/p stents and CABG HTN GERD on chronic 2-3L NC at home Possible CHF and/or COPD exacerbation. Patient with wheeze on exam Progressively worsening shortness of breath for the last few weeks Associate with generalized weakness as well COVID positive Continue steroids, nebulizers, oxygen as needed Trend troponin, cardiology consult Echocardiogram ordered; last echo on file here was in 2020 - normal EF; had CABG since then MRI ordered for significant weakness patient describes - negative PT consulted VTE: lovenox Code: full Dispo: home, ~1-2 days Time Spent Managing Pts Care (In Minutes): 35
--- NOTE | 2022-01-09 18:59 | RAD REPORT ---
EXAM DESCRIPTION: CT - Chest For Pe Angio - 01/09/2022 6:43 pm CLINICAL HISTORY: Chest pain. chest pain, hypoxia, covid COMPARISON: Chest For Pe Angio dated 02/12/2021 TECHNIQUE: CT angiogram of the pulmonary arteries was performed with MIP. All CT scans are performed using dose optimization technique as appropriate and may include automated exposure control or mA/KV adjustment according to patient size. FINDINGS: No evidence of pulmonary thromboembolism. No acute aortic finding demonstrated. The lungs are clear. No significant pericardial or pleural fluid. No concerning bony finding. IMPRESSION: No evidence of pulmonary thromboembolism. No acute lung findings.
[2022-01-09] MEDS ORDERED: METOPROLOL TAR 25 MG TAB ONE (20:21)
[2022-01-10] MEDS ORDERED: IPRATROPIUM BROM 0.5MG/2.5ML ONE ×2 (01:58→08:44)
[2022-01-10] MEDS ORDERED: ALBUTEROL 2.5 MG/3 ML NEB SOL ONE ×2 (01:58→08:44)
[2022-01-10] MEDS: IPRATROPIUM BROM 0.5MG/2.5ML NEB SCH ×3 (02:00→13:37)
[2022-01-10] MEDS: ALBUTEROL 2.5 MG/3 ML NEB SOL NEB SCH ×3 (02:00→13:37)
[2022-01-10 03:54] LABS: Absolute Lymphocytes (CBC) 0.3 K/uL (0.7-4.9); Hematocrit 44.1 % (39.6-49.0); Lymphocytes % 11.3 % (15.3-44.8); MCV 92.3 fL (80-100); MPV 9.3 fL (7.6-11.3); RBC Red Blood Cell Count 4.78 M/uL (4.33-5.43)
[2022-01-10 04:19] LABS: C-Reactive Protein 7.44 mg/L (<3.00); Magnesium 2.4 mg/dL (1.8-2.4); Phosphorus 3.5 mg/dL (2.5-4.9); Potassium 4.2 mmol/L (3.5-5.1); Troponin High Sensitivity 53.8 pg/mL (<58.9)
[2022-01-10] MEDS ORDERED: AMIODARONE HCL 200 MG TAB ONE (07:40)
[2022-01-10] MEDS ORDERED: lisinopriL 20 MG TAB ONE (07:40)
[2022-01-10] MEDS ORDERED: ENOXAPARIN 40 MG/0.4 ML SQ ONE (07:41)
[2022-01-10] MEDS ORDERED: ASPIRIN EC 81 MG TAB PO ONE (07:41)
[2022-01-10] MEDS ORDERED: METOPROLOL TAR 25 MG TAB ONE (07:41)
[2022-01-10] MEDS ORDERED: dexAMETHasone 4 MG TAB ONE (07:41)
--- NOTE | 2022-01-10 08:02 | EKG ---
Test Date: 2022-01-09 Test Time: 17:35:36 Design/Animation Instructor: DYLAN MEASUREMENT RESULTS: Intervals: Rate: 79 ND: 162 QRSD: 88 QT: 374 QTc: 428 [place]: P: 68 ND: 162 QRS: 11 T: 123 INTERPRETIVE STATEMENTS: Normal sinus rhythm Anteroseptal infarct, age undetermined T wave abnormality, consider lateral ischemia Abnormal ECG Compared to ECG 01/08/2022 11:20:43 T-wave abnormality now present Sinus bradycardia no longer present ST (T wave) deviation no longer present Myocardial infarct finding still present Possible ischemia still present Electronically Signed On 01-10-22 08:01:28 CDT by Rivera Mason
[2022-01-10] MEDS: dexAMETHasone 4 MG TAB PO SCH (08:31)
[2022-01-10] MEDS: ASPIRIN EC 81 MG TAB PO SCH (08:31)
[2022-01-10] MEDS: AMIODARONE HCL 200 MG TAB PO SCH (08:32)
[2022-01-10] MEDS: METOPROLOL TAR 25 MG TAB PO SCH (08:32)
[2022-01-10] MEDS: DULERA 200/5 (MOMETASONE/FORMOTEROL) INHALER IH SCH (08:33)
[2022-01-10] MEDS: ATORVASTATIN 80 MG TAB PO SCH (08:33)
[2022-01-10] MEDS: ENOXAPARIN 40 MG/0.4 ML SQ SCH (08:34)
[2022-01-10] MEDS: lisinopriL 10 MG TAB PO SCH (08:38)
[2022-01-10] MEDS ORDERED: lisinopriL 10 MG TAB ONE (08:45)
[2022-01-10] MEDS: EZETIMIBE 10 MG TAB PO SCH (09:26)
[2022-01-10 13:55] VITALS: TEMP 98
[2022-01-10 14:10] VITALS: BP 157/85; O2SAT 99
--- NOTE | 2022-01-10 14:56 | ECHO ---
HEIGHT: 5 ft 10 in WEIGHT: 190 lb 0 oz DATE OF STUDY: 01/10/[address]: Nicol Linares 2-DIMENSIONAL: YES M.MODE: YES DOPPLER: YES COLOR FLOW: YES TDS: YES PORTABLE: YES DEFINITY: NO BUBBLE STUDY: NO DIAGNOSIS: SHORTNESS OF BREATH CARDIAC HISTORY: CATHERIZATION: NO SURGERY: YES PROSTHETIC VALVE: NO PACEMAKER: NO MEASUREMENTS (cm) DIASTOLIC (NORMALS) SYSTOLIC (NORMALS) IVSd 1.2 (0.6-1.2) LA Diam 3.1 (1.9-4.0) LVEF 79% LVIDd 4.2 (3.5-5.7) LVIDs 2.2 (2.0-3.5) %FS 47% LVPWd 1.3 (0.6-1.2) Ao Diam 3.4 (2.0-3.7) 2 DIMENSIONAL ASSESSMENT: RIGHT ATRIUM: NORMAL LEFT ATRIUM: NORMAL RIGHT VENTRICLE: NORMAL LEFT VENTRICLE: LEFT VENTRICULAR HYPERTROPHY TRICUSPID VALVE: NORMAL MITRAL VALVE: NORMAL PULMONIC VALVE: NORMAL AORTIC VALVE: MILD AORTIC STENOSIS PERICARDIAL EFFUSION: NONE AORTIC ROOT: NORMAL LEFT VENTRICULAR WALL MOTION: NORMAL. DOPPLER/COLOR FLOW: MILD AORTIC STENOSIS 1.7 CENTIMETERS SQUARED. COMMENTS: MILD AORTIC STENOSIS 1.7 CENTIMETERS SQUARED. LEFT VENTRICULAR HYPERTROPHY. DIASTOLIC DYSFUNCTION - NORMAL EJECTION FRACTION. TECHNOLOGIST: KAREN LOVELL
--- NOTE | 2022-01-10 23:08 | P.DS ---
Admission Date: 01/09/22 Discharge Date: 01/10/22 Disposition: ROUTINE DISCHARGE Discharge Condition: GOOD Reason for Admission: Dyspnea, generalized weakness Consultations: Pulm - Dr. Timmons Brief History of Present Illness: 61yo M, PMH: HTN, COPD, AR, CVA, CAD s/p PCI, HLD, GERD; on chronic 3L NC at home Presented to ED with progressively worsening SOB and generalized weakness. Found to be COVID+ in the ED. Admitted for further management. Hospital Course: Patient presents with generalized weakness and shortness of breath. He was found to have COVID-19 with some mild bilateral opacities on his lungs. Pulmonology was consulted. He was treated with dulera and steroids. He had improvement of his symptoms and was stable on 1-2L nasal cannula, which he uses at home. He reports some slight right sided chest pain. Given his significant cardiac history, he was evaluated by EKG, troponins, echocardiogram, CTA chest, and Cardiology was consulted. No evidence of ischemia, and no changes from prior echo per Cardiology. No evidence of PE. He was deemed stable for discharge home. Continue treatment with dulera and sent a prescription for decadron No other medication changes Follow up: PCP in 3-5 days Pulmonology - Dr. Timmons in ~1 week Physical exam GEN: Alert, oriented, NAD HEENT: Normal conjunctiva, sclera anicteric CV: Regular rate and rhythm, trace bilateral lower extremity edema Pulm: non labored respirations on 2L NC ABD: Soft, nontender, nondistended MSK: No joint tenderness Neuro: Normal speech, normal affect, str 5/5 bilateral upper/lower extremities Vital Signs/Physical Exam: Temp Pulse Resp BP Pulse Ox 98 F 59 17 157/85 H 92 01/10/22 13:53 01/10/22 14:03 01/10/22 14:03 01/10/22 14:03 01/10/22 12:00 Laboratory Data at Discharge: WBC 2.50 K/uL (4.3-10.9) L D 01/10/22 03:36 Hgb 15.5 g/dL (13.6-17.9) 01/10/22 03:36 Hct 44.1 % (39.6-49.0) 01/10/22 03:36 Plt Count 161 K/uL (152-406) 01/10/22 03:36 Sodium 131 mmol/L (136-145) L 01/10/22 03:36 Potassium 4.2 mmol/L (3.5-5.1) 01/10/22 03:36 BUN 14 mg/dL (7-18) 01/10/22 03:36 Creatinine 1.02 mg/dL (0.55-1.3) 01/10/22 03:36 Glucose 185 mg/dL (74-106) H 01/10/22 03:36 Phosphorus 3.5 mg/dL (2.5-4.9) 01/10/22 03:36 Magnesium 2.4 mg/dL (1.8-2.4) 01/10/22 03:36 Home Medications: Albuterol Sulfate [Proair Hfa] 2 puff IH TID PRN #1 hfa.aer.ad 04/04/19 Atorvastatin Calcium [Lipitor] 80 mg PO DAILY #30 tab 04/04/19 Metoprolol Tartrate [Lopressor*] 25 mg PO BID #60 tab 04/04/19 Amiodarone HCl [Cordarone*] 200 mg PO BID 10/12/19 Ezetimibe [Zetia*] 10 mg PO DAILY 10/12/19 lisinopriL [Lisinopril] 20 mg PO DAILY 10/12/19 Aspirin Tab [Alli Aspirin*] 325 mg PO DAILY 12/28/20 predniSONE [Deltasone*] 10 mg PO DAILY #7 tab 02/13/21 Mometasone/Formoterol [Dulera 200 Mcg/5 Mcg Inhaler] 2 puff IH BID inhaler 01/10/22 dexAMETHasone [Decadron*] 4 mg PO BID 10 Days #15 tab 01/10/22 New Medications: dexAMETHasone [Decadron*] 4 mg PO BID 10 Days #15 tab Physician Discharge Instructions: Patient presents with generalized weakness and shortness of breath. He was found to have COVID-19 with some mild bilateral opacities on his lungs. Pulmonology was consulted. He was treated with dulera and steroids. He had improvement of his symptoms and was stable on 1-2L nasal cannula, which he uses at home. He reports some slight right sided chest pain. Given his significant cardiac history, he was evaluated by EKG, troponins, echocardiogram, CTA chest, and Cardiology was consulted. No evidence of ischemia, and no changes from prior echo per Cardiology. No evidence of PE. He was deemed stable for discharge home. Continue treatment with dulera and sent a prescription for decadron No other medication changes Follow up: PCP in 3-5 days Pulmonology - Dr. Timmons in ~1 week Followup: Parveen Timmons MD [ACTIVE - CAN ADMIT] - 1 Week (Call to schedule an appointment) NONE,NONE [Primary Care Provider] - 1-2 Weeks (CAll to schedule an appointment) Time spent managing pt's care (in minutes): 45
--- NOTE | 2022-01-12 09:58 | CON ---
Date of Consultation: 01/09/2022 Reason For Consultation: Shortness of breath. History Of Present Illness: Mr. Ha is a 61-year-old male, well known to us from previous [facility] visits and admissions. He came in with shortness of breath. Has a history of CVA, COPD, hypertens ion, CABG, and deafness. He was found to have COVID positive. His chest x-ray was negative. CTA wa s negative. Echocardiogram showed an ejection fraction 57% in 2020. He denied any PND, orthopnea, o r pedal edema. Denied any fever or chills or cough. His only complaint was shortness of breath. Past Medical History: As stated above. Allergies: HE IS ALLERGIC TO PENICILLIN. Review of Systems: Negative. Social History: Negative. Family History: Noncontributory. Medications: At home include inhalers, amiodarone, aspirin, Lipitor, Zetia, steroids. He is also on beta-blockers and lisinopril. Physical Examination: Vital Signs: Stable, afebrile. HEENT: Negative. Neck: Supple, no bruit. Chest: Revealed some mild crackles at the base on the right side, otherwise was normal. Cardiac: Revealed a regular rhythm and rate. No murmurs, gallops, or rubs. Abdomen: Benign. Extremities: Revealed no clubbing, cyanosis. He had trace edema. Diagnostic Data: CTA was negative. Chest x-ray was negative. Echo in 2020 showed ejection fraction 57%. He was COVID positive. Sodium was 131. Impression And Plan: 1.COVID positive probably causing his symptoms. 2.Chronic obstructive pulmonary disease. 3.Cerebrovascular accident. 4.Hypertension. 5.History of coronary artery bypass graft. 6.Deafness. 7.Hyponatremia. 8.History of paroxysmal atrial fibrillation and sinus rhythm on amiodarone. I would continue his pr esent regimen including inhalers, amiodarone, aspirin, Lipitor, Zetia, beta blockers, Lovenox, steroi ds. Echocardiogram is pending. SALINAS/CRYSTAL Voice ID: [id number] Report ID: [id number]
--- NOTE | 2022-01-12 10:22 | PN ---
Date of Progress Note: 01/10/2022 Mr. Ha came in with shortness of breath, has history of CVA, hypertension, CABG, and deafness. He was found to be COVID positive. Echocardiogram showed mild aortic stenosis with normal ejection fraction, some mild diastolic dysfunction. He is feeling much better. I would continue his treatmen t at home with amiodarone, beta blockers, lisinopril, Zetia, steroid, inhalers, aspirin, and Lipitor. He can go home. I will see him in the office in the near future. SALINAS/CRYSTAL Voice ID: [id number] Report ID: [id number]
== END 2022-01-10 15:30 | disposition home or self-care (01) | DRG 177 ==
LOC: ER 09:44 → ERHOLD 13:39 → OBSVTOIN 01-09 19:30 → 4TH 01-10 13:50
PROVIDERS: ADMIT Hospitalist; ATTEND Hospitalist
DX: U07.1 COVID-19 (principal); I50.33 Acute on chronic diastolic (congestive) heart failure; J96.21 Acute and chronic respiratory failure with hypoxia; J44.1 Chronic obstructive pulmonary disease with (acute) exacerbation; E87.1 Hypo-osmolality and hyponatremia; I11.0 Hypertensive heart disease with heart failure; I25.10 Atherosclerotic heart disease of native coronary artery without angina pectoris; E78.5 Hyperlipidemia, unspecified; K21.9 Gastro-esophageal reflux disease without esophagitis; I35.0 Nonrheumatic aortic (valve) stenosis; H91.90 Unspecified hearing loss, unspecified ear; I48.0 Paroxysmal atrial fibrillation; E66.9 Obesity, unspecified; I25.2 Old myocardial infarction; Z95.1 Presence of aortocoronary bypass graft; Z99.81 Dependence on supplemental oxygen; Z79.82 Long term (current) use of aspirin; Z79.01 Long term (current) use of anticoagulants; Z88.0 Allergy status to penicillin; Z95.5 Presence of coronary angioplasty implant and graft; Z79.52 Long term (current) use of systemic steroids; Z79.899 Other long term (current) drug therapy; Z86.73 Personal history of transient ischemic attack (TIA), and cerebral infarction without residual deficits; Z68.29 Body mass index [BMI] 29.0-29.9, adult
CPT/HCPCS: 36415; 70551; 71045; 71275; 80048; 83735; 83880; 84100; 84145; 84484; 85025; 86140; 87811; 93005; 93306; 94640; 97116; 97161; 99284; G0378; J1650; J1940; J3535; J8540; Q9967

== ENCOUNTER 2022-02-11 07:30 | Day surgery (SDC) | payer OTHER ==
[2022-02-07 12:32] LABS: Absolute Lymphocytes (CBC) 0.9 K/uL (0.7-4.9); Hematocrit 40.8 % (39.6-49.0); Lymphocytes % 18.6 % (15.3-44.8); MCV 95.8 fL (80-100); MPV 8.7 fL (7.6-11.3); RBC Red Blood Cell Count 4.26 M/uL (4.33-5.43)
[2022-02-07 12:38] LABS: Protime INR 1.01
[2022-02-07 13:22] LABS: Potassium 4.6 mmol/L (3.5-5.1)
[2022-02-11 08:04] VITALS: O2SAT 100
[2022-02-11] MEDS ORDERED: NA CHLORIDE 0.9% 500 ML ONE (08:19)
[2022-02-11] MEDS ORDERED: FENTANYL CITR 100 MCG/2 ML ONE ×2 (08:27→09:34)
[2022-02-11] MEDS ORDERED: MIDAZOLAM HCL 2 MG/2 ML INJ ONE ×4 (08:27→09:34)
[2022-02-11] MEDS ORDERED: ATROPINE SULF 1 MG/10 ML SYR IV ONE (08:27)
[2022-02-11] MEDS ORDERED: NA CHLORIDE 0.9% 0 ML IV ONE (08:28)
[2022-02-11] MEDS ORDERED: HEPA 1000U/500MLS 1,000 UNIT/500 ML BAG IV ONE (08:43)
[2022-02-11 11:35] VITALS: BP 164/78
--- NOTE | 2022-02-11 19:58 | OP ---
Surgeon: Rivera Mason MD Soaping Machine Back Tender: Ms. An Niño. Procedures: He underwent a left heart catheterization, selective coronary arteriogram, PETER to the L AD graft, vein graft injection, and abdominal angiogram with runoff. Indications: CAD, unstable angina, peripheral arterial disease, claudication. Procedure In Detail: In the laborer wood preserving plant, he was prepped and draped in the routine sterile fashion. Giv en Versed and fentanyl for sedation. A 6-[place] sheath introduced in the right common femoral artery successfully using the Seldinger technique and 10 cc of Xylocaine. Pamela catheter left and right were used to cannulate the left main and right main respectively. RCA was dominant and has minimal d isease. LAD was completely blocked after an old stent. The left main was normal. Circumflex had a 90% stenosis. JR4 catheter also cannulated the PETER, which was patent to the LAD. A vein graft to t he OM, which was patent and free of disease. Following the heart catheterization with graft injectio n, a pigtail was placed in the distal abdominal aorta. Abdominal angiogram with runoff revealed norm al renals, normal aorta, and heavy calcification in the right common iliac and left common iliac with out any focal stenosis. He, however, had completely occluded SFA bilaterally with reconstitution at the popliteal. Total conscious sedation was 60 minutes. A 6-[place] sheath and catheters were used. No complications. Blood loss was 5 cc. Angio-Seal was used to close the case. Postoperative Diagnoses: Coronary artery disease: Severe, medical therapy. Severe peripheral arter ial disease: Probably will need a bilateral femoral-popliteal. The patient will go home in 2 hours after bedrest. I will review the film with Vascular Surgery bobbi rding his peripheral arterial disease. NB/MODL Voice ID: [id number] Report ID: [id number]
== END 2022-02-11 11:36 | disposition home or self-care (01) ==
LOC: CCL 07:30
DX: I25.110 Atherosclerotic heart disease of native coronary artery with unstable angina pectoris (principal); I25.82 Chronic total occlusion of coronary artery; I70.213 Atherosclerosis of native arteries of extremities with intermittent claudication, bilateral legs; I11.0 Hypertensive heart disease with heart failure; I50.22 Chronic systolic (congestive) heart failure; I65.23 Occlusion and stenosis of bilateral carotid arteries; I35.2 Nonrheumatic aortic (valve) stenosis with insufficiency; I48.0 Paroxysmal atrial fibrillation; E78.2 Mixed hyperlipidemia; Z95.1 Presence of aortocoronary bypass graft; Z95.5 Presence of coronary angioplasty implant and graft; Z87.891 Personal history of nicotine dependence; Z79.899 Other long term (current) drug therapy; Z88.0 Allergy status to penicillin
CPT/HCPCS: 36415; 75630; 80048; 85025; 85610; 85730; 93455; C1893; G0269; J0583; J1644; J2250; J3010; J7040; Q9967

== ENCOUNTER 2023-03-27 06:45 | Day surgery (SDC) | payer OTHER ==
[2023-03-24 14:53] LABS: Absolute Lymphocytes (CBC) 1.1 K/uL (0.7-4.9); Hematocrit 43.8 % (39.6-49.0); Lymphocytes % 18.2 % (15.3-44.8); MCV 96.2 fL (80-100); MPV 9.3 fL (7.6-11.3); Platelets 177 thou/uL (152-406); RBC Red Blood Cell Count 4.56 M/uL (4.33-5.43)
[2023-03-24 14:57] LABS: Protime INR 0.99
[2023-03-24 15:06] LABS: Potassium 4.9 mEq/L (3.5-5.1)
--- NOTE | 2023-03-24 15:24 | RAD REPORT ---
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 COMPARISON: Chest Single View dated 01/08/2022; Chest Single View dated 02/12/2021; Chest Pa And Lat ( 2 Views) dated 12/28/2020; Chest Pa And Lat (2 Views) dated 10/12/2019 TECHNIQUE: PA and lateral views of the chest were obtained. FINDINGS: The lungs are hyperexpanded compatible with COPD. The heart is upper limit of normal in si ze. No fracture or aggressive bony process. Sternotomy wires noted. IMPRESSION: COPD without acute process identified. The USPSTF recommends annual screening for lung cancer with low-dose CT (LDCT) in adults aged 50 to 8 0 years who have a 20 pack-year smoking history and currently smoke or have quit within the past 15 y ears.
--- NOTE | 2023-03-25 18:05 | EKG ---
Test Date: 2023-03-24 Test Time: 14:38:10 Occupational Health Rn: CESAR MEASUREMENT RESULTS: Intervals: Rate: 52 LA: 196 QRSD: 84 QT: 422 QTc: 392 [place]: P: 57 LA: 196 QRS: 21 T: 140 INTERPRETIVE STATEMENTS: Sinus bradycardia Septal infarct, age undetermined ST & Marked T wave abnormality, consider anterolateral ischemia Abnormal ECG Compared to ECG 01/09/2022 17:35:36 Sinus rhythm no longer present Myocardial infarct finding still present T-wave abnormality still present Possible ischemia still present Electronically Signed On 03-25-23 18:03:17 CDT by Jimbo Crandall
[2023-03-27] MEDS ORDERED: NA CHLORIDE 0.9% 500 ML ONE (06:56)
[2023-03-27 07:32] VITALS: TEMP 98
[2023-03-27] MEDS ORDERED: MIDAZOLAM HCL 2 MG/2 ML INJ ONE ×2 (08:50→17:54)
[2023-03-27] MEDS ORDERED: LIDOCAINE 1% 20 ML MDV ONE (08:50)
[2023-03-27] MEDS ORDERED: HEPA 1000U/500MLS 0 UNIT/0 ML BAG IV ONE (08:50)
[2023-03-27] MEDS ORDERED: FENTANYL CITR 100 MCG/2 ML ONE (08:50)
[2023-03-27] MEDS ORDERED: ATROPINE SULF 1 MG/10 ML SYR IV ONE (08:51)
[2023-03-27 19:10] VITALS: O2SAT 95
[2023-03-27 19:42] VITALS: BP 131/60
--- NOTE | 2023-03-27 19:49 | OP ---
Date of Procedure: 03/27/2023 Surgeon: ALEXIS GOLDSMITH Procedure Performed: Peripheral angiogram. Indications: Severe peripheral vascular disease by Doppler. Access: Right radial artery 6-[place] closed with TR band. Complications: None. Bleeding: Less than 20 mL. Description Of Procedure: After risks, benefits, and alternatives explained, patient agreed to the p rocedure and signed informed consent. Patient was brought to the cardiac condition laboratory, prepp ed and draped in usual sterile fashion. Then, I accessed the right radial artery using pediatric collin ropuncture kit. Placed 6-[place] slender sheath and took 5-[place] 4 catheter through aortic tobias t to past the aortic arch and sent an exchange J wire into the distal abdomen and then removed the Ti marisol catheter and sent a 4-[place] pigtail catheter in distal aorta, performed a distal aortogram and r unoff, and then removed the catheter and the sheath and placed TR band with good hemostasis. Findings: 1.Distal aorta is widely patent. 2.Right lower extremity: In the common iliac, external iliac, there are multiple tandem 40% stenosi s. Common femoral appears normal. Right profunda appears normal and the right SFA after the profund a takes off is 100% occluded and reconstitutes above the knee. Below the knee, vessels wi th mild disease, but could not see them very well as these were not felt very well. 3.Left lower extremity: Left common iliac is normal. Left external iliac has 40% stenosis. Left c ommon femoral and profunda are patent. Left SFA also is 100% occluded and reconstitutes above the kn ee and then in the popliteal artery is 70% stenosis vessels are present with diffuse disea se; however, could not see exactly because of the sluggish flow. Conclusion: Severe bilateral peripheral vascular disease. Plan: To do a balloon angioplasty with atherectomy of the right lower extremity first and then the l eft lower extremity at [facility] in the near future. SR/MODL Voice ID: [id number] Report ID: [id number]
== END 2023-03-27 19:30 | disposition home or self-care (01) ==
LOC: CCL 06:45
PROVIDERS: ATTEND Internal Medicine
DX: I70.213 Atherosclerosis of native arteries of extremities with intermittent claudication, bilateral legs (principal); I70.92 Chronic total occlusion of artery of the extremities; I25.10 Atherosclerotic heart disease of native coronary artery without angina pectoris; I10 Essential (primary) hypertension; E78.5 Hyperlipidemia, unspecified; Z95.1 Presence of aortocoronary bypass graft; Z95.5 Presence of coronary angioplasty implant and graft; Z87.891 Personal history of nicotine dependence; Z79.899 Other long term (current) drug therapy; Z88.0 Allergy status to penicillin; Z82.49 Family history of ischemic heart disease and other diseases of the circulatory system
CPT/HCPCS: 93005; 85025; 80048; 36415; 85610; 85730; 71046; 75630; 76937; C1893; J2001; J7040; 36200; J0461; J2250; J3010

== ENCOUNTER 2024-03-18 08:59 | Emergency (ER) | payer OTHER ==
[2024-03-18] MEDS ORDERED: KETOROLAC 30 MG/ML INJ ONE (09:20)
[2024-03-18] MEDS ORDERED: DIPHENHYDRAMINE 50 MG/ML VIAL ONE (09:20)
[2024-03-18] MEDS ORDERED: NA CHLORIDE 0.9% 500 ML ONE (09:21)
[2024-03-18] MEDS ORDERED: METOCLOPRAMIDE 10 MG/2mL INJ ONE (09:21)
[2024-03-18] MEDS ORDERED: DIAZEPAM 5 MG TABLET ONE (09:21)
--- NOTE | 2024-03-18 09:53 | RAD REPORT ---
EXAM: C Spine Wo Con HISTORY: PAIN COMPARISON: 02/07/2019 TECHNIQUE: Multiple contiguous axial images were obtained in a CT of the cervical spine without IV co ntrast. Sagittal and coronal reformats were performed. One or more of the following dose reduction techniques were used: Automated exposure control, adjustment of the mA and kV according to patient si ze, and iterative reconstruction. Unless otherwise specified, incidental findings do not require dedicated imaging follow-up. FINDINGS: The vertebral bodies and intervertebral discs demonstrate normal height and alignment without fractur e or subluxation. No degenerative changes are present. No prevertebral soft tissue swelling is seen. The posterior facets are well aligned. Normal alignment of the skull base with the cervical spine is seen. The lung apices are unremarkable. The cervical soft tissues are unremarkable. IMPRESSION: No evidence of acute osseous abnormality of the cervical spine.
--- NOTE | 2024-03-18 09:57 | RAD REPORT ---
EXAMINATION: ONE VIEW CHEST XR CLINICAL INDICATION: Male, 63 years old.,COUGH TECHNIQUE: Frontal chest projection is submitted. Examination is limited by patient positioning and t echnique. COMPARISON: 03/24/2023 FINDINGS: Decreased inspiratory effort limits evaluation. Central interstitial prominence, progressive since th e prior exam. No focal consolidation. Sequelae of median sternotomy. No pneumothorax or sizable effusion. The heart is normal in size. IMPRESSION: Central interstitial prominence, which may reflect central congestion, however could be accentuated b y decreased inspiratory effort.
[2024-03-18 10:02] LABS: Absolute Eosinophils 0.1 K/uL (0-0.5); Absolute Monocytes 0.7 K/uL (0.1-1.3); Absolute Neutrophil 5.9 K/uL (1.8-8.0); Basophils % 0.4 % (0-1.3); Eosinophils % 1.5 % (0-4.4); Hematocrit 40.2 % (39.6-49.0); Hemoglobin 13.7 g/dL (13.6-17.9); Lymphocytes % 13.3 % (15.3-44.8); MCH 32.2 pg (27.0-35.0); MCV 94.8 fL (80-100); MPV 8.9 fL (7.6-11.3); Neutrophils % 75.8 % (41.7-73.7); Nucleated Red Blood Cells % 0.1 % (0-0); Platelets 196 thou/uL (152-406); RBC Red Blood Cell Count 4.23 M/uL (4.33-5.43); Red Cell Distribution Width 13.6 % (12.1-15.2)
[2024-03-18 10:06] LABS: PT Prothrombin Time 12.2 SECONDS (9.4-12.5); Protime INR 1.09
[2024-03-18 10:28] LABS: ALT/SGPT 27 U/L (16-61); AST/SGOT 23 U/L (15-37); Albumin 3.5 g/dL (3.4-5.0); Albumin/Globulin Ratio 1.1 (1.1-1.8); Alkaline Phosphatase 73 U/L (45-117); Anion Gap 6.3 mEq/L (5.0-15.0); BUN Blood Urea Nitrogen 11 mg/dL (7-18); Bicarbonate 29 mEq/L (21-32); Bilirubin Total 0.4 mg/dL (0.2-1.0); Globulin 3.2 g/dL (2.3-3.5); Glomerular Filtration Rate 98 ml/min (=/>90); Glucose Level 134 mg/dL (74-106); Magnesium 2.1 mg/dL (1.6-2.4); NT PRO-BNP 215 pg/mL (<125); Potassium 4.3 mEq/L (3.5-5.1); Protein, Total 6.7 g/dL (6.4-8.2); Sodium Level 138 mEq/L (136-145); Troponin High Sensitivity 31.9 pg/mL (<58.9)
[2024-03-18 10:31] LABS: Bilirubin Direct < 0.2 mg/dL (0-0.2); Bilirubin Indirect, Calculated 0.2 mg/dL (0.2-0.8)
--- NOTE | 2024-03-18 14:10 | EKG ---
Test Date: 2024-03-18 Test Time: 09:36:25 Butt Welder: SHAYNE MEASUREMENT RESULTS: Intervals: Rate: 60 [place]: 206 QRSD: 88 QT: 408 QTc: 408 [place]: P: -10 [place]: 206 QRS: 86 T: -60 INTERPRETIVE STATEMENTS: Normal sinus rhythm Anteroseptal infarct, age undetermined T wave abnormality, consider inferolateral ischemia Abnormal ECG Compared to ECG 03/24/2023 14:38:10 Sinus bradycardia no longer present Myocardial infarct finding still present T-wave abnormality still present Possible ischemia still present Electronically Signed On 03-18-24 14:09:10 CDT by Jorge Khan
[2024-03-18 14:47] LABS: Specific Gravity 1.008 (1.005-1.030); Sqamous Epithelial <5 /HPF (None Seen); Urine Bacteria None Seen /HPF (<20); Urine Bilirubin NEGATIVE (Negative); Urine Blood Negative (Negative); Urine Clarity Clear (Clear); Urine Color Light-Yellow (Yellow); Urine Culture Reflex Order NOT NEEDED; Urine Glucose NEGATIVE (Negative); Urine Ketones NEGATIVE (Negative); Urine Microscopic Reflex YN ORDER UMIC; Urine Mucus Slight /HPF (None Seen); Urine Nitrite NEGATIVE (Negative); Urine Protein NEGATIVE (Negative); Urine RBC <5 /HPF (None Seen); Urine Urobilinogen Normal (Normal); Urine WBC <5 /HPF (<5); Urine Yeast (Budding) Trace /HPF (None Seen); Urine pH 6.5 (5.0-7.0)
--- NOTE | 2024-03-18 15:40 | ER ---
Nurse's Notes [facility] Name: Michael Ha Jr Age: 63 yrs Sex: Male : 1960 Arrival Date: 03/18/2024 Time: 08:59 Bed 4 Private MD: Diagnosis: Strain of muscle, fascia and tendon at neck level, initial encounter;Headache Presentation: 03/18 09:12 Chief complaint: Patient states: HEADACHE SINCE THIS MORNING. Coronavirus screen: At bp this time, the client does not indicate any symptoms associated with coronavirus-19. Ebola Screen: No symptoms or risks identified at this time. Initial Sepsis Screen: Does the patient meet any 2 criteria? No. Patient's initial sepsis screen is negative. Does the patient have a suspected source of infection? No. Patient's initial sepsis screen is negative. Risk Assessment: Do you want to hurt yourself or someone else? Patient reports no desire to harm self or others. Onset of symptoms was March 18, 2024 at 06:00. 09:12 Method Of Arrival: Ambulatory bp 09:12 Acuity: JOEY 3 bp Triage Assessment: 09:13 General: Appears in no apparent distress. Behavior is calm, cooperative, appropriate bp for age. Pain: Complains of pain in head. EENT: No deficits noted. Neuro: Reports headache in left occipital area. Neuro: Level of Consciousness is awake, alert, obeys commands, Oriented to Appropriate for age Speech is slurred, FOR 9 DAYS. Cardiovascular: No deficits noted. Respiratory: No deficits noted. GI: No signs and/or symptoms were reported involving the gastrointestinal system. : No signs and/or symptoms were reported regarding the genitourinary system. Derm: No deficits noted. Musculoskeletal: No deficits noted. Historical: - Allergies: 09:13 PENICILLINS; bp - Home Meds: 09:13 ezetimibe 10mg daily Oral 1 tab daily [Active]; Plavix 75 mg Oral tab 1 tab once daily bp [Active]; atorvastatin 80 mg Oral tab 1 tab once daily [Active]; metoprolol tartrate 25 mg Oral tab 2 times per day [Active]; lisinopril 20 mg Oral tab once daily [Active]; Lasix 40 mg oral tablet 1 tab 2 times per day [Active]; - PMHx: 09:13 CAD; Myocardial infarction; Hypertension; CVA; Deaf; bp - Immunization history:: Adult Immunizations up to date. - Infectious Disease History:: Denies. - Social history:: Smoking status: Patient reports the use of cigarette tobacco products, unknown amount. - Family history:: not pertinent. Screenin:44 [facility] ED Fall Risk Assessment (Adult) History of falling in the last 3 months, ko1 including since admission No falls in past 3 months (0 pts) Confusion or Disorientation No (0 pts) Intoxicated or Sedated No (0 pts) Impaired Gait Yes (1 pt) Mobility Assist Device Used Yes (1 pt) Altered Elimination No (0 pt) Score/Fall Risk Level 0 - 2 = Low Risk Oriented to surroundings, Maintained a safe environment, Educated pt \T\ family on fall prevention, incl call for assistance when getting out of bed, Assessed \T\ reinforced patient's understanding of fall precautions, Provided non-skid footwear, Hourly rounding (assess needs \T\ fall precautionary measures) done. Abuse screen: Denies threats or abuse. Denies injuries from another. Nutritional screening: No deficits noted. Tuberculosis screening: No symptoms or risk factors identified. Assessment: 09:44 General: Appears in no apparent distress. Behavior is calm, cooperative, appropriate ko1 for age. Pain: Complains of pain in left base of the skull. Neuro: No deficits noted. Cardiovascular: No deficits noted. Respiratory: No deficits noted. GI: No deficits noted. : No deficits noted. EENT: No deficits noted. Derm: No deficits noted. Musculoskeletal: No deficits noted. 11:15 Reassessment: No changes from previously documented assessment. Patient and/or family mb9 updated on plan of care and expected duration. Pain level reassessed. Patient is alert, oriented x 3, equal unlabored respirations, skin warm/dry/pink. Vital Signs: 09:12 BP 141 / 92; Pulse 67; Resp 16; Temp 98.1; Pulse Ox 95% ; Weight 85.28 kg; Height 5 ft. bp 5 in. ; 09:56 BP 152 / 90; Pulse 71; Resp 16; Pulse Ox 100% on R/A; ko1 10:14 BP 143 / 88; Pulse 75; Resp 16; Pulse Ox 98% ; ko1 14:06 BP 168 / 82; Pulse 72; Resp 15; Pulse Ox 98% ; mb9 16:22 BP 162 / 83; Pulse 69; Resp 18; Temp 98.2(O); Pulse Ox 99% on R/A; tl4 09:12 Body Mass Index 31.28 (85.28 kg, 165.1 cm) bp Cm Coma Score: 14:12 Eye Response: spontaneous(4). Motor Response: obeys commands(6). Verbal Response: candida oriented(5). Total: 15. ED Course: 09:03 Patient arrived in ED. ra3 09:08 Jimy Tellez MD is Attending Physician. candida 09:13 Triage completed. bp 09:13 Arm band placed on. bp 09:18 Lindsey Friedman, RN is Primary Nurse. ko1 09:29 XRAY Chest (1 view) In Process Unspecified. EDMS 09:30 CT C Spine In Process Unspecified. EDMS 09:39 EKG done, by ED staff, reviewed by Jimy Tellez MD. bc6 09:44 Patient has correct armband on for positive identification. Allergy band placed. Fall ko1 risk band placed. Bed in low position. Call light in reach. Side rails up X2. Provided Education on: labs, meds, . Client placed on continuous cardiac and pulse oximetry monitoring. NIBP monitoring applied. personnel monitor on. Door closed. Noise minimized. Lights dimmed. Warm blanket given. Pillow given. 09:44 No provider procedures requiring assistance completed. ko1 09:55 Initial lab(s) drawn, by me, sent to lab. Inserted saline lock: 22 gauge in right bc6 wrist, using aseptic technique. Blood collected. Flushed with 10 mL NS. 14:31 Urinalysis w/ reflexes Sent. mb9 14:36 Radiology exam delayed due to patient getting an IV at this time. sj 14:36 Urine collected: clean catch specimen, clear. mb9 14:48 Awaiting: unable to get repeat troponin x 2 different nurse attempts, called lab to mb9 obtain.. 15:15 Radiology exam delayed due to patient getting US done at this time. sj 15:17 Troponin High Sensitivity: now Sent. mb9 15:37 US Carotid Artery Bilateral In Process Unspecified. EDMS 15:38 CT Head Brain wo Cont In Process Unspecified. EDMS 16:23 IV discontinued, intact, bleeding controlled, No redness/swelling at site. Pressure tl4 dressing applied. Administered Medications: 09:42 Drug: Diazepam PO 10 mg PO once Route: PO; ko1 10:11 Follow up: Response: No adverse reaction ko1 09:55 Drug: diphenhydrAMINE IVP 37.5 mg IVP once Route: IVP; Site: right wrist; ko1 10:10 Follow up: Response: No adverse reaction ko1 09:55 Drug: metoCLOPramide IVP 10 mg IVP once; over 1 to 2 minutes Route: IVP; Site: right ko1 wrist; 10:10 Follow up: Response: No adverse reaction ko1 09:55 Drug: Ketorolac IVP 15 mg IVP once Route: IVP; Site: right wrist; ko1 10:10 Follow up: Response: No adverse reaction ko1 09:56 Drug: NS 0.9% IV 500 ml 500 ml IV at 1 bolus once; to be given as a bolus over 30 ko1 minutes Volume: 500 ml; Route: IV; Rate: 1 bolus; Site: right wrist; 12:54 Follow up: Response: No adverse reaction; IV Status: Completed infusion; IV Intake: ko1 500ml 15:51 Drug: Aspirin PO Chewable Tablet 81 mg PO once Route: PO; ko1 16:24 Follow up: Response: No adverse reaction tl4 Medication: 09:44 VIS not applicable for this client. ko1 Intake: 12:54 IV: 500ml; Total: 500ml. ko1 Outcome: 15:40 Discharge ordered by MD. tirado 16:23 Discharged to home via wheelchair, with family, tl4 16:23 Condition: stable 16:23 Discharge instructions given to patient, Instructed on discharge instructions, follow up and referral plans. medication usage, Demonstrated understanding of instructions, follow-up care, medications, Prescriptions given X 3, 16:24 Patient left the ED. tl4 Signatures: Dispatcher [employer] EDMS Jimy Tellez MD MD cha Jones, Susan sj Peltier, Brian RN RN Lindsey Howard RN RN ko1 Svitlana Abebe RN RN mb9 Chelly Samay[place]6 Oniel Verdugo RN RN tl4 Karla Nation ra3
--- NOTE | 2024-03-18 15:40 | EDPHYS ---
Physician Documentation [facility] Name: Michael Ha Jr Age: 63 yrs Sex: Male : 1960 Arrival Date: 03/18/2024 Time: 08:59 Bed 4 Private MD: Jimy Lr HPI: 03/18 14:09 This 63 yrs old Male presents to ER via Ambulatory with complaints of Neck candida pain x4days. 14:09 The patient or guardian reports pain, tenderness. The complaints affect the back of candida neck and posterior chest. Context of injury: The problem was sustained at an unknown location. Onset: The symptoms/episode began/occurred 3 day(s) ago. Associated signs and symptoms: Loss of consciousness: This patient did not experience any loss of consciousness. Pertinent positives: neck pain. The patient or guardian complains of pain, that is acute. The symptoms are located on the base of the skull and left base of the skull and head. Context: The problem was sustained at an unknown location, The neck injury/problem resulted from from unknown cause. Associated signs and symptoms: Pertinent positives: Paresthesias. Historical: - Allergies: 09:13 PENICILLINS; bp - Home Meds: 09:13 ezetimibe 10mg daily Oral 1 tab daily [Active]; Plavix 75 mg Oral tab 1 tab once daily bp [Active]; atorvastatin 80 mg Oral tab 1 tab once daily [Active]; metoprolol tartrate 25 mg Oral tab 2 times per day [Active]; lisinopril 20 mg Oral tab once daily [Active]; Lasix 40 mg oral tablet 1 tab 2 times per day [Active]; - PMHx: 09:13 CAD; Myocardial infarction; Hypertension; CVA; Deaf; bp - Immunization history:: Adult Immunizations up to date. - Infectious Disease History:: Denies. - Social history:: Smoking status: Patient reports the use of cigarette tobacco products, unknown amount. - Family history:: not pertinent. ROS: 14:09 Constitutional: Negative for fever, chills, and weight loss, Eyes: Negative for injury, candida pain, redness, and discharge, ENT: Negative for injury, pain, and discharge, Cardiovascular: Negative for chest pain, palpitations, and edema, Respiratory: Negative for shortness of breath, cough, wheezing, and pleuritic chest pain, Abdomen/GI: Negative for abdominal pain, nausea, vomiting, diarrhea, and constipation, : Negative for injury, bleeding, discharge, and swelling, MS/Extremity: Negative for injury and deformity, Skin: Negative for injury, rash, and discoloration, Neuro: Negative for headache, weakness, numbness, tingling, and seizure, 14:09 Neck: Positive for pain with movement, pain at rest, 14:09 Neuro: Positive for headache, left neck pain , no cp, Exam: 14:09 Constitutional: This is a well developed, well nourished patient who is awake, alert, candida and in no acute distress. Head/Face: Normocephalic, atraumatic. Eyes: Pupils equal round and reactive to light, extra-ocular motions intact. Lids and lashes normal. Conjunctiva and sclera are non-icteric and not injected. Cornea within normal limits. Periorbital areas with no swelling, redness, or edema. ENT: Nares patent. No nasal discharge, no septal abnormalities noted. Tympanic membranes are normal and external auditory canals are clear. Oropharynx with no redness, swelling, or masses, exudates, or evidence of obstruction, uvula midline. Mucous membranes moist. Neck: Trachea midline, no thyromegaly or masses palpated, and no cervical lymphadenopathy. Supple, full range of motion without nuchal rigidity, or vertebral point tenderness. No Meningismus. Chest/axilla: Normal chest wall appearance and motion. Nontender with no deformity. No lesions are appreciated. Cardiovascular: Regular rate and rhythm with a normal S1 and S2. No gallops, murmurs, or rubs. Normal PMI, no JVD. No pulse deficits. Respiratory: Lungs have equal breath sounds bilaterally, clear to auscultation and percussion. No rales, rhonchi or wheezes noted. No increased work of breathing, no retractions or nasal flaring. Abdomen/GI: Soft, non-tender, with normal bowel sounds. No distension or tympany. No guarding or rebound. No evidence of tenderness throughout. Back: No spinal tenderness. No costovertebral tenderness. Full range of motion. Male : Normal genitalia with no discharge or lesions. Skin: Warm, dry with normal turgor. Normal color with no rashes, no lesions, and no evidence of cellulitis. MS/ Extremity: Pulses equal, no cyanosis. Neurovascular intact. Full, normal range of motion. Neuro: Awake and alert, GCS 15, oriented to person, place, time, and situation. Cranial nerves II-XII grossly intact. Motor strength 5/5 in all extremities. Sensory grossly intact. Cerebellar exam normal. Normal gait. Psych: Awake, alert, with orientation to person, place and time. Behavior, mood, and affect are within normal limits. 14:09 ECG was reviewed by the Attending Physician. 14:56 ECG was reviewed by the Attending Physician. candida Vital Signs: 09:12 BP 141 / 92; Pulse 67; Resp 16; Temp 98.1; Pulse Ox 95% ; Weight 85.28 kg; Height 5 ft. bp 5 in. ; 09:56 BP 152 / 90; Pulse 71; Resp 16; Pulse Ox 100% on R/A; ko1 10:14 BP 143 / 88; Pulse 75; Resp 16; Pulse Ox 98% ; ko1 14:06 BP 168 / 82; Pulse 72; Resp 15; Pulse Ox 98% ; mb9 16:22 BP 162 / 83; Pulse 69; Resp 18; Temp 98.2(O); Pulse Ox 99% on R/A; tl4 09:12 Body Mass Index 31.28 (85.28 kg, 165.1 cm) bp [place] Coma Score: 14:12 Eye Response: spontaneous(4). Motor Response: obeys commands(6). Verbal Response: candida oriented(5). Total: 15. MDM: 09:08 Medical Screening Exam initiated candida 14:12 Differential diagnosis: Contusion of head, Hematoma on arthritis, C-Spine Fracture candida Cervical Disc Herniation Cervical Discogenic Pain Cervical Facet Syndrome Cervical Raiculopathy Cervical Spondylosis cervical strain, Degenerative Disc Disease. Data reviewed: vital signs, nurses notes, EMS record, lab test result(s), EKG, radiologic studies, CT scan, plain films. Consideration of Admission/Observation Escalation of care including admission/observation considered. I considered the following discharge prescriptions or medication management in the emergency department Medications were administered in the Emergency Department. See MAR. Independent interpretation of the following test(s) in the Emergency Department EKG: See my EKG interpretation above. Test considered but Not performed: MRI: no mri brain. Historians other than the Patient: pt well informed. Care significantly affected by the following chronic conditions: Hypertension, mi, cad, cva, deaf. Counseling: I had a detailed discussion with the patient and/or guardian regarding the historical points, exam findings, and any diagnostic results supporting the discharge/admit diagnosis, the presence of at least one elevated blood pressure reading (>120/80) during this emergency department visit, lab results, radiology results, the need for outpatient follow up, for definitive care, a family practitioner. 03/18 09:17 Order name: Basic Metabolic Panel; Complete Time: 14:04 03/18 09:17 Order name: CBC with Diff; Complete Time: 14:04 03/18 09:17 Order name: LFT's; Complete Time: 14:04 03/18 09:17 Order name: Magnesium; Complete Time: 14:04 03/18 09:17 Order name: NT PRO-BNP; Complete Time: 14:04 03/18 09:17 Order name: PT-INR; Complete Time: 14:04 03/18 09:17 Order name: Troponin HS; Complete Time: 14:04 03/18 14:06 Order name: Troponin High Sensitivity: now; Complete Time: 15:38 03/18 14:06 Order name: Urinalysis w/ reflexes; Complete Time: 14:55 03/18 09:17 Order name: XRAY Chest (1 view); Complete Time: 14:04 03/18 09:17 Order name: CT C Spine; Complete Time: 14:04 03/18 14:08 Order name: CT Head Brain wo Cont 03/18 14:18 Order name: US Carotid Artery Bilateral 03/18 14:18 Order name: EKG; Complete Time: 14:18 03/18 09:17 Order name: Cardiac monitoring; Complete Time: 09:18 03/18 09:17 Order name: EKG - Nurse/Tech; Complete Time: 09:39 03/18 09:17 Order name: IV Saline Lock; Complete Time: 09:51 03/18 09:17 Order name: Labs collected and sent; Complete Time: 09:51 03/18 09:17 Order name: O2 Per Protocol; Complete Time: 09:18 03/18 09:17 Order name: O2 Sat Monitoring; Complete Time: 09:18 03/18 14:18 Order name: EKG - Nurse/Tech; Complete Time: 14:53 candida EC:09 Rate is 60 beats/min. Rhythm is regular. QRS [place] is Normal. LA interval is normal. QRS candida interval is normal. QT interval is normal. No Q waves. T waves are Normal. No ST changes noted. Clinical impression: Abnormal EKG without significant change and No evidence of ischemia. Interpreted by me. Reviewed by me. 14:56 Rate is 55 beats/min. Rhythm is regular. QRS [place] is Normal. LA interval is prolonged candida at 210 msec. QRS interval is normal. QT interval is normal. No Q waves. T waves are Normal. No ST changes noted. Clinical impression: NSR w/ Non-specific ST/T Changes, Abnormal EKG without significant change, and No evidence of ischemia. Interpreted by me. Reviewed by me. Administered Medications: 09:42 Drug: Diazepam PO 10 mg PO once Route: PO; ko1 10:11 Follow up: Response: No adverse reaction ko1 09:55 Drug: diphenhydrAMINE IVP 37.5 mg IVP once Route: IVP; Site: right wrist; ko1 10:10 Follow up: Response: No adverse reaction ko1 09:55 Drug: metoCLOPramide IVP 10 mg IVP once; over 1 to 2 minutes Route: IVP; Site: right ko1 wrist; 10:10 Follow up: Response: No adverse reaction ko1 09:55 Drug: Ketorolac IVP 15 mg IVP once Route: IVP; Site: right wrist; ko1 10:10 Follow up: Response: No adverse reaction ko1 09:56 Drug: NS 0.9% IV 500 ml 500 ml IV at 1 bolus once; to be given as a bolus over 30 ko1 minutes Volume: 500 ml; Route: IV; Rate: 1 bolus; Site: right wrist; 12:54 Follow up: Response: No adverse reaction; IV Status: Completed infusion; IV Intake: ko1 500ml 15:51 Drug: Aspirin PO Chewable Tablet 81 mg PO once Route: PO; ko1 16:24 Follow up: Response: No adverse reaction tl4 Disposition Summary: 03/18/24 15:40 Discharge Ordered Notes: Location: Home candida Problem: new candida Symptoms: have improved candida Condition: Stable candida Diagnosis - Strain of muscle, fascia and tendon at neck level, initial encounter candida - Headache candida Followup: candida - With: Private Physician - When: 2 - 3 days - Reason: Recheck today's complaints, Re-evaluation by your physician Discharge Instructions: - Discharge Summary Sheet candida - General Headache Without Cause candida - Muscle Strain candida - Muscle Strain, [id number] candida - Aspirin and Your Heart candida - General Headache Without Cause, [id number] candida Forms: - Medication Reconciliation Form candida - Antibiotic Education candida - Prescription Opioid Use candida - Patient Portal Instructions candida - Leadership Thank You Letter [facility] Prescriptions: - diclofenac sodium 25 mg Oral tablet, delayed release (enteric coated) - take 1 tablet ORAL route 3 times per day; 30 tablet; Refills: 0, Product candida Selection Permitted - Medrol (Efra) 4 mg Oral Tablets, Dose Pack - take 1 tablet ORAL route as directed - follow package instructions; 1 packet; candida Refills: 0, Product Selection Permitted - methocarbamol 750 mg Oral tablet - take 1 tablet ORAL route every 6 hours; 28 tablet; Refills: 0, Product candida Selection Permitted Signatures: Dispatcher [employer] Jimy Bess MD MD cha Peltier, Brian, RN RN bp Lindsey Friedman RN RN ko1 Oniel Verdugo RN tl4 Corrections: (The following items were deleted from the chart) 09:17 09:17 BASIC METABOLIC PANEL+C.LAB.BRZ ordered. EDMS EDMS 09:17 09:17 CBC+H.LAB.BRZ ordered. EDMS EDMS 09:17 09:17 HEPATIC FUNCTION+C.LAB.BRZ ordered. EDMS EDMS 09:17 09:17 MAGNESIUM+C.LAB.BRZ ordered. EDMS EDMS 09:17 09:17 PROBNP+C.LAB.BRZ ordered. EDMS EDMS 09:17 09:17 PROTIME (+INR)+COAG.LAB.BRZ ordered. EDMS EDMS 09:17 09:17 Troponin High Sensitivity+C.LAB.BRZ ordered. EDMS EDMS 09:18 09:18 Chest Single View+RAD.RAD.BRZ ordered. EDMS EDMS 09:18 09:18 C Spine Wo Con+CT.RAD.BRZ ordered. EDMS EDMS
--- NOTE | 2024-03-18 15:46 | RAD REPORT ---
EXAM: CT brain without contrast HISTORY: Headache COMPARISON: 2009 TECHNIQUE: Multiple contiguous axial images were obtained and a CT of the brain without contrast.. Sagittal and coronal reconstruction performed. Automated exposure control, adjustment of the mA and/or kV according to patient size, and/or iterative reconstruction. Unless otherwise specified, incidental f indings do not require dedicated imaging follow-u FINDINGS: An intracranial bleed is not seen Ventricles are normal caliber No extra-axial fluid collection noted No significant hypodensity within the brain No fluid within the visualized sinuses or mastoids noted. IMPRESSION: No acute intracranial abnormality noted. If the patient's symptoms persist MRI of the brain would be recommended.
--- NOTE | 2024-03-18 15:52 | RAD REPORT ---
EXAMINATION: US CAROTID DUPLEX CLINICAL INDICATION: Neck pain TECHNIQUE: Real-time grayscale, color flow and spectral Doppler sonographic images were obtained of t he extracranial carotid system using a linear transducer. COMPARISON: No prior exam. FINDINGS: The velocity of the right internal carotid artery 79 cm/s The right ICA/CCA ratio normal The right common carotid artery is tortuous. The velocity left internal carotid artery 69 cm/s The left ICA/CCA ratio normal Mild plaque is present within the carotid arteries Vertebral arteries demonstrate anterograde flow. No significant abnormality external carotid arteries Methods for NASCET criteria: mild stenosis, 0% to 49%; moderate, 50% to 69%; severe stenosis, 70% to 99% IMPRESSION: No significant vascular abnormality displayed
[2024-03-19 03:40] VITALS: BP 162/83; TEMP 98.2; O2SAT 99
--- NOTE | 2024-03-20 15:06 | EKG ---
Test Date: 2024-03-18 Test Time: 14:44:42 Architectural Design Professor: HEMANTH MEASUREMENT RESULTS: Intervals: Rate: 55 KS: 210 QRSD: 90 QT: 424 QTc: 405 Eros: P: 60 KS: 210 QRS: -24 T: 127 INTERPRETIVE STATEMENTS: Sinus bradycardia with 1st degree AV block Anteroseptal infarct, age undetermined T wave abnormality, consider lateral ischemia Abnormal ECG Compared to ECG 03/18/2024 09:36:25 First degree AV block now present Sinus rhythm no longer present Myocardial infarct finding still present T-wave abnormality still present Possible ischemia still present Electronically Signed On 03-20-24 15:06:00 CDT by Jorge Khan
== END 2024-03-18 16:24 | disposition home or self-care (01) ==
LOC: ER 08:59
DX: S16.1XXA Strain of muscle, fascia and tendon at neck level, initial encounter (principal); R51.9 Headache, unspecified; I10 Essential (primary) hypertension; I25.2 Old myocardial infarction; Z86.73 Personal history of transient ischemic attack (TIA), and cerebral infarction without residual deficits; Z79.01 Long term (current) use of anticoagulants; Z72.0 Tobacco use
CPT/HCPCS: 96361; 93005 ×2; 85025; 81001; 80048; 36415; 83735; 85610; 80076; 84484 ×2; 83880; 70450; 72125; 71045; 93880; 96375; 96374; 99285; J2765; J1200; J7040